=== PATIENT | male | born 1945 | race African-American/Black ===

== ENCOUNTER 2016-06-25 16:31 | Observation (INO) | payer MEDICARE, OTHER ==
[~2016-06-25] VITALS: Ht 175.3 cm; Wt 72.0 kg
[~2016-06-25 16:31] MED LIST: BENT20TA PO; WARF-20 PO
[2016-06-25 16:35] VITALS: BP 157/92; PULSE 75; RESP 18; TEMP 97.7; O2SAT 97
[2016-06-25 17:14] VITALS: BP 132/74; PULSE 72; RESP 17; O2SAT 100
[2016-06-25 17:18] VITALS: RESP 17; O2SAT 99
[2016-06-25] MEDS ORDERED: ASPI1TAB69 PO (17:18)
[2016-06-25] MEDS ORDERED: TAMS5CAP PO (17:20)
[2016-06-25] MEDS ORDERED: HYDR25TA35 PO (17:20)
[2016-06-25] MEDS ORDERED: DILA100C PO (17:20)
[2016-06-25] MEDS ORDERED: PHOS667C5 PO (17:20)
[2016-06-25] MEDS ORDERED: DILT120T PO (17:20)
[2016-06-25] MEDS ORDERED: SODIUM CHLORIDE 0.9% FLUSH 5 ML FLUSH IVF PRN (17:30)
[2016-06-25] MEDS: NITROGLYCERIN 0.4 MG SL 25 TABS/BTL SL SCH ×3 (17:35→17:42)
[2016-06-25 17:49] VITALS: BP 105/60; PULSE 92; RESP 17; O2SAT 99
--- NOTE | 2016-06-25 18:02 | RADRPT ---
EXAM DATE/TIME: 06/25/2016 17:46 [place] COMPARISON: CHEST SINGLE AP, June 12, 2016, 14:28. INDICATIONS : Patient complains of left sided flank pain. MEDICAL HISTORY : Hypertension. Congestive heart failure. Asthma. SURGICAL HISTORY : None. ENCOUNTER: Initial ACUITY: 2 months PAIN SCORE: 10/10 LOCATION: chest FINDINGS: A single view of the chest demonstrates the lungs to be symmetrically aerated without evidence of mas s, infiltrate or effusion. The cardiomediastinal contours are unremarkable. Osseous structures are intact. CONCLUSION: Normal examination. Axel Beasley MD on June 25, 2016 at 18:00 Board Certified Radiologist. This report was verified electronically.
[2016-06-25 18:04] LABS: AUTOMATED NEUTROPHIL # 5.4 TH/MM3 (1.8-7.7); BASOPHIL # 0.1 TH/MM3 (0-0.2); BASOPHIL % 0.7 % (0.0-2.0); EOSINOPHIL # 0.3 TH/MM3 (0-0.4); EOSINOPHIL % 3.4 % (0.0-4.0); HEMATOCRIT 38.4 % (39.0-51.0); LYMPH % 20.7 % (9.0-44.0); LYMPHOCYTE # 1.7 TH/MM3 (1.0-4.8); MEAN CELL VOLUME 93.3 FL (80.0-100.0); MEAN CORPUSCULAR HEMOGLOBIN 31.7 PG (27.0-34.0); NEUT % 65.2 % (16.0-70.0); PLATELET COUNT 135 TH/MM3 (150-450); RED BLOOD COUNT 4.12 MIL/MM3 (4.50-5.90); RED CELL DISTRIBUTION WIDTH 15.2 % (11.6-17.2); WHITE BLOOD COUNT 8.2 TH/MM3 (4.0-11.0)
[2016-06-25 18:14] LABS: HEMO FLAGS AUTO DIFF
[2016-06-25 18:24] LABS: ALKALINE PHOSPHATASE 114 U/L (45-117); ALT (GPT) 23 U/L (12-78); ANION GAP 10 MEQ/L (5-15); AST (GOT) 28 U/L (15-37); BICARBONATE 29.7 MEQ/L (21.0-32.0); BLOOD UREA NITROGEN 49 MG/DL (7-18); CHLORIDE 95 MEQ/L (98-107); CREATINE KINASE 159 U/L (39-308); GLOMERULAR FILTRATION RATE 8 ML/MIN (>89); SODIUM (NA) 135 MEQ/L (136-145); TOTAL BILIRUBIN ADULT 0.3 MG/DL (0.2-1.0)
[2016-06-25 18:25] LABS: POTASSIUM 5.2 MEQ/L (3.5-5.1)
[2016-06-25 18:37] LABS: CKMB 2.8 NG/ML (0.5-3.6)
[2016-06-25 18:52] LABS: APTT (PATIENT) 27.3 SEC (24.3-30.1); INTERNATIONAL NORMALIZED RATIO 1.2 RATIO; PROTHROMBIN TIME - PATIENT 13.4 SEC (9.8-11.6)
[2016-06-25 19:28] VITALS: BP 109/85; PULSE 94; RESP 16; O2SAT 97
--- NOTE | 2016-06-25 20:04 | PD ---
HPI Chief Complaint: Chest Pain Time Seen by Provider: 17:09 Travel History International Travel<30 days: No Contact w/Intl Traveler<30days: No Traveled to known affect area: No History of Present Illness HPI Patient is a 71-year-old male with hx of ESRD on HD, ventricular bigeminy, afib on coumadin, htn, hyperlipidemia, CAD and CVA who presents to emergency room with complaints of chest pain. Patient reports that he has been having chest pain which has been ongoing for the past few months. Patient reports that chest pain has been persistent and he has associated back pain with this. Patient reports that whenever he has back pain, he has chest pain along with it.. Reports that he has an appointment with Dr. Szymanski on August 13 for evaluation of this chest pain. Patient reports nothing makes pain better or worse. Patient reports that he sometimes has shortness of breath with this chest pain. Patient reports that he is on Coumadin for history of A. fib, patient is end-stage renal disease on hemodialysis. Patient does receive dialysis on Tuesdays, and Saturdays. Patient sees Dr. Harris Umana as well as Dr. Zhang as outpt for his dialysis. PFSH Past Medical History Hx Anticoagulant Therapy: Yes (COUMADIN) Anemia: Yes Arthritis: Yes (LEFT KNEE) Asthma: Yes Autoimmune Disease: No Blood Disorders: No Anxiety: No Depression: No Heart Rhythm Problems: Yes Cancer: No Cardiovascular Problems: Yes (CA) High Cholesterol: No Chemotherapy: No Chest Pain: No Congestive Heart Failure: Yes Cerebrovascular Accident: Yes (2011 LEFT SIDED) Diabetes: Yes Dialysis: Yes (, , TUE) Diminished Hearing: No Endocrine: Yes Gastrointestinal Disorders: Yes (GI BLEED) GERD: Yes Glaucoma: No Genitourinary: Yes (BPH) Headaches: Yes Hepatitis: No Hiatal Hernia: Yes Hypertension: Yes Immune Disorder: No Implanted Vascular Access Dvce: No Kidney Stones: Yes Musculoskeletal: No Neurologic: Yes Psychiatric: No Reproductive: No Respiratory: Yes (BRONCHITIS IN PAST) Immunizations Current: No Migraines: Yes Myocardial Infarction: No Radiation Therapy: No Renal Failure: Yes Seizures: Yes Sickle Cell Disease: No Thyroid Disease: No Ulcer: No Past Surgical History Abdominal Surgery: No AICD: No Appendectomy: No Arteriovenous Shunt: No Body Medical Devices: FISTULA Cardiac Surgery: No Cholecystectomy: No Ear Surgery: No Endocrine Surgery: No Eye Surgery: No Genitourinary Surgery: No Gynecologic Surgery: No Insulin Pump: No Joint Replacement: No Neurologic Surgery: No Oral Surgery: No Pacemaker: No Thoracic Surgery: No Other Surgery: Yes (L UPPER ARM SHUNT ) Social History Alcohol Use: No Tobacco Use: No Substance Use: No Allergies-Medications (Allergen,Severity, Reaction): Coded Allergies: No Known Allergies (Verified , 06/25/16) Reported Meds & Prescriptions Reported Meds & Active Scripts Active Bentyl (Dicyclomine HCl) 20 Mg Tab 20 Mg PO TID PRN 5 Days Reported Phoslo (Calcium Acetate (Phosphate Binder)) 667 Mg Cap 1,334 Mg PO TID Diltiazem (Diltiazem HCl) 120 Mg Tab 120 Mg PO DAILY Hydralazine (Hydralazine HCl) 25 Mg Tab 25 Mg PO BID Take with a meal Flomax (Tamsulosin HCl) 0.4 Mg Cap 0.4 Mg PO HS Dilantin (Phenytoin Extended) 100 Mg Cap 300 Mg PO TID Aspirin 81 Mg Tabdr 81 Mg PO DAILY Warfarin 4 Mg Tab 8 Mg PO DAILY Review of Systems Cardiovascular: Positive: Chest Pain or Discomfort Respiratory: Positive: Shortness of Breath Musculoskeletal: Positive: Other (back pain) Physical Exam Narrative GENERAL: nad, nontoxic SKIN: Warm and dry. HEAD: Atraumatic. Normocephalic. EYES: Pupils equal and round. No scleral icterus. No injection or drainage. ENT: No nasal bleeding or discharge. Mucous membranes pink and moist. NECK: Trachea midline. No JVD. CARDIOVASCULAR: Irregular iregular rate and rhythm. Patient with 3/6 systolic murmur RESPIRATORY: No accessory muscle use. Clear to auscultation. Breath sounds equal bilaterally. GASTROINTESTINAL: Abdomen soft, non-tender, nondistended. Hepatic and splenic margins not palpable. MUSCULOSKELETAL: No obvious deformities. No clubbing. No cyanosis. No edema. Patient with left-sided AV fistula with good thrill NEUROLOGICAL: Awake and alert. No obvious cranial nerve deficits. Motor grossly within normal limits. Normal speech. PSYCHIATRIC: Appropriate mood and affect; insight and judgment normal. Data Data Last Documented VS Vital Signs Date Time Temp Pulse Resp B/P Pulse Ox O2 Delivery O2 Flow Rate FiO2 06/25/16 19:28 94 16 109/85 97 Room Air 06/25/16 16:35 97.7 Orders Electrocardiogram (06/25/16 ) B-Type Natriuretic Peptide (06/25/16 17:17) Ckmb (Isoenzyme) Profile (06/25/16 17:17) Complete Blood Count With Diff (06/25/16 17:17) Comprehensive Metabolic Panel (06/25/16 17:17) Prothrombin Time / Inr (Pt) (06/25/16 17:17) Act Partial Throm Time (Ptt) (06/25/16 17:17) Troponin I (06/25/16 17:17) Lipase (06/25/16 17:17) Chest, Single Ap (06/25/16 17:17) Ecg Monitoring (06/25/16 17:17) Iv Access Insert/Monitor (06/25/16 17:17) Oximetry (06/25/16 17:17) Sodium Chloride 0.9% Flush (Ns Flush) (06/25/16 17:30) Nitroglycerin Sl (Nitrostat Sl) (06/25/16 17:30) CKMB (06/25/16 17:30) CKMB% (06/25/16 17:30) Admit Order (Ed Use Only) (06/25/16 20:09) Labs Laboratory Tests Test 06/25/16 06/25/16 17:30 18:15 White Blood Count 8.2 TH/MM3 Red Blood Count 4.12 MIL/MM3 Hemoglobin 13.1 GM/DL Hematocrit 38.4 % Mean Corpuscular Volume 93.3 FL Mean Corpuscular Hemoglobin 31.7 PG Mean Corpuscular Hemoglobin 34.0 % Concent Red Cell Distribution Width 15.2 % Platelet Count 135 TH/MM3 Mean Platelet Volume 9.5 FL Neutrophils (%) (Auto) 65.2 % Lymphocytes (%) (Auto) 20.7 % Monocytes (%) (Auto) 10.0 % Eosinophils (%) (Auto) 3.4 % Basophils (%) (Auto) 0.7 % Neutrophils # (Auto) 5.4 TH/MM3 Lymphocytes # (Auto) 1.7 TH/MM3 Monocytes # (Auto) 0.8 TH/MM3 Eosinophils # (Auto) 0.3 TH/MM3 Basophils # (Auto) 0.1 TH/MM3 CBC Comment AUTO DIFF Sodium Level 135 MEQ/L Potassium Level 5.2 MEQ/L Chloride Level 95 MEQ/L Carbon Dioxide Level 29.7 MEQ/L Anion Gap 10 MEQ/L Blood Urea Nitrogen 49 MG/DL Creatinine 8.19 MG/DL Estimat Glomerular Filtration 8 ML/MIN Rate Random Glucose 166 MG/DL Calcium Level 10.5 MG/DL Total Bilirubin 0.3 MG/DL Aspartate Amino Transf 28 U/L (AST/SGOT) Alanine Aminotransferase 23 U/L (ALT/SGPT) Alkaline Phosphatase 114 U/L Total Creatine Kinase 159 U/L Creatine Kinase MB 2.8 NG/ML Troponin I 0.02 NG/ML B-Type Natriuretic Peptide 536 PG/ML Total Protein 7.5 GM/DL Albumin 3.4 GM/DL Lipase 333 U/L Prothrombin Time 13.4 SEC Prothromb Time International 1.2 RATIO Ratio Activated Partial 27.3 SEC Thromboplast Time MDM Medical Decision Making Medical Screen Exam Complete: Yes Emergency Medical Condition: Yes Interpretation(s) Vital Signs Date Time Temp Pulse Resp B/P Pulse Ox O2 Delivery O2 Flow Rate FiO2 06/25/16 19:28 94 16 109/85 97 Room Air 06/25/16 17:49 92 17 105/60 99 Room Air 06/25/16 17:48 17 06/25/16 17:18 17 99 Room Air 06/25/16 17:14 72 17 132/74 100 Room Air 06/25/16 17:10 76 17 100 Room Air 06/25/16 16:35 97.7 75 18 157/92 97 Room Air CBC & BMP Diagram 06/25/16 17:30 Last Impressions Chest X-Ray 06/25/16 1717 Signed Impressions: Service Date/Time: Saturday, June 25, 2016 17:46 - CONCLUSION: Normal examination. Axel Beasley MD Laboratory Tests Test 06/25/16 06/25/16 17:30 18:15 White Blood Count 8.2 TH/MM3 (4.0-11.0) Red Blood Count 4.12 MIL/MM3 (4.50-5.90) Hemoglobin 13.1 GM/DL (13.0-17.0) Hematocrit 38.4 % (39.0-51.0) Mean Corpuscular Volume 93.3 FL (80.0-100.0) Mean Corpuscular Hemoglobin 31.7 PG (27.0-34.0) Mean Corpuscular Hemoglobin 34.0 % Concent (32.0-36.0) Red Cell Distribution Width 15.2 % (11.6-17.2) Platelet Count 135 TH/MM3 (150-450) Mean Platelet Volume 9.5 FL (7.0-11.0) Neutrophils (%) (Auto) 65.2 % (16.0-70.0) Lymphocytes (%) (Auto) 20.7 % (9.0-44.0) Monocytes (%) (Auto) 10.0 % (0.0-8.0) Eosinophils (%) (Auto) 3.4 % (0.0-4.0) Basophils (%) (Auto) 0.7 % (0.0-2.0) Neutrophils # (Auto) 5.4 TH/MM3 (1.8-7.7) Lymphocytes # (Auto) 1.7 TH/MM3 (1.0-4.8) Monocytes # (Auto) 0.8 TH/MM3 (0-0.9) Eosinophils # (Auto) 0.3 TH/MM3 (0-0.4) Basophils # (Auto) 0.1 TH/MM3 (0-0.2) CBC Comment AUTO DIFF Sodium Level 135 MEQ/L (136-145) Potassium Level 5.2 MEQ/L (3.5-5.1) Chloride Level 95 MEQ/L (98-107) Carbon Dioxide Level 29.7 MEQ/L (21.0-32.0) Anion Gap 10 MEQ/L (5-15) Blood Urea Nitrogen 49 MG/DL (7-18) Creatinine 8.19 MG/DL (0.60-1.30) Estimat Glomerular Filtration 8 ML/MIN (>89) Rate Random Glucose 166 MG/DL (74-106) Calcium Level 10.5 MG/DL (8.5-10.1) Total Bilirubin 0.3 MG/DL (0.2-1.0) Aspartate Amino Transf 28 U/L (15-37) (AST/SGOT) Alanine Aminotransferase 23 U/L (12-78) (ALT/SGPT) Alkaline Phosphatase 114 U/L (45-117) Total Creatine Kinase 159 U/L (39-308) Creatine Kinase MB 2.8 NG/ML (0.5-3.6) Troponin I 0.02 NG/ML (0.02-0.05) B-Type Natriuretic Peptide 536 PG/ML (0-100) Total Protein 7.5 GM/DL (6.4-8.2) Albumin 3.4 GM/DL (3.4-5.0) Lipase 333 U/L (73-393) Prothrombin Time 13.4 SEC (9.8-11.6) Prothromb Time International 1.2 RATIO Ratio Activated Partial 27.3 SEC Thromboplast Time (24.3-30.1) Differential Diagnosis ACS, arrhythmia, aortic dissection, PE, electrolyte abnormality, muscle skeletal back pain. Narrative Course Patient is a 71-year-old female who presents to emergency room for evaluation of chest pain and back pain. Patient reports that for the past few months, he has had increased lower back pain, reports that the back pain radiates to his chest. Patient reports that his back pain has been persistent and unrelenting for the past few months. EKG reviewed, no acute ST or T-wave changes. X-ray chest ordered for evaluation of widened mediastinum. CBC, BMP, cardiac enzymes ordered for further evaluation of chest pain. Patient currently with chest pain which has been ongoing for the past few months. Patient describes chest pain along with back pain, aortic dissection is in consideration. Given the fact that patients symptoms have been ongoing for the past few months, pt with bounding pulses and stable vss with normal xray of chest with no widened mediastinum, I have low suspicion for aortic dissection. Plan to admit to medicine service as pt does receive dialysis on //tue. case reviewed with pt's pcp dr campbell who request admission to medicine service Diagnosis Primary Impression: Chest pain Qualified Code: R07.9 - Chest pain, unspecified type Admitting Information Admitting Physician Requests: Yolette Sandoval DO Jun 25, 2016 20:04
--- NOTE | 2016-06-25 20:24 | HHI.HP ---
[facility] Kassandra Granda MD Admission Diagnosis Chest pain Diagnoses: (1) Chest pain Diagnosis: Principal (2) A-fib Diagnosis: Principal (3) Chronic anticoagulation Diagnosis: Principal (4) ESRD (end stage renal disease) on dialysis Diagnosis: Principal (5) HTN (hypertension), benign Diagnosis: Principal Travel History International Travel<30 Days: No Contact w/Intl Traveler <30 Da: No Traveled to Known Affected Are: No History of Present Illness This is a 71-year-old male with a PMH of HTN, ESRD on HD T/Th/Sat, CVA w/ Residual Left-Sided Hemiparesis and Expressive Aphasia, Afib on Coumadin, CAD and Hyperlipidemia who came to the ER w/ complaints of chest and back pain. History very difficult to obtain from patient, however he reports getting chest pain and back pain after eating. States symptoms have been present since CVA, but pain worse now in the last 2-3 days. Denies SOB, nausea, vomiting or diarrhea. On arrival, BP 157/92, HR 75, O2 sat 100% on RA, Afebrile. CBC at baseline. Creatinine 8.19, previously 5.67 on 06/12/16. INR 1.2. Troponin negative. EKG with no acute changes. CXR with no acute findings. Currently pain-free. Follows w/ Dr. Rosen and Dr. Harris Umana as outpatient. Review of Systems Other ROS: 14 point review of systems otherwise negative. Past Family Social History Past Medical History PMH: HTN, ESRD on HD T/Th/Sat, CVA w/ Residual Left-Sided Hemiparesis and Expressive Aphasia, Afib on Coumadin, CAD and Hyperlipidemia Past Surgical History PAST SURGICAL HISTORY: LUE Fistula Allergies: Coded Allergies: No Known Allergies (Verified , 06/25/16) Family History PAST FAMILY HISTORY: Reviewed. No h/o DM or CAD Social History PAST SOCIAL HISTORY: Negative for alcohol, tobacco or drugs. Physical Exam Vital Signs Vital Signs Date Time Temp Pulse Resp B/P Pulse Ox O2 Delivery O2 Flow Rate FiO2 06/25/16 19:28 94 16 109/85 97 Room Air 06/25/16 17:49 92 17 105/60 99 Room Air 06/25/16 17:48 17 06/25/16 17:18 17 99 Room Air 06/25/16 17:14 72 17 132/74 100 Room Air 06/25/16 17:10 76 17 100 Room Air 06/25/16 16:35 97.7 75 18 157/92 97 Room Air Physical Exam PE: GENERAL: Middle-aged black male in no acute distress. Expressive aphasia, at baseline HEENT: PERRLA, EOMI. No scleral icterus or conjunctival pallor. No lid lag or facial droop. CARDIOVASCULAR: Regular rate and rhythm. No obvious murmurs to auscultation. No chest tenderness to palpation. RESPIRATORY: No obvious rhonchi or wheezing. Clear to auscultation. Breath sounds equal bilaterally. GASTROINTESTINAL: Abdomen soft, non-tender, nondistended. BS normal. MUSCULOSKELETAL: Extremities without clubbing, cyanosis, or edema. No obvious deformities. NEUROLOGICAL: Awake, alert and oriented x4. No new focal neurologic deficits, left-sided hemiparesis. Moving both upper and lower extremities spontaneously. Laboratory Laboratory Tests Test 06/25/16 06/25/16 17:30 18:15 White Blood Count 8.2 Red Blood Count 4.12 Hemoglobin 13.1 Hematocrit 38.4 Mean Corpuscular Volume 93.3 Mean Corpuscular Hemoglobin 31.7 Mean Corpuscular Hemoglobin 34.0 Concent Red Cell Distribution Width 15.2 Platelet Count 135 Mean Platelet Volume 9.5 Neutrophils (%) (Auto) 65.2 Lymphocytes (%) (Auto) 20.7 Monocytes (%) (Auto) 10.0 Eosinophils (%) (Auto) 3.4 Basophils (%) (Auto) 0.7 Neutrophils # (Auto) 5.4 Lymphocytes # (Auto) 1.7 Monocytes # (Auto) 0.8 Eosinophils # (Auto) 0.3 Basophils # (Auto) 0.1 CBC Comment AUTO DIFF Sodium Level 135 Potassium Level 5.2 Chloride Level 95 Carbon Dioxide Level 29.7 Anion Gap 10 Blood Urea Nitrogen 49 Creatinine 8.19 Estimat Glomerular Filtration 8 Rate Random Glucose 166 Calcium Level 10.5 Total Bilirubin 0.3 Aspartate Amino Transf 28 (AST/SGOT) Alanine Aminotransferase 23 (ALT/SGPT) Alkaline Phosphatase 114 Total Creatine Kinase 159 Creatine Kinase MB 2.8 Troponin I 0.02 B-Type Natriuretic Peptide 536 Total Protein 7.5 Albumin 3.4 Lipase 333 Prothrombin Time 13.4 Prothromb Time International 1.2 Ratio Activated Partial 27.3 Thromboplast Time Result Diagram: 06/25/16 17306/25/161729 Assessment and Plan Problem List: (1) Chest pain ICD Code: R07.9 Status: Acute (2) A-fib ICD Code: I48.91 Status: Acute (3) Chronic anticoagulation ICD Code: Z79.01 Status: Acute (4) ESRD (end stage renal disease) on dialysis ICD Code: N18.6 Status: Acute (5) HTN (hypertension), benign ICD Code: I10 Status: Acute Assessment and Plan A/P: 1. Chest Pain: Atypical. Vague complaints of chest/back pain after eating x6 months. Trop negative, EKG w/ no acute findings. Will admit for Observation, place on telemetry, check serial cardiac enzymes. Protonix IV in case GI etiology. LFTs normal. CXR w/ no acute findings, images reviewed by me. 2. A-fib: Chronic. Controlled. Resume home medications. 3. Chronic Anticoagulation: On Coumadin. INR subtherapeutic at 1.2. Resume Coumadin. 4. HTN: Controlled. Resume home medications. 5. ESRD on HD: T//Tue. Follows w/ Dr. Harris Umana, will consult to resume HD as scheduled. 6. DVT Prophylaxis: On Coumadin 7. Social work for DC planning as needed. 8. Case discussed at length with ER physician. Problem Qualifiers (1) Chest pain: Qualified Code: R07.9 - Chest pain, unspecified type Fannie Wilks MD Jun 25, 2016 20:24
[2016-06-25 20:30] LABS: OVALOCYTES 2+ (NORMAL); SCAN/DIFF AUTO DIFF CONFIRMED
[2016-06-25] MEDS ORDERED: MORPHINE SULFATE 4 MG/ML INJ IV PRN (20:30)
[2016-06-25] MEDS ORDERED: ACETAMINOPHEN/HYDROcodone 325 MG/5 MG TAB PO PRN (20:30)
[2016-06-25] MEDS ORDERED: ONDANSETRON HCL 4 MG/2 ML VIAL IVP PRN (20:30)
[2016-06-25] MEDS ORDERED: BISACODYL 10 MG SUPP PR PRN (20:30)
[2016-06-25] MEDS ORDERED: PANTOPRAZOLE SODIUM 40 MG VIAL IV PUSH ONE (20:30)
[2016-06-25] MEDS ORDERED: SODIUM CHLORIDE 0.9% FLUSH 5 ML FLUSH FLUSH PRN (20:30)
[2016-06-25] MEDS ORDERED: ACETAMINOPHEN 325 MG TAB PO PRN (20:30)
[2016-06-25 20:31] LABS: PLATELET ESTIMATE SMEAR LOW (NORMAL)
[2016-06-25 21:29] VITALS: BP 132/66; PULSE 76; RESP 19; TEMP 97.9; O2SAT 100
[2016-06-25] MEDS: SODIUM CHLORIDE 0.9% FLUSH 5 ML FLUSH FLUSH SCH (22:07)
[2016-06-25] MEDS: hydrALAZINE HCL 25 MG TAB PO SCH (22:07)
[2016-06-25] MEDS: TAMSULOSIN HCL 0.4 MG CAP PO SCH (22:07)
[2016-06-26] VITALS (9 sets, daily range): BP systolic 125–158; BP diastolic 66–76; PULSE 41–95; RESP 16–20; TEMP 96.5–98; O2SAT 94–99
[2016-06-26 07:25] LABS: AUTOMATED NEUTROPHIL # 3.6 TH/MM3 (1.8-7.7); BASOPHIL % 0.5 % (0.0-2.0); EOSINOPHIL # 0.2 TH/MM3 (0-0.4); EOSINOPHIL % 4.1 % (0.0-4.0); HEMATOCRIT 37.3 % (39.0-51.0); LYMPH % 25.9 % (9.0-44.0); LYMPHOCYTE # 1.5 TH/MM3 (1.0-4.8); MEAN CELL VOLUME 93.3 FL (80.0-100.0); MEAN CORPUSCULAR HEMOGLOBIN 31.9 PG (27.0-34.0); MEAN CORPUSCULAR HGB CONC 34.2 % (32.0-36.0); MONO % 9.5 % (0.0-8.0); PLATELET COUNT 94 TH/MM3 (150-450); RED CELL DISTRIBUTION WIDTH 15.2 % (11.6-17.2); WHITE BLOOD COUNT 5.9 TH/MM3 (4.0-11.0)
[2016-06-26 07:31] LABS: HEMO FLAGS AUTO DIFF
[2016-06-26 07:34] LABS: INTERNATIONAL NORMALIZED RATIO 1.2 RATIO; PROTHROMBIN TIME - PATIENT 13.4 SEC (9.8-11.6)
[2016-06-26 08:01] LABS: ALKALINE PHOSPHATASE 113 U/L (45-117); ALT (GPT) 18 U/L (12-78); ANION GAP 14 MEQ/L (5-15); AST (GOT) 8 U/L (15-37); BICARBONATE 26.5 MEQ/L (21.0-32.0); BLOOD UREA NITROGEN 60 MG/DL (7-18); CHLORIDE 98 MEQ/L (98-107); GLOMERULAR FILTRATION RATE 7 ML/MIN (>89); POTASSIUM 4.4 MEQ/L (3.5-5.1); SODIUM (NA) 138 MEQ/L (136-145); TOTAL BILIRUBIN ADULT 0.4 MG/DL (0.2-1.0)
[2016-06-26] MEDS ORDERED: SODIUM CHLOR 0.9% 1000 ML INJ 1,000 ML IV PRN ×3 (08:10)
[2016-06-26] MEDS ORDERED: NITROGLYCERIN 0.4 MG SL 25 TABS/BTL SL PRN (08:15)
[2016-06-26] MEDS ORDERED: HEPARIN SODIUM - IV 10,000 UNITS/10 ML VIAL IVF PRN (08:15)
[2016-06-26] MEDS ORDERED: HEPARIN SODIUM - IV 10,000 UNITS/10 ML VIAL PRN (08:15)
[2016-06-26] MEDS ORDERED: SODIUM CHLORIDE 0.9% FLUSH 5 ML FLUSH IVF PRN (08:15)
[2016-06-26] MEDS ORDERED: cloNIDine HCL 0.1 MG TAB PO PRN (08:15)
[2016-06-26] MEDS ORDERED: diphenhydrAMINE HCL 25 MG CAP PO PRN (08:15)
[2016-06-26] MEDS ORDERED: ALBUMIN HUMAN 25% 25 GM/100 ML BAGP IV PRN (08:15)
[2016-06-26] MEDS ORDERED: ACETAMINOPHEN 325 MG TAB PO PRN (08:15)
[2016-06-26] MEDS ORDERED: GELATIN 12 MM/7 MM FOAM TOP PRN (08:15)
[2016-06-26] MEDS ORDERED: GENTAMICIN SULFATE (DIALYSIS USE ONLY) 20 MG/2 ML VIAL IV PRN (08:15)
[2016-06-26] MEDS ORDERED: ONDANSETRON HCL 4 MG/2 ML VIAL IV PRN (08:15)
[2016-06-26] MEDS ORDERED: MANNITOL 12.5 GM/50 ML VIAL IV PRN (08:15)
[2016-06-26] MEDS ORDERED: WARFARIN SOD 4 MG TAB PO SCH (09:00)
[2016-06-26] MEDS: DILTIAZEM-CD 120 MG CAP ER PO SCH (09:07)
[2016-06-26] MEDS: PHENYTOIN SODIUM 100 MG CAP PO SCH ×3 (09:07→19:01)
[2016-06-26] MEDS: hydrALAZINE HCL 25 MG TAB PO SCH ×2 (09:07→20:54)
[2016-06-26] MEDS: ASPIRIN EC 81 MG TABEC PO SCH (09:07)
[2016-06-26] MEDS: SODIUM CHLORIDE 0.9% FLUSH 5 ML FLUSH FLUSH SCH ×2 (09:08→20:54)
[2016-06-26] MEDS: PANTOPRAZOLE SODIUM 40 MG VIAL IV PUSH SCH ×2 (09:08→20:54)
[2016-06-26] MEDS: CALCIUM ACETATE 667 MG CAP PO SCH ×3 (09:10→19:01)
--- NOTE | 2016-06-26 09:57 | HHI.PR ---
Subjective Remarks Follow up for chest/back pains. The patient reports continued pain through the midline substernal area and mid back pain, always worse after eating meals. He states this has been going on since his stroke however it is getting worse. He reports persistent belching but no nausea/vomiting. The patient explains he has aphasia and cannot speak well since his stroke, but after long discussion, he believes this could be GI related and would like to proceed with EGD if possible. Objective Vitals Vital Signs Date Time Temp Pulse Resp B/P Pulse Ox O2 Delivery O2 Flow Rate FiO2 06/26/16 08:26 97.8 95 18 126/70 99 06/26/16 07:09 79 06/26/16 03:37 98.0 62 19 127/76 97 06/26/16 00:00 81 06/25/16 21:29 97.9 76 19 132/66 100 06/25/16 19:28 94 16 109/85 97 Room Air 06/25/16 17:49 92 17 105/60 99 Room Air 06/25/16 17:48 17 06/25/16 17:18 17 99 Room Air 06/25/16 17:14 72 17 132/74 100 Room Air 06/25/16 17:10 76 17 100 Room Air 06/25/16 16:35 97.7 75 18 157/92 97 Room Air Result Diagram: 06/26/16 0654 06/26/16 0654 Imaging Last Impressions Chest X-Ray 06/25/16 1717 Signed Impressions: Service Date/Time: Saturday, June 25, 2016 17:46 - CONCLUSION: Normal examination. Axel Beasley MD Objective Remarks GENERAL: Well-nourished, well-developed pleasant AA male patient in NAD. Expressive aphasia, at baseline. SKIN: Warm and dry. No rash. HEAD: Normocephalic. Atraumatic. EYES: Pupils equal and round. No scleral icterus. No injection or drainage. ENT: No nasal bleeding or discharge. Mucous membranes pink and moist. NECK: Supple. Trachea midline. CARDIOVASCULAR: Regular rate and rhythm. S1, S2 noted. 3/6 systolic murmur noted. RESPIRATORY: No accessory muscle use. Clear to auscultation. Breath sounds equal bilaterally. GASTROINTESTINAL: Abdomen soft, non-tender, nondistended. Normoactive bowel sounds x4. MUSCULOSKELETAL: No obvious deformities. Extremities without clubbing, cyanosis , or edema. NEUROLOGICAL: Awake and alert. No obvious cranial nerve deficits. Left sided weakness. PSYCHIATRIC: Appropriate mood and affect; insight and judgment normal. Medications and IVs Current Medications Medications (Trade) Dose Ordered Sig/Brittaney Route Start Time Stop Time Status Last Admin (NS Flush) 2 ml UNSCH PRN FLUSH 06/25/16 20:30 (NS Flush) 2 ml BID FLUSH 06/25/16 21:00 06/26/16 09:08 (Zofran Inj) 4 mg Q6H PRN IVP 06/25/16 20:30 (Dulcolax Supp) 10 mg DAILY PRN UT 06/25/16 20:30 (Tylenol) 650 mg Q6H PRN PO 06/25/16 20:30 ([place] 5-325 Mg) 1 tab Q4H PRN PO 06/25/16 20:30 (Morphine Inj) 2 mg Q3H PRN IV 06/25/16 20:30 (Protonix Inj) 40 mg Q12H IV PUSH 06/26/16 09:00 06/26/16 09:08 (Ecotrin Ec) 81 mg DAILY PO 06/26/16 09:00 06/26/16 09:07 (Phoslo) 1,334 mg TIDAC PO 06/26/16 08:00 06/26/16 09:10 (Apresoline) 25 mg BID PO 06/25/16 21:00 06/26/16 09:07 (Dilantin) 300 mg TID PO 06/26/16 09:00 06/26/16 09:07 (Flomax) 0.4 mg HS PO 06/25/16 21:00 06/25/16 22:07 (Cardizem Cd) 120 mg DAILY PO 06/26/16 09:00 06/26/16 09:07 (Coumadin) 8 mg DAILY@1600 PO 06/26/16 16:00 Patient Medication Teaching 1 1 ONCE ONCE XX 06/26/16 16:00 06/26/16 16:01 (NS 1000 ml Inj) 1,000 ml @ 0 mls/hr Q0M PRN IV 06/26/16 08:10 Heparin Sodium (Porcine) 8000 units 8,000 units UNSCH PRN IVF 06/26/16 08:15 Sodium Chloride 1,000 ml @ 200 mls/hr Q5H PRN IV 06/26/16 08:10 (NS 1000 ml Inj) 1,000 ml @ 0 mls/hr Q0M PRN IV 06/26/16 08:10 (Mannitol Inj) 12.5 gm UNSCH PRN IV 06/26/16 08:15 (Albumin 25% Inj) 25 gm UNSCH PRN IV 06/26/16 08:15 (NS Flush) 5 ml UNSCH PRN IVF 06/26/16 08:15 (Heparin Inj) UNSCH PRN .XX 06/26/16 08:15 (Gentamicin (Dialysis) Inj) 20 mg UNSCH PRN IV 06/26/16 08:15 (Zofran Inj) 4 mg UNSCH PRN IV 06/26/16 08:15 (Tylenol) 650 mg UNSCH PRN PO 06/26/16 08:15 (Benadryl) 25 mg UNSCH PRN PO 06/26/16 08:15 (Nitrostat Sl) 0.4 mg UNSCH PRN SL 06/26/16 08:15 (Catapres) 0.1 mg UNSCH PRN PO 06/26/16 08:15 (Gelfoam 12 Mm/7 Mm Top) 1 foam UNSCH PRN TOP 06/26/16 08:15 Urinary Catheter: No Vascular Central Line Catheter: No A/P Problem List: (1) Chest pain ICD Code: R07.9 Status: Acute (2) A-fib ICD Code: I48.91 Status: Acute (3) Chronic anticoagulation ICD Code: Z79.01 Status: Acute (4) ESRD (end stage renal disease) on dialysis ICD Code: N18.6 Status: Acute (5) HTN (hypertension), benign ICD Code: I10 Status: Acute Assessment and Plan 71-year-old male with a PMH of HTN, ESRD on HD T/Th/Sat, CVA w/ Residual Left- Sided Hemiparesis and Expressive Aphasia, Afib on Coumadin, CAD and HLD who came to the ER w/ complaints of chest and back pain after eating meals. Chest Pain: Atypical. Vague complaints of chest/back pain after eating x6 months, now worsening. ACS ruled out with negative serial cardiac enzymes x3 and EKG w/ no acute findings. CXR w/ no acute findings, images reviewed by me. Nuclear Stress Test 01/12/16 unremarkable. Echo 01/12/16 with EF 55-60%, mild , trace to mild MR, mild TR. Unlikely cardiac etiology. Started on Protonix IV, possible GI etiology, see below. LFTs normal. Epigastric Pains/Back Pains: after eating meals [id number], with persistent eructation. On IV Protonix. Abd/pelvis CT 06/12/16 essentially unremarkable. Consult GI for further evaluation, possible EGD. A-fib: Chronic. Controlled. Continue patient's Cardizem, aspirin, Coumadin. Chronic Anticoagulation: On Coumadin. INR subtherapeutic at 1.2. Resume Coumadin. HTN: Controlled. Resume patient's hydralazine. ESRD on HD: //Tue. Follows w/ Dr. Harris Umana, consulted to resume HD as scheduled. DVT Prophylaxis: On Coumadin Attending Statement The exam, history, and the medical decision-making described in the above note were completed with the assistance of the mid-level provider. I reviewed and agree with the findings presented. I attest that I had a [id number] encounter with the patient on the same day, and personally performed and documented my assessment and findings in the medical record. atypical postprandial pain.sitting up in chair makes it better. Appears comfortable sitting up in chair on exam. Appreciate GI assistance. Problem Qualifiers (1) Chest pain: Qualified Code: R07.9 - Chest pain, unspecified type Trinidad Louise PA-C Jun 26, 2016 09:57 Nick Mancuso MD Jun 27, 2016 01:48
[2016-06-26 09:59] LABS: OVALOCYTES 2+ (NORMAL); PLATELET ESTIMATE SMEAR LOW (NORMAL); PLATELET MORPHOLOGY NORMAL (NORMAL); SCAN/DIFF AUTO DIFF CONFIRMED
--- NOTE | 2016-06-26 14:19 | EKG ---
Date Performed: 06/25/2016 Time Performed: 16:56:38 PTAGE: 71 years EKG: ATRIAL FLUTTER/TACHYCARDIA WITH ABERRANT CONDUCTION OR VENTRICULAR PREMATURE COMPLEXES LEFT ANTERIOR FASCICULAR BLOCK ABNORMAL ECG Compared to prior tracing no significant change PREVIOUS TRACING : 06/12/2016 13.51 DOCTOR: Martínez Villanueva Interpretating Date/Time 06/26/2016 14:13:14
--- NOTE | 2016-06-26 14:39 | PD.CONS ---
HPI Service Nephrology Consult Requested By Dr. Wilks Reason for Consult ESRD Primary Care Physician Kassandra Granda MD History of Present Illness Patient is 71-year-old male with history of end-stage renal disease, hypertension, atrial fibrillation, left-sided CVA with expressive aphasia who was admitted with left-sided chest pain he is describing his pain as posteriorly associated with movement when he eats food and increase his intensity, he goes to hemodialysis on Tuesday, and Tuesday, follows with Dr. Zhang. Review of Systems Constitutional: COMPLAINS OF: Fatigue Cardiovascular: COMPLAINS OF: Chest pain Neurologic: COMPLAINS OF: Localized weakness Past Family Social History Allergies: Coded Allergies: No Known Allergies (Verified , 06/25/16) Past Medical History End-stage renal disease Hypertension Atrial fibrillation Left CVA with expressive aphasia Past Surgical History Left arm AV fistula Reported Medications Reported Meds & Active Scripts Active Bentyl (Dicyclomine HCl) 20 Mg Tab 20 Mg PO TID PRN 5 Days Reported Phoslo (Calcium Acetate (Phosphate Binder)) 667 Mg Cap 1,334 Mg PO TID Diltiazem (Diltiazem HCl) 120 Mg Tab 120 Mg PO DAILY Hydralazine (Hydralazine HCl) 25 Mg Tab 25 Mg PO BID Take with a meal Flomax (Tamsulosin HCl) 0.4 Mg Cap 0.4 Mg PO HS Dilantin (Phenytoin Extended) 100 Mg Cap 300 Mg PO TID Aspirin 81 Mg Tabdr 81 Mg PO DAILY Warfarin 4 Mg Tab 8 Mg PO DAILY Active Ordered Medications Current Medications Medications (Trade) Dose Ordered Sig/Brittaney Route Start Time Stop Time Status Last Admin (NS Flush) 2 ml UNSCH PRN FLUSH 06/25/16 20:30 (NS Flush) 2 ml BID FLUSH 06/25/16 21:00 06/26/16 09:08 (Zofran Inj) 4 mg Q6H PRN IVP 06/25/16 20:30 (Dulcolax Supp) [address] 06/25/16 20:30 (Tylenol) 650 mg Q6H PRN PO 06/25/16 20:30 ([place] 5-325 Mg) 1 tab Q4H PRN PO 06/25/16 20:30 (Morphine Inj) 2 mg Q3H PRN IV 06/25/16 20:30 (Protonix Inj) 40 mg Q12H IV PUSH 06/26/16 09:00 06/26/16 09:08 (Ecotrin Ec) 81 mg DAILY PO 06/26/16 09:00 06/26/16 09:07 (Phoslo) 1,334 mg TIDAC PO 06/26/16 08:00 06/26/16 11:23 (Apresoline) 25 mg BID PO 06/25/16 21:00 06/26/16 09:07 (Dilantin) 300 mg TID PO 06/26/16 09:00 06/26/16 11:23 (Flomax) 0.4 mg HS PO 06/25/16 21:00 06/25/16 22:07 (Cardizem Cd) 120 mg DAILY PO 06/26/16 09:00 06/26/16 09:07 (Coumadin) 8 mg DAILY@1600 PO 06/26/16 16:00 Patient Medication Teaching 1 1 ONCE ONCE XX 06/26/16 16:00 06/26/16 16:01 (NS 1000 ml Inj) 1,000 ml @ 0 mls/hr Q0M PRN IV 06/26/16 08:10 Heparin Sodium (Porcine) 8000 units 8,000 units UNSCH PRN IVF 06/26/16 08:15 Sodium Chloride 1,000 ml @ 200 mls/hr Q5H PRN IV 06/26/16 08:10 (NS 1000 ml Inj) 1,000 ml @ 0 mls/hr Q0M PRN IV 06/26/16 08:10 (Mannitol Inj) 12.5 gm UNSCH PRN IV 06/26/16 08:15 (Albumin 25% Inj) 25 gm UNSCH PRN IV 06/26/16 08:15 (NS Flush) 5 ml UNSCH PRN IVF 06/26/16 08:15 (Heparin Inj) UNSCH PRN .XX 06/26/16 08:15 (Gentamicin (Dialysis) Inj) 20 mg UNSCH PRN IV 06/26/16 08:15 (Zofran Inj) 4 mg UNSCH PRN IV 06/26/16 08:15 (Tylenol) 650 mg UNSCH PRN PO 06/26/16 08:15 (Benadryl) 25 mg UNSCH PRN PO 06/26/16 08:15 (Nitrostat Sl) 0.4 mg UNSCH PRN SL 06/26/16 08:15 (Catapres) 0.1 mg UNSCH PRN PO 06/26/16 08:15 (Gelfoam 12 Mm/7 Mm Top) 1 foam UNSCH PRN TOP 06/26/16 08:15 Family History Noncontributory Social History He used to smoke in the past without any current smoking or alcohol use Physical Exam Vital Signs Vital Signs Date Time Temp Pulse Resp B/P Pulse Ox O2 Delivery O2 Flow Rate FiO2 06/26/16 12:42 97.5 41 16 144/66 99 06/26/16 08:26 97.8 95 18 126/70 99 06/26/16 07:09 79 06/26/16 03:37 98.0 62 19 127/76 97 06/26/16 00:00 81 06/25/16 21:29 97.9 76 19 132/66 100 06/25/16 19:28 94 16 109/85 97 Room Air 06/25/16 17:49 92 17 105/60 99 Room Air 06/25/16 17:48 17 06/25/16 17:18 17 99 Room Air 06/25/16 17:14 72 17 132/74 100 Room Air 06/25/16 17:10 76 17 100 Room Air 06/25/16 16:35 97.7 75 18 157/92 97 Room Air Physical Exam GENERAL: Well-nourished, well-developed patient. SKIN: Warm and dry. HEAD: Normocephalic. EYES: No scleral icterus. No injection or drainage. NECK: Supple, trachea midline. No JVD or lymphadenopathy. CARDIOVASCULAR: Irregular rhythm without murmurs, gallops, or rubs. RESPIRATORY: Breath sounds equal bilaterally. No accessory muscle use. GASTROINTESTINAL: Abdomen soft, non-tender, nondistended. EXTREMITIES: No cyanosis, or edema. NEUROLOGICAL: Awake, alert, and oriented x 3. Laboratory Laboratory Tests Test 06/25/16 06/25/16 06/26/16 06/26/16 17:30 18:15 00:05 06:54 White Blood Count 8.2 5.9 Red Blood Count 4.12 4.00 Hemoglobin 13.1 12.7 Hematocrit 38.4 37.3 Mean Corpuscular Volume 93.3 93.3 Mean Corpuscular Hemoglobin 31.7 31.9 Mean Corpuscular Hemoglobin 34.0 34.2 Concent Red Cell Distribution Width 15.2 15.2 Platelet Count 135 94 Mean Platelet Volume 9.5 9.6 Neutrophils (%) (Auto) 65.2 60.0 Lymphocytes (%) (Auto) 20.7 25.9 Monocytes (%) (Auto) 10.0 9.5 Eosinophils (%) (Auto) 3.4 4.1 Basophils (%) (Auto) 0.7 0.5 Neutrophils # (Auto) 5.4 3.6 Lymphocytes # (Auto) 1.7 1.5 Monocytes # (Auto) 0.8 0.6 Eosinophils # (Auto) 0.3 0.2 Basophils # (Auto) 0.1 0.0 CBC Comment AUTO DIFF AUTO DIFF Differential Comment AUTO DIFF AUTO DIFF CONFIRMED CONFIRMED Platelet Estimate LOW LOW Ovalocytes 2+ 2+ Sodium Level 135 138 Potassium Level 5.2 4.4 Chloride Level 95 98 Carbon Dioxide Level 29.7 26.5 Anion Gap 10 14 Blood Urea Nitrogen 49 60 Creatinine 8.19 8.96 Estimat Glomerular Filtration 8 7 Rate Random Glucose 166 149 Calcium Level 10.5 9.8 Total Bilirubin 0.3 0.4 Aspartate Amino Transf 28 8 (AST/SGOT) Alanine Aminotransferase 23 18 (ALT/SGPT) Alkaline Phosphatase 114 113 Total Creatine Kinase 159 Creatine Kinase MB 2.8 Troponin I 0.02 0.03 0.04 B-Type Natriuretic Peptide 536 Total Protein 7.5 7.0 Albumin 3.4 3.4 Lipase 333 Prothrombin Time 13.4 13.4 Prothromb Time International 1.2 1.2 Ratio Activated Partial 27.3 Thromboplast Time Platelet Morphology Comment NORMAL Result Diagram: 06/26/16 0654 06/26/16 0654 Imaging Last Impressions Chest X-Ray 06/25/16 0327 Signed Impressions: Service Date/Time: Saturday, June 25, 2016 17:46 - CONCLUSION: Normal examination. Axel Beasley MD Assessment and Plan Problem List: (1) ESRD (end stage renal disease) on dialysis Plan: Patient is seen during hemodialysis and he is tolerating it well we will continue with fluid removal ultrafiltration at 2 L his dialysis days are Tuesday, and Tuesday (2) HTN (hypertension), benign Plan: Continue to monitor (3) A-fib Plan: Stable heart rate (4) CAD (coronary artery disease) Plan: he is being ruled out for a RI German Perez MD Jun 26, 2016 14:38
[2016-06-26] MEDS: WARFARIN SOD 4 MG TAB PO SCH (16:00)
--- NOTE | 2016-06-26 17:44 | MB ---
cc: CASSANDRA HOLLINS MD DATE OF CONSULTATION 06/26/16 REASON FOR CONSULTATION Atypical chest pain. HISTORY OF PRESENT ILLNESS The patient is a very pleasant 71-year-old gentleman known to myself who has a history of chronic atrial fibrillation on Coumadin as well as end-stage renal disease on dialysis, CVA who presented with epigastric discomfort upon eating. Apparently he was going to have an EGD but this got side tracked due to his need for dialysis. The patient's history is very difficult due to his significant dysarthria from his prior stroke. He denies any other chest pain except for when he swallows. PAST MEDICAL HISTORY As above. MEDICATIONS Current, 1. Warfarin. 2. Aspirin 81 mg daily. 3. Dilantin. 4. Cardizem 120 mg daily. 5. Hydralazine 25 mg b.i.d. 6. Flomax 0.4 mg daily. ALLERGIES NO KNOWN DRUG ALLERGIES. PHYSICAL EXAMINATION VITAL SIGNS: Afebrile, pulse 41, respiratory rate 15, BP 144/66, satting 99%. GENERAL: Pleasant well-appearing thin -[place] gentleman with significant dysarthria in no distress. NECK: No JVD. LUNGS: Clear to auscultation bilaterally. CARDIOVASCULAR: Irregularly irregular rhythm with a regular rate. No murmurs appreciated. ABDOMEN: Benign. EXTREMITIES: No edema. CARDIOLOGY STUDIES EKG appears to show atrial fibrillation/flutter with bigeminal PVCs, although at times the atrial activity appears more organized consistent with a sinus versus ectopic atrial rhythm. IMPRESSION Atypical chest pain. The patient clearly has a dysphasia type chest pain that is not cardiac in nature and it only occurs when he swallows. Additionally, he has had a nuclear stress test performed in this hospital in January of last year which showed no evidence of ischemia. Thus, with his relatively recent nonischemic nuclear stress test and atypical symptoms he can proceed for his EGD without any further cardiac risk stratification. I will be available on an as-needed basis. Thank you again for the opportunity to participate in this patient's care. MD CHARLES Witt/ /5:04 PM /5:31 PM
[2016-06-26] MEDS: TAMSULOSIN HCL 0.4 MG CAP PO SCH (20:54)
[2016-06-27] VITALS (8 sets, daily range): BP systolic 117–159; BP diastolic 58–70; PULSE 46–91; RESP 18–20; TEMP 97.6–98.6; O2SAT 96–100
[2016-06-27] MEDS: DILTIAZEM-CD 120 MG CAP ER PO SCH (08:39)
[2016-06-27] MEDS: PANTOPRAZOLE SODIUM 40 MG VIAL IV PUSH SCH ×2 (08:40→20:43)
[2016-06-27] MEDS: PHENYTOIN SODIUM 100 MG CAP PO SCH ×3 (08:40→17:28)
[2016-06-27] MEDS: hydrALAZINE HCL 25 MG TAB PO SCH ×2 (08:40→20:43)
[2016-06-27] MEDS: SODIUM CHLORIDE 0.9% FLUSH 5 ML FLUSH FLUSH SCH ×2 (08:40→20:43)
[2016-06-27] MEDS: ASPIRIN EC 81 MG TABEC PO SCH (08:40)
[2016-06-27] MEDS: CALCIUM ACETATE 667 MG CAP PO SCH ×3 (08:40→17:28)
--- NOTE | 2016-06-27 08:51 | HHI.PR ---
Subjective Remarks Patient is still has on and off back pain is in the middle of the back. Moderate intensity sometime. No other associated symptoms. No nausea vomiting No abnormal pain No chest pain No shortness of breath No headache or dizziness Wants to eat some good food Tolerating clears Review of system for 10 point system otherwise unremarkable Objective Objective Results - Vital Signs Date Time Temp Pulse Resp B/P Pulse Ox O2 Delivery O2 Flow Rate FiO2 06/27/16 08:40 96 21 06/27/16 06:39 98.1 46 19 159/70 99 06/27/16 04:08 97.6 77 20 124/58 100 06/26/16 23:28 97.6 88 20 125/66 98 06/26/16 20:00 76 06/26/16 19:39 97.6 77 20 144/67 98 06/26/16 17:55 96.5 48 18 158/66 94 06/26/16 12:42 97.5 41 16 144/66 99 I/O 06/26/16 06/26/16 06/26/16 06/27/16 06/27/16 06/27/16 07:00 15:00 23:00 07:00 15:00 23:00 Output Total 2000 ml Balance -2000 ml Output Hemodialysis 2000 ml # Voids 1 1 Result Diagram: 06/26/16 0654 06/26/16 0654 Physical Exam Physical Exam GENERAL: Well-nourished, well-developed pleasant AA male patient in NAD. Expressive aphasia, at baseline. SKIN: Warm and dry. No rash. HEAD: Normocephalic. Atraumatic. EYES: Pupils equal and round. No scleral icterus. No injection or drainage. ENT: No nasal bleeding or discharge. Mucous membranes pink and moist. NECK: Supple. Trachea midline. CARDIOVASCULAR: Regular rate and rhythm. S1, S2 noted. 3/6 systolic murmur noted. RESPIRATORY: No accessory muscle use. Clear to auscultation. Breath sounds equal bilaterally. GASTROINTESTINAL: Abdomen soft, non-tender, nondistended. Normoactive bowel sounds x4. MUSCULOSKELETAL: No obvious deformities. Extremities without clubbing, cyanosis , or edema. NEUROLOGICAL: Awake and alert. No obvious cranial nerve deficits. Left sided weakness. PSYCHIATRIC: Appropriate mood and affect; insight and judgment normal. A/P Assessment and Plan (1) Chest pain ICD Code: R07.9 Status: Acute (2) A-fib ICD Code: I48.91 Status: Acute (3) Chronic anticoagulation ICD Code: Z79.01 Status: Acute (4) ESRD (end stage renal disease) on dialysis ICD Code: N18.6 Status: Acute (5) HTN (hypertension), benign ICD Code: I10 Status: Acute Plan 71-year-old male with a PMH of HTN, ESRD on HD T//Tue, CVA w/ Residual Left- Sided Hemiparesis and Expressive Aphasia, Afib on Coumadin, CAD and HLD who came to the ER w/ complaints of chest and back pain after eating meals. Chest Pain: Atypical. Vague complaints of chest/back pain after eating x6 months, now worsening. ACS ruled out with negative serial cardiac enzymes x3 and EKG w/ no acute findings. CXR w/ no acute findings, images reviewed by me. Nuclear Stress Test 01/12/16 unremarkable. Echo 01/12/16 with EF 55-60%, mild , trace to mild MR, mild TR. Unlikely cardiac etiology. Started on Protonix IV, possible GI etiology, see below. LFTs normal. Epigastric Pains/Back Pains: after eating meals [id number], with persistent eructation. On IV Protonix. Abd/pelvis CT 06/12/16 essentially unremarkable. Consult GI for further evaluation, possible EGD on Tuesday A-fib: Chronic. Controlled. Continue patient's Cardizem, aspirin, Coumadin. Chronic Anticoagulation: On Coumadin. INR subtherapeutic at 1.2. Resume Coumadin. Will monitor PT/INR HTN: Controlled. Resume patient's hydralazine. ESRD on HD: T//Tue. Follows w/ Dr. Harris Umana, consulted to resume HD as scheduled. Appreciate nephrology consult DVT Prophylaxis: On Coumadin Labs reviewed Medications reviewed Previous Notes and H&P reviewed Total time spent in management of this patient including discuss it patient and RN is 35 minutes Jaquan Eubanks MD Jun 27, 2016 08:51
--- NOTE | 2016-06-27 13:31 | HHI.GIFU ---
GI Follow-up Note Consult Follow-up FUll consult dictated 1. Abdominal pain with meals 2. GERD 3. HX of CVA 4. A fib 5. Anticoagulation PLAN: 1. NPO after mn 2. EGD tomorrow 3. Hold coumadin today It was a pleasure seeing Cortes Michael. Thank you for this consult. Entered by: Amisha Mcnair MD Jun 27, 2016 13:31
[2016-06-27] MEDS ORDERED: MORPHINE SULFATE 4 MG/ML INJ IV PUSH PRN (15:00)
[2016-06-27] MEDS: WARFARIN SOD 4 MG TAB PO SCH (16:00)
--- NOTE | 2016-06-27 16:06 | EKG ---
Date Performed: 06/26/2016 Time Performed: 12:33:03 PTAGE: 71 years EKG: ATRIAL FLUTTER/TACHYCARDIA WITH ABERRANT CONDUCTION OR VENTRICULAR PREMATURE COMPLEXES LEFT ANTERIOR FASCICULAR BLOCK PROBABLE SEPTAL MYOCARDIAL INFARCTION Bigeminy is new since prior tracing ABNORMAL ECG PREVIOUS TRACING : 06/25/2016 16.56 DOCTOR: Martínez Villanueva Interpretating Date/Time 06/27/2016 16:05:15
--- NOTE | 2016-06-27 16:30 | HHI.NPPN ---
Subjective History of Present Illness 71 year old with ESRD, Afib CVA, has GERD Review of Systems Cardiovascular Cardiac: Chest Pain Gastrointestinal Gastrointestinal: Abdominal Pain Objective Data Data 06/26/16 06/27/16 19:00 07:00 Output Total 2000 ml Balance -2000 ml Output Hemodialysis 2000 ml # Voids 2 Vital Signs Date Time Temp Pulse Resp B/P Pulse Ox O2 Delivery O2 Flow Rate FiO2 06/27/16 12:00 98.0 75 18 117/62 100 06/27/16 08:40 96 21 06/27/16 07:08 89 06/27/16 06:39 98.1 46 19 159/70 99 06/27/16 04:08 97.6 77 20 124/58 100 06/26/16 23:28 97.6 88 20 125/66 98 06/26/16 20:00 76 06/26/16 19:39 97.6 77 20 144/67 98 06/26/16 17:55 96.5 48 18 158/66 94 -: 06/26/16 0654 06/26/16 0654 Physical Exam General Appearance: Well Developed Neck Neck Exam: Neck Supple Pulmonary Resp Exam: Clear Bilaterally, Breath Sounds Equal Cardiology CV Exam: Regular, Normal Sinus Rhythm Gastrointestinal/Abdomen GI Exam: Soft, Non-Tender Extremeties Extremities Exam: No Edema Assessment/Plan Problem List: (1) ESRD (end stage renal disease) on dialysis Plan: Patient had hemodialysis l ultrafiltration of 2 L his dialysis days are Tuesday, and Tuesday (2) HTN (hypertension), benign Plan: Continue to monitor (3) A-fib Plan: Stable heart rate (4) CAD (coronary artery disease) Plan: he is getting caputo by German Dukes MD Jun 27, 2016 16:30
[2016-06-27] MEDS: TAMSULOSIN HCL 0.4 MG CAP PO SCH (20:43)
[2016-06-28 00:01] VITALS: BP 134/63; PULSE 98; RESP 20; TEMP 97.6; O2SAT 96
[2016-06-28 04:06] VITALS: BP 135/60; PULSE 44; PULSE 86; RESP 20; TEMP 97.6; O2SAT 99
[2016-06-28 04:45] VITALS: O2SAT 95
[2016-06-28 06:28] LABS: INTERNATIONAL NORMALIZED RATIO 1.2 RATIO; PROTHROMBIN TIME - PATIENT 13.6 SEC (9.8-11.6)
[2016-06-28 07:32] VITALS: O2SAT 95
[2016-06-28] MEDS ORDERED: PROPOFOL 200 MG/20 ML AMP IV ONE (07:51)
--- NOTE | 2016-06-28 08:04 | HHI.GIFU ---
GI Follow-up Note Consult Follow-up Post procedure note ASSESSMENT/PLAN: 1. Proximal esophageal ulcers (may be due to pill induced) 2. Caroline esophagus 3. Moderate Gastritis 4. Hiatal hernia PLAN: 1. diet as tolerated 2. Nystatin 5 ml tid x 7 days 3. Protonix 40 mg twice per day x 1 mo then once per day 4. Outpt follow up 5. no objection to discharge from gi stand point. It was a pleasure seeing Cortes Michael. Thank you for this consult. Entered by: Amisha Mcnair MD Jun 28, 2016 08:04
[2016-06-28 08:33] VITALS: BP 142/83; PULSE 73; RESP 18; TEMP 98; O2SAT 100
--- NOTE | 2016-06-28 08:34 | HHI.PR ---
Subjective Remarks back from EGD tolerated well poor historian, hx CVA, expressive aphasia no N/V no abd. pain c/o lower back pain no cp no sob no fever Objective Objective Results - Vital Signs Date Time Temp Pulse Resp B/P Pulse Ox O2 Delivery O2 Flow Rate FiO2 06/28/16 07:32 95 21 06/28/16 04:45 95 21 06/28/16 04:06 97.6 86 20 135/60 99 06/28/16 00:01 97.6 98 20 134/63 96 06/27/16 20:00 84 06/27/16 19:31 98.6 91 20 137/61 98 06/27/16 16:00 98.2 65 18 155/65 100 06/27/16 12:00 98.0 75 18 117/62 100 06/27/16 08:40 96 21 Result Diagram: 06/26/16 0654 06/26/16 0654 Other Results Laboratory Tests Test 06/28/16 05:32 Prothrombin Time 13.6 Prothromb Time International 1.2 Ratio ROS General: Other (poor historian, expressive aphasia) Neuro/MS: Other (back pain ) Physical Exam Physical Exam GENERAL: Well-nourished, well-developed pleasant AA male patient in NAD. Expressive aphasia, at baseline. SKIN: Warm and dry. No rash. HEAD: Normocephalic. Atraumatic. EYES: Pupils equal and round. No scleral icterus. No injection or drainage. ENT: No nasal bleeding or discharge. Mucous membranes pink and moist. NECK: Supple. Trachea midline. CARDIOVASCULAR: Regular rate and rhythm. S1, S2 noted. 3/6 systolic murmur noted. RESPIRATORY: No accessory muscle use. Clear to auscultation. Breath sounds equal bilaterally. GASTROINTESTINAL: Abdomen soft, non-tender, nondistended. Normoactive bowel sounds x4. MUSCULOSKELETAL: No obvious deformities. Extremities without clubbing, cyanosis , or edema. NEUROLOGICAL: Awake and alert. No obvious cranial nerve deficits. Left sided weakness. Expressive aphasia PSYCHIATRIC: Appropriate mood and affect; insight and judgment normal. Urinary Catheter: No Vascular Central Line Catheter: No A/P Diagnosis: (1) Chest pain (2) Chronic anticoagulation (3) HTN (hypertension), benign (4) ESRD (end stage renal disease) on dialysis (5) Atrial fibrillation Assessment and Plan 71-year-old male with a PMH of HTN, ESRD on HD T//Sat, CVA w/ Residual Left- Sided Hemiparesis and Expressive Aphasia, Afib on Coumadin, CAD and HLD who came to the ER w/ complaints of chest and back pain after eating meals. Chest Pain: Atypical. Vague complaints of chest/back pain after eating x6 months, now worsening. ACS ruled out with negative serial cardiac enzymes x3 and EKG w/ no acute findings. CXR w/ no acute findings, images reviewed by me. Nuclear Stress Test 01/12/16 unremarkable. Echo 01/12/16 with EF 55-60%, mild , trace to mild MR, mild TR. Unlikely cardiac etiology. Started on Protonix IV, possible GI etiology, see below. LFTs normal. Epigastric Pains/Back Pains: after eating meals [id number], with persistent eructation. On IV Protonix. Abd/pelvis CT 06/12/16 essentially unremarkable. GI consultation, input appreciated. For EGD today S/P EGD 06/28-esophageal ulcers may be due to pill induced, esophageal candidiasis, mod. gastritis, hiatal hernia. Recommends PPI BID x 1 month then once a day, Nystatin 5 ml TID x 7 days, cleared for discharge A-fib: Chronic. Controlled. Continue patient's Cardizem, aspirin, Coumadin. INR subtherapeutic Chronic Anticoagulation: On Coumadin. INR subtherapeutic at 1.2. Continue Coumadin. Will monitor PT/INR HTN: Controlled. Resume patient's hydralazine. ESRD on HD: T//Tue. Follows w/ Dr. Harris Umana, consulted to resume HD as scheduled. Appreciate nephrology consult DVT Prophylaxis: On Coumadin Labs reviewed Medications reviewed will have PT ambulate Improved, no cp, cleared by card and GI Plan to discharge this afternoon F/U Dr. Umana 2 weeks F/U nephrology Diet-heart healthy Activity-as tolerated D/W RN D/W Dr. Eubanks D/W pt. This patient was seen by myself and Dr. Eubanks, this note is written on his behalf. Problem Qualifiers (1) Chest pain: Qualified Code: R07.9 - Chest pain, unspecified type (2) Atrial fibrillation: Qualified Code: I48.91 - Atrial fibrillation, unspecified type Madelaine Bosch Jun 28, 2016 08:33
[2016-06-28] MEDS ORDERED: NYSTATIN SUSP 500,000 U/5 ML CUP SWISH-SWAL SCH (09:00)
[2016-06-28] MEDS: DILTIAZEM-CD 120 MG CAP ER PO SCH (09:09)
[2016-06-28] MEDS: PHENYTOIN SODIUM 100 MG CAP PO SCH (09:09)
[2016-06-28] MEDS: CALCIUM ACETATE 667 MG CAP PO SCH (09:09)
[2016-06-28] MEDS: hydrALAZINE HCL 25 MG TAB PO SCH (09:09)
[2016-06-28] MEDS: PANTOPRAZOLE SODIUM 40 MG VIAL IV PUSH SCH (09:10)
[2016-06-28] MEDS: ASPIRIN EC 81 MG TABEC PO SCH (09:10)
[2016-06-28] MEDS: SODIUM CHLORIDE 0.9% FLUSH 5 ML FLUSH FLUSH SCH (09:10)
[2016-06-28 09:27] VITALS: PULSE 85
[2016-06-28] MEDS ORDERED: PROT40TA PO (09:51)
[2016-06-28] MEDS ORDERED: NYST1000 SWISH-SWAL (09:51)
--- NOTE | 2016-06-28 09:52 | HHI.DCPOC ---
Discharge Care Plan Diagnosis: (1) Chest pain Your Health Problems Are: Chest Pain Goals to Promote Your Health * To prevent worsening of your condition and complications * To maintain your health at the optimal level Directions to Meet Your Goals Take your medications as prescribed Follow your dietary instruction Follow activity as directed Keep your appointments as scheduled Take your immunizations and boosters as scheduled If your symptoms worsen call your PCP, if no PCP go to Urgent Care Center or Emergency Room Smoking is Dangerous to Your Health. Avoid second hand smoke Call the 24-hour hour crisis hotline for domestic abuse at Madelaine Bosch Jun 28, 2016 09:52
[2016-06-28] MEDS ORDERED: CANE/ALUMINUM/A1 MIS (12:27)
--- NOTE | 2016-06-28 15:40 | HHI.DS ---
Discharge Summary Admission Date Jun 25, 2016 at 20:11 Discharge Date: Jun 28, 2016 Admitting Diagnosis Chest pain (1) Chest pain (2) Chronic anticoagulation (3) HTN (hypertension), benign (4) ESRD (end stage renal disease) on dialysis (5) Atrial fibrillation Procedures S/P EGD 06/28-esophageal ulcers may be due to pill induced, esophageal candidiasis, mod. gastritis, hiatal hernia CBC/BMP: 06/26/16 0654 06/26/16 0654 Significant Findings Laboratory Tests Test 06/25/16 06/25/16 06/26/16 06/28/16 17:30 18:15 06:54 05:32 Red Blood Count 4.12 MIL/MM3 4.00 MIL/MM3 (4.50-5.90) (4.50-5.90) Hematocrit 38.4 % 37.3 % (39.0-51.0) (39.0-51.0) Platelet Count 135 TH/MM3 94 TH/MM3 (150-450) (150-450) Monocytes (%) (Auto) 10.0 % 9.5 % (0.0-8.0) (0.0-8.0) Platelet Estimate LOW (NORMAL) LOW (NORMAL) Ovalocytes 2+ (NORMAL) 2+ (NORMAL) Sodium Level 135 MEQ/L (136-145) Potassium Level 5.2 MEQ/L (3.5-5.1) Chloride Level 95 MEQ/L (98-107) Blood Urea Nitrogen 49 MG/DL (7-18) 60 MG/DL (7-18) Creatinine 8.19 MG/DL 8.96 MG/DL (0.60-1.30) (0.60-1.30) Estimat Glomerular Filtration 8 ML/MIN (>89) 7 ML/MIN (>89) Rate Random Glucose 166 MG/DL 149 MG/DL (74-106) (74-106) Calcium Level 10.5 MG/DL (8.5-10.1) B-Type Natriuretic Peptide 536 PG/ML (0-100) Prothrombin Time 13.4 SEC 13.4 SEC 13.6 SEC (9.8-11.6) (9.8-11.6) (9.8-11.6) Hemoglobin 12.7 GM/DL (13.0-17.0) Eosinophils (%) (Auto) 4.1 % (0.0-4.0) Magnesium Level 2.7 MG/DL (1.5-2.5) Aspartate Amino Transf 8 U/L (15-37) (AST/SGOT) Imaging Last Impressions Chest X-Ray 06/25/16 4487 Signed Impressions: Service Date/Time: Saturday, June 25, 2016 17:46 - CONCLUSION: Normal examination. 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 History very difficult to obtain from patient, however he reported getting chest pain and back pain after eating. Stated symptoms have been present since CVA, but pain worse now in the last 2-3 days. Denied SOB, nausea, vomiting or diarrhea. On arrival, BP 157/92, HR 75, O2 sat 100% on RA, Afebrile. CBC at baseline. Creatinine 8.19, previously 5.67 on 06/12/16. INR 1.2. Troponin negative. EKG with no acute changes. CXR with no acute findings. In the ED, was pain-free. Follows w/ Dr. Rosen and Dr. Harris Umana as outpatient. Pt. admitted for further evaluation and treatment. During course of hospitalization, the following took place: Chest Pain: Atypical. Vague complaints of chest/back pain after eating x6 months, now worsening. ACS ruled out with negative serial cardiac enzymes x3 and EKG w/ no acute findings. CXR w/ no acute findings, images reviewed by me. Nuclear Stress Test 01/12/16 unremarkable. Echo 01/12/16 with EF 55-60%, mild , trace to mild MR, mild TR. Unlikely cardiac etiology. Started on Protonix IV, possible GI etiology, see below. LFTs normal. Evaluated by Dr. Rosen, pain not cardiac, GI related. Epigastric Pains/Back Pains: after eating meals [id number], with persistent eructation. On IV Protonix. Abd/pelvis CT 06/12/16 essentially unremarkable. GI consultation, input appreciated. EGD recommended. S/P EGD 06/28-esophageal ulcers may be due to pill induced, esophageal candidiasis, mod. gastritis, hiatal hernia. Recommends PPI BID x 1 month then once a day, Nystatin 5 ml TID x 7 days, cleared for discharge A-fib: Chronic. Controlled. Continued patient's Cardizem, aspirin, Coumadin. INR subtherapeutic Chronic Anticoagulation: On Coumadin. INR subtherapeutic at 1.2. Continue Coumadin. Monitored PT/INR HTN: Controlled. Resumed patient's hydralazine. ESRD on HD: //Tue. Follows w/ Dr. Harris Umana, consulted to resume HD as scheduled. Appreciate nephrology consult DVT Prophylaxis: On Coumadin Labs reviewed Medications reviewed PT ambulated, cane ordered. Pt. improved, no cp, cleared by card and GI Discharged in stable condition. Pt. instructed to: F/U Dr. Umana 2 weeks F/U nephrology Diet-heart healthy Activity-as tolerated Pt Condition on Discharge: Stable Discharge Disposition: Discharge Home Discharge Instructions DIET: Follow Instructions for: Heart Healthy Diet Activities you can perform: Weight Bearing as Dino Follow up Referrals: Gastroenterology - 2 Weeks with JERROD UMANA Nephrology PCP Follow-up New Medications: Cane/Aluminum/Adjustable (Cane/Aluminum/Adjustable) 1 Mis Mis 1 EA .ROUTE DIRECTED #1 EA Nystatin Liq (Nystatin Liq) 100,000 unit/ml Susp 5 ML SWISH-SWAL QID ESOPHAGEAL CANDIDIASIS #1 Ref 0 BOTTLE Pantoprazole (Protonix) 40 Mg Tab 40 MG PO BID take 2 times a day for one month, then decrease to once a day. Reflux #30 Ref 1 TAB Continued Medications: Aspirin (Aspirin) 81 Mg Tabdr 81 MG PO DAILY TAB Calcium Acetate (Phosphate Binder) (Phoslo) 667 Mg Cap 1334 MG PO TID Hyperphosphatemia #180 Ref 0 CAP Diltiazem (Diltiazem) 120 Mg Tab 120 MG PO DAILY Angina #120 Ref 0 TAB Hydralazine (Hydralazine) 25 Mg Tab 25 MG PO BID Take with a meal Blood Pressure Management #60 Ref 0 TAB Phenytoin Extended (Dilantin) 100 Mg Cap 300 MG PO TID Control Seizures #270 Ref 0 CAP Tamsulosin (Flomax) 0.4 Mg Cap 0.4 MG PO HS Manage Prostate Problems #30 Ref 0 CAP Warfarin (Warfarin) 4 Mg Tab 8 MG PO DAILY Blood Clot Prevention #0 Ref 0 TAB Discontinued Medications: Dicyclomine (Bentyl) 20 Mg Tab 20 MG PO TID PRN Bowel Management Days 5 Ref 0 TAB Madelaine Bosch Jun 28, 2016 15:40 Madelaine Bosch Jun 28, 2016 15:40
[2016-06-28] MEDS ORDERED: WARFARIN SOD 2 MG TAB PO SCH (16:00)
--- NOTE | 2016-06-30 20:37 | MR ---
cc: JERROD GAO DATE: 06/28/2016 PROCEDURE: EGD with biopsies DATE OF : 1945 INDICATIONS Epigastric back and esophageal pain. Prior to procedure the patient's lungs are clear. Heart sounds normal. Alert and oriented times 3. The patient was on the appropriate monitor at all times, heart rate, respirations, pulse oximetry were monitored and were within normal limits with PICTURE BOOKER support. PROCEDURE NOTE: Informed consent was obtained. The risks, benefits and alternatives to include but not limited to bleeding, infection, perforation, adverse reaction, anesthesia sedation, failure to identify pathology, were explained to the patient who accepted all the risks. The patient was prepped in the left lateral position. IV sedation was given by the Department of Anesthesia which included propofol. The gastroscope was advanced down the proximal and middle distal esophagus. In the upper third of the esophagus in the posterior esophagus the patient had a large esophageal ulcer and touching the adjacent mucosa had another ulceration, appeared to be "kissing ulcers" likely from a pill induced esophageal ulcer as well as scattered areas of candidiasis was noted. The scope was now getting past the point to the GE junction which was normal. The stomach was entered. Moderate gastritis was noted in the gastric cardia, body and the antrum. Multiple biopsies were done. The scope was retroflexed. Small hiatal hernia was noted. The scope was advanced into the second portion of the duodenum. No significant pathology was noted. The scope was withdrawn back. Multiple biopsies in the antrum and body were taken for H. Pylori as well as biopsies in the upper esophagus at the ulcer site was also biopsied for pathology. The scope was withdrawn completely. The patient tolerated the procedure well and went to recovery without any immediate complication. IMPRESSION: 1. Proximal kissing esophageal ulcers, maybe secondary to pill induced esophagitis/esophageal ulcer. 2. Caroline esophagus, biopsied. 3. Moderate gastritis in the antrum, body and cardia. Biopsied. 4. Small hiatal hernia. 5. Normal duodenum. RECOMMENDATIONS: 1. Advance diet as tolerated. 2. Add Nystatin 5 mL two times a day for 7 days. 3. Protonix 40 milligrams p.o. twice a day for one month, then cut down to once a day. 4. Outpatient follow up for biopsies. MD KELSEY Groves/MADALYN /8:01 AM /8:12 PM
--- NOTE | 2016-07-02 11:39 | MB ---
cc: JERROD GAO DATE OF CONSULTATION 06/27/2016 DATE OF [address] Jerrod Gao REASON FOR CONSULTATION Chest pain with eating. HISTORY OF THE PRESENT ILLNESS This is a 71-year-old gentleman who has a long-standing history of chronic a fib on anticoagulation, end-stage renal disease on hemodialysis who came to the hospital complaining of having epigastric abdominal pain and chest pain. His symptoms are precipitated by eating and complains of having pain in the back radiating down. He underwent cardiac workup which was negative for any cardiac disease. He has had history of CVA and mild expressive aphasia, therefore, he is more forgetful. PAST MEDICAL HISTORY 1. End-stage renal disease on hemodialysis. 2. Atrial fibrillation. 3. Hypertension. 4. History of cerebrovascular accident with expressive aphasia. PAST SURGICAL HISTORY Left AV fistula. MEDICATIONS Please see EMR for complete list. ALLERGIES NO KNOWN DRUG ALLERGIES. FAMILY HISTORY No GI malignancies. SOCIAL HISTORY No current alcohol, tobacco use. Distant history of smoking. FAMILY HISTORY No GI malignancies. REVIEW OF SYSTEMS A 12 point review of systems was obtained, otherwise negative or noncontributory except for what is mentioned in the history of present illness. PHYSICAL EXAMINATION VITAL SIGNS: 98.1, 46, 159/70. 91% on room air. GENERAL: Alert and oriented times three . HEENT: Pupils equal, round and reactive to light. Oral mucosa is moist. NECK: Supple. Nontender. No carotid bruits noted. LUNGS: Clear to auscultation. Respirations nonlabored. CARDIOVASCULAR: Normal rate, irregular rhythm. ABDOMEN: Soft and nontender. Nondistended. Bowel sounds present in all four quadrants. GENITOURINARY: No CVA tenderness noted. LYMPHATICS: No lymphadenopathy. MUSCULOSKELETAL: Normal range of motion. SKIN: Warm, dry, intact. NEUROLOGICAL: Alert oriented, mild expressive aphasia with some weakness. PSYCHIATRIC: Appropriate mood and affect. LABORATORY DATA WBC 5.9, hemoglobin 12.7, platelets 94. Sodium 138, potassium 4.4, creatinine 8.96, BUN 60, total bili 0.4, AST 8, ALT 18, alk phos 113, lipase 333. INR 1.2. IMPRESSION 1. Epigastric abdominal pain precipitated with food, etiology unclear. 2. Cardiac workup had been done which is negative for acute disease. 3. Atrial fibrillation on anticoagulation. 4. End-stage renal disease on hemodialysis. 5. Hypertension. RECOMMENDATIONS 1. Diet as tolerated today. 2. Plan for an upper endoscopy tomorrow. 3. Continue IV Protonix for now. 4. Hold anticoagulation tonight. Thank you very much. Further recommendations to follow depending on the results of the above. MD KELSEY Groves/KK /1:35 PM /11:35 AM
== END 2016-06-28 16:12 | disposition home or self-care (01) ==
LOC: NEPA 16:31 → NEDA 20:11 → NEPHCDU 21:18
PROVIDERS: ADMIT Specialist; ATTEND Specialist
DX: K22.10 Ulcer of esophagus without bleeding (principal); K29.70 Gastritis, unspecified, without bleeding; K44.9 Diaphragmatic hernia without obstruction or gangrene; K21.9 Gastro-esophageal reflux disease without esophagitis; B37.81 Candidal esophagitis; J45.909 Unspecified asthma, uncomplicated; I71.00 Dissection of unspecified site of aorta; I69.354 Hemiplegia and hemiparesis following cerebral infarction affecting left non-dominant side; I69.320 Aphasia following cerebral infarction; I48.2 Chronic atrial fibrillation; I25.10 Atherosclerotic heart disease of native coronary artery without angina pectoris; I12.0 Hypertensive chronic kidney disease with stage 5 chronic kidney disease or end stage renal disease; N18.6 End stage renal disease; E78.5 Hyperlipidemia, unspecified; E11.22 Type 2 diabetes mellitus with diabetic chronic kidney disease; M19.90 Unspecified osteoarthritis, unspecified site; N40.0 Benign prostatic hyperplasia without lower urinary tract symptoms; Z79.01 Long term (current) use of anticoagulants; Z87.442 Personal history of urinary calculi; Z87.891 Personal history of nicotine dependence; Z99.2 Dependence on renal dialysis
CPT/HCPCS: 00740; 43239; 71010; 80053; 82550; 82552; 83690; 83735; 83880; 84484; 85025; 85610; 85730; 88305; 88312; 93005; 97161; 99285; C9113; G0257; G0378; G8987; G8988; J2270; J7030; 90935

== ENCOUNTER 2016-07-11 10:50 | Emergency (ER) | payer MEDICARE, OTHER ==
[~2016-07-11] VITALS: Ht 205.7 cm; Wt 75.0 kg
[~2016-07-11 10:50] MED LIST changes: +ASPI1TAB69 PO; -BENT20TA PO; +CANE/ALUMINUM/A1 MIS; +DILA100C PO; +DILT120T PO; +HYDR25TA35 PO; +NYST1000 SWISH-SWAL; +PHOS667C5 PO; +PROT40TA PO; +TAMS5CAP PO
[2016-07-11 10:52] VITALS: BP 184/71; PULSE 87; RESP 20; TEMP 97.8; O2SAT 98
[2016-07-11] MEDS ORDERED: ORPHENADRINE INJ 60 MG/2 ML AMP IM ONE (11:15)
--- NOTE | 2016-07-11 11:19 | PD ---
HPI Chief Complaint: GI Complaint Time Seen by Provider: 11:19 Travel History International Travel<30 days: No Contact w/Intl Traveler<30days: No Traveled to known affect area: No History of Present Illness HPI 71-year-old male with history of gastritis, ESRD on hemodialysis, CVA, A. fib, presents to emergency department for evaluation of a pain on the right side of his back. Patient states that he was bitten up this morning and when his son brought back his breakfast from [employer], he ate it and then developed this pain. Pain is sharp and stabbing. He describes in the right side of his back. Exacerbated with flexion and extension of his spine. States that when he lies back it spasms area denies any cyst chest pain or tightness. No nausea or vomiting. No shortness of breath. No other symptoms to report. PFSH Past Medical History Hx Anticoagulant Therapy: Yes (COUMADIN) Anemia: Yes Arthritis: Yes (LEFT KNEE) Asthma: Yes Autoimmune Disease: No Blood Disorders: No Anxiety: No Depression: No Heart Rhythm Problems: Yes Cancer: No Cardiovascular Problems: Yes High Cholesterol: No Chemotherapy: No Chest Pain: No Congestive Heart Failure: Yes Cerebrovascular Accident: Yes Diabetes: Yes Dialysis: Yes (T, TH, SAT) Diminished Hearing: No Endocrine: Yes Gastrointestinal Disorders: Yes (GI BLEED) GERD: Yes Glaucoma: No Genitourinary: Yes (BPH) Headaches: Yes Hepatitis: No Hiatal Hernia: Yes Hypertension: Yes Immune Disorder: No Implanted Vascular Access Dvce: No Kidney Stones: Yes Medical other: Yes (ANEMIA) Musculoskeletal: No Neurologic: Yes Psychiatric: No Reproductive: No Respiratory: Yes (BRONCHITIS IN PAST) Immunizations Current: No Migraines: Yes Myocardial Infarction: No Radiation Therapy: No Renal Failure: Yes Seizures: Yes Sickle Cell Disease: No Thyroid Disease: No Ulcer: No Past Surgical History Abdominal Surgery: No AICD: No Appendectomy: No Arteriovenous Shunt: No Body Medical Devices: FISTULA Cardiac Surgery: No Cholecystectomy: No Ear Surgery: No Endocrine Surgery: No Eye Surgery: No Genitourinary Surgery: No Gynecologic Surgery: No Insulin Pump: No Joint Replacement: No Neurologic Surgery: No Oral Surgery: No Pacemaker: No Thoracic Surgery: No Other Surgery: Yes (L UPPER ARM SHUNT ) Social History Alcohol Use: No Tobacco Use: No Substance Use: No Allergies-Medications (Allergen,Severity, Reaction): Coded Allergies: No Known Allergies (Verified , 07/11/16) Reported Meds & Prescriptions Reported Meds & Active Scripts Active Robaxin (Methocarbamol) 500 Mg Tab 500 Mg PO TID PRN Cane/Aluminum/Adjustable (Device) 1 Mis Mis 1 Ea .ROUTE DIRECTED Nystatin Liq 100,000 unit/ml Susp 5 Ml SWISH-SWAL QID Protonix (Pantoprazole Sodium) 40 Mg Tab 40 Mg PO BID take 2 times a day for one month, then decrease to once a day. Reported Phoslo (Calcium Acetate (Phosphate Binder)) 667 Mg Cap 1,334 Mg PO TID Diltiazem (Diltiazem HCl) 120 Mg Tab 120 Mg PO DAILY Hydralazine (Hydralazine HCl) 25 Mg Tab 25 Mg PO BID Take with a meal Flomax (Tamsulosin HCl) 0.4 Mg Cap 0.4 Mg PO HS Dilantin (Phenytoin Extended) 100 Mg Cap 300 Mg PO TID Aspirin 81 Mg Tabdr 81 Mg PO DAILY Warfarin 4 Mg Tab 8 Mg PO DAILY Review of Systems Except as stated in HPI: all other systems reviewed are Neg Physical Exam Narrative GENERAL: Well-nourished male patient, ambulatory no acute distress SKIN: Warm and dry. HEAD: Atraumatic. Normocephalic. EYES: Pupils equal and round. No scleral icterus. No injection or drainage. ENT: No nasal bleeding or discharge. Mucous membranes pink and moist. NECK: Trachea midline. No JVD. CARDIOVASCULAR: Bradycardic rate and rhythm. Over 6 systolic murmur appreciated. RESPIRATORY: No accessory muscle use. Clear to auscultation. Breath sounds equal bilaterally. GASTROINTESTINAL: Abdomen soft, non-tender, nondistended. Hepatic and splenic margins not palpable. MUSCULOSKELETAL: No obvious deformities. No clubbing. No cyanosis. No edema. Tenderness elicited palpation of the right posterior lateral ribs. No crepitus. No deformity. NEUROLOGICAL: Awake and alert. No obvious cranial nerve deficits. Motor grossly within normal limits. Normal speech. PSYCHIATRIC: Appropriate mood and affect; insight and judgment normal. Data Data Last Documented VS Vital Signs Date Time Temp Pulse Resp B/P Pulse Ox O2 Delivery O2 Flow Rate FiO2 07/11/16 11:05 18 07/11/16 10:52 97.8 87 184/71 98 Room Air Orders Chest, Single Ap (07/11/16 ) Spine, Thoracic-Ap/Lat/Sw(3vw) (07/11/16 ) Orphenadrine Inj (Norflex Inj) (07/11/16 11:15) Electrocardiogram (07/11/16 11:25) Al-Mag Hy-Si 40-40-4 Mg/Ml Liq (Mag-Al P (07/11/16 11:30) Lidocaine 2% Viscous (Xylocaine 2% Visco (07/11/16 11:30) MDM Medical Decision Making Medical Screen Exam Complete: Yes Emergency Medical Condition: Yes Medical Record Reviewed: Yes Differential Diagnosis muscle spasm versus strain versus discogenic pain versus gastritis versus pancreatitis Narrative Course 71 year old male presents to the ED for evaluation of R sided back pain. No spinal tenderness to palpation. Abdominal exam is benign chest x-rays without acute pulmonary disease. X-ray of the thoracic spine shows mild diffuse primary bone degenerative changes. Otherwise unremarkable exam for his age. Patient was just hospitalized and observed December 23 to June 28 2016 for observation and work up for chest pain. He is ultimately diagnosed with gastritis. He is taking medication for this. EKGs reviewed by my attending and consistent with a venous EKGs. Patient is given Norflex for pain control. Upon reassessment, patient is lying back in sitting up in the bed, very thankful that his pain has been relieved. He'll be discharged home to follow- up with primary care provider. He agrees to return immediately with any acute worsening symptoms. Diagnosis Primary Impression: Back pain Qualified Code: M54.6 - Left-sided thoracic back pain, unspecified chronicity Additional Impressions: Muscle spasm Gastritis Qualified Code: K29.50 - Chronic gastritis without bleeding, unspecified gastritis type Referrals: [employer]ing Wheel Presser Primary Care Physician Patient Instructions: Diet for Stomach Ulcers and Gastritis (ED), General Instructions, Muscle Spasm (ED) Additional Instructions: Ice and/or warm moist heat may help to alleviate symptoms Follow-up a primary care provider Return immediately with any acute worsening of symptoms Med/Other Pt SpecificInfo: Prescription(s) given Scripts Methocarbamol (Robaxin)500 Mg [id number] Mg PO TID PRN (MUSCLE SPASM) #20 TAB Ref 0 Prov:Abbi Avila 07/11/16 Disposition: 01 DISCHARGE HOME Condition: Stable Abbi Avila Jul 11, 2016 11:19
[2016-07-11] MEDS ORDERED: ALUMINUM/MAGNESIUM/SIMETH 30 ML CUP PO ONE (11:30)
[2016-07-11] MEDS ORDERED: LIDOCAINE VISCOUS 2% SOLN 15 ML UDC PO ONE (11:30)
--- NOTE | 2016-07-11 12:58 | RADRPT ---
EXAM DATE/TIME: 07/11/2016 12:01 [facility] COMPARISON: No previous studies available for comparison. INDICATIONS : Mid back pain MEDICAL HISTORY : Hypertension. Congestive heart failure. Asthma SURGICAL HISTORY : None. ENCOUNTER: Initial ACUITY: 2 months PAIN SCORE: 8/10 LOCATION: Bilateral Tspine FINDINGS: There is normal alignment of the thoracic vertebral bodies. Vertebral body height is maintained. No evidence of fracture or subluxation. Pedicles are intact at all levels. There is mild diffuse prima ry bony degenerative changes. The paravertebral reflections are not thickened. CONCLUSION: Mild diffuse primary bony degenerative changes. Otherwise, unremarkable exam for patient's age. Luis Alfredo Oneill MD on July 11, 2016 at 12:56 Board Certified Radiologist. This report was verified electronically.
--- NOTE | 2016-07-11 12:59 | RADRPT ---
EXAM DATE/TIME: 07/11/2016 12:03 [facility] COMPARISON: CHEST SINGLE AP, June 25, 2016, 17:46. INDICATIONS : Chest Pain MEDICAL HISTORY : Hypertension. Congestive heart failure. Asthma SURGICAL HISTORY : None. ENCOUNTER: Initial ACUITY: 2 months PAIN SCORE: 8/10 LOCATION: Bilateral chest FINDINGS: A single view of the chest demonstrates the lungs to be symmetrically aerated without evidence of mas s, infiltrate or effusion. The cardiomediastinal contours are unremarkable. Osseous structures are intact. CONCLUSION: No acute disease. No significant change has occurred. Luis Alfredo Oneill MD on July 11, 2016 at 12:57 Board Certified Radiologist. This report was verified electronically.
[2016-07-11] MEDS ORDERED: ROBA500T PO (13:17)
--- NOTE | 2016-07-11 15:21 | PD ---
Physical Exam Date Seen by Provider: Jul 11, 2016 Time Seen by Provider: 13:30 Narrative I, Dr. Call, have reviewed the advance practice practitioner's documentation and am in agreement, met with the patient face to face, made the diagnosis, and the medical decision making was done by me. *My assessment and Findings: Patient seen and evaluated with PA, please see PA no further details. Here complaining of left-sided back pains after eating. He is mild tenderness to palpation in the left posterior flank area. Chest x- ray did not reveal any signs of acute pulmonary processes. Abdomen is benign and I do not suspect an acute intra-abdominal process. Patient was given symptomatic relief for discomfort. He appears to be fairly comfortable in the ER. And on reevaluation now or later, he is feeling improved. At this point, my plan would be to release the patient with symptomatic relief and follow-up to primary care physician. Return for any worsening in symptoms as necessary. Data Data Last Documented VS Vital Signs Date Time Temp Pulse Resp B/P Pulse Ox O2 Delivery O2 Flow Rate FiO2 07/11/16 11:05 18 07/11/16 10:52 97.8 87 184/71 98 Room Air Orders Chest, Single Ap (07/11/16 ) Spine, Thoracic-Ap/Lat/Sw(3vw) (07/11/16 ) Orphenadrine Inj (Norflex Inj) (07/11/16 11:15) Electrocardiogram (07/11/16 11:25) Al-Mag Hy-Si 40-40-4 Mg/Ml Liq (Mag-Al P (07/11/16 11:30) Lidocaine 2% Viscous (Xylocaine 2% Visco (07/11/16 11:30) MDM Medical Record Reviewed: Yes Supervised Visit with IVORY: Yes Diagnosis Primary Impression: Back pain Qualified Code: M54.6 - Left-sided thoracic back pain, unspecified chronicity Additional Impressions: Muscle spasm Gastritis Qualified Code: K29.50 - Chronic gastritis without bleeding, unspecified gastritis type Referrals: Asset Management Coordinator Primary Care Physician Patient Instructions: General Instructions, Diet for Stomach Ulcers and Gastritis (ED), Muscle Spasm (ED) Departure Forms: Tests/Procedures Additional Instruction: Ice and/or warm moist heat may help to alleviate symptoms Follow-up a primary care provider Return immediately with any acute worsening of symptoms Scripts Methocarbamol (Robaxin)500 Mg Brs750 Mg PO TID PRN (MUSCLE SPASM) #20 TAB Ref 0 Prov:Abbi Avila 07/11/16 Disposition: 01 DISCHARGE HOME Condition: Stable Sindy Call MD Jul 11, 2016 15:21
--- NOTE | 2016-07-11 18:01 | EKG ---
Date Performed: 07/11/2016 Time Performed: 12:05:23 PTAGE: 71 years EKG: SINUS BRADYCARDIA WITH FIRST DEGREE AV BLOCK WITH FREQUENT VENTRICULAR PREMATURE COMPLEXES IN A BIGEMINAL PATTERN LEFT ANTERIOR FASCICULAR BLOCK PROBABLE SEPTAL MYOCARDIAL INFARCTION NONSPECIF IC INTRAVENTRICULAR CONDUCTION DELAY ABNORMAL ECG PREVIOUS TRACING : 06/26/2016 12.33 No significant change from previous tracing noted. DOCTOR: Roshan Herndon Interpretating Date/Time 07/11/2016 17:59:53
== END 2016-07-11 13:41 | disposition home or self-care (01) ==
LOC: NEPA 10:50
DX: M54.6 Pain in thoracic spine (principal); M62.838 Other muscle spasm; K29.70 Gastritis, unspecified, without bleeding; R07.9 Chest pain, unspecified; I12.0 Hypertensive chronic kidney disease with stage 5 chronic kidney disease or end stage renal disease; N18.6 End stage renal disease; I48.91 Unspecified atrial fibrillation; I50.9 Heart failure, unspecified; E11.9 Type 2 diabetes mellitus without complications; N40.0 Benign prostatic hyperplasia without lower urinary tract symptoms; R00.1 Bradycardia, unspecified; I44.0 Atrioventricular block, first degree; I49.3 Ventricular premature depolarization; I44.4 Left anterior fascicular block; R94.31 Abnormal electrocardiogram [ECG] [EKG]; Z87.442 Personal history of urinary calculi; Z79.01 Long term (current) use of anticoagulants; Z99.2 Dependence on renal dialysis
CPT/HCPCS: 71010; 72072; 93005; 96372; 99283; J2360

== ENCOUNTER 2016-07-18 10:22 | Emergency (ER) | payer MEDICARE, OTHER ==
[~2016-07-18] VITALS: Ht 188 cm; Wt 75.0 kg
[~2016-07-18 10:22] MED LIST changes: +ROBA500T PO
[2016-07-18 10:26] VITALS: BP 130/83; PULSE 80; RESP 15; TEMP 98.2; O2SAT 99
--- NOTE | 2016-07-18 11:43 | PD ---
HPI Chief Complaint: Back/ Neck Pain or Injury Time Seen by Provider: 10:34 Travel History International Travel<30 days: No Contact w/Intl Traveler<30days: No Traveled to known affect area: No History of Present Illness HPI 71-year-old male complains of back pain. Patient states that the pain started about 8 weeks ago. Patient was seen by personal physician and the emergency room physician for back pain. Last visit to the emergency room with June. X-ray of the chest and thoracic spine worse negative acute pathology. Patient was given prescription for Robaxin for back pain. Patient states that he had persistent pain despite taking the medication. Patient was seen by his personal physician Dr. Harris Umana and referred to physical therapy for back pain. Patient has history of end-stage renal disease on dialysis Tuesday, , Tuesday weekly. Patient also has history of gastritis, status post CVA, A. fib, CHF, diabetes, BPH, GERD, anemia. PFSH Past Medical History Hx Anticoagulant Therapy: Yes (COUMADIN) Anemia: Yes Arthritis: Yes (LEFT KNEE) Asthma: Yes Autoimmune Disease: No Blood Disorders: No Anxiety: No Depression: No Heart Rhythm Problems: Yes Cancer: No Cardiovascular Problems: Yes High Cholesterol: No Chemotherapy: No Chest Pain: No Congestive Heart Failure: Yes Cerebrovascular Accident: Yes Diabetes: Yes Patient Takes Glucophage: No Dialysis: Yes (, , TUE) Diminished Hearing: No Endocrine: Yes Gastrointestinal Disorders: Yes (GI BLEED) GERD: Yes Glaucoma: No Genitourinary: Yes (BPH) Headaches: Yes Hepatitis: No Hiatal Hernia: Yes Hypertension: Yes Immune Disorder: No Implanted Vascular Access Dvce: No Kidney Stones: Yes Medical other: Yes (ANEMIA) Musculoskeletal: No Neurologic: Yes Psychiatric: No Reproductive: No Respiratory: Yes (BRONCHITIS IN PAST) Immunizations Current: No Migraines: Yes Myocardial Infarction: No Radiation Therapy: No Renal Failure: Yes Seizures: Yes Sickle Cell Disease: No Thyroid Disease: No Ulcer: No Tetanus Vaccination: > 5 Years Influenza Vaccination: Yes Past Surgical History Abdominal Surgery: No AICD: No Appendectomy: No Arteriovenous Shunt: No Body Medical Devices: FISTULA Cardiac Surgery: No Cholecystectomy: No Ear Surgery: No Endocrine Surgery: No Eye Surgery: No Genitourinary Surgery: No Gynecologic Surgery: No Insulin Pump: No Joint Replacement: No Neurologic Surgery: No Oral Surgery: No Pacemaker: No Thoracic Surgery: No Other Surgery: Yes (L UPPER ARM SHUNT ) Social History Alcohol Use: No Tobacco Use: No Substance Use: No Allergies-Medications (Allergen,Severity, Reaction): Coded Allergies: No Known Allergies (Verified , 07/18/16) Reported Meds & Prescriptions Reported Meds & Active Scripts Active Robaxin (Methocarbamol) 500 Mg Tab 500 Mg PO TID PRN Cane/Aluminum/Adjustable (Device) 1 Mis Mis 1 Ea .ROUTE DIRECTED Nystatin Liq 100,000 unit/ml Susp 5 Ml SWISH-SWAL QID Protonix (Pantoprazole Sodium) 40 Mg Tab 40 Mg PO BID take 2 times a day for one month, then decrease to once a day. Reported Phoslo (Calcium Acetate (Phosphate Binder)) 667 Mg Cap 1,334 Mg PO TID Diltiazem (Diltiazem HCl) 120 Mg Tab 120 Mg PO DAILY Hydralazine (Hydralazine HCl) 25 Mg Tab 25 Mg PO BID Take with a meal Flomax (Tamsulosin HCl) 0.4 Mg Cap 0.4 Mg PO HS Dilantin (Phenytoin Extended) 100 Mg Cap 300 Mg PO TID Aspirin 81 Mg Tabdr 81 Mg PO DAILY Warfarin 4 Mg Tab 8 Mg PO DAILY Review of Systems General / Constitutional: No: Fever Eyes: No: Visual changes HENT: No: Headaches Cardiovascular: No: Chest Pain or Discomfort Respiratory: No: Shortness of Breath Gastrointestinal: Positive: Abdominal Pain Genitourinary: No: Dysuria Musculoskeletal: Positive: Pain Skin: No Rash Neurologic: No: Weakness Psychiatric: No: Depression Endocrine: No: Polydipsia Hematologic/Lymphatic: No: Easy Bruising Physical Exam Narrative GENERAL: Well-nourished, well-developed patient. SKIN: Warm and dry. HEAD: Normocephalic. EYES: No scleral icterus. No injection or drainage. NECK: Supple, trachea midline. No JVD or lymphadenopathy. CARDIOVASCULAR: Regular rate and rhythm without murmurs, gallops, or rubs. RESPIRATORY: Breath sounds equal bilaterally. No accessory muscle use. GASTROINTESTINAL: Abdomen soft, nondistended. Patient has mild tenderness on palpation epigastric area. No rebound tenderness. No mass. MUSCULOSKELETAL: No cyanosis, or edema. BACK: Patient has mild tenderness on palpation lumbar area, without obvious deformity. No CVA tenderness. neurologic exam normal. Data Data Last Documented VS Vital Signs Date Time Temp Pulse Resp B/P Pulse Ox O2 Delivery O2 Flow Rate FiO2 07/18/16 10:26 98.2 80 15 130/83 99 Orders Complete Blood Count With Diff (07/18/16 10:47) Comprehensive Metabolic Panel (07/18/16 10:47) Prothrombin Time / Inr (Pt) (07/18/16 10:47) Lipase (07/18/16 10:47) Thyroid Stimulating Hormone (07/18/16 10:47) Ct Abd/Pel W/O Iv Contrast (07/18/16 10:47) Iv Access Insert/Monitor (07/18/16 10:47) Ecg Monitoring (07/18/16 10:47) Oximetry (07/18/16 10:47) Ct Lumb Spine W/O Contrast (07/18/16 10:47) Labs Laboratory Tests Test 07/18/16 11:20 White Blood Count 6.4 TH/MM3 Red Blood Count 3.90 MIL/MM3 Hemoglobin 12.3 GM/DL Hematocrit 36.8 % Mean Corpuscular Volume 94.4 FL Mean Corpuscular Hemoglobin 31.6 PG Mean Corpuscular Hemoglobin 33.5 % Concent Red Cell Distribution Width 15.1 % Platelet Count 112 TH/MM3 Mean Platelet Volume 8.8 FL Neutrophils (%) (Auto) 63.8 % Lymphocytes (%) (Auto) 24.3 % Monocytes (%) (Auto) 7.9 % Eosinophils (%) (Auto) 3.2 % Basophils (%) (Auto) 0.8 % Neutrophils # (Auto) 4.1 TH/MM3 Lymphocytes # (Auto) 1.6 TH/MM3 Monocytes # (Auto) 0.5 TH/MM3 Eosinophils # (Auto) 0.2 TH/MM3 Basophils # (Auto) 0.1 TH/MM3 CBC Comment DIFF FINAL Differential Comment Prothrombin Time 18.4 SEC Prothromb Time International 1.6 RATIO Ratio Sodium Level 139 MEQ/L Potassium Level 4.7 MEQ/L Chloride Level 99 MEQ/L Carbon Dioxide Level 32.0 MEQ/L Anion Gap 8 MEQ/L Blood Urea Nitrogen 25 MG/DL Creatinine 6.32 MG/DL Estimat Glomerular Filtration 11 ML/MIN Rate Random Glucose 173 MG/DL Calcium Level 10.0 MG/DL Total Bilirubin 0.6 MG/DL Aspartate Amino Transf 13 U/L (AST/SGOT) Alanine Aminotransferase 19 U/L (ALT/SGPT) Alkaline Phosphatase 112 U/L Total Protein 7.5 GM/DL Albumin 3.7 GM/DL Lipase 127 U/L Thyroid Stimulating Hormone 1.090 uIU/ML 3rd [facility] Medical Decision Making Medical Screen Exam Complete: Yes Emergency Medical Condition: Yes Medical Record Reviewed: Yes Interpretation(s) Last Impressions Lumbar Spine CT 07/18/16 1047 Signed Impressions: Service Date/Time: Monday, July 18, 2016 11:41 - CONCLUSION: 1. No fracture or subluxation. 2. Multilevel disc bulges causing mild canal stenosis at L3-4 and mild to moderate canal stenosis at L4-5 Lui Cruz MD Abdomen/Pelvis CT 07/18/161046 Signed Impressions: Service Date/Time: Monday, July 18, 2016 11:41 - CONCLUSION: 1. No renal calculi or hydronephrosis. 2. Diverticulosis without diverticulitis. 3. Kidneys are atrophic with chronic appearing left-sided UPJ junction again noted. 4. Bilateral renal densities are again seen and stable. Lui Cruz MD 1329 PM. CBC within normal limit. BUN 25. Creatinine 6.32. GFR 11. Glucose 173. INR 1.6. Differential Diagnosis Differential diagnosis including gastritis, PUD, pancreatitis, cholecystitis, colitis, UTI, pyelonephritis, acute exacerbation of low back pain. Narrative Course 71-year-old male with epigastric pain and low back pain. History of recurrent back pain for the past few months. History of gastritis. Diagnosis Primary Impression: Acute exacerbation of chronic low back pain Additional Impression: Gastritis Qualified Code: K29.70 - Gastritis without bleeding, unspecified chronicity, unspecified gastritis type Patient Instructions: General Instructions Additional Instructions: Take medication as directed. Follow-up with personal physician for referral to orthopedist for back pain. Take stool softener with pain medication. Med/Other Pt SpecificInfo: Prescription(s) given Scripts Acetaminophen-Codeine (Tylenol-Codeine #3)300-30 mg Tab1 Tab PO Q6HR PRN ( HEADACHE) #30 TAB Prov:Shine Johns MD 07/18/16 Disposition: 01 DISCHARGE HOME Condition: Stable Shine Johns MD Jul 18, 2016 11:43
[2016-07-18 11:49] LABS: AUTOMATED NEUTROPHIL # 4.1 TH/MM3 (1.8-7.7); BASOPHIL # 0.1 TH/MM3 (0-0.2); BASOPHIL % 0.8 % (0.0-2.0); EOSINOPHIL # 0.2 TH/MM3 (0-0.4); EOSINOPHIL % 3.2 % (0.0-4.0); HEMATOCRIT 36.8 % (39.0-51.0); HEMO FLAGS DIFF FINAL; LYMPH % 24.3 % (9.0-44.0); LYMPHOCYTE # 1.6 TH/MM3 (1.0-4.8); MEAN CELL VOLUME 94.4 FL (80.0-100.0); MEAN CORPUSCULAR HEMOGLOBIN 31.6 PG (27.0-34.0); MEAN CORPUSCULAR HGB CONC 33.5 % (32.0-36.0); MONO % 7.9 % (0.0-8.0); NEUT % 63.8 % (16.0-70.0); PLATELET COUNT 112 TH/MM3 (150-450); RED CELL DISTRIBUTION WIDTH 15.1 % (11.6-17.2); WHITE BLOOD COUNT 6.4 TH/MM3 (4.0-11.0)
[2016-07-18 12:00] LABS: INTERNATIONAL NORMALIZED RATIO 1.6 RATIO; PROTHROMBIN TIME - PATIENT 18.4 SEC (9.8-11.6)
[2016-07-18 12:08] LABS: ALT (GPT) 19 U/L (12-78); ANION GAP 8 MEQ/L (5-15); AST (GOT) 13 U/L (15-37); BLOOD UREA NITROGEN 25 MG/DL (7-18); CHLORIDE 99 MEQ/L (98-107); GLOMERULAR FILTRATION RATE 11 ML/MIN (>89); POTASSIUM 4.7 MEQ/L (3.5-5.1); SODIUM (NA) 139 MEQ/L (136-145)
--- NOTE | 2016-07-18 12:11 | RADRPT ---
EXAM DATE/TIME: 07/18/2016 11:41 [facility] COMPARISON: CT ABDOMEN & PELVIS W/O CONTRAST, June 12, 2016, 15:01. INDICATIONS : Epigrastic pain. ORAL CONTRAST: No oral contrast ingested. RADIATION DOSE: 9.96 CTDIvol (mGy) MEDICAL HISTORY : Diabetes mellitus type 2. Cerebrovascular disease. Seizures.renal failure SURGICAL HISTORY : None. ENCOUNTER: Initial ACUITY: 1 day PAIN SCALE: 5/10 LOCATION: lower back TECHNIQUE: Volumetric scanning of the abdomen and pelvis was performed. Using automated exposure control and ad justment of the mA and/or kV according to patient size, radiation dose was kept as low as reasonably achievable to obtain optimal diagnostic quality images. FINDINGS: LOWER LUNGS: The visualized lower lungs are clear. LIVER: Homogeneous density without lesion. There is no dilation of the biliary tree. No calcified gallston es. SPLEEN: Normal size without lesion. PANCREAS: Within normal limits. KIDNEYS: Kidneys are slightly atrophic. Chronic UPJ on the left with low-density lesions again seen bilaterall y. ADRENAL GLANDS: Within normal limits. VASCULAR: There is no aortic aneurysm. BOWEL/MESENTERY: Diverticulosis of the colon without diverticulitis. There is no free intraperitoneal air or fluid. ABDOMINAL WALL: Within normal limits. RETROPERITONEUM: There is no lymphadenopathy. BLADDER: Nondistended. Mildly enlarged prostate. REPRODUCTIVE: Within normal limits. INGUINAL: There is no lymphadenopathy or hernia. MUSCULOSKELETAL: Within normal limits for patient age. CONCLUSION: 1. No renal calculi or hydronephrosis. 2. Diverticulosis without diverticulitis. 3. Kidneys are atrophic with chronic appearing left-sided UPJ junction again noted. 4. Bilateral renal densities are again seen and stable. Lui Cruz MD on July 18, 2016 at 12:07 Board Certified Radiologist. This report was verified electronically.
[2016-07-18 12:17] LABS: ALKALINE PHOSPHATASE 112 U/L (45-117); TOTAL BILIRUBIN ADULT 0.6 MG/DL (0.2-1.0)
--- NOTE | 2016-07-18 12:18 | RADRPT ---
EXAM DATE/TIME: 07/18/2016 11:41 [facility] COMPARISON: No previous studies available for comparison. INDICATIONS : Lower back bernardo. RADIATION DOSE: CTDIvol (mGy) ; Reconstructed from previous dataset MEDICAL HISTORY : Diabetes mellitus type 2. Cerebrovascular disease. Seizures.ranal failure SURGICAL HISTORY : None. ENCOUNTER: Initial ACUITY: 1 day PAIN SCALE: 5/10 LOCATION: lower back TECHNIQUE: Volumetric scanning of the lumbar spine was performed. Multiplanar reconstructions in the sagittal, coronal and oblique axial planes were performed. Using automated exposure control and adjustment of the mA and/or kV according to patient size, radiation dose was kept as low as reasonably achievable t o obtain optimal diagnostic quality images. FINDINGS: VERTEBRAE: Normal vertebral body height. ALIGNMENT: No evidence of subluxation. T12-L1: The thecal sac has a normal diameter. No evidence of disc bulge or protrusion. The neural foramina are patent bilaterally. L1-L2: The thecal sac has a normal diameter. No evidence of disc bulge or protrusion. The neural foramina are patent bilaterally. L2-L3: Mild broad-based disc bulge abuts ventral thecal sac. Mild facet arthropathy. No canal stenosis. The neural foramina are patent bilaterally. L3-L4: Mild broad-based disc bulge abuts ventral thecal sac. Mild facet arthropathy. Mild canal stenosis.The neural foramina are patent bilaterally. L4-L5: Mild broad-based disc bulge abuts ventral thecal sac. Moderate facet arthropathy. Mild to moderate ca nal stenosis. mild to moderate neural foraminal narrowing bilaterally. L5-S1: Mild broad-based disc bulge abuts ventral thecal sac. Mild facet arthropathy. No canal stenosis. Mild narrowing of the neural foramen bilaterally. CONCLUSION: 1. No fracture or subluxation. 2. Multilevel disc bulges causing mild canal stenosis at L3-4 and mild to moderate canal stenosis at L4-5 Lui Cruz MD on July 18, 2016 at 12:14 Board Certified Radiologist. This report was verified electronically.
[2016-07-18] MEDS ORDERED: TYLETAB34 PO (13:37)
== END 2016-07-18 13:55 | disposition home or self-care (01) ==
LOC: NEPA 10:22
DX: M54.9 Dorsalgia, unspecified (principal); G89.29 Other chronic pain; K29.70 Gastritis, unspecified, without bleeding; N18.6 End stage renal disease; I50.9 Heart failure, unspecified; I10 Essential (primary) hypertension; Z79.01 Long term (current) use of anticoagulants; Z86.73 Personal history of transient ischemic attack (TIA), and cerebral infarction without residual deficits; Z99.2 Dependence on renal dialysis
CPT/HCPCS: 72131; 74176; 80053; 83690; 84443; 85025; 85610

== ENCOUNTER 2016-08-17 10:46 | Emergency (ER) | payer MEDICARE, OTHER ==
[~2016-08-17 10:46] MED LIST changes: +TYLETAB34 PO
[2016-08-17 10:50] VITALS: BP 168/74; PULSE 89; RESP 15; O2SAT 96
--- NOTE | 2016-08-17 11:05 | PD ---
HPI Chief Complaint: Seizure Time Seen by Provider: 10:55 Travel History International Travel<30 days: No Contact w/Intl Traveler<30days: No History of Present Illness HPI This 71-year-old man who presents to the emergency department from [place] dialysis after witnessed seizure. Staff reports that he had a 2 minute long grand mal seizure, after the conclusion of dialysis. He did complete dialysis. He is on Dilantin, and they report a history of seizures. Patient has some expressive aphasia, distal somewhat postictal, and is unable to provide much additional history. Reports having some headache and body pain. History Past Medical History Narrative Medical Hypertension Diabetes End-stage renal disease, on dialysis Tuesday, sees Dr. Harris Umana, left AV fistula A. fib, on warfarin History of CVA, residual left-sided weakness with expressive aphasia CAD Hyperlipidemia Seizure disorder, on phenytoin 300 mg 3 times a day Social History Alcohol Use: No Tobacco Use: No Allergies-Medications (Allergen,Severity, Reaction): Coded Allergies: No Known Allergies (Verified , 08/17/16) Reported Meds & Prescriptions Reported Meds & Active Scripts Active Robaxin (Methocarbamol) 500 Mg Tab 500 Mg PO TID PRN Protonix (Pantoprazole Sodium) 40 Mg Tab 40 Mg PO BID take 2 times a day for one month, then decrease to once a day. Reported Phoslo (Calcium Acetate (Phosphate Binder)) 667 Mg Cap 1,334 Mg PO TID Diltiazem (Diltiazem HCl) 120 Mg Tab 120 Mg PO DAILY Hydralazine (Hydralazine HCl) 25 Mg Tab 25 Mg PO BID Take with a meal Flomax (Tamsulosin HCl) 0.4 Mg Cap 0.4 Mg PO HS Dilantin (Phenytoin Extended) 100 Mg Cap 300 Mg PO TID Aspirin 81 Mg Tabdr 81 Mg PO DAILY Warfarin 4 Mg Tab 8 Mg PO DAILY Review of Systems Except as stated in HPI: all other systems reviewed are Neg Physical Exam Narrative GENERAL: 71-year-old man, generally well-appearing, no acute distress. SKIN: Warm and dry. HEAD: Atraumatic. Normocephalic. EYES: Pupils equal and round. No scleral icterus. No injection or drainage. ENT: No nasal bleeding or discharge. Mucous membranes pink and moist. NECK: Trachea midline. No JVD. CARDIOVASCULAR: Regular rate and rhythm. No murmur appreciated. RESPIRATORY: No accessory muscle use. Clear to auscultation. Breath sounds equal bilaterally. GASTROINTESTINAL: Abdomen soft, non-tender, nondistended. Hepatic and splenic margins not palpable. MUSCULOSKELETAL: No obvious deformities. Left AV fistula still accessed. NEUROLOGICAL: Still little bit sedated. Marked expressive aphasia. Moves all extremities. Data Data Last Documented VS Vital Signs Date Time Temp Pulse Resp B/P Pulse Ox O2 Delivery O2 Flow Rate FiO2 08/17/16 10:50 89 15 168/74 96 Room Air Orders Complete Blood Count With Diff (08/17/16 10:58) Comprehensive Metabolic Panel (08/17/16 10:58) Act Partial Throm Time (Ptt) (08/17/16 10:58) Prothrombin Time / Inr (Pt) (08/17/16 10:58) Phenytoin (Dilantin) (08/17/16 10:58) Iv Access Insert/Monitor (08/17/16 10:58) Fosphenytoin Inj (Cerebyx Inj) (08/17/16 12:30) Labs Laboratory Tests Test 08/17/16 11:15 White Blood Count 6.0 TH/MM3 Red Blood Count 3.73 MIL/MM3 Hemoglobin 11.7 GM/DL Hematocrit 35.3 % Mean Corpuscular Volume 94.7 FL Mean Corpuscular Hemoglobin 31.3 PG Mean Corpuscular Hemoglobin 33.0 % Concent Red Cell Distribution Width 14.5 % Platelet Count 97 TH/MM3 Mean Platelet Volume 9.4 FL Neutrophils (%) (Auto) 71.9 % Lymphocytes (%) (Auto) 17.5 % Monocytes (%) (Auto) 7.5 % Eosinophils (%) (Auto) 2.6 % Basophils (%) (Auto) 0.5 % Neutrophils # (Auto) 4.3 TH/MM3 Lymphocytes # (Auto) 1.1 TH/MM3 Monocytes # (Auto) 0.5 TH/MM3 Eosinophils # (Auto) 0.2 TH/MM3 Basophils # (Auto) 0.0 TH/MM3 CBC Comment AUTO DIFF Differential Comment AUTO DIFF CONFIRMED Platelet Estimate LOW Platelet Morphology Comment NORMAL Ovalocytes 1+ Keratocytes OCC Prothrombin Time 13.0 SEC Prothromb Time International 1.2 RATIO Ratio Activated Partial 25.0 SEC Thromboplast Time Sodium Level 138 MEQ/L Potassium Level 4.1 MEQ/L Chloride Level 100 MEQ/L Carbon Dioxide Level 25.2 MEQ/L Anion Gap 13 MEQ/L Blood Urea Nitrogen 23 MG/DL Creatinine 5.78 MG/DL Estimat Glomerular Filtration 12 ML/MIN Rate Random Glucose 149 MG/DL Calcium Level 9.0 MG/DL Total Bilirubin 0.4 MG/DL Aspartate Amino Transf 18 U/L (AST/SGOT) Alanine Aminotransferase 16 U/L (ALT/SGPT) Alkaline Phosphatase 101 U/L Total Protein 7.4 GM/DL Albumin 3.5 GM/DL Phenytoin (Dilantin) Level 4.0 MCG/ML [facility] Medical Decision Making Medical Screen Exam Complete: Yes Emergency Medical Condition: Yes Interpretation(s) LABS: CBC remarkable for mild anemia. CMP remarkable for elevated BUN and creatinine. Coags INR 1.2 Dilantin 4.0 Differential Diagnosis Seizure, electrolyte abnormality, infection, other Narrative Course Medical decision making This is a 71-year-old man who presents to the emergency department after having a witnessed seizure at dialysis. Known seizure history. Still little bit postictal. History difficult due to patient's marked expressive aphasia. We' ll check labs. We'll have the dialysis nurse D access his left AV fistula. Check labs. FINAL: Labs unremarkable. Dilantin is undetectable. Patient able accommodate doesn't take his Dilantin because the pills are too bulky. Studies on 300 3 times a day which I think may be a mistake. It's usually 100 3 times a day. They may have had increase if it was low. Nonetheless he would never switching modalities we will put him on 100 3 times a day of the Dilantin the see if he can actually take that, and have him follow-up closely. Diagnosis Primary Impression: Seizure disorder Additional Instructions: Change Dilantin to liquid Dilantin. Follow-up with your primary doctor in 2-[address] or operate heavy machinery until cleared by neurology. You should avoid being in any situation where if you had a seizure it could be dangerous such as swimming, looking on a ladder, or other such activities. Return to the emergency department for any seizures lasting more than 5 minutes , [id number] seizures, or seizures with prolonged confusion afterwards. Med/Other Pt SpecificInfo: Existing Med Changed Scripts Phenytoin Liq (Dilantin-125 Liq)125 Mg/5 Ml [id number] Mg PO Q8HR 30 Days Ref 0 Prov:Dewayne Phan MD 08/17/16 Disposition: 01 DISCHARGE HOME Condition: Stable Dewayne Phan MD Aug 17, 2016 11:05
[2016-08-17 11:34] LABS: AUTOMATED NEUTROPHIL # 4.3 TH/MM3 (1.8-7.7); BASOPHIL % 0.5 % (0.0-2.0); EOSINOPHIL # 0.2 TH/MM3 (0-0.4); EOSINOPHIL % 2.6 % (0.0-4.0); HEMATOCRIT 35.3 % (39.0-51.0); LYMPH % 17.5 % (9.0-44.0); LYMPHOCYTE # 1.1 TH/MM3 (1.0-4.8); MEAN CELL VOLUME 94.7 FL (80.0-100.0); MEAN CORPUSCULAR HEMOGLOBIN 31.3 PG (27.0-34.0); MONO % 7.5 % (0.0-8.0); NEUT % 71.9 % (16.0-70.0); PLATELET COUNT 97 TH/MM3 (150-450); RED BLOOD COUNT 3.73 MIL/MM3 (4.50-5.90); RED CELL DISTRIBUTION WIDTH 14.5 % (11.6-17.2)
[2016-08-17 11:37] LABS: HEMO FLAGS AUTO DIFF
[2016-08-17 11:44] LABS: INTERNATIONAL NORMALIZED RATIO 1.2 RATIO
[2016-08-17 11:54] LABS: ALKALINE PHOSPHATASE 101 U/L (45-117); ALT (GPT) 16 U/L (12-78); ANION GAP 13 MEQ/L (5-15); AST (GOT) 18 U/L (15-37); BICARBONATE 25.2 MEQ/L (21.0-32.0); BLOOD UREA NITROGEN 23 MG/DL (7-18); CHLORIDE 100 MEQ/L (98-107); GLOMERULAR FILTRATION RATE 12 ML/MIN (>89); SODIUM (NA) 138 MEQ/L (136-145); TOTAL BILIRUBIN ADULT 0.4 MG/DL (0.2-1.0)
[2016-08-17 11:55] LABS: POTASSIUM 4.1 MEQ/L (3.5-5.1)
[2016-08-17 12:18] LABS: KERATOCYTES OCC (NORMAL); OVALOCYTES 1+ (NORMAL); PLATELET ESTIMATE SMEAR LOW (NORMAL); PLATELET MORPHOLOGY NORMAL (NORMAL); SCAN/DIFF AUTO DIFF CONFIRMED
[2016-08-17] MEDS ORDERED: FOSPHENYTOIN SODIUM 500 MG PE/10 ML VIAL IV ONE (12:30)
[2016-08-17] MEDS ORDERED: DILA125S PO (13:56)
== END 2016-08-17 15:37 | disposition home or self-care (01) ==
LOC: NEPA 10:46
DX: R56.9 Unspecified convulsions (principal); I12.0 Hypertensive chronic kidney disease with stage 5 chronic kidney disease or end stage renal disease; E11.22 Type 2 diabetes mellitus with diabetic chronic kidney disease; I48.91 Unspecified atrial fibrillation; N18.6 End stage renal disease; I69.354 Hemiplegia and hemiparesis following cerebral infarction affecting left non-dominant side; I69.320 Aphasia following cerebral infarction; E78.5 Hyperlipidemia, unspecified; Z79.01 Long term (current) use of anticoagulants; Z99.2 Dependence on renal dialysis
CPT/HCPCS: 80053; 80185; 85025; 85610; 85730; 96374; 99284; Q2009

== ENCOUNTER 2016-10-01 16:26 | Emergency (ER) | payer MEDICARE, OTHER ==
[~2016-10-01] VITALS: Ht 175.3 cm; Wt 71.5 kg
[~2016-10-01 16:26] MED LIST changes: -CANE/ALUMINUM/A1 MIS; +DILA125S PO; -NYST1000 SWISH-SWAL; -TYLETAB34 PO
[2016-10-01 16:28] VITALS: BP 146/101; PULSE 84; RESP 17; TEMP 98.2; O2SAT 98
[2016-10-01] MEDS ORDERED: TRAM50TA PO (18:16)
--- NOTE | 2016-10-01 18:25 | PD ---
HPI Chief Complaint: Flank/Kidney Pain Time Seen by Provider: 18:07 Travel History International Travel<30 days: No Contact w/Intl Traveler<30days: No Traveled to known affect area: No History of Present Illness HPI This patient complains of left low back pain. He's had this pain every day for the last 6 months. No acute injury or change in pain. He comes in today out of frustration. His family physician and has seen it. He's tried some alternative modalities such as massage therapy. He doesn't have any pain medicine for. He denies any neurologic complaint. He is a dialysis patient scheduled for tomorrow and reports compliance. No change in bowel or urinary habits. No fever. Symptoms severity is mild to moderate. He is ambulatory in the department [facility] Past Medical History Hx Anticoagulant Therapy: Yes (WARFARIN ) Anemia: Yes Arthritis: Yes (LEFT KNEE) Asthma: Yes Autoimmune Disease: No Blood Disorders: No Anxiety: No Depression: No Heart Rhythm Problems: Yes Cancer: No Cardiovascular Problems: Yes High Cholesterol: No Chemotherapy: No Chest Pain: No Congestive Heart Failure: Yes Cerebrovascular Accident: Yes Diabetes: Yes (no meds) Dialysis: Yes (T, TH, SAT) Diminished Hearing: No Endocrine: Yes Gastrointestinal Disorders: Yes (GI BLEED) GERD: Yes Glaucoma: No Genitourinary: Yes (BPH) Headaches: Yes Hepatitis: No Hiatal Hernia: Yes Hypertension: Yes Immune Disorder: No Implanted Vascular Access Dvce: No Kidney Stones: Yes Musculoskeletal: No Neurologic: Yes Psychiatric: No Reproductive: No Respiratory: Yes (BRONCHITIS IN PAST) Immunizations Current: No Migraines: Yes Myocardial Infarction: No Radiation Therapy: No Renal Failure: Yes Seizures: Yes Sickle Cell Disease: No Thyroid Disease: No Ulcer: No Past Surgical History Abdominal Surgery: No AICD: No Appendectomy: No Arteriovenous Shunt: No Body Medical Devices: FISTULA Cardiac Surgery: No Cholecystectomy: No Ear Surgery: No Endocrine Surgery: No Eye Surgery: No Genitourinary Surgery: No Gynecologic Surgery: No Insulin Pump: No Joint Replacement: No Neurologic Surgery: No Oral Surgery: No Pacemaker: No Thoracic Surgery: No Other Surgery: Yes (L UPPER ARM SHUNT ) Social History Alcohol Use: No Tobacco Use: No Substance Use: No Allergies-Medications (Allergen,Severity, Reaction): Coded Allergies: No Known Allergies (Verified , 10/01/16) Reported Meds & Prescriptions Reported Meds & Active Scripts Active Tramadol (Tramadol HCl) 50 Mg Tab 50 Mg PO Q6H PRN Dilantin-125 Liq (Phenytoin) 125 Mg/5 Ml Susp 100 Mg PO Q8HR 30 Days Robaxin (Methocarbamol) 500 Mg Tab 500 Mg PO TID PRN Protonix (Pantoprazole Sodium) 40 Mg Tab 40 Mg PO BID take 2 times a day for one month, then decrease to once a day. Reported Phoslo (Calcium Acetate (Phosphate Binder)) 667 Mg Cap 1,334 Mg PO TID Diltiazem (Diltiazem HCl) 120 Mg Tab 120 Mg PO DAILY Hydralazine (Hydralazine HCl) 25 Mg Tab 25 Mg PO BID Take with a meal Flomax (Tamsulosin HCl) 0.4 Mg Cap 0.4 Mg PO HS Dilantin (Phenytoin Extended) 100 Mg Cap 300 Mg PO TID Aspirin 81 Mg Tabdr 81 Mg PO DAILY Warfarin 4 Mg Tab 8 Mg PO DAILY Review of Systems General / Constitutional: No: Fever HENT: No: Headaches Cardiovascular: No: Chest Pain or Discomfort Respiratory: No: Cough Physical Exam Narrative NEUROLOGICAL: Awake and alert. Pupils are equal round and reactive. Motor and sensory grossly within normal limits. Five out of 5 muscle strength in all muscle groups. Normal speech. GASTROINTESTINAL: Abdomen soft, non-tender, nondistended. Positive bowel sounds. No hepato-splenomegaly, or palpable masses. No guarding. SKIN: Focused skin assessment reveals no rash or ulcers. Skin is warm and dry. Palpation shows no induration or nodules. Data Data Last Documented VS Vital Signs Date Time Temp Pulse Resp B/P Pulse Ox O2 Delivery O2 Flow Rate FiO2 10/01/16 16:28 98.2 84 17 146/101 98 MDM Medical Decision Making Medical Screen Exam Complete: Yes Emergency Medical Condition: Yes Medical Record Reviewed: Yes Differential Diagnosis Lumbar strain, sciatica, chronic back pain, disc herniation Narrative Course I have reviewed the patient's electronic medical record. Patient was here in June 2016 for the same problem. He had extensive workup including CT of abdomen and pelvis and CT of lumbar spine. This patient has 6 months of chronic back pain with no change acutely today. No red flags to suggest emergent imaging is indicated. He is ambulatory with baseline neurologic exam. He should follow-up with his primary physician and get a more definitive plan which she does not seem to have at this point. I did write some tramadol for some symptom relief. Diagnosis Primary Impression: Acute exacerbation of chronic low back pain Additional Instructions: The patient was advised to follow up with their physician and return if they worsen. The patient was warned about potential sedation for the medications they will receive on prescription. Med/Other Pt SpecificInfo: Prescription(s) given Scripts Tramadol 50 Mg Tab50 Mg PO Q6H PRN (PAIN) #25 TAB Ref 0 Prov:Wilberto Gunter MD 10/01/16 Disposition: 01 DISCHARGE HOME Condition: Stable Wilberto Gunter MD Oct 01, 2016 18:25
== END 2016-10-01 18:31 | disposition home or self-care (01) ==
LOC: NEPD 16:26
DX: M54.5 Low back pain (principal); G89.29 Other chronic pain; Z99.2 Dependence on renal dialysis; J45.909 Unspecified asthma, uncomplicated; I50.9 Heart failure, unspecified; Z86.73 Personal history of transient ischemic attack (TIA), and cerebral infarction without residual deficits; E11.9 Type 2 diabetes mellitus without complications; K21.9 Gastro-esophageal reflux disease without esophagitis; N40.0 Benign prostatic hyperplasia without lower urinary tract symptoms; I10 Essential (primary) hypertension
CPT/HCPCS: 99283

== ENCOUNTER 2016-10-21 20:51 | Emergency (ER) | payer MEDICARE, OTHER ==
[~2016-10-21] VITALS: Ht 175.3 cm; Wt 70.0 kg
[~2016-10-21 20:51] MED LIST changes: +TRAM50TA PO
[2016-10-21 20:54] VITALS: BP 127/61; PULSE 73; RESP 15; TEMP 98.3; O2SAT 95
[2016-10-21] MEDS ORDERED: DULO1CAP2 PO (22:54)
[2016-10-21] MEDS ORDERED: GABA300C5 PO (22:54)
[2016-10-21 23:15] VITALS: BP 142/77; PULSE 77; RESP 16; O2SAT 98
--- NOTE | 2016-10-21 23:36 | PD ---
HPI Chief Complaint: Fall Time Seen by Provider: 11:20 Travel History International Travel<30 days: No Contact w/Intl Traveler<30days: No Traveled to known affect area: No History of Present Illness HPI 71-year-old male presents for evaluation of left knee pain. He reports that this morning he was returning home from dialysis when he tripped and fell, hitting his left knee against the ground. He has had left knee pain since then which is mild, aching, worse with walking. He has been using a golf club as a cane. Symptoms persisted today which prompted evaluation. He sustained a small abrasion to the posterior left arm as well. Denies any other injuries. Denies any head or neck pain, chest pain or shortness of breath, abdominal pain , nausea or vomiting, dizziness or lightheadedness. He has no other complaints.. PFSH Past Medical History Hx Anticoagulant Therapy: Yes Anemia: Yes Arthritis: Yes (LEFT KNEE) Asthma: Yes Autoimmune Disease: No Blood Disorders: No Anxiety: No Depression: No Heart Rhythm Problems: Yes Cancer: No Cardiovascular Problems: Yes (MA, HTN) High Cholesterol: No Chemotherapy: No Chest Pain: No Congestive Heart Failure: Yes Diabetes: No (no meds) Dialysis: Yes (T, TH, SAT) Diminished Hearing: No Endocrine: Yes Gastrointestinal Disorders: Yes (GI BLEED) GERD: Yes Glaucoma: No Genitourinary: Yes (BPH) Headaches: Yes Hepatitis: No Hiatal Hernia: Yes Hypertension: Yes Immune Disorder: No Implanted Vascular Access Dvce: No Kidney Stones: Yes Medical other: Yes (ANEMIA) Musculoskeletal: No Neurologic: Yes Psychiatric: No Reproductive: No Respiratory: Yes (BRONCHITIS IN PAST) Immunizations Current: No Migraines: Yes Myocardial Infarction: No Radiation Therapy: No Renal Failure: Yes Seizures: Yes Sickle Cell Disease: No Thyroid Disease: No Ulcer: No Past Surgical History Abdominal Surgery: No AICD: No Appendectomy: No Arteriovenous Shunt: No Body Medical Devices: FISTULA Cardiac Surgery: No Cholecystectomy: No Ear Surgery: No Endocrine Surgery: No Eye Surgery: No Genitourinary Surgery: No Gynecologic Surgery: No Insulin Pump: No Joint Replacement: No Neurologic Surgery: No Oral Surgery: No Pacemaker: No Thoracic Surgery: No Other Surgery: Yes (L UPPER ARM SHUNT ) Social History Alcohol Use: No Tobacco Use: No Substance Use: No Allergies-Medications (Allergen,Severity, Reaction): Coded Allergies: No Known Allergies (Verified , 10/21/16) Reported Meds & Prescriptions Reported Meds & Active Scripts Active Walker with Front Wheels (Device) 1 Mis Mis 1 Ea .ROUTE DIRECTED Tramadol (Tramadol HCl) 50 Mg Tab 50 Mg PO Q6H PRN Robaxin (Methocarbamol) 500 Mg Tab 500 Mg PO TID PRN Protonix (Pantoprazole Sodium) 40 Mg Tab 40 Mg PO BID take 2 times a day for one month, then decrease to once a day. Reported Gabapentin 300 Mg Cap 300 Mg PO BID Duloxetine DR (Duloxetine HCl) 30 Mg Capdr 30 Mg PO BID Phoslo (Calcium Acetate (Phosphate Binder)) 667 Mg Cap 1,334 Mg PO TID Diltiazem (Diltiazem HCl) 120 Mg Tab 120 Mg PO DAILY Hydralazine (Hydralazine HCl) 25 Mg Tab 25 Mg PO BID Take with a meal Flomax (Tamsulosin HCl) 0.4 Mg Cap 0.4 Mg PO HS Dilantin (Phenytoin Extended) 100 Mg Cap 100 Mg PO TID Aspirin 81 Mg Tabdr 81 Mg PO DAILY Warfarin 4 Mg Tab 8 Mg PO DAILY Review of Systems Except as stated in HPI: all other systems reviewed are Neg Physical Exam Narrative GENERAL: Pleasant well-developed well-nourished male in no acute distress. 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 SKIN: Warm and dry. Tiny abrasion posterior left forearm. HEAD: Atraumatic. Normocephalic. EYES: Pupils equal and round. No scleral icterus. No injection or drainage. ENT: No nasal bleeding or discharge. Mucous membranes pink and moist. NECK: Trachea midline. No JVD. CARDIOVASCULAR: Regular rate and rhythm. No murmur appreciated. RESPIRATORY: No accessory muscle use. Clear to auscultation. Breath sounds equal bilaterally. GASTROINTESTINAL: Abdomen soft, non-tender, nondistended. MUSCULOSKELETAL: No obvious deformities. Mild tenderness to palpation to the anterior left knee joint. The patient maintains full flexion and extension of the left knee. He does have pain with flexion. No joint effusion is appreciated. NEUROLOGICAL: Awake and alert. No obvious cranial nerve deficits. Motor grossly within normal limits. Normal speech. PSYCHIATRIC: Appropriate mood and affect; insight and judgment normal. Data Data Last Documented VS Vital Signs Date Time Temp Pulse Resp B/P Pulse Ox O2 Delivery O2 Flow Rate FiO2 10/21/16 23:15 77 16 142/77 98 Room Air 10/21/16 20:54 98.3 Orders Knee, Complete (4vws) (10/21/16 ) Tetanus/Diphtheria Tox Adult (Tetanus/Di (10/21/16 23:45) MDM Medical Decision Making Medical Screen Exam Complete: Yes Emergency Medical Condition: Yes Medical Record Reviewed: Yes Differential Diagnosis Knee sprain, contusion, patellar fracture, joint effusion Narrative Course 71-year-old male after mechanical fall presents with left knee pain. He has a minor abrasion to the left forearm as well. Examination is reassuring. Tetanus status updated. X-ray imaging of the left knee reveals no acute findings, just degenerative changes. The patient will be discharged with prescription for walker. Reassuringly he has been walking throughout much of his hospital course. Diagnosis Primary Impression: Strain of left knee Qualified Code: S86.912A - Strain of left knee, initial encounter Additional Impression: Abrasion of left arm Qualified Code: S40.812A - Abrasion of left arm, initial encounter Additional Instructions: Walker as needed. Rest. Avoid strenuous activity. Follow-up with primary care physician as needed and return for any emergent medical conditions. Med/Other Pt SpecificInfo: Prescription(s) given Scripts Walker with Front Wheels 1 Mis Mis #1 EA .ROUTE DIRECTED Ref 0 Prov:Shine Johns MD 10/22/16 Disposition: 01 DISCHARGE HOME Condition: Stable Edil Romero October 21, 2016 23:36
[2016-10-21] MEDS ORDERED: TETANUS/DIPHTHERIA TOXOID ADULT 0.5 ML VIAL IM ONE (23:45)
[2016-10-22] MEDS ORDERED: WALKER WHEELS/F1 MIS (00:06)
--- NOTE | 2016-10-22 00:10 | RADRPT ---
EXAM DATE/TIME: 10/22/2016 00:00 [facility] COMPARISON: No previous studies available for comparison. INDICATIONS : Patient states they fell today landing on left knee. Complains of left knee pain, anteriorly. MEDICAL HISTORY : None. SURGICAL HISTORY : None. ENCOUNTER: Initial ACUITY: 1 day PAIN SCORE: 4/10 LOCATION: Left Knee FINDINGS: Four view examination of the left knee demonstrates no evidence of fracture or dislocation. Bony min eralization is normal. There are some ihfy-in-vvkbguva degenerative changes at the knee joint. No def inite joint effusion. The suprapatellar soft tissues have a normal configuration. Vascular calcificat ions are seen in the soft tissues. CONCLUSION: 1. No acute bony fracture. 2. Mild to moderate primary degenerative changes. 3. PVD Luis Alfredo Oneill MD on October 22, 2016 at 0:07 Board Certified Radiologist. This report was verified electronically.
== END 2016-10-22 00:42 | disposition home or self-care (01) ==
LOC: NEPC 20:51
DX: S83.92XA Sprain of unspecified site of left knee, initial encounter (principal); S40.812A Abrasion of left upper arm, initial encounter; D64.9 Anemia, unspecified; J45.909 Unspecified asthma, uncomplicated; I10 Essential (primary) hypertension; I50.9 Heart failure, unspecified; Z23 Encounter for immunization; W18.09XA Striking against other object with subsequent fall, initial encounter; N40.0 Benign prostatic hyperplasia without lower urinary tract symptoms; Z79.01 Long term (current) use of anticoagulants; Y93.89 Activity, other specified; Y92.89 Other specified places as the place of occurrence of the external cause; Y99.8 Other external cause status
CPT/HCPCS: 73564; 90471; 90714

== ENCOUNTER 2017-01-24 09:44 | Day surgery (SDC) | payer MEDICARE, OTHER ==
[2017-01-24] VITALS (8 sets, daily range): BP systolic 138–161; BP diastolic 71–86; PULSE 74–78; RESP 17–20; TEMP 97.9–99; O2SAT 93–97
[~2017-01-24] VITALS: Ht 175.3 cm; Wt 70.5 kg
[~2017-01-24 09:44] MED LIST changes: -DILA125S PO; +DULO1CAP2 PO; +GABA300C5 PO; +WALKER WHEELS/F1 MIS
[2017-01-24 10:43] LABS: AUTOMATED NEUTROPHIL # 4.3 TH/MM3 (1.8-7.7); BASOPHIL # 0.1 TH/MM3 (0-0.2); BASOPHIL % 0.9 % (0.0-2.0); EOSINOPHIL # 0.4 TH/MM3 (0-0.4); EOSINOPHIL % 6.1 % (0.0-4.0); HEMATOCRIT 34.3 % (39.0-51.0); HEMO FLAGS DIFF FINAL; LYMPHOCYTE # 1.4 TH/MM3 (1.0-4.8); MEAN CELL VOLUME 95.4 FL (80.0-100.0); MEAN CORPUSCULAR HEMOGLOBIN 31.1 PG (27.0-34.0); MEAN CORPUSCULAR HGB CONC 32.6 % (32.0-36.0); MONO % 6.5 % (0.0-8.0); NEUT % 65.5 % (16.0-70.0); PLATELET COUNT 108 TH/MM3 (150-450); RED CELL DISTRIBUTION WIDTH 15.6 % (11.6-17.2); WHITE BLOOD COUNT 6.5 TH/MM3 (4.0-11.0)
[2017-01-24 10:48] LABS: INTERNATIONAL NORMALIZED RATIO 1.1 RATIO; PROTHROMBIN TIME - PATIENT 12.2 SEC (9.8-11.6)
[2017-01-24] MEDS ORDERED: DILT120C9 PO (10:58)
[2017-01-24] MEDS ORDERED: METH500T3 PO (10:58)
[2017-01-24] MEDS ORDERED: ASPI81TA5 PO (10:58)
[2017-01-24] MEDS ORDERED: METO25TA3 PO (10:58)
[2017-01-24] MEDS ORDERED: SEVEL800 PO (10:58)
[2017-01-24] MEDS ORDERED: CYMB30CA PO (10:58)
[2017-01-24 11:00] LABS: BICARBONATE 27.4 MEQ/L (21.0-32.0)
[2017-01-24] MEDS ORDERED: NS 1000P @30 MLS/HR (KVO) IV SCH (11:00)
[2017-01-24] MEDS ORDERED: HYDR-3799 PO (11:04)
[2017-01-24 11:09] LABS: POTASSIUM 4.8 MEQ/L (3.5-5.1)
[2017-01-24] MEDS ORDERED: HEPARIN-NS/PF INJ 500 ML ONE (11:20)
--- NOTE | 2017-01-24 12:36 | CATHPROC ---
[employer] HIS Report Study Information Study Number Admission Scheduled Start Study Start [id number] Jan 24 2017 9:44AM 01/24/2017 Jan 24 2017 11:14AM Study Type [facility] Left and Right Heart Cath Cardiac Catheterization Admit Source Facility Department Other [facility] - Director Engineering Physician and Clinical Staff Initial Saad Walls Certified Caregiver Angy Hampton RN Certified Caregiver Britt Shelton BSRN Recorder [place],RT(R) Recorder Missy Mejia,(R) Giulia Wylie,NIMO TECH2 Procedures Performed Procedure Location (Site) Vessel Name Coronary Angiograms LCA Left Coronary Coronary Angiograms RCA Right Coronary Wire insertion Fem Art (right) Femoral Art Wire insertion Fem Vein (right) Femoral Vein Equipment Time Hog Trader Description Size Mfg Part Number Used/Scraped ARROW [employer] CATHETER, FR.7 BALLOON [id number] 11:22 FR 7 Used INC. WEDGE PRESSURE *[id number] TRANSDUCER, TRUWAVE [id number] 11:22 MANN PATEL * Used W/STOCKCOCK *[id number] TRANSDUCER, TRUWAVE [id number] 11:22 MANN PATEL * Used W/STOCKCOCK *[id number] *[id number] *[id number] *[id number] 11:22 [employer] INDUSTRIES PACK, CCL CUSTOM * Used *[id number] 11:22 [employer]jit MEDICAL SHEATH, FR5.5 PRELUDE 11CM FR 5 [id number] Used [id number] 11:22 [employer]it MEDICAL WIRE, 3MMJ .035 180CM 180CM Used *[id number] 11:22 NAMIC MANIFOLD, 2 PORT * Used *[id number] 11:22 NAMIC MANIFOLD, 4 PORT * Used *[id number] 11:22 NYCOMED OMNIPAQUE, 350 MG, 150ML 150ML [id number] Used [id number] 11:22 Lumi[employer] BLANKET,WARM AIR CCL * Used *[id number] 11:22 TERUMO MEDICAL SHEATH, FR7 TERUMO (10CM) FR 7 Used *[id number] History: Current Medications Medication Dosage/Unit Route Frequency Last Date/Time Taken ASA CARDIZEM Coumadin History: Allergies Allergy Reaction No Known Allergies History: Risk Factors Family History of Hypertension Dyslipidemia Previous OH Previous Heart Failure Premature CAD Yes No No Yes Yes Prior Valve Prior PCI Prior CABG Surgery No No No Cerebrovascular Peripheral Artery Chronic Lung On Dialysis Diabetes Disease Disease Disease No Yes No Yes No History: Symptoms/Diagnosis Selection Items SOB History: Stress Tests Stress or Imaging Studies Performed No History: Other Disease Selection Items HTN History: Other Current Smoker No Labs Hgb (g/dl) Hct (%) RBC (MIL/MM3) WBC (l/cumm) Platelets (thousands) 11.60-17.00 35.00-51.00 4.00-5.90 4.00-11.00 150.00-450.00 11.2 34.3 3.6 6.5 108 Glucose (mg/dl) BUN (mg/dl) Creatinine (mg/dl) BUN:Creatinine (1:x) 74.00-106.00 7.00-18.00 0.50-1.30 10.00-20.00 125 64 8.2 7.8 Na (meq/l) K (meq/l) Cl (meq/l) CO2 (mmol/L) Ca (mg/dl) 136.00-145.00 3.50-5.10 98.00-107.00 21.00-32.00 8.50-10.10 137 4.8 102 27.4 9.4 PT (sec) PTT (sec) INR (PTT:PT) 9.80-11.60 24.30-30.10 0.90-1.10 12.2 27 1.1 CPK-MB (ng/ML) 0.50-3.60 Not Drawn Medication Medication Total Dose (Bolus/Oral) Medication Total Dosage/Unit 1% XYLOCAINE 20 mL FENTANYL 25 mcg Medications (Bolus/Oral) Medication Time Given Dosage/Unit Administered By Reason FENTANYL 01/24/2017 11:41:40 AM 25 mcg Britt Shelton 25 mcg FENTANYL given in lab by Britt Shelton BSRN via Peripheral IV. Ordered by Etelvina Covington 1% XYLOCAINE 01/24/2017 11:45:15 AM 20 mL Saad Covington 20 mL 1% XYLOCAINE given in lab by Saad Covington in Right Groin via Subcutaneous. Ordered by Saad Boone. Medication (Drip) Medication Time Given Dosage/Unit Concentration/Unit Diluent (ml) Solution IV Solutions 01/24/2017 11:24:47 AM 0 mL (IV) 500 NaCl .9 Patient arrived on IV Solutions given by Saad Covington in Right Forearm via Peripheral IV. Pump/D rip Flow = 20 ml/hr using NaCl .9. Ordered by Saad Covington. Initial Case Assessment Initial Case Assessment Cardiovascular HR Rhythm NIBP 75 sr 136/78 Edema Present Skin color Skin None Normal Warm Dry Circulatory - Right Pulses Dorsalis Pedis Femoral 3 3 Scale (0,1,2,3,4,d) Circulatory - Left Pulses Dorsalis Pedis Femoral 3 3 Scale (0,1,2,3,4,d) Neurological State Oriented to time-place- Alert Moves all extremities person Respiration - General Respiration Rate SpO2 (%) O2 (lpm) (B/min) 18 98 0 Chronological Log Time Study Chronological Log 11:14:40 Patient arrived via Bed. 11:14:42 Patient Name, D.O.B, / Armband Verified By R.N. 11:14:43 Consent signed by the physician and the patient and verified by the Director Engineering staff. 11:14:44 Pre-op and post- op instructions given; patient acknowledges understanding of instruction s. 11:15:09 Verbal Stimulation=2 Physical Stimulation=2 Airway=2 Respiration=2 TOTAL=8. (0=absent, 1= limited, 2=present) 11:15:17 Presedation assessment performed by Director Engineering RN. Vitals capture started with the following parameters, Patient=Adult, Interval=5 min, Initial Cgottwtx=202 mmHg, 11:19:53 Deflation Rate=5 mmHg, Cuff placed on Right Arm 11:20:29 HR=49 bpm, DVML=989/79 mmhg, EiO5=636.0 %, Resp=7 B/min, Packer=2 11:24:10 Patient has been NPO for More than 6Hrs. 11:24:13 Skin Breakdown-none present per patient. 11:24:28 A # 20 IV was noted in the Forearm (right). Grade = 0 Patient arrived on IV Solutions given by Saad Covington in Right Forearm via Peripheral IV. Pump/Drip Flow = 20 11:24:47 ml/hr using NaCl .9. Ordered by Saad Covington. 11:25:11 History and physical on the chart or being dictated. 11:25:13 Reference ECG taken 11:25:28 HR=72 bpm, HUPL=431/78 mmhg, SpO2=98.0 %, Resp=15 B/min, Packer=2 11:26:33 Assessment: Initial Case Assessment: Initial Case, HR=75 BPM, Rhythm=sr, QAAY=309/78 mmhg, Edema=None, Color=Normal, Ski n = Warm, Dry Right Pulses: Ki Ped=3, Femoral=3 11:26:41 Left Pulses: Ki Ped=3, Femoral=3 Neurological: State=Alert, Ox3, HAYES Respiration: Resp=18 B/min, SpO2=98 %, O2=0 lpm 11:27:22 Bilateral groins prepped with 2% chlorhexidine, and with a 3 min. waiting time. 11:30:25 HR=75 bpm, MQGD=908/80 mmhg, FmK1=746.0 %, Resp=15 B/min, Packer=2 11:32:44 Pressure channel 1 zeroed. 11:35:33 HR=75 bpm, XQZG=219/72 mmhg, SpO2=99.0 %, Resp=12 B/min, Pain=0, Zenia=10, Packer=2 11:36:26 MD arrived. 11:40:30 HR=78 bpm, VLTV=418/81 mmhg, SpO2=96.0 %, Resp=17 B/min, Pain=0, Packer=2 11:41:40 25 mcg FENTANYL given in lab by Britt Shelton, JESÚSRN via Peripheral IV. Ordered by Saad Humphrey. Time Out. Correct patient, correct procedure,correct physician, ,power injector loaded or not l oaded with contrast with 11:44:05 surgical team present. Time Out Concurred by MD, individual staff and INHALATION THERAPY AIDE in procedure 11:44:54 Case Start 11:45:15 20 mL 1% XYLOCAINE given in lab by Saad Covington in Right Groin via Subcutaneous. Order ed by Saad Covington. 11:45:22 HR=78 bpm, VZBP=080/108 mmhg, JpT4=547.0 %, Resp=13 B/min, Pain=0, Zenia=10, Packer=2 11:47:34 Access site was Right Femoral Artery. A WIRE, 3MMJ .035 180CM 180CM was inserted via Fem Art (right). with MP kit 11:48:37 11:48:48 A SHEATH, FR5.5 PRELUDE 11CM FR 5 was advanced into the Fem Art (right) using the Percutane ous technique. 11:50:36 HR=75 bpm, LXKK=915/79 mmhg, KfF0=288.0 %, Resp=17 B/min, Pain=0, Zenia=10, Packer=2 11:54:19 Access site was Right Femoral Vein. 11:54:30 A wire was inserted via Fem Vein (right). 11:54:47 A SHEATH, FR7 TERUMO (10CM) FR 7 was advanced into the Fem Vein (right) using the Percutane ous technique. 11:55:35 HR=75 bpm, DOKY=818/73 mmhg, XxQ2=732.0 %, Resp=12 B/min, Pain=0, Zenia=10, Packer=2 11:55:41 A CATHETER, FR.7 BALLOON WEDGE PRESSURE FR 7 was inserted via Fem Vein (right) 11:56:47 [place]cott Kristina Catheter Removed 11:57:34 An injection in the Fem Art (right) was made through the SHEATH, FR5.5 PRELUDE 11CM FR 5. 11:58:58 A CATHETER, FR.7 BALLOON WEDGE PRESSURE FR 7 was inserted via Fem Vein (right) 12:00:38 HR=75 bpm, WKZP=710/76 mmhg, OpW3=740.0 %, Resp=10 B/min, Pain=0, Zenia=10, Packer=2 Recorded Pressure: PCW, HR=75, Condition=Condition 1 12:04:40 (Pulmonary Capillary Wedge) PCW 32/48/28 12:05:24 Saturation: Site=PA (Pulmonary Artery) , O2=75.8 %, Hgb=11.2 gm/dl, Condition=Condition 1. Used in calculation. 12:05:37 HR=74 bpm, BLKX=608/72 mmhg, ZsM7=036.0 %, Resp=6 B/min, Pain=0, Zenia=10, Packer=2 Recorded Pressure: MPA, HR=75, Condition=Condition 1 12:06:27 (Main Pulmonary Artery) MPA 59/20/39 12:07:18 Saturation: Site=Ao (Aorta) , O2=97.5 %, Hgb=11.2 gm/dl, Condition=Condition 1. Used in bonny culation. Recorded Pressure: RV, HR=75, Condition=Condition 1 12:07:36 (Right Ventricle) RV 59/8/15 Recorded Pressure: RA, HR=75, Condition=Condition 1 12:08:18 (Right Atrium) RA 19/18/14 A JR 4.0 INFINITI CATHETER FR 5 was advanced over a wire. OMNIPAQUE, 350 MG, 150ML 150ML was u sed for 12:09:03 injections. 12:10:34 HR=74 bpm, LRJF=139/74 mmhg, SpO2=99.0 %, Resp=12 B/min, Pain=0, Zenia=10, Packer=2 Recorded Pressure: Ao, HR=75, Condition=Condition 1 12:10:35 (Aorta) Ao 135/59/90 12:11:13 The RCA was injected and visualized at various angles. OMNIPAQUE, 350 MG, 150ML 150ML use d. 12:12:31 Catheter was removed A JL 4.0 INFINITI CATHETER FR 5 was advanced over a wire. OMNIPAQUE, 350 MG, 150ML 150ML was u sed for 12:12:58 injections. 12:15:37 HR=72 bpm, WAIY=401/59 mmhg, SpO2=97.0 %, Resp=8 B/min, Pain=0, Zenia=10, Packer=2 12:16:10 The LCA was injected and visualized at various angles. OMNIPAQUE, 350 MG, 150ML 150ML use d. 12:20:30 HR=75 bpm, XHIF=858/68 mmhg, XnJ9=998.0 %, Resp=8 B/min, Pain=0, Zenia=10, Packer=2 12:23:58 Catheter was removed 12:24:01 Case End 12:24:11 Catheter(s) removed without difficulty 12:24:18 Sheath(s) left in place, will be removed in Holding Area 12:24:29 Sterile dressing applied to site 12:24:30 No case complications noted. 12:24:34 Cine recording checked. 12:24:37 Bedside Report will be given. 12:24:44 Contrast Scanned 12:25:48 A Left and Right Heart Cath was performed. 12:25:51 Patient moved to stretcher End Study - Contrast Media Used In Study Contrast Total Opened (mL) Total Used (mL) Total Wasted (mL) Omnipaque 55 55 0 End Study - Maximum Contrast Load Max Contrast Load (mL) 42.9 End Study - Radiation Exposure Fluoro Time (minutes) 6.7 End Study - Patient Disposition Complications Transferred To No Outpatient Bed
[2017-01-24] MEDS ORDERED: ONDANSETRON HCL 4 MG/2 ML VIAL IV PRN (12:45)
[2017-01-24] MEDS ORDERED: MISC INFORMATION XX ONE (12:45)
[2017-01-24] MEDS ORDERED: ATROPINE SULFATE 1 MG/ML VIAL IV PRN (12:45)
[2017-01-24] MEDS ORDERED: SODIUM CHLOR 0.9% 250 ML INJ 250 ML IV PRN (12:45)
[2017-01-24] MEDS ORDERED: IOHEXOL 350 MG/ML 100 ML BTL (for Cath Lab) OTHER ONE (13:15)
--- NOTE | 2017-01-24 15:13 | MB ---
cc: ROSLYN HOUSE DATE OF CONSULTATION: 01/24/2017 HISTORY OF PRESENT ILLNESS This is a 71-year-old male patient of Dr. Rosen, Dr. Saad Covington, Dr. Kassandra Granda and Dr. Harris Umana. He has been followed by Dr. Rosen for a history of aortic valve stenosis, mitral valve regurgitation and tricuspid valve regurgitation. He denies having any new symptoms. Denies having any recent syncope. No chest pain or shortness of breath. His recent echocardiogram showed an EF of 40-45%, some moderately impaired systolic function, moderately dilated left atrium, moderately dilated right atrium, valve area of 0.71 centimeters squared, peak gradient of 59. Transvalvular velocity was increased with moderate to severe stenosis. There was trivial aortic insufficiency. The mitral valve had some moderate to severe regurgitation with a concentric jet. There was also some moderate to severe tricuspid regurgitation with elevated RV pressure of 52 consistent with moderate pulmonary hypertension. We were consulted to evaluate for aortic valve and mitral valve replacement and also evaluation of the tricuspid valve also. The patient underwent a cardiac cath today which showed minimal coronary disease. He did have a 50% diagonal and some trivial disease in his other vessels. PAST MEDICAL HISTORY 1. Paroxysmal atrial fibrillation on Coumadin. 2. Anemia. 3. Aortic stenosis with trivial aortic insufficiency. 4. Moderate to severe mitral valve regurgitation. 5. Moderate to severe tricuspid regurgitation. 6. CVA in January 2016. 7. Left frontotemporal infarct with resultant dysarthria. 8. Diabetes mellitus, type 2. 9. Chronic kidney disease, stage V, on dialysis Tuesdays, , Saturdays. 10.Carotid artery stenosis on the left. His last ultrasound was in 2014 which was mild. PAST SURGICAL HISTORY AV fistula in his left upper forearm. ALLERGIES No known allergies. MEDICATIONS Home meds include: 1. Aspirin 81, daily. 2. Cymbalta 30. 3. Diltiazem 120. 4. Prozac. 5. Flomax. 6. Gabapentin. 7. Hydralazine 25. 8. Methocarbamol. 9. Metoprolol 25. 10.Dilantin 300, t.i.d. 11.Coumadin 4 mg; he takes 8 mg daily. REVIEW OF SYSTEMS GENERAL: In general no night sweats, fever, heat or cold intolerance. SKIN: No psoriasis, itching or hives. HEENT: No blurred vision. He does have a little bit of speech difficulty. He also said he lost a couple of teeth in the right upper molar area. He has no difficulty chewing. He has not seen a dentist in a number of years. RESPIRATORY: No shortness of breath. CARDIOVASCULAR: No chest pain. No paroxysmal nocturnal dyspnea. GASTROINTESTINAL: No diarrhea or vomiting. GENITOURINARY: The patient does not void. STUD DRIVER: Positive for history of CVA. ENDOCRINE: History of diabetes, however, must be oral controlled. No hypothyroidism. PHYSICAL EXAMINATION VITAL SIGNS: Blood pressure 154/76, heart rate 74, O2 sat 100% on room air. GENERAL: The patient is awake, alert, slightly zwpz-rv-snwbnrj, somewhat poor historian. HEENT: Head is normocephalic, atraumatic. Pupils are equal. He has some arcus senilis. Oral mucosa is pink and moist. He does have some enlarged gum area to the right upper molar area but there is no redness, no drainage. He does have some fillings to his lower bottom teeth. He has fair dentition. NECK: Supple. No JVD. HEART: Heart sounds S1, S2. Regular rate and rhythm. He has a grade 3/6 systolic flow murmur. LUNGS: Clear to auscultation. No wheezes, rales or rhonchi. ABDOMEN: Soft, nontender. No masses or organomegaly. EXTREMITIES: No cyanosis, clubbing or edema. He does have some fungal nail changes to both feet. LABORATORY Recent lab work shows an INR of 1.1, hemoglobin 11, hematocrit 34, white cell count 6.5, platelet count 108, creatinine 8.25, sodium 137, potassium 4.8, glucose 128. IMPRESSION AND RECOMMENDATIONS 1. A 71-year-old male with moderate to severe aortic stenosis, trivial aortic insufficiency, moderate to severe mitral regurgitation, moderate to severe tricuspid regurgitation, elevated RV systolic pressures of 52 mmHg, and also mild to moderate coronary disease, nonobstructive, EF 45%. The coronary films will be evaluated by Dr. Roslyn House. Also will obtain the disk for the echocardiogram. The patient may need further work-up with ROMARIO as per the discretion of Dr. Roslyn House and evaluation for mitral and aortic valve replacement. The patient does not meet criteria for TAVR at this time. 2. End-stage renal disease, on dialysis. The patient will be receiving his dialysis first thing in the morning. He receives it on Tuesdays, and Saturdays. 3. Chronic atrial fibrillation. Currently he is in sinus rhythm. We will have to hold his Coumadin five days prior to any procedures. 4. Further planning per Dr. Roslyn House in regard to possible pending surgery. Dictated by: KENNEDY Villanueva MD GUSTAVO Newberry/SIDNEY /2:15 PM /3:09 PM
--- NOTE | 2017-01-24 15:36 | RADRPT ---
EXAM DATE/TIME: 01/24/2017 14:44 [facility] COMPARISON: US CAROTID ARTERIES, January 11, 2016, 15:41. INDICATIONS : Pre-op aortic valve replacement. MEDICAL HISTORY : Hypertension. Gastroesophageal reflux disease. Benign prostatic hyperplasia, (BPH) Seizures. Atrial fibrillation. Mitral valve regurgitation. Aortic stenosis. Congestive heart failure. Asthma. Her bonifacio, hiatal. Chronic kidney disease, stage IV. Dialysis. Kidney stones. Arthritis. Diabetes type II. Anemia. SURGICAL HISTORY : Left upper arm shunt. ENCOUNTER: Initial ACUITY: 1 day PAIN SCORE: 0/10 LOCATION: Bilateral neck PEAK SYSTOLIC VELOCITIES (cm/sec): ICA/CCA RATIO: Right: 1.0 Left: 1.0 ICA: Right: 79 Left: 75 CCA: Right: 80 Left: 71 ECA: Right: 49 Left: 78 VERTEBRAL: Right: 52 antegrade Left: 21 antegrade Elevated flow velocities and ICA/CCA ratios have been found to correlate with increased degrees of vessel stenosis, calculated as percentage of diameter relative to a normal segment of distal ICA/CCA FINDINGS: RIGHT CAROTID: There is no evidence for a hemodynamically significant carotid stenosis. Minimal int imal hyperplasia is present with scattered calcific plaque. LEFT CAROTID: There is no evidence for a hemodynamically significant carotid stenosis. Minimal inti mal hyperplasia is present with scattered calcific plaque. VERTEBRAL ARTERIES: Flow is antegrade in both vertebral arteries. MISCELLANEOUS: There are no ancillary masses or adenopathy. CONCLUSION: Negative examination for a hemodynamically significant carotid stenosis. Josef Toney MD FACR Josef Toney MD FACR on January 24, 2017 at 15:33 Board Certified Radiologist. This report was verified electronically.
--- NOTE | 2017-01-24 15:57 | RADRPT ---
EXAM DATE/TIME: 01/24/2017 15:23 [facility] COMPARISON: CHEST SINGLE AP, July 11, 2016, 12:03. INDICATIONS : Post operative chest. Heart catheterization. MEDICAL HISTORY : Hypertension. Congestive heart failure. Asthma SURGICAL HISTORY : None. ENCOUNTER: Initial ACUITY: 1 day PAIN SCORE: Non-responsive. LOCATION: Bilateral chest FINDINGS: There is minimal cardiomegaly with mild interstitial prominence. There is no evidence of an pleural effusion or pneumothorax. Minimal parenchymal changes are present in the left base. CONCLUSION: Mild interstitial edema. Josef Toney MD FACR on January 24, 2017 at 15:54 Board Certified Radiologist. This report was verified electronically.
--- NOTE | 2017-01-24 16:38 | EKG ---
Date Performed: 01/24/2017 Time Performed: 10:48:36 PTAGE: 71 years EKG: Probable accelerated junctional rhythm. Left anterior fascicular block ST junctional depres josiane is nonspecific Abnormal ECG PREVIOUS TRACING : 07/11/2016 12.05 Since previous tracing, no significant change noted DOCTOR: Silvio Vides Interpretating Date/Time 01/24/2017 16:37:51
[2017-01-24] MEDS: METHOCARBAMOL 500 MG TAB PO SCH ×2 (17:53→20:51)
[2017-01-24] MEDS: PHENYTOIN SODIUM 100 MG CAP PO SCH (17:53)
[2017-01-24] MEDS: SEVELAMER CARBONATE 800 MG TAB PO SCH (17:53)
[2017-01-24] MEDS: DILTIAZEM-CD 120 MG CAP ER PO SCH (20:51)
[2017-01-24] MEDS: GABAPENTIN 300 MG CAP PO SCH (20:51)
[2017-01-24] MEDS: hydrALAZINE HCL 25 MG TAB PO SCH (20:52)
[2017-01-24] MEDS ORDERED: TAMSULOSIN HCL 0.4 MG CAP PO SCH (21:00)
[2017-01-24 21:46] LABS: HEMOGLOBIN A1a 1.2 %; HEMOGLOBIN A1b 1.9 %; HEMOGLOBIN Ao 83.2 %; HEMOGLOBIN LA1C 2.3 %; HEMOGLOBIN P3 6.2 %
[2017-01-25] VITALS (16 sets, daily range): BP systolic 155–165; BP diastolic 72–81; PULSE 74–99; RESP 17–18; TEMP 97.7–98.9; O2SAT 92–95
[2017-01-25 06:55] LABS: AUTOMATED NEUTROPHIL # 4.6 TH/MM3 (1.8-7.7); BASOPHIL % 0.7 % (0.0-2.0); EOSINOPHIL # 0.4 TH/MM3 (0-0.4); HEMATOCRIT 31.7 % (39.0-51.0); LYMPH % 16.9 % (9.0-44.0); LYMPHOCYTE # 1.1 TH/MM3 (1.0-4.8); MEAN CELL VOLUME 94.2 FL (80.0-100.0); MEAN CORPUSCULAR HEMOGLOBIN 31.7 PG (27.0-34.0); MEAN CORPUSCULAR HGB CONC 33.7 % (32.0-36.0); MONO % 5.8 % (0.0-8.0); NEUT % 70.6 % (16.0-70.0); PLATELET COUNT 93 TH/MM3 (150-450); RED BLOOD COUNT 3.36 MIL/MM3 (4.50-5.90); RED CELL DISTRIBUTION WIDTH 15.2 % (11.6-17.2); WHITE BLOOD COUNT 6.6 TH/MM3 (4.0-11.0)
[2017-01-25 07:00] LABS: HEMO FLAGS AUTO DIFF
[2017-01-25 07:32] LABS: BICARBONATE 23.6 MEQ/L (21.0-32.0)
[2017-01-25 08:21] LABS: OVALOCYTES 2+ (NORMAL); PLATELET ESTIMATE SMEAR LOW (NORMAL); PLATELET MORPHOLOGY NORMAL (NORMAL); SCAN/DIFF AUTO DIFF CONFIRMED
--- NOTE | 2017-01-25 08:57 | MA ---
cc: SAAD MUKHERJEE DO DATE: 01/24/2017 PROCEDURE Coronary angiogram, right heart catheterization. PREPROCEDURE DIAGNOSIS Moderate to severe aortic stenosis/mitral regurgitation/tricuspid regurgitation for possible open chest surgery. POSTPROCEDURE DIAGNOSIS Moderate to severe aortic stenosis/mitral regurgitation/tricuspid regurgitation, no significant coronary artery disease. PROCEDURE MEDICATIONS Fentanyl 25 mcg. CONTRAST USED 55 cc. FLUOROSCOPY TIME 6.7 minutes. SEDATION Moderate sedation zero minutes. ESTIMATED BLOOD LOSS 10 cc. PROCEDURAL SUMMARY Cortes Michael is a pleasant 71-year-old male who saw Dr. Rosen in the outpatient office and underwent an echocardiogram. He was found to have moderate to severe aortic stenosis, mitral regurgitation and tricuspid regurgitation. Because of this he was recommended cardiac catheterization and then evaluation by cardiothoracic surgery. The risks, benefits and alternatives were explained to him and he consented as such. He was brought to the lab and prepped in the usual sterile fashion. The right femoral artery was accessed using a modified Seldinger technique and placement of a 5-Turkish sheath. The right femoral vein was accessed using a modified Seldinger technique and placement of a 7-Turkish sheath. These were easily aspirated and flushed. A [place]-Kristina catheter was then advanced to a wedge position and pressures as well as oxygenation saturations were done in a normal fashion on pullback throughout the heart. The [place]-Kristina catheter was then removed. A JR4 was then advanced over a J-wire to the ascending aorta and used for selective angiography of the right coronary system. As the patient appears to have significant aortic stenosis by echocardiogram it was felt that crossing the aortic valve was not necessary at this time. The JR4 was then exchanged for a JL4 which was used for selective angiography of the left coronary system. The JL4 was then removed over a J-wire. The sheaths were sewn in place with a plan to remove in the DOC unit and pressure held for hemostasis. 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 FINDINGS CORONARY ANGIOGRAPHY The left main was a normal size vessel with adequate reflux. It bifurcates into an LAD and left circumflex. Overall no significant disease. The LAD is a normal size vessel with mild luminal irregularities throughout the mid to distal portion which tapers distally into a smaller vessel, but overall no significant disease. It supplies one major diagonal which takes off in a very proximal portion with no significant disease. The left circumflex is a normal size vessel with mild luminal irregularities throughout the midportion. It supplies three obtuse marginals which are overall small vessels with no significant disease. The RCA is a normal size vessel which is dominant in nature. There are mild luminal irregularities throughout the midportion but otherwise no significant disease. HEMODYNAMICS RA 14. RV 59/8, RVEDP 15. PA 59/20, mean PA 39. Wedge 28. Cardiac output 7. Cardiac index 3.8. IMPRESSION 1. Moderate to severe aortic stenosis, mitral regurgitation, tricuspid regurgitation by echocardiogram within the office. 2. No significant coronary artery disease by cardiac catheterization. 3. Moderate pulmonary hypertension. RECOMMENDATIONS 1. Mr. Michael appears to have multivalvular disease with no significant coronary artery disease and because of this he is recommended cardiothoracic surgery. 2. Dr. House has been consulted for consideration of this. 3. Mr. Phillips will be watched overnight and if stable in the morning discharged home with a plan for hemodialysis tomorrow. 4. Further recommendations will be made based on the hospital course. Thank you for allowing me to see Cortes Michael. If there are any questions, please do not hesitate to call. Saad Mukherjee DO VGP/BT /8:34 PM /8:39 AM
[2017-01-25] MEDS ORDERED: DULoxetine HCl DR 30 MG CAP PO SCH (09:00)
[2017-01-25] MEDS ORDERED: ASPIRIN EC 81 MG TABEC PO SCH (09:00)
[2017-01-25] MEDS ORDERED: METOPROLOL TARTRATE 25 MG TAB PO SCH (09:00)
[2017-01-25] MEDS: DILTIAZEM-CD 120 MG CAP ER PO SCH (09:02)
[2017-01-25] MEDS: METHOCARBAMOL 500 MG TAB PO SCH ×2 (09:02→13:33)
[2017-01-25] MEDS: PHENYTOIN SODIUM 100 MG CAP PO SCH ×2 (09:02→13:33)
[2017-01-25] MEDS: SEVELAMER CARBONATE 800 MG TAB PO SCH ×2 (09:03→13:33)
[2017-01-25] MEDS: GABAPENTIN 300 MG CAP PO SCH (09:03)
[2017-01-25] MEDS: hydrALAZINE HCL 25 MG TAB PO SCH (09:04)
--- NOTE | 2017-01-25 09:33 | PD.CARD.PN ---
Subjective Subjective Remarks Doing well No chest pain/SOB Objective Medications Current Medications Medications (Trade) Dose Ordered Sig/Brittaney Route Start Time Stop Time Status Last Admin (NS 1000 ml Inj) 1,000 ml @ 30 mls/hr Q24H IV 01/24/17 11:00 01/24/17 11:00 Atropine Sulfate 0.5 mg 0.5 mg UNSCH PRN IV 01/24/17 12:45 (NS 250 ml Inj) 250 ml @ 500 mls/hr ONCE PRN IV 01/24/17 12:45 01/25/17 12:44 (Zofran Inj) 4 mg Q4H PRN IV 01/24/17 12:45 (Ecotrin Ec) 81 mg DAILY PO 01/25/17 09:00 01/25/17 09:03 (Cymbalta Dr) 30 mg DAILY PO 01/25/17 09:00 01/25/17 09:04 (Neurontin) 300 mg BID PO 01/24/17 21:00 01/25/17 09:03 (Apresoline) 25 mg BID PO 01/24/17 21:00 01/25/17 09:04 (Robaxin) 500 mg QID PO 01/24/17 13:00 01/25/17 09:02 (Lopressor) 25 mg DAILY PO 01/25/17 09:00 01/25/17 09:02 (Dilantin) 100 mg TID PO 01/24/17 13:00 01/25/17 09:02 (Renvela) 800 mg TID PO 01/24/17 13:00 01/25/17 09:03 (Flomax) 0.4 mg HS PO 01/24/17 21:00 01/24/17 20:51 (Cardizem Cd) 120 mg BID PO 01/24/17 21:00 01/25/17 09:02 Vital Signs / I&O Vital Signs Date Time Temp Pulse Resp B/P Pulse Ox O2 Delivery O2 Flow Rate FiO2 01/25/17 08:00 94 01/25/17 07:15 81 01/25/17 07:00 98.9 94 17 165/81 94 01/25/17 06:06 78 01/25/17 05:07 79 01/25/17 04:09 77 01/25/17 03:31 98.4 76 18 155/72 92 01/25/17 03:17 77 01/25/17 02:10 85 01/25/17 01:23 85 01/25/17 00:49 79 01/24/17 23:36 74 01/24/17 23:31 98.1 78 20 157/80 93 01/24/17 22:00 76 01/24/17 21:00 76 01/24/17 20:00 99.0 76 18 145/71 97 01/24/17 20:00 76 01/24/17 19:00 77 01/24/17 18:39 98.5 78 18 138/72 96 01/24/17 13:28 98 Room Air 01/24/17 10:35 97.9 74 17 161/86 96 I/O 01/24/17 01/24/17 01/24/17 01/25/17 01/25/17 01/25/17 07:00 15:00 23:00 07:00 15:00 23:00 Intake Total 240 ml Output Total 1 ml Balance 239 ml Intake Oral 240 ml Output Urine Total 1 ml # Bowel Movements 1 Physical Exam GENERAL: NAD, AAOx3 SKIN: Warm and dry. HEAD: Atraumatic. Normocephalic. EYES: Pupils equal and round. No scleral icterus. No injection or drainage. ENT: No nasal bleeding or discharge. Mucous membranes pink and moist. NECK: Trachea midline. No JVD. CARDIOVASCULAR: Regular rate and rhythm. 2/6 crescendo-decrescendo to RSB, 1/6 holosystolic murmur at the apex RESPIRATORY: No accessory muscle use. Clear to auscultation. Breath sounds equal bilaterally. GASTROINTESTINAL: Abdomen soft, non-tender, nondistended. Hepatic and splenic margins not palpable. MUSCULOSKELETAL: Extremities without clubbing, cyanosis, or edema. No obvious deformities. Right groin with no hematoma/bruit, distal pulses intact NEUROLOGICAL: Awake and alert. No obvious cranial nerve deficits. Motor grossly within normal limits. Five out of 5 muscle strength in the arms and legs. Normal speech. PSYCHIATRIC: Appropriate mood and affect; insight and judgment normal. Laboratory Laboratory Tests Test 01/24/17 01/24/17 01/24/17 01/25/17 10:23 15:10 16:26 06:30 White Blood Count 6.5 TH/MM3 6.6 TH/MM3 Red Blood Count 3.60 MIL/MM3 3.36 MIL/MM3 Hemoglobin 11.2 GM/DL 10.7 GM/DL Hematocrit 34.3 % 31.7 % Mean Corpuscular Volume 95.4 FL 94.2 FL Mean Corpuscular Hemoglobin 31.1 PG 31.7 PG Mean Corpuscular Hemoglobin 32.6 % 33.7 % Concent Red Cell Distribution Width 15.6 % 15.2 % Platelet Count 108 TH/MM3 93 TH/MM3 Mean Platelet Volume 8.3 FL 7.9 FL Neutrophils (%) (Auto) 65.5 % 70.6 % Lymphocytes (%) (Auto) 21.0 % 16.9 % Monocytes (%) (Auto) 6.5 % 5.8 % Eosinophils (%) (Auto) 6.1 % 6.0 % Basophils (%) (Auto) 0.9 % 0.7 % Neutrophils # (Auto) 4.3 TH/MM3 4.6 TH/MM3 Lymphocytes # (Auto) 1.4 TH/MM3 1.1 TH/MM3 Monocytes # (Auto) 0.4 TH/MM3 0.4 TH/MM3 Eosinophils # (Auto) 0.4 TH/MM3 0.4 TH/MM3 Basophils # (Auto) 0.1 TH/MM3 0.0 TH/MM3 CBC Comment DIFF FINAL AUTO DIFF Differential Comment AUTO DIFF CONFIRMED Prothrombin Time 12.2 SEC Prothromb Time International 1.1 RATIO Ratio Activated Partial 27.0 SEC Thromboplast Time Sodium Level 137 MEQ/L 138 MEQ/L Potassium Level 4.8 MEQ/L 5.0 MEQ/L Chloride Level 102 MEQ/L 104 MEQ/L Carbon Dioxide Level 27.4 MEQ/L 23.6 MEQ/L Anion Gap 8 MEQ/L 10 MEQ/L Blood Urea Nitrogen 64 MG/DL 77 MG/DL Creatinine 8.25 MG/DL 9.14 MG/DL Estimat Glomerular Filtration 8 ML/MIN 7 ML/MIN Rate Random Glucose 125 MG/DL 118 MG/DL Hemoglobin A1c 6.2 % Calcium Level 9.4 MG/DL 9.4 MG/DL Nasal Screen MRSA (PCR) MRSA NOT DETECTED Blood Type AB POSITIVE Antibody Screen NEGATIVE Platelet Estimate LOW Platelet Morphology Comment NORMAL Ovalocytes 2+ Assessment and Plan Problem List: (1) Aortic stenosis (2) Mitral regurgitation (3) Tricuspid regurgitation (4) Atrial fibrillation (5) CAD (coronary artery disease) (6) ESRD (end stage renal disease) on dialysis (7) HTN (hypertension), benign (8) Chronic anticoagulation Assessment and Plan 1) Mod-Severe /MR/TR with a drop in his ejection fraction For CT surgery by Dr. House 2) Cath showing no significant CAD 3) HD today at outpt setting 4) Follow up with Dr. Rosen after surgery Saad Covington DO Jan 25, 2017 09:33
--- NOTE | 2017-01-25 09:44 | HHI.DS ---
Discharge Summary Admission Date 01/24/17 Discharge Date: Jan 25, 2017 Admitting Diagnosis Mod-Severe /MR/TR with a drop in his ejection fraction Cardiac catheterization for consideration of CT surgery (1) Aortic stenosis Diagnosis: Principal (2) Mitral regurgitation Diagnosis: Principal (3) Tricuspid regurgitation Diagnosis: Principal (4) Chronic anticoagulation Diagnosis: Secondary (5) HTN (hypertension), benign Diagnosis: Secondary (6) ESRD (end stage renal disease) on dialysis Diagnosis: Secondary (7) CAD (coronary artery disease) Diagnosis: Secondary (8) Atrial fibrillation Diagnosis: Secondary Procedures Coronary angiogram showing no significant CAD. Brief History Patient seen by Dr. House. Will review outpatient echocardiogram and plan to schedule CT surgery. CBC/BMP: 01/25/17 0630 01/25/17 0630 Significant Findings Laboratory Tests Test 01/24/17 01/25/17 10:23 06:30 Red Blood Count 3.60 MIL/MM3 3.36 MIL/MM3 (4.50-5.90) (4.50-5.90) Hemoglobin 11.2 GM/DL 10.7 GM/DL (13.0-17.0) (13.0-17.0) Hematocrit 34.3 % 31.7 % (39.0-51.0) (39.0-51.0) Platelet Count 108 TH/MM3 93 TH/MM3 (150-450) (150-450) Eosinophils (%) (Auto) 6.1 % (0.0-4.0) 6.0 % (0.0-4.0) Prothrombin Time 12.2 SEC (9.8-11.6) Blood Urea Nitrogen 64 MG/DL (7-18) 77 MG/DL (7-18) Creatinine 8.25 MG/DL 9.14 MG/DL (0.60-1.30) (0.60-1.30) Estimat Glomerular Filtration 8 ML/MIN (>89) 7 ML/MIN (>89) Rate Random Glucose 125 MG/DL 118 MG/DL (74-106) (74-106) Hemoglobin A1c 6.2 % (4.3-6.0) Neutrophils (%) (Auto) 70.6 % (16.0-70.0) Platelet Estimate LOW (NORMAL) Ovalocytes 2+ (NORMAL) Pt Condition on Discharge: Good Discharge Disposition: Discharge Home Discharge Instructions DIET: Follow Instructions for: Heart Healthy Diet Activities you can perform: See Additionl Instruction Additional Activity Instructio: No lifting more than 10lbs for 3 days Saad Covington DO Jan 25, 2017 09:44
--- NOTE | 2017-01-26 10:15 | RSPPFT ---
DATE OF PROCEDURE: 01/24/17 COMMENTS: VOLUMES DYNAMIC: FVC and FEV1 mildly reduced. FLOWS: FEV1% normal; FEF 25-75 severely reduced. IMPRESSION: Abnormal spirometry with a reduction in both FVC and FEV1 with terminal airflow obstruction as well. Clinical correlation is required and full lung volumes may be helpful if clinically indicated.
[2017-02-23] MEDS ORDERED: GETGO ROLLING W1 MI1 (14:08)
[2017-02-23] MEDS ORDERED: WHEEMIS3 (14:08)
[2017-02-28] MEDS ORDERED: LIDO5DIS5 T-DERMAL (11:26)
[2017-02-28] MEDS ORDERED: ONDA4TAB7 PO (11:26)
[2017-02-28] MEDS ORDERED: TUCKSPAD TOPICAL (11:26)
[2017-02-28] MEDS ORDERED: TAMS5CAP PO (11:26)
[2017-02-28] MEDS ORDERED: CALC.25 PO (11:26)
[2017-02-28] MEDS ORDERED: THERTAB15 PO (11:26)
[2017-02-28] MEDS ORDERED: DULO1CAP2 PO (11:26)
[2017-02-28] MEDS ORDERED: DILA100C PO (11:26)
[2017-02-28] MEDS ORDERED: SEVEL800 PO (11:26)
[2017-02-28] MEDS ORDERED: METO-309 PO (11:26)
[2017-03-01] MEDS ORDERED: HYDR-3516 PO (09:48)
[2017-03-01] MEDS ORDERED: ACET1TAB86 PO (09:48)
[2017-03-01] MEDS ORDERED: PT/INR (11:41)
[2017-03-01] MEDS ORDERED: ASPI81CH25 PO (11:41)
[2017-03-01] MEDS ORDERED: COUM3TAB PO ×2 (11:41→11:54)
== END 2017-01-25 13:57 | disposition home or self-care (01) ==
LOC: HDOC 09:44 → HDIC 09:47 → HCIS 18:33 → HDOC 01-25 13:57
PROVIDERS: ATTEND Nuclear Medicine Nuclear Cardiology
DX: I08.3 Combined rheumatic disorders of mitral, aortic and tricuspid valves (principal); I27.2 Other secondary pulmonary hypertension; I25.10 Atherosclerotic heart disease of native coronary artery without angina pectoris; I44.4 Left anterior fascicular block; I13.2 Hypertensive heart and chronic kidney disease with heart failure and with stage 5 chronic kidney disease, or end stage renal disease; I50.9 Heart failure, unspecified; N18.6 End stage renal disease; E11.22 Type 2 diabetes mellitus with diabetic chronic kidney disease; I48.0 Paroxysmal atrial fibrillation; I48.2 Chronic atrial fibrillation; I65.22 Occlusion and stenosis of left carotid artery; J45.909 Unspecified asthma, uncomplicated; Z99.2 Dependence on renal dialysis; Z86.73 Personal history of transient ischemic attack (TIA), and cerebral infarction without residual deficits; Z79.01 Long term (current) use of anticoagulants; Z79.82 Long term (current) use of aspirin; Z79.899 Other long term (current) drug therapy
CPT/HCPCS: 71010; 80048; 82810; 83036; 85025; 85610; 85730; 86850; 86900; 86901; 87641; 93005; 93456; 93880; 94010; C1769; C1893; J1644; J3010; J7030; Q9967

== ENCOUNTER 2017-02-03 05:29 | Inpatient (IN) | payer MEDICARE, OTHER ==
[2017-02-03] VITALS (7 sets, daily range): BP systolic 104–135; BP diastolic 50–63; PULSE 73–93; RESP 14–20; TEMP 96.7–98.6; O2SAT 97–100
[~2017-02-03] VITALS: Ht 181.6 cm; Wt 80.1 kg
[~2017-02-03 05:29] MED LIST changes: +AMINOCAPROIC ACID INJ 250 MG/ML 20 ML VIAL IV ONE; +ARTIFICIAL TEARS OPTH OINT 3.5 APPLIC/3.5 GM TUBO ONE; -ASPI1TAB69 PO; +ASPI81TA5 PO; +CALCIUM CHLORIDE 10% SOLN 1 GRAM/10 ML SYR IV ONE; +CYMB30CA PO; +DILT120C9 PO; -DILT120T PO; -DULO1CAP2 PO; +EPINEPHrine HCL (1:1000) 1 MG/ML VIAL IV ONE; +GLYCOPYRROLATE 0.2 MG/ML VIAL IV ONE; +HEPARIN SODIUM - SQ 10,000 UNITS/ML VIAL SQ ONE; +HYDR-3799 PO; -HYDR25TA35 PO; +MAGNESIUM SULFATE 1000 MG/2 ML VIAL (PED) IV ONE; +METH500T3 PO; +METO25TA3 PO; +NEOSTIGMINE METHYLSULFATE 10 MG/10 ML VIAL IV PUSH ONE; +NITROGLYCERIN-D5W 50 MG/250 ML 250 ML IV ONE; -PHOS667C5 PO; -PROT40TA PO; +PROTAMINE SULFATE 250 MG/25 ML VIAL IV ONE; -ROBA500T PO; +SEVEL800 PO; -TRAM50TA PO; +VECURONIUM BROMIDE 10 MG VIAL IV ONE; -WALKER WHEELS/F1 MIS
[2017-02-03] MEDS ORDERED: SODIUM CHLORID 0.9% 500 ML IV PRN (05:45)
[2017-02-03] MEDS ORDERED: CHLORHEXIDINE GLUCONATE 2 % 1 PACK (2 CLOTHS) TOPICAL PRN (05:45)
[2017-02-03] MEDS ORDERED: POVIDONE IODINE 5% (ANTISEPSIS KIT) 4 APPLICATIONS EACH NARE PRN (05:45)
[2017-02-03] MEDS ORDERED: METOPROLOL TARTRATE 25 MG TAB PO SCH (05:45)
[2017-02-03] MEDS ORDERED: SODIUM CHLORIDE 0.9% FLUSH 10 ML FLUSH IV FLUSH PRN ×3 (05:45→12:15)
[2017-02-03] MEDS ORDERED: LACTATED RINGER'S 1000 ML IV PRN (05:45)
[2017-02-03] MEDS ORDERED: INSULIN REGULAR 100 UNITS in NS 100 ML IV SCH (05:45)
[2017-02-03] MEDS ORDERED: CEFAZOLIN 500 MG in NS IRR BTL 500 ML IRRIGATION SCH (05:45)
[2017-02-03] MEDS ORDERED: METOPROLOL TARTRATE 25 MG TAB PO PRN (05:45)
[2017-02-03] MEDS ORDERED: INSULIN HUMAN REGULAR 1,000 UNITS/10 ML VIAL SQ PRN (05:45)
[2017-02-03] MEDS ORDERED: CHLORHEXIDINE GLUCONATE 4% SOLN 120 ML BTL TOPICAL SCH (05:45)
[2017-02-03] MEDS ORDERED: HEPARIN SODIUM - SQ 10,000 UNITS/ML VIAL ONE (06:39)
[2017-02-03] MEDS ORDERED: ceFAZolin 2 GM PREMIX 50 ML ONE (06:39)
[2017-02-03] MEDS ORDERED: methylPREDNISolone SOD SUCC 125 MG/2 ML VIAL ONE (06:39)
[2017-02-03] MEDS ORDERED: VANCOMYCIN HCL 1000 MG VIAL ONE (06:39)
[2017-02-03 06:55] LABS: INTERNATIONAL NORMALIZED RATIO 1.1 RATIO; PROTHROMBIN TIME - PATIENT 11.7 SEC (9.8-11.6)
[2017-02-03] MEDS ORDERED: CUSTODIOL HTK IRR SOLN 1,000 ML ONE ×2 (07:19→07:37)
[2017-02-03] MEDS ORDERED: POTASSIUM CHLORIDE 20 MEQ/10 ML VIAL ONE (07:20)
[2017-02-03] MEDS ORDERED: ALBUMIN HUMAN 25% 12.5 GM/50 ML BAGP IV ONE (07:20)
[2017-02-03] MEDS ORDERED: MANNITOL INJ 0 ML ONE (07:21)
[2017-02-03] MEDS ORDERED: SODIUM BICARBONATE 8.4% INJ 100 ML ONE (07:21)
[2017-02-03] MEDS ORDERED: HEPARIN SODIUM - IV 10,000 UNITS/10 ML VIAL ONE (07:22)
[2017-02-03] MEDS: ceFAZolin 2 GM PREMIX 50 ML IV SCH ×4 (08:29→09:32)
[2017-02-03] MEDS ORDERED: DEXTROSE 50% IN WATER 50 ML SYRINGE ONE (08:41)
[2017-02-03] MEDS ORDERED: DESMOPRESSIN IV SCH (09:30)
[2017-02-03] MEDS ORDERED: SODIUM CHLORIDE 0.9% IV SCH (09:30)
[2017-02-03] MEDS ORDERED: DEXTROSE 50% IN WATER 50 ML VIAL(D50) ONE (10:13)
[2017-02-03] MEDS ORDERED: SODIUM CHLOR 0.9% 1000 ML INJ 2,000 ML ONE (11:24)
[2017-02-03] MEDS ORDERED: ACETAMINOPHEN 1000 MG/100 ML 100 ML IV ONE (11:46)
[2017-02-03] MEDS ORDERED: ceFAZolin INJ 1,000 MG VIAL ONE (11:48)
[2017-02-03] MEDS ORDERED: INSULIN REGULAR (IV INFUSION) 100 UNITS in SODIUM CHLORIDE 0.9% INJ 99 ML IV SCH (12:03)
[2017-02-03] MEDS ORDERED: CLEVIDIPINE INJ 50 ML IV PRN (12:03)
[2017-02-03] MEDS ORDERED: AMINOCAPROIC ACID INJ 250 MG/ML 20 ML VIAL IV ONE (12:12)
[2017-02-03] MEDS ORDERED: SODIUM CHLORID 0.9% 500 ML INJ 500 ML IV ONE (12:12)
[2017-02-03] MEDS ORDERED: VECURONIUM BROMIDE 10 MG VIAL IV ONE (12:12)
[2017-02-03] MEDS ORDERED: NORMOSOL R INJ 1,000 ML IV ONE (12:12)
[2017-02-03] MEDS ORDERED: PROTAMINE SULFATE 250 MG/25 ML VIAL IV ONE (12:12)
[2017-02-03] MEDS ORDERED: ACETAMINOPHEN 650 MG SUPP RECTAL PRN (12:15)
[2017-02-03] MEDS ORDERED: RESP: ALBUTEROL 2.5 MG/IPRATROPIUM 0.5 MG NEB (PRN) NEB (12:15)
[2017-02-03] MEDS ORDERED: DEXTROSE 50% IN WATER 50 ML VIAL(D50) IV PUSH PRN (12:15)
[2017-02-03] MEDS ORDERED: MAGNESIUM SULFATE INJ 2 GM in SODIUM CHLORIDE 0.9% INJ 100 ML IV PRN ×4 (12:15)
[2017-02-03] MEDS ORDERED: ACETAMINOPHEN 325 MG TAB PO PRN (12:15)
[2017-02-03] MEDS ORDERED: RESP: RACEPINEPHRINE 2.25% 0.5 ML NEB NEB PRN (12:15)
[2017-02-03] MEDS ORDERED: METOPROLOL TARTRATE 5 MG/5 ML VIAL IV PUSH PRN (12:15)
[2017-02-03] MEDS ORDERED: CALCIUM CHLORIDE 10% 1 GRAM/10 ML VIAL IV PRN (12:15)
[2017-02-03] MEDS ORDERED: ALBUMIN HUMAN 5% 12.5 GM/250 ML BOTTLE IV PRN (12:15)
[2017-02-03] MEDS ORDERED: CALCIUM CHLORIDE INJ 1 GM in SODIUM CHLORIDE 0.9% INJ 100 ML IV PRN (12:15)
[2017-02-03] MEDS ORDERED: Post-op Orders (for Pharmacy) MISC OTHER ONE (12:25)
--- NOTE | 2017-02-03 12:29 | PD.OP ---
cc: Clem Rosen MD; Roslyn House MD Operative Report Date of Surgery: Feb 03, 2017 Preoperative Diagnosis: (1) Diastolic CHF due to valvular disease (2) Tricuspid regurgitation (3) Mitral regurgitation (4) Aortic stenosis Postoperative Diagnosis: same Procedure: Mitral valve repair with a 28 St. Gustavo Tommy annuloplasty ring AVR with a 19 Intuity tissue valve ROMARIO Anesthesia: Dr. Watters Surgeon: Roslyn House Change Manager(s): Salas Isabel Operation and Findings: The risks, benefits, complications, treatment options, and expected outcomes were discussed with the patient. The possibilities of reaction to medication, pulmonary aspiration, perforation of viscus, bleeding, recurrent infection, the need for additional procedures, failure to diagnose a condition, and creating a complication requiring transfusion or operation were discussed with the patient. The patient concurred with the proposed plan, giving informed consent. The site of surgery properly noted/marked. The patient was taken to Operating Room, identified as Cortes Michael and the procedure verified as Aortic Valve Replacement, mitral valve repair, ROMARIO. A Time Out was held and the above information confirmed. Standard monitoring lines and Colón catheter were placed. General anesthesia was induced. The patient was prepped and draped in a sterile fashion. A median sternotomy was performed and electrocautery was used to obtain hemostasis. The pericardium was opened and a pericardial sling was created using interrupted 0 silk sutures. The patient was heparinized for cardiopulmonary bypass. The heart was instrumented for cardiopulmonary bypass in the usual manner. Antegrade Custodiol cardioplegia was employed. The patient was placed on cardiopulmonary bypass. The left atrial appendage was resected using a surgical stapler. An aortic cross-clamp was applied and the heart was arrested using cold Custodiol cardioplegia. The intra-atrial groove was dissected out using electrocautery. The left atrium was entered under direct vision and the atriotomy was extended inferiorly and posteriorly. The mitral valve was exposed using an automatic retractor. The valve was analyzed and sized to a 28 [place] Tommy annuloplasty ring which was seated using several interrupted 2-0 Tycron horizontal mattress sutures. After securing the sutures, the valve repair was tested and felt to be excellent. The left atrium was closed using a running 4-0 Prolene suture and a small catheter was left in the left atrium to assist in venting the heart. The aorta was opened above the sinotubular ridge and the aortic valve was exposed. On opening the aorta, the valve pathology was obvious. The valve was resected as well as all annular calcification, sized for a 19 Intuity valve which was placed with 3, 2-0 Tycron valve sutures. The valve seated well and was balloon deployed. The aorta was closed with running 4-0 Prolene suture. The patient systemically rewarmed and received a hotshot dose of warm blood cardioplegia. The heart was vigorously deaired with a clamp on. The clamp was removed, deairing continued. The patient was easily weaned from cardiopulmonary bypass. Protamine was given. There was no adverse reaction. Decannulation was carried out without incident. Intraoperative ROMARIO following the procedure showed a well- seated aortic valve with no perivalvular leak and preserved ventricular function. The mitral valve was assessed and there was trace to mild MR. The tricuspid valve was improved with moderate TR. Wound was checked for hemostasis was obtained using electrocautery. A 36 F mediastinal chest tube was placed in the usual manner. The sternum was closed with stainless steel wire. The fascia was closed with 1. PDS. The subcutaneous tissue was closed using a running 2-0 Vicryl suture. The skin was closed with 4-0 Monocryl. Sterile dressings were placed. At the end of the operation, all sponge, instruments, and needle counts were correct. The patient was transferred to the CICU in stable condition. Findings: Calcified trileaflet AV, moderate to severe MR repaired with annuloplasty ring. XC: 83 CPB: 117 Drains: mediastinal x 1 Specimens: left atrial appendage, aortic valve leaflets Implants: 28 St. Gustavo Mcclelland annuloplasty ring, 19 Intuity tissue AV Complications: none Disposition: to CVICU in stable, but guarded condition Pacing Wires: 2 atrial and 2 ventricular Roslyn House MD Feb 03, 2017 12:29
[2017-02-03] MEDS ORDERED: fentaNYL CITRATE 1000 MCG/20 ML VIAL ONE (12:46)
[2017-02-03] MEDS ORDERED: MIDAZOLAM HCL 5 MG/5 ML VIAL ONE (12:46)
[2017-02-03] MEDS: SEVELAMER CARBONATE 800 MG TAB PO SCH ×2 (13:00→18:00)
[2017-02-03 13:24] LABS: HEMATOCRIT 27.6 % (39.0-51.0); MEAN CELL VOLUME 97.6 FL (80.0-100.0); MEAN CORPUSCULAR HEMOGLOBIN 31.3 PG (27.0-34.0); MEAN CORPUSCULAR HGB CONC 32.1 % (32.0-36.0); PLATELET COUNT 148 TH/MM3 (150-450); RED BLOOD COUNT 2.83 MIL/MM3 (4.50-5.90); RED CELL DISTRIBUTION WIDTH 16.4 % (11.6-17.2); REVIEW FLAG FINAL; WHITE BLOOD COUNT 19.3 TH/MM3 (4.0-11.0)
--- NOTE | 2017-02-03 13:24 | RADRPT ---
EXAM DATE/TIME: 02/03/2017 12:33 [facility] COMPARISON: CHEST SINGLE AP, January 24, 2017, 15:23. INDICATIONS : Post CABG. MEDICAL HISTORY : Hypertension. Gastroesophageal reflux disease. Benign prostatic hyperplasia, (BPH)Seizures. Atrial fi brillation. Mitral valve regurgitation. Aortic stenosis. Congestive heart failure.Asthma. Hernia, hia shonna. Chronic kidney disease, stage IV. Dialysis. Kidney stones. Arthritis. Diabetes type II. Anemia. SURGICAL HISTORY : Left upper arm shunt. ENCOUNTER: Subsequent ACUITY: 1 day PAIN SCORE: Non-responsive. LOCATION: Bilateral chest FINDINGS: Postsurgical features of median sternotomy and cardiac surgery. ETT approximately 3 cm above the dannie na. NGT in the stomach. Right subclavian central line with tip in the proximal SVC. Single mediastina l drain. No significant pneumothorax or pleural effusion. Minimal bibasilar airspace disease. Cardiom ediastinal contours are stable. Remainder of the exam is unchanged. CONCLUSION: 1. Expected postoperative changes of CABG with tubes and lines, as above. 2. No significant pneumothorax or effusion. 3. Minimal bibasilar airspace disease, likely atelectasis. Brigido Zaidi MD on February 03, 2017 at 13:21 Board Certified Radiologist. This report was verified electronically.
[2017-02-03 13:34] LABS: APTT (PATIENT) 27.4 SEC (24.3-30.1); INTERNATIONAL NORMALIZED RATIO 1.3 RATIO
[2017-02-03] MEDS: PHENYTOIN SODIUM 100 MG CAP PO SCH ×2 (14:14→18:37)
[2017-02-03] MEDS: ONDANSETRON HCL 4 MG/2 ML VIAL IV PUSH PRN (15:23)
[2017-02-03] MEDS ORDERED: NOREPINEPHRINE-DEXTROSE DRIP 250 ML IV ONE (15:51)
[2017-02-03] MEDS: RESP: ALBUTEROL 2.5 MG/IPRATROPIUM 0.5 MG NEB (SCH) NEB ×2 (17:09→21:31)
--- NOTE | 2017-02-03 17:20 | PD.CONS ---
[facility] Service Critical Care Medicine Consult Requested By Dr. House Reason for Consult Management of comorbid end-stage renal disease and electrolyte abnormalities in the setting of post aVR Primary Care Physician Kassandra Granda MD History of Present Illness This is a 71yM with history of ESRD, severe aortic stenosis, mod-sev mitral regurgitation, severe tricuspid regurgitation who presents for elective Aortic valve replacement and mitral valve repair. Intraoperatively, the patient was noted to have hyperkalemia and a serum K of > 7. He was ultrafiltrated on pump and finishing serum K was around 4.4. Otherwise, concluding ROMARIO demonstrated no perivalvular leak, with slightly improved to moderate TR. He is brought to the CVICU in stable condition on an epinephrine drip at 2 mcg/min for RV support. On my evaluation, he is intubated, still under anesthesia, but beginning to arouse. no additional information is obtainable from the patient. 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 Patient is unable to provide a detailed family history Social History Patient is unable to provide a detailed social history due to his critical condition Physical Exam Vital Signs Vital Signs Date Time Temp Pulse Resp B/P (MAP) Pulse Ox O2 Delivery O2 Flow Rate FiO2 02/03/17 15:14 99 Nasal Cannula 2 02/03/17 15:14 99 Nasal Cannula 2.00 02/03/17 14:24 14 02/03/17 13:25 101 157/57 02/03/17 13:00 85 157/57 02/03/17 12:55 Nasal Cannula 40 02/03/17 12:43 98.6 02/03/17 12:40 99 60 02/03/17 06:10 98.6 83 20 172/79 (110) 100 Physical Exam GENERAL: Elderly male, lying in bed, intubated, sedated HEENT: Normocephalic. Atraumatic. Pupils equal, round, reactive, conjugate. Mucous membranes are moist NECK: Trachea is midline. There is no JVD. CHEST: Median sternotomy incision with wound VAC dressing in place. 2 chest tubes exit subxiphoid with aproximally 300 cc of sanguinous output. CARDIOVASCULAR: Normal rate irregularly irregular rhythm. Intermittently paced beats. Has both atrial ventricular wires. A. fib by telemetry. On external pacemaker DDD setting back up rate of 50 ABDOMEN: Soft, nontender, nondistended. No guarding. MUSCULOSKELETAL: Pulses 2+. No peripheral edema. NEUROLOGICAL: RASS -3. Arousing from anesthesia. Moves all extremities. Laboratory Laboratory Tests Test 02/03/17 06:30 02/03/17 13:05 Prothrombin Time 11.7 14.0 Prothromb Time International Ratio 1.1 1.3 Potassium Level 5.9 White Blood Count 19.3 Red Blood Count 2.83 Hemoglobin 8.9 Hematocrit 27.6 Mean Corpuscular Volume 97.6 Mean Corpuscular Hemoglobin 31.3 Mean Corpuscular Hemoglobin Concent 32.1 Red Cell Distribution Width 16.4 Platelet Count 148 Mean Platelet Volume 8.5 Activated Partial Thromboplast Time 27.4 Fibrinogen 203 Result Diagram: 02/03/17 1305 02/03/17 0630 Assessment and Plan Assessment and Plan Assessment: This is a 71yM with history of ESRD on IHD T,R,Sa who is now POD 0 s /p bioprosthetic AVR, mitral ring repair, Left atrial appendage ligation, course complicated by hyperkalemia. Agree with keeping him on epinephrine overnight to mitigate any worsening of RV function, as his moderate TR still puts him at risk for complications. Otherwise, will closely watch his chest tube output. He did receive 1 dose of DDAVP intraoperatively for uremic platelet dysfunction. Recommendations: Post-op AVR, mitral ring repair, STAN ligation -- monitor chest tube output -- pain control per surgery Moderate Tricuspid Regurgitation -- continue epinephrine at 2mcg/min -- may need to use Cleviprex to keep SBP < 140. -- would keep epi overnight unless there are rhythm side effects, and then plan to wean in the AM. ESRD on IHD -- nephrology -- to me, he does not appear volume overloaded, and appears quite euvolemic. I do not see any reason for HD today, and will have to re-eval tomorrow. Hyperkalemia -- watch serum K closely. post-op was 4.7 -- daily BMP - As long as chest tube output slows appropriately, ok to extubate on pathway - advance diet as tolerated. Remain in ICU. Medically complex patient with multiple medical comorbidities. Critical Care medicine will follow along with CT surgery team as long as patient remains in ICU. Darvin Cid MD Feb 03, 2017 17:20
[2017-02-03] MEDS ORDERED: EPINEPHrine 2 MG/D5W 250 ML IV PRN ×2 (17:30)
[2017-02-03] MEDS ORDERED: EPINEPHrine (1:1000) INJ 2 MG in DEXTROSE 5% IN WATER INJ 250 ML IV PRN ×2 (18:00)
[2017-02-03] MEDS: ACETAMINOPHEN 1000 MG/100 ML VIAL IV SCH (18:36)
--- NOTE | 2017-02-03 19:42 | MB ---
cc: JAMILAH ROMAN MD DATE OF CONSULTATION: 02/03/2017. REASON FOR CONSULTATION: End-stage renal disease on hemodialysis for management. HISTORY OF PRESENT ILLNESS: This is a 71-year-old male with past medical history of hypertension, diabetes mellitus, ischemic heart disease, aortic stenosis, chronic anemia, atrial fibrillation who was admitted for cardiac surgery with severe aortic stenosis and mitral regurgitation. I was called to see the patient for the management of hemodialysis. He has been on hemodialysis Tuesday, and Tuesday and has been following with Dr. Harris Umana and he had his last hemodialysis done on Tuesday. The patient was admitted and underwent cardiac surgery this morning. The patient had a mitral wall repair with AVR and angioplasty. The patient tolerated the procedure well. He is extubated sitting in the chair. He has a nasal cannula 2 liters. He denies any shortness of breath. There is no chest pain. No palpitations. His potassium was 5.9 in the morning. He received insulin and D50 in the OR and his last potassium is 4.7 just now. The patient has a left arm AV fistula through which he is getting dialysis. PAST MEDICAL HISTORY: 1. Hypertension. 2. Diabetes mellitus. 3. History of cerebrovascular accident. 4. Chronic anemia. 5. Atrial fibrillation. 6. Aortic stenosis. 7. Mitral regurgitation. PAST SURGICAL HISTORY: 1. Left arm AV fistula surgery. 2. He just had cardiac surgery done today. REVIEW OF SYSTEMS: He denies any headache, dizziness or blurring of vision. He has mild dry cough. There is no shortness of breath. Currently he has nasal cannula. There is no nausea or vomiting. He is still NPO. No chest pain or palpitations. No abdominal pain. SOCIAL HISTORY: There is no history of smoking or alcoholism. The patient is living with his son. FAMILY HISTORY: The family history is noncontributory. ALLERGIES: HE HAS NO KNOWN DRUG ALLERGIES. MEDICATIONS: Currently he is on the following medications: 1. Insulin regular infusion. 2. Cefazolin. 3. Aspirin 81 milligrams once a day. 4. Cymbalta 30 milligrams daily. 5. Protonix 40 milligrams once a day. 6. Flomax 0.4 milligrams at bedtime. 7. DuoNeb nebulizer. 8. Cefazolin 1 gram IV q. 8 hours. 9. Dilantin 100 milligrams three times a day. 10. Renvela 800 milligrams three times a day. PHYSICAL EXAMINATION: GENERAL: On examination, the patient is awake and alert and he is sitting in the chair not in acute distress. VITAL SIGNS: His last blood pressure is 157/57, temperature is 98.6, oxygen saturation is 97% to 99%. HEAD, EYES, EARS, NOSE, THROAT: The pupils are mid-constricted. Nonicteric sclerae. Conjunctivae are pale. NECK: The neck is supple. JVD is not elevated. LUNGS: The patient has bilateral good air entry with occasional wheezing. HEART: S1 and S2 regular rhythm. ABDOMEN: Abdomen soft and lax. There is no tenderness. EXTREMITIES: He has mild edema in the legs. Left arm has an AV fistula with good bruit. INVESTIGATIONS: White blood cell count is 19.3, hemoglobin 8.9, platelet count 148,000. Sodium is 138, potassium 5.0 and this was done about nine days ago and now the potassium was 5.9 this morning and the latest one by is 4.7. IMAGING STUDIES: The patient had a chest x-ray done which shows postoperative changes of CABG, small minimal airspace disease with atelectasis. ASSESSMENT AND PLAN: 1. Post cardiac surgery with AVR and mitral valve repair. 2. End-stage renal disease on hemodialysis. 3. Anemia. 4. Diabetes mellitus. 5. History of hypertension. 6. Atrial fibrillation. The patient had cardiac surgery done today and the potassium now is 4.7 . He is not in fluid overload status. I already called the dialysis nurse to dialyze him first thing in the morning and we will give him the Epogen with the dialysis. Thank you for the consultation, and I will follow the patient today and tomorrow and then over the weekend, he will be followed by Dr. Perez. MD KATIE Pisano/HERMILA /6:24 PM /7:25 PM
[2017-02-03] MEDS: TAMSULOSIN HCL 0.4 MG CAP PO SCH (21:17)
[2017-02-04] VITALS (8 sets, daily range): BP systolic 90–170; BP diastolic 44–76; PULSE 66–108; RESP 18–24; TEMP 96.8–99; O2SAT 97–100
[2017-02-04] MEDS: ACETAMINOPHEN 1000 MG/100 ML VIAL IV SCH ×3 (00:50→12:04)
[2017-02-04] MEDS: ONDANSETRON HCL 4 MG/2 ML VIAL IV PUSH PRN (01:40)
[2017-02-04] MEDS: RESP: ALBUTEROL 2.5 MG/IPRATROPIUM 0.5 MG NEB (SCH) NEB ×4 (04:19→21:05)
[2017-02-04 04:23] LABS: HEMATOCRIT 25.7 % (39.0-51.0); MEAN CORPUSCULAR HEMOGLOBIN 31.4 PG (27.0-34.0); MEAN CORPUSCULAR HGB CONC 32.1 % (32.0-36.0); PLATELET COUNT 92 TH/MM3 (150-450); RED BLOOD COUNT 2.63 MIL/MM3 (4.50-5.90); RED CELL DISTRIBUTION WIDTH 16.6 % (11.6-17.2); WHITE BLOOD COUNT 15.7 TH/MM3 (4.0-11.0)
[2017-02-04 04:35] LABS: REVIEW FLAG FINAL
[2017-02-04 04:55] LABS: BICARBONATE 20.6 MEQ/L (21.0-32.0); POTASSIUM 6.2 MEQ/L (3.5-5.1)
[2017-02-04] MEDS: PANTOPRAZOLE SOD 40 MG DELAYED RELEASE TAB PO SCH (05:23)
--- NOTE | 2017-02-04 05:54 | RADRPT ---
EXAM DATE/TIME: 02/04/2017 04:27 [facility] COMPARISON: CHEST SINGLE AP, February 03, 2017, 12:33. INDICATIONS : Post CABG MEDICAL HISTORY : Hypertension. Gastroesophageal reflux disease. Benign prostatic SURGICAL HISTORY : CABG. ENCOUNTER: Subsequent ACUITY: 2 days PAIN SCORE: 7/10 LOCATION: Bilateral chest FINDINGS: A single view of the chest demonstrates the lungs to be symmetrically aerated without evidence of mas s, infiltrate or effusion. The cardiomediastinal contours are unremarkable. Osseous structures are intact. Innumerable sternal wires. CONCLUSION: Normal examination. Right subclavian central line in good position. Dewayne Gutierrez MD on February 04, 2017 at 5:52 Board Certified Radiologist. This report was verified electronically.
[2017-02-04] MEDS: SEVELAMER CARBONATE 800 MG TAB PO SCH ×3 (09:00→17:53)
[2017-02-04] MEDS: PHENYTOIN SODIUM 100 MG CAP PO SCH ×3 (09:00→17:53)
[2017-02-04] MEDS: DULoxetine HCl DR 30 MG CAP PO SCH (09:00)
[2017-02-04] MEDS ORDERED: DEXTROSE 50% IN WATER 50 ML VIAL(D50) IV PRN (10:45)
[2017-02-04] MEDS ORDERED: GLUCAGON 1 MG/ML VIAL OTHER PRN (10:45)
[2017-02-04] MEDS ORDERED: SOD PHOSPHATE/SOD BIPHOSPHATE (ADULT) ENEMA 133ML RECTAL PRN (10:45)
[2017-02-04] MEDS: ALBUMIN HUMAN 25% 25 GM/100 ML BAGP IV PRN ×2 (10:45→10:55)
[2017-02-04] MEDS ORDERED: BISACODYL 10 MG SUPP RECTAL PRN (10:45)
--- NOTE | 2017-02-04 11:12 | PD.CAR.PN ---
CVT Progress Note Subjective/Hospital Course: 71/ male hx of moderate/ severe /MT/TR underwent R&Lhc 01/24/17, non obstructing coronary disease . EF 40-45, AV area 0.71, moderate to severe MR moderate to severe TR PMH: ESRD on dialysis [facility]( followed by Dr Harris Umana) , Afib, anemia , valvular Heart Disease, CVA, Left carotid stenosis , DM, Dysarthria, HTN Surgery: Mitral valve repair with a 28 [address] Tommy annuloplasty ring AVR with a 19 Intuity tissue valve, ROMARIO 02/03 the patient was noted to have hyperkalemia and a serum K of > 7. He was ultrafiltrated on pump and finishing serum K was around 4.4. Otherwise, concluding ROMARIO demonstrated no perivalvular leak, with slightly improved to moderate TR. He is brought to the CVICU in stable condition on an epinephrine drip at 2 mcg/min for RV support. 02/04 pt extubated after surgery, underwent dialysis this am intent to remove 2 liters, pt became hypotensive and required only ultrafiltration, and was given colloid and crystalloid , pt remains on low dose Epi he also had some arrhythmia, bradycardia , with junctional rhythm chest tubes left in place 100cc/ 12 hrs Objective: GENERAL: feels fair, weak, some nausea SKIN: Warm and dry. prevena dressing to chest HEAD: Normocephalic. EYES: No scleral icterus. No injection or drainage. NECK: Supple, trachea midline. No JVD or lymphadenopathy. CARDIOVASCULAR: irregular rate and rhythm no edema . RESPIRATORY: diminished in bases Breath sounds equal bilaterally. No accessory muscle use. chest tube to wall suction, no air leak GASTROINTESTINAL: Abdomen soft, non-tender, nondistended. MUSCULOSKELETAL: No cyanosis, or edema. BACK: Nontender without obvious deformity. No CVA tenderness. Vital Signs Date Time Temp Pulse Resp B/P (MAP) Pulse Ox O2 Delivery O2 Flow Rate FiO2 02/04/17 09:21 98 Nasal Cannula 2.00 02/04/17 08:00 95 Nasal Cannula 2.00 02/04/17 08:00 84 02/04/17 08:00 98.1 89 22 153/60 (91) 97 170/59 (96) 02/04/17 06:00 18 02/04/17 06:00 18 02/04/17 04:00 96.8 72 20 136/60 (85) 99 161/76 (104) 02/04/17 04:00 99 Nasal Cannula 2.00 02/04/17 04:00 72 02/04/17 00:00 97 Nasal Cannula 2.00 02/04/17 00:00 66 02/04/17 00:00 97.8 66 20 147/69 (95) 97 154/57 (89) 02/03/17 21:31 99 Nasal Cannula 2.00 02/03/17 20:00 97.6 86 20 135/58 (83) 99 125/63 (83) 02/03/17 20:00 86 02/03/17 20:00 99 Nasal Cannula 2.00 02/03/17 16:00 96.7 93 14 112/55 (74) 97 120/55 (76) 02/03/17 16:00 97 Nasal Cannula 2.00 02/03/17 16:00 93 02/03/17 15:15 99 Nasal Cannula 2.00 02/03/17 15:14 99 Nasal Cannula 2 02/03/17 15:14 99 Nasal Cannula 2.00 02/03/17 15:14 40 02/03/17 13:25 101 157/57 02/03/17 13:00 85 157/57 02/03/17 12:55 Nasal Cannula 40 02/03/17 12:43 98.6 02/03/17 12:40 99 60 02/03/17 12:25 98 Mechanical Ventilator 50 02/03/17 12:25 73 02/03/17 12:25 97.6 73 16 104/52 (69) 100 126/50 (75) 02/03/17 12:25 50 Labs: Laboratory Tests Test 02/04/17 04:09 White Blood Count 15.7 TH/MM3 (4.0-11.0) Red Blood Count 2.63 MIL/MM3 (4.50-5.90) Hemoglobin 8.2 GM/DL (13.0-17.0) Hematocrit 25.7 % (39.0-51.0) Mean Corpuscular Volume 98.0 FL (80.0-100.0) Mean Corpuscular Hemoglobin 31.4 PG (27.0-34.0) Mean Corpuscular Hemoglobin Concent 32.1 % (32.0-36.0) Red Cell Distribution Width 16.6 % (11.6-17.2) Platelet Count 92 TH/MM3 (150-450) Mean Platelet Volume 8.7 FL (7.0-11.0) Blood Urea Nitrogen 72 MG/DL (7-18) Creatinine 8.52 MG/DL (0.60-1.30) Random Glucose 88 MG/DL (74-106) Calcium Level 8.8 MG/DL (8.5-10.1) Magnesium Level 3.0 MG/DL (1.5-2.5) Sodium Level 137 MEQ/L (136-145) Potassium Level 6.2 MEQ/L (3.5-5.1) Chloride Level 106 MEQ/L (98-107) Carbon Dioxide Level 20.6 MEQ/L (21.0-32.0) Anion Gap 10 MEQ/L (5-15) Estimat Glomerular Filtration Rate 8 ML/MIN (>89) Result Diagram: 02/04/1740802/04/17408 Telemetry: afib (1) s/p AVR, MVR Plan: ASA , no BB until BP stabilizes wean off epi gtt as tolerated PT/ OOB as tolerated pulm toileting keep in ICU (2) Mitral regurgitation (3) Aortic stenosis (4) History of CVA with residual deficit Plan: PT/OT will need rehab (5) Chronic CHF (6) Tricuspid regurgitation (7) Diastolic CHF due to valvular disease (8) Seizure disorder Plan: on Dilantin (9) A-fib Plan: back up pacer set at 50/ 2/2 paul rhythms (10) ESRD (end stage renal disease) on dialysis Plan: received dialysis today Maya Theodore Feb 04, 2017 11:12
[2017-02-04] MEDS ORDERED: PILL SPLITTER OTHER PRN (11:15)
[2017-02-04] MEDS ORDERED: ALBUMIN HUMAN 25% 12.5 GM/50 ML BAGP IV ONE (11:21)
--- NOTE | 2017-02-04 11:49 | EKG ---
Date Performed: 02/03/2017 Time Performed: 13:19:30 PTAGE: 71 years EKG: ATRIAL FIBRILLATION Left anterior fascicular block MARKED LEFT AXIS DEVIATION RIGHT BUNDLE BRANCH BLOCK PVCs vs. aberrant conduction of PACs ABNORMAL ECG PREVIOUS TRACING : 01/24/2017 10.48 DOCTOR: Cristian Nicole Interpretating Date/Time 02/04/2017 11:44:56
--- NOTE | 2017-02-04 11:52 | EKG ---
Date Performed: 02/04/2017 Time Performed: 04:05:26 PTAGE: 71 years EKG: Atrial fibrillation Demand pacing Pacemaker rhythm - no further analysis Right bundle branc h block Left anterior fascicular block The appearance of the pacemaker spikes; however, comparing the ST-T wave segments, suggests artifact or undersensing. Clinical correlation is recommended. Abnormal ECG PREVIOUS TRACING : 02/03/2017 13.19 DOCTOR: Cristian Nicole Interpretating Date/Time 02/04/2017 11:46:58
[2017-02-04] MEDS ORDERED: SODIUM CHLOR 0.9% 1000 ML INJ 1,000 ML OTHER PRN ×2 (11:56)
[2017-02-04] MEDS ORDERED: SODIUM CHLOR 0.9% 1000 ML INJ 1,000 ML IV PRN (11:56)
[2017-02-04] MEDS ORDERED: HEPARIN SODIUM - IV 10,000 UNITS/10 ML VIAL IVF PRN (12:00)
[2017-02-04] MEDS ORDERED: cloNIDine HCL 0.1 MG TAB PO PRN (12:00)
[2017-02-04] MEDS ORDERED: HEPARIN SODIUM - IV 10,000 UNITS/10 ML VIAL PRN (12:00)
[2017-02-04] MEDS ORDERED: GELATIN 12 MM/7 MM FOAM TOP PRN (12:00)
[2017-02-04] MEDS ORDERED: NITROGLYCERIN 0.4 MG SL 25 TABS/BTL SL PRN (12:00)
[2017-02-04] MEDS ORDERED: ACETAMINOPHEN 325 MG TAB PO PRN (12:00)
[2017-02-04] MEDS ORDERED: GENTAMICIN SULFATE (DIALYSIS USE ONLY) 20 MG/2 ML VIAL IV PRN (12:00)
[2017-02-04] MEDS ORDERED: MANNITOL 12.5 GM/50 ML VIAL IV PRN (12:00)
[2017-02-04] MEDS ORDERED: EPOETIN ALFA 10,000 UNITS/ML VIAL IV PRN (12:00)
[2017-02-04] MEDS ORDERED: diphenhydrAMINE HCL 25 MG CAP PO PRN (12:00)
[2017-02-04] MEDS ORDERED: SODIUM CHLORIDE 0.9% FLUSH 10 ML FLUSH IV FLUSH PRN (12:00)
[2017-02-04] MEDS: ASPIRIN 81 MG CHEW TAB PO SCH (12:05)
[2017-02-04] MEDS ORDERED: CALCIUM CHLORIDE INJ 1 GM in SODIUM CHLORIDE 0.9% INJ 100 ML IV ONE (12:30)
[2017-02-04] MEDS: INSULIN ASPART SUPPLEMENTAL SCALE SQ SCH ×3 (14:47→22:17)
--- NOTE | 2017-02-04 16:24 | HHI.NPPN ---
Subjective History of Present Illness 71-year-old male with past medical history of hypertension, diabetes mellitus, ischemic heart disease, aortic stenosis, chronic anemia, atrial fibrillation who was admitted for cardiac surgery with severe aortic stenosis and mitral regurgitation. I was called to see the patient for the management of hemodialysis. He has been on hemodialysis Tuesday, and Tuesday and has been following with Dr. Harris Umana and he had his last hemodialysis done on Tuesday. Additional Remarks Patient seen after HD, sitting on the chair, no dizziness, has pain at surgery site on moving. Review of Systems General Constitutional: Fatigue Respiratory Lungs: SOB Cardiovascular Cardiac: Chest Pain, Edema, HAYWARD Objective Data Data 02/04/17 02/05/17 19:00 07:00 Output Total 0 ml Balance 0 ml Hemodialysis 0 ml Vital Signs Date Time Temp Pulse Resp B/P (MAP) Pulse Ox O2 Delivery O2 Flow Rate FiO2 02/04/17 12:34 16 02/04/17 12:00 99 Nasal Cannula 2.00 02/04/17 12:00 78 02/04/17 12:00 98.3 78 24 90/47 (61) 99 116/45 (68) 02/04/17 09:21 98 Nasal Cannula 2.00 02/04/17 08:00 95 Nasal Cannula 2.00 02/04/17 08:00 84 02/04/17 08:00 98.1 89 22 153/60 (91) 97 170/59 (96) 02/04/17 06:00 18 02/04/17 04:00 96.8 72 20 136/60 (85) 99 161/76 (104) 02/04/17 04:00 99 Nasal Cannula 2.00 02/04/17 04:00 72 02/04/17 00:00 97 Nasal Cannula 2.00 02/04/17 00:00 66 02/04/17 00:00 97.8 66 20 147/69 (95) 97 154/57 (89) 02/03/17 21:31 99 Nasal Cannula 2.00 02/03/17 20:00 97.6 86 20 135/58 (83) 99 125/63 (83) 02/03/17 20:00 86 02/03/17 20:00 99 Nasal Cannula 2.00 -: 02/04/1740802/04/17408 Physical Exam General Appearance: No Acute Distress, Comfortable Eyes Eye Exam: Pupils Equal Throat Throat Exam: Oral Mucosa Gilman & Moist Pulmonary Resp Exam: Breath Sounds Equal, No Distress, Rhonchi, Decreased Bases Cardiology CV Exam: Regular, Normal Sinus Rhythm Gastrointestinal/Abdomen GI Exam: Soft, Non-Tender, Bowel Sounds Present Extremeties Extremities Exam: Trace Edema Neurologic Neuro Exam: Alert, Awake, Oriented Psychiatric Psych Exam: Appropriate Responses Assessment/Plan Assessment Summary: Anemia of CKD, Hypertension, End Stage Renal Disease Electrolyte Assessment: Hyperkalemia Problem List: (1) Status post aortic valve repair ICD Codes: Z98.890 - Other specified postprocedural states (2) DM (diabetes mellitus) ICD Codes: E11.9 - Type 2 diabetes mellitus without complications Status: Acute (3) A-fib ICD Codes: I48.91 - Unspecified atrial fibrillation Status: Acute (4) History of CVA (cerebrovascular accident) ICD Codes: Z86.73 - Personal history of transient ischemic attack (TIA), and cerebral infarction without residual deficits Status: Acute (5) Seizure disorder ICD Codes: G40.909 - Epilepsy, unspecified, not intractable, without status epilepticus Status: Acute (6) HTN (hypertension), benign ICD Codes: I10 - Essential (primary) hypertension Status: Acute (7) CAD (coronary artery disease) ICD Codes: I25.10 - Atherosclerotic heart disease of [place] coronary artery without angina pectoris Status: Acute (8) ESRD (end stage renal disease) on dialysis ICD Codes: N18.6 - End stage renal disease; Z99.2 - Dependence on renal dialysis Status: Acute Plan Patient has HD in AM. The BP dropped and develop tachycardia. Was not able to remove any fluid. Now the BP is better and HR improve. To start diet. K was elevated, will follow. Observe for fluid overload and K level over the weekend. May will need HD again. Olvin Dunn MD Feb 04, 2017 16:23
[2017-02-04] MEDS: oxyCODONE/ACETAMINOPHEN 5 MG/325 MG TAB PO PRN ×2 (17:52→22:10)
[2017-02-04] MEDS: ONDANSETRON HCL 4 MG/2 ML VIAL IV PRN (17:52)
[2017-02-04] MEDS: DOCUSATE SODIUM 100 MG CAP PO SCH (20:43)
[2017-02-04] MEDS: SENNOSIDES 8.6 MG TAB PO SCH (20:43)
[2017-02-04] MEDS: TAMSULOSIN HCL 0.4 MG CAP PO SCH (20:43)
[2017-02-04] MEDS: METOPROLOL TARTRATE 25 MG TAB PO SCH (20:43)
--- NOTE | 2017-02-04 22:47 | HHI.CCPN ---
Subjective Remarks/Hospital Course Hospital Course: This is a 71yM with history of ESRD, severe aortic stenosis, mod-sev mitral regurgitation, severe tricuspid regurgitation who presents for elective Aortic valve replacement and mitral valve repair. Intraoperatively, the patient was noted to have hyperkalemia and a serum K of > 7. He was ultrafiltrated on pump and finishing serum K was around 4.4. Otherwise, concluding ROMARIO demonstrated no perivalvular leak, with slightly improved to moderate TR. He is brought to the CVICU in stable condition on an epinephrine drip at 2 mcg/min for RV support. On my evaluation, he is intubated, still under anesthesia, but beginning to arouse. no additional information is obtainable from the patient. subjective: 02/04: delayed note entry. seen and evaluated around 06:15am. patient denies complaints. pain adequately controlled. doing well. on 2 mcg/min epinephrine overnight. Objective Vital Signs Date Time Temp Pulse Resp B/P (MAP) Pulse Ox O2 Delivery O2 Flow Rate FiO2 02/04/17 21:06 100 Nasal Cannula 3.00 02/04/17 20:00 91 02/04/17 20:00 99.0 19 101/45 (63) 02/03/17 15:14 40 Intake and Output 02/04/17 02/04/17 02/05/17 08:00 16:00 00:00 Intake Total 1420 ml 450 ml Output Total 100 ml 0 ml 100 ml Balance 1320 ml 0 ml 350 ml Result Diagram: 02/04/17 0409 02/04/17 0409 Objective Remarks GENERAL: Elderly male, sitting in chair, no acute distress. HEENT: Normocephalic. Atraumatic. Pupils equal, round, reactive, conjugate. Mucous membranes are moist NECK: Trachea is midline. There is no JVD. CHEST: Median sternotomy incision with wound VAC dressing in place. 2 chest tubes exit subxiphoid with minimal additional serosanguinous output overnight. CARDIOVASCULAR: Normal rate irregularly irregular rhythm. Intermittently paced beats. Has both atrial and ventricular wires. A. fib by telemetry. On external pacemaker DDD setting back up rate of 50 ABDOMEN: Soft, nontender, nondistended. No guarding. MUSCULOSKELETAL: Pulses 2+. No peripheral edema. NEUROLOGICAL: RASS 0. CAM -. follows commands. no focal deficits. A/P Assessment and Plan Assessment: This is a 71yM with history of ESRD on IHD T,R,Sa who is now POD 1 s /p bioprosthetic AVR, mitral ring repair, Left atrial appendage ligation, course complicated by hyperkalemia. Will wean off epinephrine. AM potassium still elevated at 6.2. will likely need IHD today, but given current assessment , he appears euvolemic, and I do not think we should pull much if any fluid. I agree with keeping him in ICU an additional day given he is high risk with his comorbidities. Recommendations: Post-op AVR, mitral ring repair, STAN ligation -- pain control per surgery Moderate Tricuspid Regurgitation -- wean epinephrine to off today. -- would not aggressively pull fluid or give too much additional fluid. appears very euvolemic currently. ESRD on IHD -- nephrology -- to me, he does not appear volume overloaded, and appears quite euvolemic. Hyperkalemia -- likely needs IHD today. -- daily BMP - renal/cardiac diet as tolerated. Remain in ICU. Medically complex patient with multiple medical comorbidities. Critical Care medicine will follow along with CT surgery team as long as patient remains in ICU. Darvin Cid MD Feb 04, 2017 22:47
[2017-02-05] VITALS (8 sets, daily range): BP systolic 114–134; BP diastolic 50–72; PULSE 82–105; RESP 15–17; TEMP 97.5–98.9; O2SAT 95–100
[2017-02-05] MEDS: oxyCODONE/ACETAMINOPHEN 5 MG/325 MG TAB PO PRN ×2 (01:52→20:51)
[2017-02-05] MEDS: INSULIN ASPART SUPPLEMENTAL SCALE SQ SCH ×5 (02:00→21:00)
[2017-02-05 04:54] LABS: BASOPHIL % 0.1 % (0.0-2.0); EOSINOPHIL % 0.1 % (0.0-4.0); HEMATOCRIT 24.6 % (39.0-51.0); LYMPH % 9.3 % (9.0-44.0); LYMPHOCYTE # 1.1 TH/MM3 (1.0-4.8); MEAN CELL VOLUME 97.2 FL (80.0-100.0); MEAN CORPUSCULAR HEMOGLOBIN 31.7 PG (27.0-34.0); MEAN CORPUSCULAR HGB CONC 32.6 % (32.0-36.0); MONO % 8.5 % (0.0-8.0); PLATELET COUNT 57 TH/MM3 (150-450); RED BLOOD COUNT 2.53 MIL/MM3 (4.50-5.90); RED CELL DISTRIBUTION WIDTH 16.9 % (11.6-17.2); WHITE BLOOD COUNT 12.2 TH/MM3 (4.0-11.0)
[2017-02-05 05:14] LABS: HEMO FLAGS AUTO DIFF
[2017-02-05 05:18] LABS: MAGNESIUM 2.6 MG/DL (1.5-2.5); POTASSIUM 5.8 MEQ/L (3.5-5.1)
[2017-02-05] MEDS: PANTOPRAZOLE SOD 40 MG DELAYED RELEASE TAB PO SCH (06:17)
[2017-02-05 06:58] LABS: BANDS 17 % (0-6); BASOPHILS 1 % (0-2); METAMYELOCYTES 2 % (0-1); NEUTROPHIL # MANUAL DIFF 10.6 TH/MM3 (1.8-7.7); OVALOCYTES 2+ (NORMAL); POLYS (SEG NEUTROPHILS) 68 % (16-70); WBC DIFF SAMPLE 100
[2017-02-05 06:59] LABS: BURR CELLS 1+ (NORMAL); KERATOCYTES OCC (NORMAL); PLATELET ESTIMATE SMEAR LOW (NORMAL); PLATELET MORPHOLOGY NORMAL (NORMAL); SCAN/DIFF FINAL DIFF MANUAL
[2017-02-05] MEDS: RESP: ALBUTEROL 2.5 MG/IPRATROPIUM 0.5 MG NEB (SCH) NEB (07:30)
[2017-02-05] MEDS: SEVELAMER CARBONATE 800 MG TAB PO SCH ×3 (08:30→18:01)
[2017-02-05] MEDS: MULTIVITAMINS/MINERALS THERAPEUTIC TAB PO SCH (08:30)
[2017-02-05] MEDS: DOCUSATE SODIUM 100 MG CAP PO SCH ×2 (08:30→20:51)
[2017-02-05] MEDS: DULoxetine HCl DR 30 MG CAP PO SCH (08:30)
[2017-02-05] MEDS: POLYETHYLENE GLYCOL 17 GM PKG PO SCH (08:30)
[2017-02-05] MEDS: PHENYTOIN SODIUM 100 MG CAP PO SCH ×3 (08:31→18:01)
[2017-02-05] MEDS: METOPROLOL TARTRATE 25 MG TAB PO SCH ×2 (08:31→20:50)
--- NOTE | 2017-02-05 08:36 | HHI.CCPN ---
Subjective Remarks/Hospital Course Hospital Course: This is a 71yM with history of ESRD, severe aortic stenosis, mod-sev mitral regurgitation, severe tricuspid regurgitation who presents for elective Aortic valve replacement and mitral valve repair. Intraoperatively, the patient was noted to have hyperkalemia and a serum K of > 7. He was ultrafiltrated on pump and finishing serum K was around 4.4. Otherwise, concluding ROMARIO demonstrated no perivalvular leak, with slightly improved to moderate TR. He was brought to the CVICU in stable condition on an epinephrine drip at 2 mcg/min for RV support. subjective: 02/04: delayed note entry. seen and evaluated around 06:15am. patient denies complaints. pain adequately controlled. doing well. on 2 mcg/min epinephrine overnight. 02/05: Epinephrine infusion weaned off in the last 24 hours. The patient complained of insomnia all night, in and out of the bed 3 times during the night. Melatonin added to medication regimen. Platelet count was noted to decrease almost in half will continue to monitor,currently platelet count 57. Objective Vital Signs Date Time Temp Pulse Resp B/P (MAP) Pulse Ox O2 Delivery O2 Flow Rate FiO2 02/05/17 07:30 100 Nasal Cannula 3.00 02/05/17 04:00 98.7 88 15 133/50 (77) 02/03/17 15:14 40 Intake and Output 02/05/17 02/05/17 02/06/17 08:00 16:00 00:00 Intake Total 200 ml Output Total 150 ml Balance 50 ml Result Diagram: 02/05/17 0425 02/05/17 0425 Objective Remarks GENERAL: Elderly male, sitting in chair, with complaints of insomnia throughout the night HEENT: Normocephalic. Atraumatic. Pupils equal, round, reactive, conjugate. Mucous membranes are moist. Nasal cannula at 3 L/m NECK: Trachea is midline. There is no JVD. CHEST: Median sternotomy incision with wound VAC dressing in place. 2 chest tubes exit subxiphoid with minimal serosanguinous output on 20 cm of water suction. CARDIOVASCULAR: Normal rate irregularly irregular rhythm. Intermittently paced beats. Has both atrial and ventricular wires. A. fib by telemetry. On external pacemaker DDD setting back up rate of 50 ABDOMEN: Soft, nontender, nondistended. No guarding. MUSCULOSKELETAL: Pulses 2+. No peripheral edema. NEUROLOGICAL: RASS 0. .GCS 15 Follows commands. no focal deficits.. Motor strength 5/5 bilateral upper and lower extremities. A/P Assessment and Plan Assessment: This is a 71year old M with history of ESRD on IHD T,R,Sa who is now POD 2 s/p bioprosthetic AVR, mitral ring repair, Left atrial appendage ligation, course complicated by hyperkalemia. Epinephrine infusion weaned off , and dialyzed 02/04 Recommendations: Post-op AVR, mitral ring repair, STAN ligation -- pain control per surgery Moderate Tricuspid Regurgitation -- Epi discontinued 02/04 --Discontinue radial art line defer to cardiology recommendation ESRD on IHD -- Nephrology following- Dr. Dunn -- Hemodialysis per Nephrology Hyperkalemia --Potassium 5.2 -- Monitor BMP - renal/cardiac diet as tolerated. Thrombocytopenia --Platelet count 92->57, continue to monitor Will transfuse for platelet count less than 50,000 Insomnia Anxiety --Melatonin 5 mg every at bedtime when necessary for insomnia --Consider Xanax 0.125 mg every 8 hours when necessary for anxiety Critical Care medicine will follow along with CT surgery team as long as patient remains in ICU. Level 3 Physician Mitzi Simpson MD Feb 05, 2017 08:36
[2017-02-05] MEDS: ASPIRIN 81 MG CHEW TAB PO SCH (09:00)
--- NOTE | 2017-02-05 09:07 | PD.CAR.PN ---
CVT Progress Note CVT: POD #: 2 Subjective/Hospital Course: 71/ male hx of moderate/ severe /MT/TR underwent R&Lhc 01/24/17, non obstructing coronary disease . EF 40-45, AV area 0.71, moderate to severe MR moderate to severe TR PMH: ESRD on dialysis T-Thur-Sat( followed by Dr Harris Umana) , Afib, anemia , valvular Heart Disease, CVA, Left carotid stenosis , DM, Dysarthria, HTN Surgery: Mitral valve repair with a 28 [address] [employer] Tommy annuloplasty ring AVR with a 19 Intuity tissue valve, ROMARIO 02/03 the patient was noted to have hyperkalemia and a serum K of > 7. He was ultrafiltrated on pump and finishing serum K was around 4.4. Otherwise, concluding ROMARIO demonstrated no perivalvular leak, with slightly improved to moderate TR. He is brought to the CVICU in stable condition on an epinephrine drip at 2 mcg/min for RV support. 02/04 pt extubated after surgery, underwent dialysis this am intent to remove 2 liters, pt became hypotensive and required only ultrafiltration, and was given colloid and crystalloid , pt remains on low dose Epi he also had some arrhythmia, bradycardia , with junctional rhythm chest tubes left in place 100cc/ 12 hrs 02/05/17 Much improved today. alert and oriented with no complaints Objective: Vital Signs Date Time Temp Pulse Resp B/P (MAP) Pulse Ox O2 Delivery O2 Flow Rate FiO2 02/05/17 07:30 100 Nasal Cannula 3.00 02/05/17 04:00 98.7 88 15 133/50 (77) 96 02/05/17 04:00 88 02/05/17 04:00 95 Nasal Cannula 2.00 02/05/17 02:52 15 02/05/17 00:00 89 02/05/17 00:00 98 Nasal Cannula 2.00 02/05/17 00:00 98.9 89 17 98 118/59 (78) 02/04/17 21:06 100 Nasal Cannula 3.00 02/04/17 20:00 91 02/04/17 20:00 99.0 91 19 98 101/45 (63) 02/04/17 20:00 95 Nasal Cannula 2.00 02/04/17 16:00 98 Nasal Cannula 2.00 02/04/17 16:00 108 02/04/17 16:00 98.0 108 18 109/64 (79) 100 134/44 (74) 02/04/17 12:34 16 02/04/17 12:00 99 Nasal Cannula 2.00 02/04/17 12:00 78 02/04/17 12:00 98.3 78 24 90/47 (61) 99 116/45 (68) 02/04/17 09:21 98 Nasal Cannula 2.00 Labs: Laboratory Tests Test 02/05/17 04:25 White Blood Count 12.2 TH/MM3 (4.0-11.0) Red Blood Count 2.53 MIL/MM3 (4.50-5.90) Hemoglobin 8.0 GM/DL (13.0-17.0) Hematocrit 24.6 % (39.0-51.0) Mean Corpuscular Volume 97.2 FL (80.0-100.0) Mean Corpuscular Hemoglobin 31.7 PG (27.0-34.0) Mean Corpuscular Hemoglobin Concent 32.6 % (32.0-36.0) Red Cell Distribution Width 16.9 % (11.6-17.2) Platelet Count 57 TH/MM3 (150-450) Mean Platelet Volume 9.8 FL (7.0-11.0) Neutrophils (%) (Auto) 82.0 % (16.0-70.0) Lymphocytes (%) (Auto) 9.3 % (9.0-44.0) Monocytes (%) (Auto) 8.5 % (0.0-8.0) Eosinophils (%) (Auto) 0.1 % (0.0-4.0) Basophils (%) (Auto) 0.1 % (0.0-2.0) Neutrophils # (Auto) 10.0 TH/MM3 (1.8-7.7) Lymphocytes # (Auto) 1.1 TH/MM3 (1.0-4.8) Monocytes # (Auto) 1.0 TH/MM3 (0-0.9) Eosinophils # (Auto) 0.0 TH/MM3 (0-0.4) Basophils # (Auto) 0.0 TH/MM3 (0-0.2) CBC Comment AUTO DIFF Differential Total Cells Counted 100 Neutrophils % (Manual) 68 % (16-70) Band Neutrophils % 17 % (0-6) Lymphocytes % 7 % (9-44) Monocytes % 5 % (0-8) Basophils % 1 % (0-2) Neutrophils # (Manual) 10.6 TH/MM3 (1.8-7.7) Metamyelocytes 2 % (0-1) Differential Comment FINAL DIFF MANUAL Platelet Estimate LOW (NORMAL) Platelet Morphology Comment NORMAL (NORMAL) Ovalocytes 2+ (NORMAL) Platinum Cells 1+ (NORMAL) Keratocytes OCC (NORMAL) Blood Urea Nitrogen 52 MG/DL (7-18) Creatinine 6.54 MG/DL (0.60-1.30) Random Glucose 88 MG/DL (74-106) Calcium Level 9.2 MG/DL (8.5-10.1) Magnesium Level 2.6 MG/DL (1.5-2.5) Sodium Level 138 MEQ/L (136-145) Potassium Level 5.8 MEQ/L (3.5-5.1) Chloride Level 99 MEQ/L (98-107) Carbon Dioxide Level 27.0 MEQ/L (21.0-32.0) Anion Gap 12 MEQ/L (5-15) Estimat Glomerular Filtration Rate 10 ML/MIN (>89) Result Diagram: 02/05/1742402/05/17424 Cardiovascular: RRR Pulmonary: CTA GI/: NABS Incision: dry and intact CT: 150ml/24hrs Plan: D/C chest tubes Start lipitor ASA, BB continues Encourage ambulation Transfer to stepdown after dialysis Will need anticoagulation. (1) s/p AVR, MVR Plan: ASA , no BB until BP stabilizes wean off epi gtt as tolerated PT/ OOB as tolerated pulm toileting keep in ICU (2) Mitral regurgitation (3) Aortic stenosis (4) History of CVA with residual deficit Plan: PT/OT will need rehab (5) Chronic CHF (6) Tricuspid regurgitation (7) Diastolic CHF due to valvular disease (8) Seizure disorder Plan: on Dilantin (9) A-fib Plan: back up pacer set at 50/ 2/2 paul rhythms (10) ESRD (end stage renal disease) on dialysis Plan: received dialysis today Roslyn House MD Feb 05, 2017 09:07
--- NOTE | 2017-02-05 12:09 | HHI.NPPN ---
Subjective History of Present Illness 71-year-old male with past medical history of hypertension, diabetes mellitus, ischemic heart disease, aortic stenosis, chronic anemia, atrial fibrillation who was admitted for cardiac surgery with severe aortic stenosis and mitral regurgitation. I was called to see the patient for the management of hemodialysis. He has been on hemodialysis Tuesday, and Tuesday and has been following with Dr. Harris Umana and he had his last hemodialysis done on Tuesday. Additional Remarks Patient seen at HD, no dizziness, has pain at surgery site on moving. Review of Systems General Constitutional: Fatigue Respiratory Lungs: SOB Cardiovascular Cardiac: Chest Pain, Edema, HAYWARD Objective Data Data Vital Signs Date Time Temp Pulse Resp B/P (MAP) Pulse Ox O2 Delivery O2 Flow Rate FiO2 02/05/17 08:00 85 02/05/17 08:00 97.5 85 16 126/72 (90) 95 134/53 (80) 02/05/17 08:00 Nasal Cannula 3.00 02/05/17 07:30 100 Nasal Cannula 3.00 02/05/17 04:00 98.7 88 15 133/50 (77) 96 02/05/17 04:00 88 02/05/17 04:00 95 Nasal Cannula 2.00 02/05/17 02:52 15 02/05/17 00:00 89 02/05/17 00:00 98 Nasal Cannula 2.00 02/05/17 00:00 98.9 89 17 98 118/59 (78) 02/04/17 21:06 100 Nasal Cannula 3.00 02/04/17 20:00 91 02/04/17 20:00 99.0 91 19 98 101/45 (63) 02/04/17 20:00 95 Nasal Cannula 2.00 02/04/17 16:00 98 Nasal Cannula 2.00 02/04/17 16:00 108 02/04/17 16:00 98.0 108 18 109/64 (79) 100 134/44 (74) 02/04/17 12:34 16 -: 02/05/17 04202/05/17424 Physical Exam General Appearance: No Acute Distress, Comfortable Eyes Eye Exam: Pupils Equal Throat Throat Exam: Oral Mucosa [place] & Moist Pulmonary Resp Exam: Breath Sounds Equal, No Distress, Rhonchi, Decreased Bases Cardiology CV Exam: Regular, Normal Sinus Rhythm Gastrointestinal/Abdomen GI Exam: Soft, Non-Tender, Bowel Sounds Present Extremeties Extremities Exam: Trace Edema Neurologic Neuro Exam: Alert, Awake, Oriented Psychiatric Psych Exam: Appropriate Responses Assessment/Plan Assessment Summary: Anemia of CKD, Hypertension, End Stage Renal Disease Electrolyte Assessment: Hyperkalemia Problem List: (1) Status post aortic valve repair ICD Codes: Z98.890 - Other specified postprocedural states (2) DM (diabetes mellitus) ICD Codes: E11.9 - Type 2 diabetes mellitus without complications Status: Acute (3) A-fib ICD Codes: I48.91 - Unspecified atrial fibrillation Status: Acute (4) History of CVA (cerebrovascular accident) ICD Codes: Z86.73 - Personal history of transient ischemic attack (TIA), and cerebral infarction without residual deficits Status: Acute (5) Seizure disorder ICD Codes: G40.909 - Epilepsy, unspecified, not intractable, without status epilepticus Status: Acute (6) HTN (hypertension), benign ICD Codes: I10 - Essential (primary) hypertension Status: Acute (7) CAD (coronary artery disease) ICD Codes: I25.10 - Atherosclerotic heart disease of [place] coronary artery without angina pectoris Status: Acute (8) ESRD (end stage renal disease) on dialysis ICD Codes: N18.6 - End stage renal disease; Z99.2 - Dependence on renal dialysis Status: Acute Plan Patient schedule for HD today. Now the BP is better and HR improve. To start diet. K was elevated, will follow. Observe for fluid overload and K level over the weekend. Dr. Zhang to follow on Tuesday 1546 pm seen at dialysis 1 K BATH tolerating it German Perez MD Feb 05, 2017 12:09
[2017-02-05] MEDS: SENNOSIDES 8.6 MG TAB PO SCH (20:50)
[2017-02-05] MEDS: TAMSULOSIN HCL 0.4 MG CAP PO SCH (20:51)
[2017-02-05] MEDS: MELATONIN 5 MG TAB PO PRN (20:51)
[2017-02-05] MEDS: ATORVASTATIN 40 MG TAB PO SCH (20:51)
[2017-02-06] VITALS (9 sets, daily range): BP systolic 103–147; BP diastolic 40–76; PULSE 80–105; RESP 16–20; TEMP 97.8–98.4; O2SAT 93–98
[2017-02-06] MEDS: oxyCODONE/ACETAMINOPHEN 5 MG/325 MG TAB PO PRN ×3 (04:08→23:51)
[2017-02-06 05:41] LABS: AUTOMATED NEUTROPHIL # 8.5 TH/MM3 (1.8-7.7); BASOPHIL % 0.1 % (0.0-2.0); EOSINOPHIL % 0.5 % (0.0-4.0); HEMATOCRIT 23.8 % (39.0-51.0); LYMPH % 9.8 % (9.0-44.0); MONO % 7.7 % (0.0-8.0); NEUT % 81.9 % (16.0-70.0); PLATELET COUNT 44 TH/MM3 (150-450); RED BLOOD COUNT 2.45 MIL/MM3 (4.50-5.90); RED CELL DISTRIBUTION WIDTH 16.7 % (11.6-17.2); WHITE BLOOD COUNT 10.4 TH/MM3 (4.0-11.0)
[2017-02-06 05:47] LABS: HEMO FLAGS DIFF FINAL
[2017-02-06 06:03] LABS: MAGNESIUM 2.5 MG/DL (1.5-2.5); POTASSIUM 5.3 MEQ/L (3.5-5.1)
[2017-02-06] MEDS: INSULIN ASPART SUPPLEMENTAL SCALE SQ SCH ×4 (06:44→20:32)
[2017-02-06] MEDS: PANTOPRAZOLE SOD 40 MG DELAYED RELEASE TAB PO SCH (06:48)
[2017-02-06] MEDS: METOPROLOL TARTRATE 25 MG TAB PO SCH (09:00)
[2017-02-06] MEDS: ASPIRIN 81 MG CHEW TAB PO SCH (09:00)
[2017-02-06] MEDS: POLYETHYLENE GLYCOL 17 GM PKG PO SCH (09:47)
[2017-02-06] MEDS: DOCUSATE SODIUM 100 MG CAP PO SCH ×2 (09:47→20:22)
[2017-02-06] MEDS: MULTIVITAMINS/MINERALS THERAPEUTIC TAB PO SCH (09:47)
[2017-02-06] MEDS: PHENYTOIN SODIUM 100 MG CAP PO SCH ×3 (09:47→18:31)
[2017-02-06] MEDS: DULoxetine HCl DR 30 MG CAP PO SCH (09:47)
[2017-02-06] MEDS: SEVELAMER CARBONATE 800 MG TAB PO SCH ×3 (09:47→18:31)
--- NOTE | 2017-02-06 12:09 | PD.CAR.PN ---
CVT Progress Note CVT: POD #: 3 Subjective/Hospital Course: 71/ male hx of moderate/ severe /MT/TR underwent R&Lhc 01/24/17, non obstructing coronary disease . EF 40-45, AV area 0.71, moderate to severe MR moderate to severe TR PMH: ESRD on dialysis T-Thur-Sat( followed by Dr Harris Umana) , Afib, anemia , valvular Heart Disease, CVA, Left carotid stenosis , DM, Dysarthria, HTN Surgery: Mitral valve repair with a 28 [address] Gust[employer] Tommy annuloplasty ring AVR with a 19 Intuity tissue valve, ROMARIO 02/03 the patient was noted to have hyperkalemia and a serum K of > 7. He was ultrafiltrated on pump and finishing serum K was around 4.4. Otherwise, concluding ROMARIO demonstrated no perivalvular leak, with slightly improved to moderate TR. He is brought to the CVICU in stable condition on an epinephrine drip at 2 mcg/min for RV support. 02/04 pt extubated after surgery, underwent dialysis this am intent to remove 2 liters, pt became hypotensive and required only ultrafiltration, and was given colloid and crystalloid , pt remains on low dose Epi he also had some arrhythmia, bradycardia , with junctional rhythm chest tubes left in place 100cc/ 12 hrs 02/05/17 Much improved today. alert and oriented with no complaints 02/06/17 Doing well. Requires pacing at times. Objective: Vital Signs Date Time Temp Pulse Resp B/P (MAP) Pulse Ox O2 Delivery O2 Flow Rate FiO2 02/06/17 08:00 98.3 88 18 121/71 (88) 93 117/53 (74) 02/06/17 08:00 93 Nasal Cannula 2.00 02/06/17 08:00 80 02/06/17 06:10 90 02/06/17 04:00 80 02/06/17 04:00 98 Nasal Cannula 2.00 02/06/17 04:00 98.2 105 16 108/69 (82) 97 103/49 (67) 02/06/17 04:00 80 02/06/17 01:45 80 02/06/17 01:45 80 02/06/17 00:00 97 Nasal Cannula 2.00 02/06/17 00:00 98.4 80 20 107/50 (69) 97 108/40 (62) 02/06/17 00:00 105 02/06/17 00:00 100 02/05/17 21:58 97 Nasal Cannula 2.00 02/05/17 20:00 100 02/05/17 20:00 98.2 105 16 126/68 (87) 97 134/56 (82) 02/05/17 20:00 105 02/05/17 20:00 97 Nasal Cannula 2.00 02/05/17 16:00 97.6 100 16 96 02/05/17 16:00 Nasal Cannula 2.00 02/05/17 16:00 86 02/05/17 12:00 Nasal Cannula 2.00 02/05/17 12:00 98.3 82 16 114/66 (82) 98 123/51 (75) 02/05/17 12:00 86 Labs: Laboratory Tests Test 02/06/17 05:00 White Blood Count 10.4 TH/MM3 (4.0-11.0) Red Blood Count 2.45 MIL/MM3 (4.50-5.90) Hemoglobin 7.9 GM/DL (13.0-17.0) Hematocrit 23.8 % (39.0-51.0) Mean Corpuscular Volume 97.0 FL (80.0-100.0) Mean Corpuscular Hemoglobin 32.0 PG (27.0-34.0) Mean Corpuscular Hemoglobin Concent 33.0 % (32.0-36.0) Red Cell Distribution Width 16.7 % (11.6-17.2) Platelet Count 44 TH/MM3 (150-450) Mean Platelet Volume 9.9 FL (7.0-11.0) Neutrophils (%) (Auto) 81.9 % (16.0-70.0) Lymphocytes (%) (Auto) 9.8 % (9.0-44.0) Monocytes (%) (Auto) 7.7 % (0.0-8.0) Eosinophils (%) (Auto) 0.5 % (0.0-4.0) Basophils (%) (Auto) 0.1 % (0.0-2.0) Neutrophils # (Auto) 8.5 TH/MM3 (1.8-7.7) Lymphocytes # (Auto) 1.0 TH/MM3 (1.0-4.8) Monocytes # (Auto) 0.8 TH/MM3 (0-0.9) Eosinophils # (Auto) 0.0 TH/MM3 (0-0.4) Basophils # (Auto) 0.0 TH/MM3 (0-0.2) CBC Comment DIFF FINAL Differential Comment Blood Urea Nitrogen 47 MG/DL (7-18) Creatinine 5.80 MG/DL (0.60-1.30) Random Glucose 96 MG/DL (74-106) Calcium Level 9.1 MG/DL (8.5-10.1) Phosphorus Level 6.3 MG/DL (2.5-4.9) Magnesium Level 2.5 MG/DL (1.5-2.5) Sodium Level 139 MEQ/L (136-145) Potassium Level 5.3 MEQ/L (3.5-5.1) Chloride Level 97 MEQ/L (98-107) Carbon Dioxide Level 30.0 MEQ/L (21.0-32.0) Anion Gap 12 MEQ/L (5-15) Estimat Glomerular Filtration Rate 12 ML/MIN (>89) Result Diagram: 02/06/17 0500 02/06/17 0500 Cardiovascular: IRR Telemetry: AFIB - VR at ~35-40 at times up to ~100 GI/: Few crackles bilat Incision: dry and intact CT: ~150ml since this morning Plan: Dialyze per renal medicine Encourage ambulation, up to chair Hold beta jolene due to paul arrhythmia Consult Dr. Cain for assistance with rhythm. Continue chest tubes one more day Will require anticoagulation, but plt count is low. (1) s/p AVR, MVR Plan: ASA , no BB until BP stabilizes wean off epi gtt as tolerated PT/ OOB as tolerated pulm toileting keep in ICU (2) Mitral regurgitation (3) Aortic stenosis (4) History of CVA with residual deficit Plan: PT/OT will need rehab (5) Chronic CHF (6) Tricuspid regurgitation (7) Diastolic CHF due to valvular disease (8) Seizure disorder Plan: on Dilantin (9) A-fib Plan: back up pacer set at 50/ 2/2 paul rhythms (10) ESRD (end stage renal disease) on dialysis Plan: received dialysis today Roslyn House MD Feb 06, 2017 12:09
[2017-02-06] MEDS: ONDANSETRON HCL 4 MG/2 ML VIAL IV PRN (12:36)
--- NOTE | 2017-02-06 13:00 | HHI.CCPN ---
Subjective Remarks/Hospital Course Hospital Course: This is a 71yM with history of ESRD, severe aortic stenosis, mod-sev mitral regurgitation, severe tricuspid regurgitation who presents for elective Aortic valve replacement and mitral valve repair. Intraoperatively, the patient was noted to have hyperkalemia and a serum K of > 7. He was ultrafiltrated on pump and finishing serum K was around 4.4. Otherwise, concluding ROMARIO demonstrated no perivalvular leak, with slightly improved to moderate TR. He was brought to the CVICU in stable condition on an epinephrine drip at 2 mcg/min for RV support. subjective: 02/04: delayed note entry. seen and evaluated around 06:15am. patient denies complaints. pain adequately controlled. doing well. on 2 mcg/min epinephrine overnight. 02/05: Epinephrine infusion weaned off in the last 24 hours. The patient complained of insomnia all night, in and out of the bed 3 times during the night. Melatonin added to medication regimen. Platelet count was noted to decrease almost in half will continue to monitor,currently platelet count 57. 02/06: Overnight the patient was noted to have sinus bradycardia, with sinus pauses. The patient was AV paced (rate 80) from approximately 1:30 AM to 6 AM with resolution. Platelet count continues to be slightly decreased 44, no active signs of bleeding. Patient states he rested well last night after taking melatonin. Objective Vital Signs Date Time Temp Pulse Resp B/P (MAP) Pulse Ox O2 Delivery O2 Flow Rate FiO2 02/06/17 12:00 100 02/06/17 12:00 98.4 18 147/76 (99) 96 143/65 (91) 02/06/17 12:00 Nasal Cannula 2.00 02/03/17 15:14 40 Intake and Output 02/06/17 02/06/17 02/07/17 08:00 16:00 00:00 Intake Total 720 ml Output Total 120 ml Balance 600 ml Result Diagram: 02/06/17 0500 02/06/17 0500 Imaging Last Impressions Chest X-Ray 02/04/17 0500 Signed Impressions: Service Date/Time: Saturday, February 04, 2017 04:27 - CONCLUSION: Normal examination. Right subclavian central line in good position. Dewayne Gutierrez MD Objective Remarks BP 117/84 Pulse 94 O2 [id number] GENERAL: Elderly male, sitting in chair, with complaints of insomnia throughout the night HEENT: Normocephalic. Atraumatic. Pupils equal, round, reactive, conjugate. Mucous membranes are moist. Nasal cannula at 3 L/m NECK: Trachea is midline. There is no JVD. CHEST: Median sternotomy incision with wound VAC dressing in place. 2 chest tubes exit subxiphoid with minimal serosanguinous output on 20 cm of water suction. CARDIOVASCULAR: Normal rate irregularly irregular rhythm. Intermittently paced beats. Has both atrial and ventricular wires. A. fib by telemetry. On external pacemaker DDD setting back up rate of 50 ABDOMEN: Soft, nontender, nondistended. No guarding. MUSCULOSKELETAL: Pulses 2+. No peripheral edema. Bruit and thrill left upper extremity NEUROLOGICAL: RASS 0. .GCS 15 Follows commands. no focal deficits.. Motor strength 5/5 bilateral upper and lower extremities. A/P Assessment and Plan Assessment: This is a 71year old M with history of ESRD on IHD T,R,Sa who is now POD 2 s/p bioprosthetic AVR, mitral ring repair, Left atrial appendage ligation, course complicated by hyperkalemia. Epinephrine infusion weaned off , and dialyzed 02/04 Recommendations: Post-op AVR, mitral ring repair, STAN ligation -- pain control per surgery Moderate Tricuspid Regurgitation -- Epi discontinued 02/04 --Discontinue radial art line defer to cardiology recommendation, patient became bradycardic and hypotensive 02/05 ESRD on IHD -- Nephrology following- Dr. Dunn -- Hemodialysis per Nephrology Hyperkalemia -- Monitor BMP - renal/cardiac diet as tolerated. Thrombocytopenia --Platelet count 92->57->44, no active signs of bleeding will continue to monitor Insomnia Anxiety --Melatonin 5 mg every at bedtime when necessary for insomnia --Consider Xanax 0.125 mg every 8 hours when necessary for anxiety Critical Care medicine will follow along with CT surgery team as long as patient remains in ICU. Level 3 Physician Mitzi Simpson MD Feb 06, 2017 13:00
--- NOTE | 2017-02-06 16:19 | HHI.NPPN ---
Subjective History of Present Illness 71-year-old male with past medical history of hypertension, diabetes mellitus, ischemic heart disease, aortic stenosis, chronic anemia, atrial fibrillation who was admitted for cardiac surgery with severe aortic stenosis and mitral regurgitation. I was called to see the patient for the management of hemodialysis. He has been on hemodialysis Tuesday, and Tuesday and has been following with Dr. Harris Umana and he had his last hemodialysis done on Tuesday. Additional Remarks Patient , sitting on the chair, no dizziness, has pain at surgery site on moving. Review of Systems General Constitutional: Fatigue Respiratory Lungs: SOB Cardiovascular Cardiac: Chest Pain, Edema, [place] Objective Data Data Vital Signs Date Time Temp Pulse Resp B/P (MAP) Pulse Ox O2 Delivery O2 Flow Rate FiO2 02/06/17 16:00 87 02/06/17 16:00 97 Nasal Cannula 2.00 02/06/17 16:00 98.2 87 18 127/61 (83) 97 02/06/17 12:00 100 02/06/17 12:00 98.4 100 18 147/76 (99) 96 143/65 (91) 02/06/17 12:00 93 Nasal Cannula 2.00 02/06/17 08:15 96 Nasal Cannula 2.00 02/06/17 08:00 98.3 88 18 121/71 (88) 93 117/53 (74) 02/06/17 08:00 93 Nasal Cannula 2.00 02/06/17 08:00 80 02/06/17 06:10 90 02/06/17 04:00 80 02/06/17 04:00 98 Nasal Cannula 2.00 02/06/17 04:00 98.2 105 16 108/69 (82) 97 103/49 (67) 02/06/17 04:00 80 02/06/17 01:45 80 02/06/17 01:45 80 02/06/17 00:00 97 Nasal Cannula 2.00 02/06/17 00:00 98.4 80 20 107/50 (69) 97 108/40 (62) 02/06/17 00:00 105 02/06/17 00:00 100 02/05/17 21:58 97 Nasal Cannula 2.00 02/05/17 20:00 100 02/05/17 20:00 98.2 105 16 126/68 (87) 97 134/56 (82) 02/05/17 20:00 105 02/05/17 20:00 97 Nasal Cannula 2.00 -: 02/06/17 0500 02/06/17 0500 Physical Exam General Appearance: No Acute Distress, Comfortable Eyes Eye Exam: Pupils Equal Throat Throat Exam: Oral Mucosa [place] & Moist Pulmonary Resp Exam: Breath Sounds Equal, No Distress, Rhonchi, Decreased Bases Cardiology CV Exam: Regular, Normal Sinus Rhythm Gastrointestinal/Abdomen GI Exam: Soft, Non-Tender, Bowel Sounds Present Extremeties Extremities Exam: Trace Edema Neurologic Neuro Exam: Alert, Awake, Oriented Psychiatric Psych Exam: Appropriate Responses Assessment/Plan Assessment Summary: Anemia of CKD, Hypertension, End Stage Renal Disease Electrolyte Assessment: Hyperkalemia Problem List: (1) Status post aortic valve repair ICD Codes: Z98.890 - Other specified postprocedural states (2) DM (diabetes mellitus) ICD Codes: E11.9 - Type 2 diabetes mellitus without complications Status: Acute (3) A-fib ICD Codes: I48.91 - Unspecified atrial fibrillation Status: Acute (4) History of CVA (cerebrovascular accident) ICD Codes: Z86.73 - Personal history of transient ischemic attack (TIA), and cerebral infarction without residual deficits Status: Acute (5) Seizure disorder ICD Codes: G40.909 - Epilepsy, unspecified, not intractable, without status epilepticus Status: Acute (6) HTN (hypertension), benign ICD Codes: I10 - Essential (primary) hypertension Status: Acute (7) CAD (coronary artery disease) ICD Codes: I25.10 - Atherosclerotic heart disease of [place] coronary artery without angina pectoris Status: Acute (8) ESRD (end stage renal disease) on dialysis ICD Codes: N18.6 - End stage renal disease; Z99.2 - Dependence on renal dialysis Status: Acute Plan Patient on HD TTS Now the BP is better and HR improve. To start diet. K was elevated, will follow. Observe for fluid overload and K level over the weekend. Dr. Zhang to follow on Tuesday German Perez MD Feb 06, 2017 16:19
[2017-02-06] MEDS: TAMSULOSIN HCL 0.4 MG CAP PO SCH (20:23)
[2017-02-06] MEDS: ATORVASTATIN 40 MG TAB PO SCH (20:23)
[2017-02-06] MEDS: SENNOSIDES 8.6 MG TAB PO SCH (20:23)
[2017-02-06] MEDS: MELATONIN 5 MG TAB PO PRN (20:24)
[2017-02-06] MEDS: hydrALAZINE HCL 20 MG/ML VIAL IV PRN (23:55)
[2017-02-07] VITALS (13 sets, daily range): BP systolic 114–152; BP diastolic 54–84; PULSE 76–112; RESP 12–20; TEMP 97.6–98.6; O2SAT 90–100
[2017-02-07 05:11] LABS: HEMATOCRIT 24.6 % (39.0-51.0); MEAN CORPUSCULAR HEMOGLOBIN 31.1 PG (27.0-34.0); PLATELET COUNT 52 TH/MM3 (150-450); RED BLOOD COUNT 2.54 MIL/MM3 (4.50-5.90); RED CELL DISTRIBUTION WIDTH 15.9 % (11.6-17.2); WHITE BLOOD COUNT 11.1 TH/MM3 (4.0-11.0)
[2017-02-07 05:21] LABS: REVIEW FLAG FINAL
[2017-02-07 05:25] LABS: BICARBONATE 28.1 MEQ/L (21.0-32.0); MAGNESIUM 2.8 MG/DL (1.5-2.5); POTASSIUM 4.9 MEQ/L (3.5-5.1)
[2017-02-07] MEDS: oxyCODONE/ACETAMINOPHEN 5 MG/325 MG TAB PO PRN (05:53)
[2017-02-07] MEDS: PANTOPRAZOLE SOD 40 MG DELAYED RELEASE TAB PO SCH (05:53)
[2017-02-07] MEDS: INSULIN ASPART SUPPLEMENTAL SCALE SQ SCH ×4 (07:00→21:47)
--- NOTE | 2017-02-07 08:40 | HHI.CCPN ---
Subjective Remarks/Hospital Course This is a 71yM with history of ESRD, severe aortic stenosis, mod-sev mitral regurgitation, severe tricuspid regurgitation who presents for elective Aortic valve replacement and mitral valve repair. Intraoperatively, the patient was noted to have hyperkalemia and a serum K of > 7. He was ultrafiltrated on pump and finishing serum K was around 4.4. Otherwise, concluding ROMARIO demonstrated no perivalvular leak, with slightly improved to moderate TR. He was brought to the CVICU in stable condition on an epinephrine drip at 2 mcg/min for RV support. 02/04: delayed note entry. seen and evaluated around 06:15am. patient denies complaints. pain adequately controlled. doing well. on 2 mcg/min epinephrine overnight. 02/05: Epinephrine infusion weaned off in the last 24 hours. The patient complained of insomnia all night, in and out of the bed 3 times during the night. Melatonin added to medication regimen. Platelet count was noted to decrease almost in half will continue to monitor,currently platelet count 57. 02/06: Overnight the patient was noted to have sinus bradycardia, with sinus pauses. The patient was AV paced (rate 80) from approximately 1:30 AM to 6 AM with resolution. Platelet count continues to be slightly decreased 44, no active signs of bleeding. Patient states he rested well last night after taking melatonin. Subjective 02/07: No issues overnight. Afebrile. No active pacing. Likely discontinue central line, arterial line and chest tubes today. Hemodynamically stable. Tolerating diet. Objective Vital Signs Date Time Temp Pulse Resp B/P (MAP) Pulse Ox O2 Delivery O2 Flow Rate FiO2 02/07/17 08:00 97 Nasal Cannula 2.00 02/07/17 07:00 107 02/07/17 04:00 98.1 12 120/74 (89) 121/57 (78) 02/03/17 15:14 40 Intake and Output 02/07/17 02/07/17 02/08/17 08:00 16:00 00:00 Intake Total 690 ml Output Total 70 ml Balance 620 ml Result Diagram: 02/07/17 0450 02/07/17 0450 Imaging Last Impressions Chest X-Ray 02/04/17 0500 Signed Impressions: Service Date/Time: Saturday, February 04, 2017 04:27 - CONCLUSION: Normal examination. Right subclavian central line in good position. Dewayne Gutierrez MD Objective Remarks GENERAL: 71-year-old Annabelle male, currently resting in bed in no acute distress HEENT: Normocephalic. Atraumatic. Pupils equal, round, reactive, about 3 mm bilaterally and reactive. Mucous membranes are moist and pink. Oropharynx without erythema or exudates NECK: Trachea is midline. There is no JVD. CHEST: Median sternotomy incision with wound VAC dressing in place. 2 chest tubes exit subxiphoid with 100 cc past 24 hours serosanguinous output on 20 cm H2O. CARDIOVASCULAR: IRR. S1, S2. No S4. No rub.. On external pacemaker DDD setting back up rate of 50 ABDOMEN: Soft, nontender, nondistended. No guarding. MUSCULOSKELETAL: Pulses 2+. No peripheral edema. Left upper extremity positive Bruit and thrill NEUROLOGICAL: Cranial nerves II through XII grossly intact. Strength is equal symmetric. Normal sensation. A/P Assessment and Plan Neuro/Psych: Depression NOS Seizure disorder NOS Currently on phenytoin 100 mg by mouth 3 times a day. Recheck phenytoin level in a.m. Continue duloxetine 30 no grams by mouth daily/home medication for depression Acetaminophen for fever Oxycodone/acetaminophen 5/325-1 tablet every 4 hours as needed Pain CV: Post-op day #4 AVR 19 Intuity, 28 [address] Tommy mitral ring annuloplasty repair, STAN ligation secondary to calcified aortic valve/severe mitral agitation Hypertension by history Currently has temporary AV wires place. DDD. Backup rate 50. Not used overnight. Continue with aspirin 81 mg by mouth daily. Continue atorvastatin 40 by mouth daily for dyslipidemia Holding home medications hydralazine 25 mg daily, metoprolol 25 mg daily and diltiazem 120 mg twice a day light of hypotension Mediastinal drain - 100 cc SS -20 cm H2O Resp: Nasal cannula to maintain saturations greater than equal to 90% Incentive spirometry while awake GI: Continue renal diet Pantoprazole for GI prophylaxis Bowel regimen per CT surgery : BPH Continue tamsulosin 0.4 mill grams by mouth daily. Hopefully discontinue [place] today Renal: Chronic kidney disease stage V on hemodialysis Tuesday//Tuesday left AV fistula Hyperkalemia disorders correct. Hemodialysis per nephrology routine Heme: Normocytic anemia Leukocytosis Thrombocytopenia Chronic warfarin use Resume anticoagulation when clinically indicated ID: Monitor for infection. Complete postoperative antibiotics per CT surgery FEN: Hyponatremia Continues Sevelamer carbonate 800mg 3 times a day for hyperphosphatemia Replace electrolytes as clinically indicated ENDO: Sliding scale insulin aspart Accu-Cheks before meals/at bedtime. Access - Right subclavian CVL day 4 - Right radial arterial line day 4 Prophylaxis - GI - pantoprazole - DVT - SCD/pharmacological prophylaxis when okay with CT surgery Level II follow-up -- pain control per surgery Moderate Tricuspid Regurgitation -- Epi discontinued 02/04 --Discontinue radial art line defer to cardiology recommendation, patient became bradycardic and hypotensive 02/05 ESRD on IHD -- Nephrology following- Dr. Dunn -- Hemodialysis per Nephrology Hyperkalemia -- Monitor BMP - renal/cardiac diet as tolerated. Thrombocytopenia --Platelet count 92->57->44, no active signs of bleeding will continue to monitor Insomnia Anxiety --Melatonin 5 mg every at bedtime when necessary for insomnia --Consider Xanax 0.125 mg every 8 hours when necessary for anxiety Critical Care medicine will follow along with CT surgery team as long as patient remains in ICU. Level 3 Ford Arias MD Feb 07, 2017 08:40
[2017-02-07] MEDS: DOCUSATE SODIUM 100 MG CAP PO SCH ×2 (08:49→21:00)
[2017-02-07] MEDS: POLYETHYLENE GLYCOL 17 GM PKG PO SCH (08:50)
[2017-02-07] MEDS: MULTIVITAMINS/MINERALS THERAPEUTIC TAB PO SCH (08:50)
[2017-02-07] MEDS: PHENYTOIN SODIUM 100 MG CAP PO SCH ×3 (08:50→17:59)
[2017-02-07] MEDS: DULoxetine HCl DR 30 MG CAP PO SCH (08:50)
[2017-02-07] MEDS: ASPIRIN 81 MG CHEW TAB PO SCH (08:52)
[2017-02-07] MEDS: hydrALAZINE HCL 20 MG/ML VIAL IV PRN (09:47)
--- NOTE | 2017-02-07 09:55 | HHI.NPPN ---
Subjective General Problems: Anemia Renal Failure: Chronic, End Stage Renal Disease Interval History He is sitting up in a chair this morning. No acute complaints. Just ambulated down robbins with nurse. (Missy Jones) Review of Systems General Constitutional: Fatigue (Missy Jones) Respiratory Lungs: SOB (Missy Jones) Cardiovascular Cardiac: [place] (Missy Jones) Objective Data Data Vital Signs Date Time Temp Pulse Resp B/P (MAP) Pulse Ox O2 Delivery O2 Flow Rate FiO2 02/07/17 08:00 97 Nasal Cannula 2.00 02/07/17 07:00 107 02/07/17 04:00 98.1 112 12 120/74 (89) 97 121/57 (78) 02/07/17 04:00 94 Nasal Cannula 2.00 02/07/17 04:00 100 02/07/17 00:00 93 02/07/17 00:00 110 12 128/68 (88) 96 144/65 (91) 02/07/17 00:00 95 Nasal Cannula 2.00 02/06/17 22:00 98 Nasal Cannula 2.00 02/06/17 21:30 97 Nasal Cannula 2.00 02/06/17 21:00 90 Room Air 02/06/17 20:00 98 Nasal Cannula 2.00 02/06/17 20:00 97.8 88 16 135/72 (93) 98 126/61 (82) 02/06/17 20:00 93 02/06/17 16:00 87 02/06/17 16:00 97 Nasal Cannula 2.00 02/06/17 16:00 98.2 87 18 127/61 (83) 97 02/06/17 12:00 100 02/06/17 12:00 98.4 100 18 147/76 (99) 96 143/65 (91) 02/06/17 12:00 93 Nasal Cannula 2.00 (Missy Jones) -: 02/07/17 0450 02/07/17 0450 Physical Exam General Appearance: Well Developed, No Acute Distress, Comfortable (Missy Jones) Eyes Eye Exam: Pupils Equal (Missy Jones) Throat Throat Exam: Oral Mucosa [place] & Moist (Missy Jones) Pulmonary Resp Exam: Breath Sounds Equal, No Distress, Decreased Bases (Missy Jones) Cardiology CV Exam: Good Perfusion, Irregular, Tachycardia CV Remarks chest tube in place (Missy Jones) Gastrointestinal/Abdomen GI Exam: Soft, Non-Tender, Bowel Sounds Present (Missy Jones) Musculoskeletal MS Exam: Normal Gait, Normal Tone, Good Strength (Missy Jones) Integumentary Skin Exam: Warm, Dry, Intact (Missy Jones) Extremeties Extremities Exam: No Edema, Pedal Pulses Palpable (Missy Jones) Neurologic Neuro Exam: Alert, Awake, Oriented, Speech Clear, Moving All Extremities (Missy Jones) Psychiatric Psych Exam: Appropriate Responses (Missy Jones) Assessment/Plan Discussed Condition With: Patient Assessment Summary: Anemia of CKD, Hypertension, End Stage Renal Disease Problem List: (1) ESRD (end stage renal disease) on dialysis ICD Codes: N18.6 - End stage renal disease; Z99.2 - Dependence on renal dialysis Status: Acute Plan: Continue TTS HD support, due tomorrow potassium has normalized continue present orders avoid IVF no dietary protein restriction obtain intermittent renal panel (2) Status post aortic valve repair ICD Codes: Z98.890 - Other specified postprocedural states Plan: CTS following chest tube to be removed hemodynamics have improved appreciate further recommendations (3) HTN (hypertension), benign ICD Codes: I10 - Essential (primary) hypertension Status: Acute Plan: blood pressure has improved resume home medications (4) A-fib ICD Codes: I48.91 - Unspecified atrial fibrillation Status: Acute Plan: converted to sinus rhythm; rate low 100s after ambulation on metoprolol (5) CAD (coronary artery disease) ICD Codes: I25.10 - Atherosclerotic heart disease of [place] coronary artery without angina pectoris Status: Acute Plan: CTS following on ASA, statin (6) Anemia ICD Codes: D64.9 - Anemia, unspecified Status: Acute Plan: continue epogen with dialysis (Missy Jones) Plan patient was seen and examined. Agree with above assessment and plan. (Stuart Zhang MD) Missy Jones. [facility] Feb 07, 2017 09:55 Stuart Zhang MD Feb 07, 2017 10:45
[2017-02-07] MEDS: SEVELAMER CARBONATE 800 MG TAB PO SCH ×3 (10:15→17:59)
--- NOTE | 2017-02-07 11:01 | MB ---
cc: MICHEAL PULIDO M.D. DATE OF CONSULTATION 02/07/2017 REASON FOR CONSULTATION Multiple pauses. Atrial fibrillation. HISTORY OF PRESENT ILLNESS Mr. Michael is a 71-year-old -[place] gentleman with aortic stenosis, end-stage renal disease on hemodialysis, aortic stenosis, mitral regurgitation status post aortic valve replacement and mitral valve repair, recent hemodialysis due to potassium over 7. He developed significant pause during hospitalization. He is in atrial fibrillation. Beta jolene was stopped. I was called for further evaluation and management. The chart was reviewed. The patient was evaluated. ALLERGIES None. SOCIAL HISTORY Currently denies smoking and drinking. FAMILY HISTORY Noncontributory to his current medical condition. MEDICATIONS 1. Albumin. 2. Acetaminophen. 3. Aspirin 81 mg a day. 4. Lipitor 40 mg a day. 5. Insulin. 6. Metoprolol was discontinued. 7. Protonix 40 mg a day. 8. Dilantin 100 mg three times a day. 9. Flomax 0.4 mg at bedtime. REVIEW OF SYSTEMS Currently the patient refers some shortness of breath but no chest pain, no chest discomfort. PHYSICAL EXAMINATION GENERAL: Alert, fully oriented. VITAL SIGNS: Blood pressure 121/57, pulse around 110 and irregular, respiratory rate 20 LUNGS: Decreased right basilar ventilation. There is a mediastinal tube chest tube with minimal drainage. CARDIOVASCULAR: S1-S2, irregular. No gallop. There is a discrete systolic ejection murmur. ABDOMEN: Soft. No mass, no wheeze. EXTREMITIES: With no edema. SKIN: Midsternal area with a clean surgical wound. LABORATORY DATA Hemoglobin is 7.9, white blood cell count 11.1. Potassium 4.9, creatinine 7.09, INR 1.3. ELECTROCARDIOGRAM Indicates atrial fibrillation, right bundle-branch block, possible left anterior fascicular block, diffuse ST changes. ASSESSMENT AND RECOMMENDATIONS Mr. Michael's heart rate is high at 110. He has atrial fibrillation. Beta jolene was stopped because of pauses. Hemoglobin is low; that can contribute to the tachyarrhythmia, but at the same time heart rate needs to be controlled. Systolic blood pressure adequate. I am going to initiate metoprolol 25 mg q.6 hours. If the patient tolerates tomorrow morning, I will change it to 50 mg twice a day. The gentleman most likely has conduction disease. If he develops bradycardia then backup pacing will be inserted. Case discussed extensively with him. I will closely monitor him during his hospitalization. Micheal Pulido MD HS/SSB /9:10 AM /10:47 AM
[2017-02-07] MEDS: METOPROLOL TARTRATE 25 MG TAB PO SCH ×3 (11:41→23:45)
--- NOTE | 2017-02-07 15:25 | PD.CAR.PN ---
CVT Progress Note Subjective/Hospital Course: 71/ male hx of moderate/ severe /MT/TR underwent R&Lhc 01/24/17, non obstructing coronary disease . EF 40-45, AV area 0.71, moderate to severe MR moderate to severe TR PMH: ESRD on dialysis T-Thur-Sat( followed by Dr Harris Umana) , Afib, anemia , valvular Heart Disease, CVA, Left carotid stenosis , DM, Dysarthria, HTN Surgery: Mitral valve repair with a 28 [address] Gust[address] Tommy annuloplasty ring AVR with a 19 Intuity tissue valve, ROMARIO 02/03 the patient was noted to have hyperkalemia and a serum K of > 7. He was ultrafiltrated on pump and finishing serum K was around 4.4. Otherwise, concluding ROMARIO demonstrated no perivalvular leak, with slightly improved to moderate TR. He is brought to the CVICU in stable condition on an epinephrine drip at 2 mcg/min for RV support. 02/04 pt extubated after surgery, underwent dialysis this am intent to remove 2 liters, pt became hypotensive and required only ultrafiltration, and was given colloid and crystalloid , pt remains on low dose Epi he also had some arrhythmia, bradycardia , with junctional rhythm chest tubes left in place 100cc/ 12 hrs 02/05/17 Much improved today. alert and oriented with no complaints 02/06/17 Doing well. Requires pacing at times. 02/07 remains in afib, rate 90-110 pt seen and eval by Dr Cain, restarted on BB chest tube dc without difficulty RIJ cvc dc pt will need anticoagulation with his hx of afib/ cva A&V wires left in place / back up pacer at rate of 50 Objective: GENERAL: SKIN: Warm and dry. prevena dressing to chest HEAD: Normocephalic. EYES: No scleral icterus. No injection or drainage. NECK: Supple, trachea midline. No JVD or lymphadenopathy. CARDIOVASCULAR: irregular rate and rhythm without murmurs, gallops, or rubs. RESPIRATORY: Breath sounds equal bilaterally. No accessory muscle use. GASTROINTESTINAL: Abdomen soft, non-tender, nondistended. MUSCULOSKELETAL: No cyanosis, or edema. BACK: Nontender without obvious deformity. No CVA tenderness. Vital Signs Date Time Temp Pulse Resp B/P (MAP) Pulse Ox O2 Delivery O2 Flow Rate FiO2 02/07/17 12:00 94 Nasal Cannula 1.00 02/07/17 12:00 101 02/07/17 12:00 99 02/07/17 12:00 98.4 101 16 152/84 (106) 94 Arterial Line 02/07/17 11:44 95 Nasal Cannula 1.00 02/07/17 08:00 97 Nasal Cannula 2.00 02/07/17 08:00 99 02/07/17 08:00 99 02/07/17 08:00 98.3 100 16 130/80 (97) 95 126/54 (78) 02/07/17 08:00 95 Nasal Cannula 2.00 02/07/17 07:00 107 02/07/17 04:00 98.1 112 12 120/74 (89) 97 121/57 (78) 02/07/17 04:00 94 Nasal Cannula 2.00 02/07/17 04:00 100 02/07/17 00:00 93 02/07/17 00:00 110 12 128/68 (88) 96 144/65 (91) 02/07/17 00:00 95 Nasal Cannula 2.00 02/06/17 22:00 98 Nasal Cannula 2.00 02/06/17 21:30 97 Nasal Cannula 2.00 02/06/17 21:00 90 Room Air 02/06/17 20:00 98 Nasal Cannula 2.00 02/06/17 20:00 97.8 88 16 135/72 (93) 98 126/61 (82) 02/06/17 20:00 93 02/06/17 16:00 87 02/06/17 16:00 97 Nasal Cannula 2.00 02/06/17 16:00 98.2 87 18 127/61 (83) 97 Labs: Laboratory Tests Test 02/07/17 04:50 White Blood Count 11.1 TH/MM3 (4.0-11.0) Red Blood Count 2.54 MIL/MM3 (4.50-5.90) Hemoglobin 7.9 GM/DL (13.0-17.0) Hematocrit 24.6 % (39.0-51.0) Mean Corpuscular Volume 97.0 FL (80.0-100.0) Mean Corpuscular Hemoglobin 31.1 PG (27.0-34.0) Mean Corpuscular Hemoglobin Concent 32.0 % (32.0-36.0) Red Cell Distribution Width 15.9 % (11.6-17.2) Platelet Count 52 TH/MM3 (150-450) Mean Platelet Volume 9.8 FL (7.0-11.0) Blood Urea Nitrogen 66 MG/DL (7-18) Creatinine 7.09 MG/DL (0.60-1.30) Random Glucose 66 MG/DL (74-106) Calcium Level 9.0 MG/DL (8.5-10.1) Phosphorus Level 6.4 MG/DL (2.5-4.9) Magnesium Level 2.8 MG/DL (1.5-2.5) Sodium Level 134 MEQ/L (136-145) Potassium Level 4.9 MEQ/L (3.5-5.1) Chloride Level 95 MEQ/L (98-107) Carbon Dioxide Level 28.1 MEQ/L (21.0-32.0) Anion Gap 11 MEQ/L (5-15) Estimat Glomerular Filtration Rate 9 ML/MIN (>89) Result Diagram: 02/07/1744902/07/17449 Telemetry: Afib (1) s/p AVR, MVR Plan: ASA , BB PT/ OOB as tolerated pulm toileting transfer to stepdown (2) Mitral regurgitation (3) Aortic stenosis (4) History of CVA with residual deficit Plan: PT/OT will need rehab (5) Chronic CHF (6) Tricuspid regurgitation (7) Diastolic CHF due to valvular disease (8) Seizure disorder Plan: on Dilantin (9) A-fib Plan: back up pacer set at 50/ 2/2 paul rhythms (10) ESRD (end stage renal disease) on dialysis Plan: for dialysis in am transfuse one unit with dialysis in am Maya Theodore Feb 07, 2017 15:25
[2017-02-07] MEDS: SENNOSIDES 8.6 MG TAB PO SCH (21:00)
[2017-02-07] MEDS: TAMSULOSIN HCL 0.4 MG CAP PO SCH (21:27)
[2017-02-07] MEDS: ATORVASTATIN 40 MG TAB PO SCH (21:27)
[2017-02-08] VITALS (29 sets, daily range): BP systolic 100–142; BP diastolic 51–94; PULSE 65–97; RESP 16–20; TEMP 97.6–98.5; O2SAT 93–99
[2017-02-08] MEDS: MELATONIN 5 MG TAB PO PRN (00:49)
[2017-02-08] MEDS: oxyCODONE/ACETAMINOPHEN 5 MG/325 MG TAB PO PRN ×3 (00:49→17:15)
[2017-02-08] MEDS: METOPROLOL TARTRATE 25 MG TAB PO SCH ×2 (05:58→21:23)
[2017-02-08] MEDS: PANTOPRAZOLE SOD 40 MG DELAYED RELEASE TAB PO SCH (05:58)
[2017-02-08] MEDS: INSULIN ASPART SUPPLEMENTAL SCALE SQ SCH ×5 (05:58→21:20)
--- NOTE | 2017-02-08 08:48 | HHI.NPPN ---
Subjective General Problems: Anemia Renal Failure: Chronic, End Stage Renal Disease Interval History Seen during dialysis. He was transferred out of ICU and is doing fairly well. (Missy Jones) Review of Systems General Constitutional: Fatigue (Missy Jones) Respiratory Lungs: SOB (Missy Jones) Cardiovascular Cardiac: [place] (Missy Jones) Objective Data Data Vital Signs Date Time Temp Pulse Resp B/P (MAP) Pulse Ox O2 Delivery O2 Flow Rate FiO2 02/08/17 07:30 97.6 96 16 115/65 (82) 99 02/08/17 06:17 97 02/08/17 05:23 82 02/08/17 04:39 77 02/08/17 03:19 84 02/08/17 03:15 97 Nasal Cannula 2.00 02/08/17 03:15 84 02/08/17 03:15 98.5 86 18 117/67 (84) 97 02/08/17 02:25 83 02/08/17 01:11 85 02/08/17 00:32 82 02/07/17 23:15 76 02/07/17 23:15 84 02/07/17 23:15 99 Nasal Cannula 2.00 02/07/17 23:15 98.6 80 19 118/65 (82) 99 02/07/17 22:00 82 02/07/17 21:00 88 02/07/17 20:00 84 02/07/17 20:00 98.4 77 20 114/70 (85) 100 02/07/17 20:00 100 Nasal Cannula 2.00 02/07/17 20:00 84 02/07/17 19:00 76 02/07/17 17:00 87 02/07/17 16:00 97.6 90 16 139/72 (94) 90 02/07/17 16:00 97 Nasal Cannula 2.00 02/07/17 16:00 90 02/07/17 16:00 90 02/07/17 12:00 94 Nasal Cannula 1.00 02/07/17 12:00 101 02/07/17 12:00 99 02/07/17 12:00 98.4 101 16 152/84 (106) 94 Arterial Line 02/07/17 11:44 95 Nasal Cannula 1.00 (Missy Jones) -: 02/07/17 0450 02/07/17 0450 Tubes & Lines Comment pacer wires (Missy Jonse) Physical Exam General Appearance: Well Developed, Well Nourished, No Acute Distress, Comfortable (Missy Jones) Eyes Eye Exam: Pupils Equal (Missy Jones) Throat Throat Exam: Oral Mucosa [place] & Moist (Missy Jones) Pulmonary Resp Exam: Breath Sounds Equal, No Distress, Decreased Bases (Missy Jones) Cardiology CV Exam: Good Perfusion, Irregular, Bradycardia CV Remarks pacer wires in place (Missy Jones) Gastrointestinal/Abdomen GI Exam: Soft, Non-Tender, Bowel Sounds Present, Positive Bowel Movement (Missy Jones) Musculoskeletal MS Exam: Joints Intact, Normal Tone, Good Strength (Missy Jones) Integumentary Skin Exam: Warm, Dry, Intact Skin Remarks wound vac mid sternal area (Missy Jones) Extremeties Extremities Exam: No Edema, Pedal Pulses Palpable (Missy Jones) Neurologic Neuro Exam: Alert, Awake, Oriented, Speech Clear, Moving All Extremities (Missy Jones) Psychiatric Psych Exam: Appropriate Responses (Missy Jones) Assessment/Plan Discussed Condition With: Patient Assessment Summary: Anemia of CKD, Hypertension, End Stage Renal Disease Problem List: (1) ESRD (end stage renal disease) on dialysis ICD Codes: N18.6 - End stage renal disease; Z99.2 - Dependence on renal dialysis Status: Acute Plan: Seen during dialysis on a 2K, 350 BFR, 2L UF Continue TTS HD support while admitted stable from renal perspective continue present orders, avoid IVF; gadolinium is contraindicated in patients with ESRD no dietary protein restriction obtain intermittent renal panel (2) Status post aortic valve repair ICD Codes: Z98.890 - Other specified postprocedural states Plan: CTS following chest tube has been removed appreciate further recommendations (3) HTN (hypertension), benign ICD Codes: I10 - Essential (primary) hypertension Status: Acute Plan: blood pressure is stable continue present medications (4) A-fib ICD Codes: I48.91 - Unspecified atrial fibrillation Status: Acute Plan: rate has varied, evaluated by Dr. Cain monitor rate/rhythm CVS to manage medications (5) CAD (coronary artery disease) ICD Codes: I25.10 - Atherosclerotic heart disease of [place] coronary artery without angina pectoris Status: Acute Plan: CTS following on ASA, statin (6) Anemia ICD Codes: D64.9 - Anemia, unspecified Status: Acute Plan: continue epogen with dialysis ordered one unit PRBC during dialysis today (Missy Jones) Plan patient was seen and examined during dialysis. Overall he is doing well. Agree with above assessment and plan. Stop Fleets enema: not recommended in CKD and dialysis patients. Increase Renvela to 2400 mg TID with meals. Physical therapy. Nepro for protein supplementation. (Stuart Zhang MD) Missy Jones Feb 08, 2017 08:48 Stuart Zhang MD Feb 08, 2017 10:15
[2017-02-08] MEDS: DOCUSATE SODIUM 100 MG CAP PO SCH ×2 (09:00→21:20)
[2017-02-08] MEDS: ASPIRIN 81 MG CHEW TAB PO SCH (09:00)
[2017-02-08] MEDS: MULTIVITAMINS/MINERALS THERAPEUTIC TAB PO SCH (09:00)
[2017-02-08] MEDS: PHENYTOIN SODIUM 100 MG CAP PO SCH ×3 (09:00→17:15)
[2017-02-08] MEDS: DULoxetine HCl DR 30 MG CAP PO SCH (09:00)
[2017-02-08] MEDS: SEVELAMER CARBONATE 800 MG TAB PO SCH ×3 (09:00→17:15)
[2017-02-08] MEDS: POLYETHYLENE GLYCOL 17 GM PKG PO SCH (09:00)
--- NOTE | 2017-02-08 10:46 | PD.CAR.PN ---
CVT Progress Note CVT: POD #: 5 Subjective/Hospital Course: 71/ male hx of moderate/ severe /MT/TR underwent R&Lhc 01/24/17, non obstructing coronary disease . EF 40-45, AV area 0.71, moderate to severe MR moderate to severe TR PMH: ESRD on dialysis T-Thur-Sat( followed by Dr Harris Umana) , Afib, anemia , valvular Heart Disease, CVA, Left carotid stenosis , DM, Dysarthria, HTN Surgery: Mitral valve repair with a 28 [address] Gust[address] Tommy annuloplasty ring AVR with a 19 Intuity tissue valve, ROMARIO 02/03 the patient was noted to have hyperkalemia and a serum K of > 7. He was ultrafiltrated on pump and finishing serum K was around 4.4. Otherwise, concluding ROMARIO demonstrated no perivalvular leak, with slightly improved to moderate TR. He is brought to the CVICU in stable condition on an epinephrine drip at 2 mcg/min for RV support. 02/04 pt extubated after surgery, underwent dialysis this am intent to remove 2 liters, pt became hypotensive and required only ultrafiltration, and was given colloid and crystalloid , pt remains on low dose Epi he also had some arrhythmia, bradycardia , with junctional rhythm chest tubes left in place 100cc/ 12 hrs 02/05/17 Much improved today. alert and oriented with no complaints 02/06/17 Doing well. Requires pacing at times. 02/07 remains in afib, rate 90-110 pt seen and eval by Dr Cain, restarted on BB chest tube dc without difficulty RIJ cvc dc pt will need anticoagulation with his hx of afib/ cva A&V wires left in place / back up pacer at rate of 50 02/[address] Cain, no further pauses noted change BB to 50mg bid ok to dc A&V wires / start Coumadin this pm receiving dialysis today , and one unit PRBC eval for rehab at discharge Objective: GENERAL: SKIN: Warm and dry. prevena dressing to chest HEAD: Normocephalic. EYES: No scleral icterus. No injection or drainage. NECK: Supple, trachea midline. No JVD or lymphadenopathy. CARDIOVASCULAR: irregular rate and rhythm without murmurs, gallops, or rubs. AV fistula left forearm RESPIRATORY: Breath sounds equal bilaterally. No accessory muscle use. GASTROINTESTINAL: Abdomen soft, non-tender, nondistended. MUSCULOSKELETAL: No cyanosis, or edema. BACK: Nontender without obvious deformity. No CVA tenderness. Vital Signs Date Time Temp Pulse Resp B/P (MAP) Pulse Ox O2 Delivery O2 Flow Rate FiO2 02/08/17 10:13 74 02/08/17 10:11 98.0 81 20 116/94 02/08/17 09:00 81 02/08/17 08:00 78 02/08/17 07:30 97.6 96 16 115/65 (82) 99 02/08/17 07:00 99 Nasal Cannula 2.00 02/08/17 07:00 84 02/08/17 06:17 97 02/08/17 05:23 82 02/08/17 04:39 77 02/08/17 03:19 84 02/08/17 03:15 97 Nasal Cannula 2.00 02/08/17 03:15 84 02/08/17 03:15 98.5 86 18 117/67 (84) 97 02/08/17 02:25 83 02/08/17 01:11 85 02/08/17 00:32 82 02/07/17 23:15 76 02/07/17 23:15 84 02/07/17 23:15 99 Nasal Cannula 2.00 02/07/17 23:15 98.6 80 19 118/65 (82) 99 02/07/17 22:00 82 02/07/17 21:00 88 02/07/17 20:00 84 02/07/17 20:00 98.4 77 20 114/70 (85) 100 02/07/17 20:00 100 Nasal Cannula 2.00 02/07/17 20:00 84 02/07/17 19:00 76 02/07/17 17:00 87 02/07/17 16:00 97.6 90 16 139/72 (94) 90 02/07/17 16:00 97 Nasal Cannula 2.00 02/07/17 16:00 90 02/07/17 16:00 90 02/07/17 12:00 94 Nasal Cannula 1.00 02/07/17 12:00 101 02/07/17 12:00 99 02/07/17 12:00 98.4 101 16 152/84 (106) 94 Arterial Line 02/07/17 11:44 95 Nasal Cannula 1.00 Labs: Laboratory Tests Test 02/08/17 06:04 Phenytoin (Dilantin) Level 4.7 MCG/ML (10.0-20.0) Result Diagram: 02/07/1744902/07/17449 Telemetry: afib, no further pauses (1) s/p AVR, MVR Plan: ASA , change BB to 50mg bid PT/ OOB as tolerated pulm toileting eval for rehab / possible dc in am (2) Mitral regurgitation (3) Aortic stenosis (4) History of CVA with residual deficit Plan: PT/OT will need rehab (5) Chronic CHF (6) Tricuspid regurgitation (7) Diastolic CHF due to valvular disease (8) Seizure disorder Plan: on Dilantin (9) A-fib Plan: back up pacer set at 50/ 2/2 paul rhythms (10) ESRD (end stage renal disease) on dialysis Plan: transfuse one unit with dialysis today Maya Theodore Feb 08, 2017 10:46
[2017-02-08] MEDS ORDERED: WARFARIN SOD 3 MG TAB PO SCH (16:00)
[2017-02-08 17:43] LABS: INTERNATIONAL NORMALIZED RATIO 1.5 RATIO; PROTHROMBIN TIME - PATIENT 17.3 SEC (9.8-11.6)
[2017-02-08] MEDS: TAMSULOSIN HCL 0.4 MG CAP PO SCH (21:20)
[2017-02-08] MEDS: SENNOSIDES 8.6 MG TAB PO SCH (21:20)
[2017-02-08] MEDS: ATORVASTATIN 40 MG TAB PO SCH (21:21)
[2017-02-09] VITALS (9 sets, daily range): BP systolic 152–159; BP diastolic 74–78; PULSE 71–86; RESP 16; TEMP 98–98.1; O2SAT 94
[2017-02-09] MEDS: MELATONIN 5 MG TAB PO PRN (01:19)
[2017-02-09] MEDS: INSULIN ASPART SUPPLEMENTAL SCALE SQ SCH (06:01)
[2017-02-09] MEDS: PANTOPRAZOLE SOD 40 MG DELAYED RELEASE TAB PO SCH (06:01)
[2017-02-09 06:57] LABS: HEMATOCRIT 34.1 % (39.0-51.0); MEAN CELL VOLUME 96.9 FL (80.0-100.0); MEAN CORPUSCULAR HEMOGLOBIN 31.1 PG (27.0-34.0); MEAN CORPUSCULAR HGB CONC 32.1 % (32.0-36.0); PLATELET COUNT 76 TH/MM3 (150-450); RED BLOOD COUNT 3.52 MIL/MM3 (4.50-5.90); WHITE BLOOD COUNT 11.8 TH/MM3 (4.0-11.0)
[2017-02-09 07:06] LABS: PROTHROMBIN TIME - PATIENT 22.4 SEC (9.8-11.6)
[2017-02-09 09:03] LABS: REVIEW FLAG FINAL
[2017-02-09] MEDS: ASPIRIN 81 MG CHEW TAB PO SCH (09:20)
[2017-02-09] MEDS: POLYETHYLENE GLYCOL 17 GM PKG PO SCH (09:20)
[2017-02-09] MEDS: DULoxetine HCl DR 30 MG CAP PO SCH (09:24)
[2017-02-09] MEDS: SEVELAMER CARBONATE 800 MG TAB PO SCH (09:25)
[2017-02-09] MEDS: PHENYTOIN SODIUM 100 MG CAP PO SCH (09:25)
[2017-02-09] MEDS: MULTIVITAMINS/MINERALS THERAPEUTIC TAB PO SCH (09:27)
[2017-02-09] MEDS: DOCUSATE SODIUM 100 MG CAP PO SCH (09:27)
[2017-02-09] MEDS: METOPROLOL TARTRATE 25 MG TAB PO SCH (09:27)
[2017-02-09] MEDS ORDERED: COUM1TAB PO (09:53)
[2017-02-09] MEDS ORDERED: DOCU1CAP39 PO (09:53)
[2017-02-09] MEDS ORDERED: ASPI81CH25 PO (09:53)
[2017-02-09] MEDS ORDERED: SEVEL800 PO (09:53)
[2017-02-09] MEDS ORDERED: POLY17S PO (09:53)
[2017-02-09] MEDS ORDERED: METO25TA3 PO (09:53)
[2017-02-09] MEDS ORDERED: NORC5TAB PO (09:54)
[2017-02-09] MEDS ORDERED: NOVOLOGP2 SQ (09:54)
--- NOTE | 2017-02-09 10:04 | HHI.DS ---
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 of anticoagulants Status: Chronic (4) Aortic stenosis ICD Codes: I35.0 - Nonrheumatic aortic (valve) stenosis Status: Acute (5) Mitral regurgitation ICD Codes: I34.0 - Nonrheumatic mitral (valve) insufficiency Status: Acute (6) Tricuspid regurgitation ICD Codes: I07.1 - Rheumatic tricuspid insufficiency Status: Acute (7) Diastolic CHF due to valvular disease ICD Codes: I38 - Endocarditis, valve unspecified; I50.30 - Unspecified diastolic (congestive) heart failure Status: Chronic (8) History of CVA (cerebrovascular accident) ICD Codes: Z86.73 - Personal history of transient ischemic attack (TIA), and cerebral infarction without residual deficits Status: Chronic (9) S/P AVR (aortic valve replacement) ICD Codes: Z95.2 - S/P AVR (aortic valve replacement) (10) S/P MVR (mitral valve repair) ICD Codes: Z98.890 - Other specified postprocedural states (11) ESRD (end stage renal disease) on dialysis ICD Codes: N18.6 - End stage renal disease; Z99.2 - Dependence on renal dialysis Status: Chronic Procedures Mitral valve repair with a 28 St[address] Gustavo Tommy annuloplasty ring 02/03/17 AVR with a 19 Intuity tissue valve ROMARIO Brief History 71/ male hx of moderate/ severe /MT/TR underwent R&Lhc 01/24/17, non obstructing coronary disease . EF 40-45, AV area 0.71, moderate to severe MR moderate to severe TR PMH: ESRD on dialysis T-Paola-Zach( followed by Dr Harris Umana) , Afib, anemia , valvular Heart Disease, CVA, Left carotid stenosis , DM, Dysarthria, HTN CBC/BMP: 02/09/17 0615 02/07/17 0450 Significant Findings Laboratory Tests Test 02/07/17 04:50 02/08/17 06:04 02/08/17 16:45 02/09/17 06:15 White Blood Count 11.1 TH/MM3 (4.0-11.0) 11.8 TH/MM3 (4.0-11.0) Red Blood Count 2.54 MIL/MM3 (4.50-5.90) 3.52 MIL/MM3 (4.50-5.90) Hemoglobin 7.9 GM/DL (13.0-17.0) 10.9 GM/DL (13.0-17.0) Hematocrit 24.6 % (39.0-51.0) 34.1 % (39.0-51.0) Platelet Count 52 TH/MM3 (150-450) 76 TH/MM3 (150-450) Blood Urea Nitrogen 66 MG/DL (7-18) Creatinine 7.09 MG/DL (0.60-1.30) Random Glucose 66 MG/DL (74-106) Phosphorus Level 6.4 MG/DL (2.5-4.9) Magnesium Level 2.8 MG/DL (1.5-2.5) Sodium Level 134 MEQ/L (136-145) Chloride Level 95 MEQ/L (98-107) Estimat Glomerular Filtration Rate 9 ML/MIN (>89) Phenytoin (Dilantin) Level 4.7 MCG/ML (10.0-20.0) Prothrombin Time 17.3 SEC (9.8-11.6) 22.4 SEC (9.8-11.6) Imaging Last Impressions Chest X-Ray 02/04/17 0500 Signed Impressions: Service Date/Time: Saturday, February 04, 2017 04:27 - CONCLUSION: Normal examination. Right subclavian central line in good position. Dewayne Gutierrez MD PE at Discharge GENERAL: A&O x 3 SKIN: Warm and dry. prevena dressing to chest HEAD: Normocephalic. EYES: No scleral icterus. No injection or drainage. NECK: Supple, trachea midline. No JVD or lymphadenopathy. CARDIOVASCULAR: irregular rate and rhythm without murmurs, gallops, or rubs. RESPIRATORY: Breath sounds equal bilaterally. No accessory muscle use. GASTROINTESTINAL: Abdomen soft, non-tender, nondistended. MUSCULOSKELETAL: No cyanosis, or edema. BACK: Nontender without obvious deformity. No CVA tenderness. Hospital Course urgery: Mitral valve repair with a 28 St[address] Gustavo Delavan annuloplasty ring AVR with a 19 Intuity tissue valve, ROMARIO 02/03 the patient was noted to have hyperkalemia and a serum K of > 7. He was ultrafiltrated on pump and finishing serum K was around 4.4. Otherwise, concluding ROMARIO demonstrated no perivalvular leak, with slightly improved to moderate TR. He is brought to the CVICU in stable condition on an epinephrine drip at 2 mcg/min for RV support. 02/04 pt extubated after surgery, underwent dialysis this am intent to remove 2 liters, pt became hypotensive and required only ultrafiltration, and was given colloid and crystalloid , pt remains on low dose Epi he also had some arrhythmia, bradycardia , with junctional rhythm chest tubes left in place 100cc/ 12 hrs 02/05/17 Much improved today. alert and oriented with no complaints 02/06/17 Doing well. Requires pacing at times. 02/07 remains in afib, rate 90-110 pt seen and eval by Dr Cain, restarted on BB chest tube dc without difficulty RIJ cvc dc pt will need anticoagulation with his hx of afib/ cva A&V wires left in place / back up pacer at rate of 50 02/[address] Cain, no further pauses noted change BB to 50mg bid ok to dc A&V wires / start Coumadin this pm receiving dialysis today , and one unit PRBC eval for rehab at discharge 02/09 HGB 10 pt stable for dc to rehab will need to notify nephro for continued dialysis no further bradycardic rhythm, tolerating BB INR 2.0/ will dc on coumadin 1mg PLT improved 76 Pt Condition on Discharge: Good Discharge Disposition: Rehab Inpatient Discharge Instructions DIET: Follow Instructions for: Heart Healthy Diet, Diabetic Diet, Renal Failure Diet Additional Diet Instructions: 2gm NA 70meq K+ Activities you can perform: Full Weight Bearing, Shower Only-No Bath Activities to avoid: Strenuous Activity, Driving Additional Activity Instructio: no lifting > 8 lbs or gallon of milk Follow up Referrals: Cardiology with Clem Rosen MD Nephrology with Harris Umana MD, Dr will see you at Dialysis on regular scheduled days PCP Follow-up with Kassandra Granda MD Surgical with Roslyn House MD New Orders: 2D ECHO - 2 Weeks BASIC METABOLIC PROF - 2 Weeks CBC NO DIFF - 2 Weeks X-RAY CHEST PA & LAT - 2 Weeks New Medications: Hydrocodone-Acetaminophen ([place]) 5-325 mg Tab 1 TAB PO Q6H PRN for PAIN, #40 TAB 0 Refills Insulin Aspart Inj (Novolog Inj) 1,000 Unit/10 Ml Vial 1-9 UNITS SQ ACHS for Blood Sugar Management, #10 ML 2 Refills Max dose at bedtime:( )units; sugars less than 70,(0)units; sugars 150-199,(1) unit; sugars 200-249,(3) units; sugars 250-299,(5) units; sugars 300-349,(7) units; sugars greater than 349,(9) units Warfarin (Coumadin) 1 Mg Tab 1 MG PO DAILY for Prevent Blood Clot, #30 TAB 2 Refills hold for INR > 3.0 goal 2-3 Aspirin (Aspirin Low Strength) 81 Mg Chew 81 MG PO DAILY for Blood Clot Prevention, #100 EA 2 Refills hold for platelets <100K Docusate Sodium (Dok) 100 Mg Cap 100 MG PO BID for Constipation, #60 CAP 0 Refills Metoprolol Tartrate (Metoprolol Tartrate) 25 Mg Tab 50 MG PO Q12HR for Blood Pressure Management, #60 TAB 2 Refills Polyethylene Glycol 3350 Powder (Polyethylene Glycol 3350 Powder) 17 Gram Pow 17 GM PO DAILY for Constipation, #30 PACK Sevelamer Carbonate (Renvela) 800 Mg Tab 2400 MG PO TID for renal disease , #90 TAB 2 Refills Continued Medications: Aspirin DR (Aspirin DR) 81 Mg Tabdr 81 MG PO DAILY, TAB [address] (Cymbalta DR) 30 Mg Capdr 30 MG PO DAILY, #30 CAP 0 Refills Phenytoin Extended (Dilantin) 100 Mg Cap 100 MG PO TID for Control Seizures, #270 CAP 0 Refills Tamsulosin (Flomax) 0.4 Mg Cap 0.4 MG PO HS for Manage Prostate Problems, #30 CAP 0 Refills Discontinued Medications: Diltiazem ER 12 HR (Diltiazem ER 12 HR) 120 Mg Caper 120 MG PO BID, #60 CAP 0 Refills Hydralazine HCl (Hydralazine HCl) 25 Mg Tablet 25 MG PO BID for Blood Pressure Management, #60 TAB 0 Refills Metoprolol Tartrate (Metoprolol Tartrate) 25 Mg Tab 25 MG PO DAILY, #30 TAB 0 Refills Sevelamer Carbonate (Renvela) 800 Mg Tab 800 MG PO TID for Control phosphorous levels, #90 TAB 0 Refills Warfarin (Warfarin) 4 Mg Tab 8 MG PO DAILY for Blood Clot Prevention, #0 TAB 0 Refills CAMILLA PARKER Feb 09, 2017 10:04
--- NOTE | 2017-02-09 11:13 | HHI.NPPN ---
Subjective General Problems: Anemia Renal Failure: Chronic, End Stage Renal Disease Interval History Doing well. May be discharged to rehab soon. Dialyzed and transfused without incident yesterday. (Missy Jones) Review of Systems General Constitutional: Fatigue (Missy Jones) Respiratory Lungs: SOB (Missy Jones) Cardiovascular Cardiac: HAYWARD (Missy Jones) Objective Data Data Vital Signs Date Time Temp Pulse Resp B/P (MAP) Pulse Ox O2 Delivery O2 Flow Rate FiO2 02/09/17 07:15 98.1 86 16 159/78 (105) 94 02/09/17 06:00 79 02/09/17 05:00 77 02/09/17 04:00 78 02/09/17 03:30 98.0 75 16 152/74 (100) 94 02/09/17 03:30 94 Room Air 02/09/17 03:00 80 02/09/17 02:00 75 02/09/17 01:00 76 02/09/17 00:00 71 02/08/17 23:00 94 Room Air 02/08/17 23:00 84 02/08/17 23:00 98.5 87 16 123/64 (83) 94 02/08/17 22:00 82 02/08/17 21:00 82 02/08/17 20:00 98.5 95 18 142/71 (94) 93 02/08/17 20:00 93 Room Air 02/08/17 20:00 86 02/08/17 19:00 88 02/08/17 18:07 16 02/08/17 18:04 76 02/08/17 17:33 77 02/08/17 16:48 86 02/08/17 15:54 94 Room Air 02/08/17 15:54 98.4 86 16 100/52 (68) 96 02/08/17 15:54 81 02/08/17 14:03 78 02/08/17 13:44 77 02/08/17 12:50 65 02/08/17 12:15 96 21 02/08/17 12:10 98.2 78 16 120/51 (74) 96 02/08/17 11:59 96 Room Air 02/08/17 11:59 72 (Missy Jones) -: 02/09/17 0615 02/07/17 0450 Physical Exam General Appearance: Well Developed, Well Nourished, No Acute Distress, Comfortable (Missy Jones) Eyes Eye Exam: Pupils Equal (Missy Jones) Throat Throat Exam: Oral Mucosa [place] & Moist (Missy Jones) Pulmonary Resp Exam: Breath Sounds Equal, No Distress, Decreased Bases (Missy Jones) Cardiology CV Exam: Good Perfusion, Irregular, Bradycardia CV Remarks pacer wires removed (Missy Jones) Gastrointestinal/Abdomen GI Exam: Soft, Non-Tender, Bowel Sounds Present, Positive Bowel Movement (Missy Jones) Musculoskeletal MS Exam: Joints Intact, Normal Tone, Good Strength (Missy Jones) Integumentary Skin Exam: Warm, Dry, Intact Skin Remarks wound vac mid sternal area (Missy Jones) Extremeties Extremities Exam: No Edema, Pedal Pulses Palpable Extremeties Remarks AVF left UE, + thrill, bruit (Missy Jones) Neurologic Neuro Exam: Alert, Awake, Oriented, Speech Clear, Moving All Extremities (Missy Jones) Psychiatric Psych Exam: Appropriate Responses (Missy Jones) Assessment/Plan Discussed Condition With: Patient Assessment Summary: Anemia of CKD, Hypertension, End Stage Renal Disease Problem List: (1) ESRD (end stage renal disease) on dialysis ICD Codes: N18.6 - End stage renal disease; Z99.2 - Dependence on renal dialysis Status: Chronic Plan: 2L UF with dialysis yesterday Continue TTS HD support while admitted stable from renal perspective no changed to plan; avoid IVF; gadolinium is contraindicated in patients with ESRD no dietary protein restriction (2) Status post aortic valve repair ICD Codes: Z98.890 - Other specified postprocedural states Status: Acute Plan: CTS following chest tube and pacer wires removed appreciate further recommendations (3) HTN (hypertension), benign ICD Codes: I10 - Essential (primary) hypertension Status: Chronic Plan: blood pressure is stable continue present medications (4) A-fib ICD Codes: I48.91 - Unspecified atrial fibrillation Status: Acute Plan: rate improved, was evaluated by Dr. Cain to be started on Coumadin (5) CAD (coronary artery disease) ICD Codes: I25.10 - Atherosclerotic heart disease of [place] coronary artery without angina pectoris Status: Acute Plan: CTS following on ASA, statin (6) Anemia ICD Codes: D64.9 - Anemia, unspecified Status: Chronic Plan: continue epogen with dialysis Hb improved after one unit PRBC during dialysis yesterday Plan we will continue to follow if transferred to [facility] (Missy Jones) Plan patient was seen and examined this morning. I agree with above assessment and plan. He is to be discharged to rehab. (Stuart Zhang MD) Missy Jones Feb 09, 2017 11:13 Stuart Zhang MD Feb 09, 2017 21:53
--- NOTE | 2017-02-09 22:11 | HHI.PR ---
Subjective Remarks Feeling better Objective Vital Signs Date Time Temp Pulse Resp B/P (MAP) Pulse Ox O2 Delivery O2 Flow Rate FiO2 02/09/17 07:15 98.1 86 16 159/78 (105) 94 02/09/17 06:00 79 02/09/17 05:00 77 02/09/17 04:00 78 02/09/17 03:30 98.0 75 16 152/74 (100) 94 02/09/17 03:30 94 Room Air 02/09/17 03:00 80 02/09/17 02:00 75 02/09/17 01:00 76 02/09/17 00:00 71 02/08/17 23:00 94 Room Air 02/08/17 23:00 84 02/08/17 23:00 98.5 87 16 123/64 (83) 94 I/O 02/08/17 02/08/17 02/08/17 02/09/17 02/09/17 02/09/17 06:59 14:59 22:59 06:59 14:59 22:59 Intake Total 240 ml 250 ml 480 ml 240 ml Output Total 2000 ml 0 ml 0 ml Balance 240 ml -1750 ml 480 ml 240 ml Intake Oral 240 ml 480 ml 240 ml Packed Cells 250 ml Output Urine Total 0 ml 0 ml Hemodialysis 2000 ml # Bowel Movements 2 0 Result Diagram: 02/09/17 0615 02/07/17 0450 Imaging Alert, fully oriented Lungs: ventilated Clean surgical wound Heart: S1, S2 regular Ext : no edema Procedures Mitral valve repair with a 28 St[address] Gustavo Tommy annuloplasty ring 02/03/17 AVR with a 19 Intuity tissue valve ROMARIO Assessment and Plan Problem List: (1) A-fib ICD Codes: I48.91 - Unspecified atrial fibrillation Status: Acute Plan: In atrial fibrillation. Metoprolol was converted to 50 mg bid No significant pause observed. Can be DH Case discussed this morning with Silva ZULETA. I will see him as OP if necessary (2) Sinus bradycardia ICD Codes: R00.1 - Bradycardia, unspecified Status: Acute Plan: In atrial fibrillation. HR control Yara Cain MD Feb 09, 2017 22:10
[2017-02-23] MEDS ORDERED: WHEEMIS3 (14:08)
[2017-02-23] MEDS ORDERED: GETGO ROLLING W1 MI1 (14:08)
[2017-02-28] MEDS ORDERED: SEVEL800 PO (11:26)
[2017-02-28] MEDS ORDERED: ONDA4TAB7 PO (11:26)
[2017-02-28] MEDS ORDERED: CALC.25 PO (11:26)
[2017-02-28] MEDS ORDERED: METO-309 PO (11:26)
[2017-02-28] MEDS ORDERED: LIDO5DIS5 T-DERMAL (11:26)
[2017-02-28] MEDS ORDERED: TAMS5CAP PO (11:26)
[2017-02-28] MEDS ORDERED: DILA100C PO (11:26)
[2017-02-28] MEDS ORDERED: THERTAB15 PO (11:26)
[2017-02-28] MEDS ORDERED: TUCKSPAD TOPICAL (11:26)
[2017-02-28] MEDS ORDERED: DULO1CAP2 PO (11:26)
[2017-03-01] MEDS ORDERED: ACET1TAB86 PO (09:48)
[2017-03-01] MEDS ORDERED: HYDR-3516 PO (09:48)
[2017-03-01] MEDS ORDERED: ASPI81CH25 PO (11:41)
[2017-03-01] MEDS ORDERED: PT/INR (11:41)
[2017-03-01] MEDS ORDERED: COUM3TAB PO ×2 (11:41→11:54)
== END 2017-02-09 11:35 | DRG 219 ==
LOC: HSDI 05:29 → HCVR 12:31 → HCIN 02-07 16:55
PROVIDERS: ADMIT Thoracic Surgery (Cardiothoracic Vascular Surgery); ATTEND Thoracic Surgery (Cardiothoracic Vascular Surgery)
PROC: 02L70ZK Occlusion of Left Atrial Appendage, Open Approach (ICD-10-PCS; 2017-02-03)
PROC: 5A1221Z Performance of Cardiac Output, Continuous (ICD-10-PCS; 2017-02-03)
PROC: B246ZZ4 Ultrasonography of Right and Left Heart, Transesophageal (ICD-10-PCS; 2017-02-03)
PROC: 02UG0JZ Supplement Mitral Valve with Synthetic Substitute, Open Approach (ICD-10-PCS; principal; 2017-02-03 07:06)
PROC: 02RF08Z Replacement of Aortic Valve with Zooplastic Tissue, Open Approach (ICD-10-PCS; 2017-02-03 07:06)
PROC: 5A1D60Z (ICD-10-PCS; 2017-02-04)
DX: I08.3 Combined rheumatic disorders of mitral, aortic and tricuspid valves (principal); N18.6 End stage renal disease; I13.2 Hypertensive heart and chronic kidney disease with heart failure and with stage 5 chronic kidney disease, or end stage renal disease; E11.22 Type 2 diabetes mellitus with diabetic chronic kidney disease; D69.1 Qualitative platelet defects; I95.9 Hypotension, unspecified; E87.1 Hypo-osmolality and hyponatremia; I48.0 Paroxysmal atrial fibrillation; I25.9 Chronic ischemic heart disease, unspecified; I50.32 Chronic diastolic (congestive) heart failure; D69.6 Thrombocytopenia, unspecified; I25.10 Atherosclerotic heart disease of native coronary artery without angina pectoris; G40.909 Epilepsy, unspecified, not intractable, without status epilepticus; R00.1 Bradycardia, unspecified; E87.5 Hyperkalemia; D64.9 Anemia, unspecified; D63.1 Anemia in chronic kidney disease; R00.0 Tachycardia, unspecified; G47.00 Insomnia, unspecified; N40.0 Benign prostatic hyperplasia without lower urinary tract symptoms; D72.829 Elevated white blood cell count, unspecified; E83.39 Other disorders of phosphorus metabolism; E78.5 Hyperlipidemia, unspecified; F32.9 Major depressive disorder, single episode, unspecified; Z79.01 Long term (current) use of anticoagulants; Z86.73 Personal history of transient ischemic attack (TIA), and cerebral infarction without residual deficits; Z99.2 Dependence on renal dialysis
CPT/HCPCS: 36430; 71010; 76937; 80048; 80185; 82948; 83735; 84100; 84132; 85007; 85014; 85025; 85027; 85384; 85610; 85730; 86850; 86900; 86901; 86920; 88304; 88305; 90935; 93005; 93318; 94002; 94150; 94640; 94664; 94667; 94668; 96374; 96375; C9248; J0131; J0171; J0360; J0690; J1644; J1815; J1817; J2150; J2250; J2405; J2710; J2720; J2930; J3010; J3370; J3475; J3480; J7030; J7040; J7060; P9016; P9035; P9047; Q4081

== ENCOUNTER 2017-03-25 06:28 | Emergency (ER) | payer MEDICARE, MEDICAID ==
[~2017-03-25] VITALS: Ht 175.3 cm; Wt 80.0 kg
[~2017-03-25 06:28] MED LIST changes: +ACET1TAB86 PO; -AMINOCAPROIC ACID INJ 250 MG/ML 20 ML VIAL IV ONE; -ARTIFICIAL TEARS OPTH OINT 3.5 APPLIC/3.5 GM TUBO ONE; +ASPI81CH25 PO; -ASPI81TA5 PO; +CALC.25 PO; -CALCIUM CHLORIDE 10% SOLN 1 GRAM/10 ML SYR IV ONE; +COUM1TAB PO; +COUM3TAB PO; -DILT120C9 PO; +DULO1CAP2 PO; -EPINEPHrine HCL (1:1000) 1 MG/ML VIAL IV ONE; -GABA300C5 PO; +GETGO ROLLING W1 MI1; -GLYCOPYRROLATE 0.2 MG/ML VIAL IV ONE; -HEPARIN SODIUM - SQ 10,000 UNITS/ML VIAL SQ ONE; +HYDR-3516 PO; -HYDR-3799 PO; +LIDO5DIS5 T-DERMAL; -MAGNESIUM SULFATE 1000 MG/2 ML VIAL (PED) IV ONE; -METH500T3 PO; +METO-309 PO; -NEOSTIGMINE METHYLSULFATE 10 MG/10 ML VIAL IV PUSH ONE; -NITROGLYCERIN-D5W 50 MG/250 ML 250 ML IV ONE; +NORC5TAB PO; +ONDA4TAB7 PO; +POLY17S PO; -PROTAMINE SULFATE 250 MG/25 ML VIAL IV ONE; +PT/INR; +THERTAB15 PO; +TUCKSPAD TOPICAL; -VECURONIUM BROMIDE 10 MG VIAL IV ONE; -WARF-20 PO; +WHEEMIS3
[2017-03-25 06:30] VITALS: BP 137/60; PULSE 95; RESP 15; TEMP 98.5; O2SAT 98
--- NOTE | 2017-03-25 07:51 | PD ---
HPI Chief Complaint: Complaint Time Seen by Provider: 07:06 Travel History International Travel<30 days: No Contact w/Intl Traveler<30days: No Traveled to known affect area: No History of Present Illness HPI This is a 72-year-old male who presents to the emergency department with blood in his urine. He's noticed blood in his urine once this morning, bright red, moderate severity with no associated fevers, chills or abdominal pain. He does say he's been having a go to the bathroom more frequently and urgently. He is a dialysis patient gets dialyzed Tuesday and Tuesday. History is limited because the patient has had a stroke in the past and has some aphasia. PFSH Past Medical History Hx Anticoagulant Therapy: Yes Anemia: Yes Arthritis: Yes (LEFT KNEE) Asthma: Yes Autoimmune Disease: No Blood Disorders: No Anxiety: No Depression: No Heart Rhythm Problems: Yes Cancer: No Cardiovascular Problems: Yes High Cholesterol: No Chemotherapy: No Chest Pain: No Congestive Heart Failure: Yes COPD: No Cerebrovascular Accident: Yes (H/O CVA) Diabetes: Yes (DIABETES MELLITUS TYPE II) Dialysis: Yes (, , TUE) Diminished Hearing: No Endocrine: Yes Gastrointestinal Disorders: No GERD: Yes Glaucoma: No Genitourinary: Yes Headaches: Yes Hepatitis: No Hiatal Hernia: Yes Hypertension: Yes Immune Disorder: No Implanted Vascular Access Dvce: Yes Kidney Stones: Yes Musculoskeletal: Yes Neurologic: Yes (H/O CVA) Psychiatric: No Reproductive: No Respiratory: Yes (BRONCHITIS IN PAST) Integumentary: No Immunizations Current: No Migraines: No Myocardial Infarction: No Radiation Therapy: No Renal Failure: Yes Seizures: Yes Sickle Cell Disease: No Thyroid Disease: No Ulcer: No Tetanus Vaccination: Unknown Influenza Vaccination: Yes ?: Not Past Surgical History Abdominal Surgery: No AICD: No Appendectomy: No Arteriovenous Shunt: No Body Medical Devices: FISTULA Cardiac Surgery: Yes (open heart) Cholecystectomy: No Ear Surgery: No Endocrine Surgery: No Eye Surgery: No Genitourinary Surgery: No Gynecologic Surgery: No Insulin Pump: No Joint Replacement: No Neurologic Surgery: No Oral Surgery: No Pacemaker: No Thoracic Surgery: No Other Surgery: Yes (L UPPER ARM SHUNT ) Social History Alcohol Use: No Tobacco Use: No Substance Use: No Allergies-Medications (Allergen,Severity, Reaction): Coded Allergies: No Known Allergies (Verified , 10/13/17) Reported Meds & Prescriptions Reported Meds & Active Scripts Active Coumadin (Warfarin) 3 Mg Tab 2 Mg PO DAILY@1600 30 Days [Pt/Inr] Aspirin Low Strength (Aspirin) 81 Mg Chew 81 Mg PO DAILY 30 Days Coumadin (Warfarin) 3 Mg Tab 2.5 Mg PO DAILY@1600 30 Days Eq Acetaminophen (Acetaminophen) 325 Mg Tab 650 Mg PO Q6HR PRN Hydrocodone-Acetaminophen 5-325 mg Tab 1 Tab PO Q12HR PRN Lidoderm (Lidocaine) 5 % Adh..patch 1 Patch T-DERMAL DAILY 14 Days Rocaltrol (Calcitriol) 0.25 Mcg Cap 1 Mcg PO DAILY 30 Days Thera/Beta-Carotene (Multiple Vitamin) 1 Tab Tab 1 Tab PO DAILY 30 Days A.e.r. Witch Irina (Witch Irina/Glycerin) 12.5 %-50 % Pad 1 Applic TOPICAL UNSCH PRN 30 Days Ondansetron Odt 4 Mg Tab 4 Mg PO Q6H PRN 30 Days Renvela (Sevelamer Carbonate) 800 Mg Tab 2,400 Mg PO TID [address] (Duloxetine HCl) 30 Mg Capdr 30 Mg PO DAILY 30 Days Dilantin (Phenytoin Extended) 100 Mg Cap 200 Mg PO TID 30 Days Lopressor (Metoprolol Tartrate) 50 Mg Tab 75 Mg PO Q12HR 30 Days Flomax (Tamsulosin HCl) 0.4 Mg Cap 0.4 Mg PO HS 30 Days Walker Rolling/GetGo (Device) 1 Mis Mis Ea .ROUTE DIRECTED Wheelchair (Device) 1 Mis Mis Ea .ROUTE DIRECTED [place] (Hydrocodone-Acetaminophen) 5-325 mg Tab 1 Tab PO Q6H PRN Coumadin (Warfarin) 1 Mg Tab 1 Mg PO DAILY hold for INR > 3.0 goal 2-3 Polyethylene Glycol 3350 Powder (Polyethylene Glycol) 17 Gram Pow 17 Gm PO DAILY Aspirin Low Strength (Aspirin) 81 Mg Chew 81 Mg PO DAILY hold for platelets <100K Metoprolol Tartrate 25 Mg Tab 50 Mg PO Q12HR Reported Cymbalta DR (Duloxetine HCl) 30 Mg Capdr 30 Mg PO DAILY Flomax (Tamsulosin HCl) 0.4 Mg Cap 0.4 Mg PO HS Dilantin (Phenytoin Extended) 100 Mg Cap 100 Mg PO TID Review of Systems ROS Limitations: Speech Impaired Physical Exam Narrative GENERAL:Well appearing, no acute distress SKIN: Focused skin assessment warm and dry. HEAD: Atraumatic. Normocephalic. EYES: Pupils equal and round. No injection or drainage. ENT: Moist mucous membranes NECK: Trachea midline. CARDIOVASCULAR: Regular rate and rhythm. No murmur appreciated. Well healing sternal scar. RESPIRATORY: Clear to auscultation. Breath sounds equal bilaterally. GASTROINTESTINAL: Abdomen soft, non-tender, nondistended. MUSCULOSKELETAL: No obvious deformities. NEUROLOGICAL: Awake and alert. No obvious cranial nerve deficits. Moving all extremities. PSYCHIATRIC: Appropriate mood and affect; insight and judgment normal. Data Data Last Documented VS Vital Signs Date Time Temp Pulse Resp B/P (MAP) Pulse Ox O2 Delivery O2 Flow Rate FiO2 03/25/17 06:30 98.5 95 15 137/60 (85) 98 Room Air Orders Orders Complete Blood Count With Diff (03/25/17 07:14) Basic Metabolic Panel (Bmp) (03/25/17 07:14) Urinalysis - C+S If Indicated (03/25/17 07:14) Prothrombin Time / Inr (Pt) (03/25/17 07:51) Act Partial Throm Time (Ptt) (03/25/17 07:51) Urine Culture (03/25/17 07:20) Ceftriaxone Inj (Rocephin Inj) (03/25/17 08:30) Labs Laboratory Tests Test 03/25/17 07:20 03/25/17 07:50 03/25/17 08:00 Urine Color RED Urine Turbidity TURBID Urine pH 8.5 Urine Specific [place] 1.019 Urine Protein 300 OR GREATER mg/dL Urine Glucose (UA) NEG mg/dL Urine Ketones NEG mg/dL Urine Occult Blood LARGE Urine Nitrite NEG Urine Bilirubin NEG Urine Urobilinogen 0.2 MG/DL Urine Leukocyte Esterase SMALL Urine RBC /hpf Urine WBC /hpf Urine WBC Clumps FEW Urine Bacteria OCC /hpf Microscopic Urinalysis Comment CULTURE INDICATED White Blood Count 13.4 TH/MM3 Red Blood Count 3.68 MIL/MM3 Hemoglobin 11.6 GM/DL Hematocrit 35.9 % Mean Corpuscular Volume 97.4 FL Mean Corpuscular Hemoglobin 31.4 PG Mean Corpuscular Hemoglobin Concent 32.2 % Red Cell Distribution Width 16.4 % Platelet Count 164 TH/MM3 Mean Platelet Volume 8.8 FL Neutrophils (%) (Auto) 84.2 % Lymphocytes (%) (Auto) 8.5 % Monocytes (%) (Auto) 5.8 % Eosinophils (%) (Auto) 1.0 % Basophils (%) (Auto) 0.5 % Neutrophils # (Auto) 11.3 TH/MM3 Lymphocytes # (Auto) 1.1 TH/MM3 Monocytes # (Auto) 0.8 TH/MM3 Eosinophils # (Auto) 0.1 TH/MM3 Basophils # (Auto) 0.1 TH/MM3 CBC Comment DIFF FINAL Differential Comment Blood Urea Nitrogen 34 MG/DL Creatinine 5.09 MG/DL Random Glucose 166 MG/DL Calcium Level 9.8 MG/DL Sodium Level 136 MEQ/L Potassium Level 5.6 MEQ/L Chloride Level 101 MEQ/L Carbon Dioxide Level 26.8 MEQ/L Anion Gap 8 MEQ/L Estimat Glomerular Filtration Rate 14 ML/MIN Prothrombin Time 22.7 SEC Prothromb Time International Ratio 2.0 RATIO Activated Partial Thromboplast Time 34.3 SEC MDM Medical Decision Making Medical Screen Exam Complete: Yes Emergency Medical Condition: Yes Medical Record Reviewed: Yes (patient had an aortic valve replacement and mitral valve repair on February 09, 2017 and was discharged on Coumadin) Interpretation(s) Mild leukocytosis Mild anemia Potassium is 5.6 Creatinine is 5.0 Urinalysis demonstrates blood in the urine and white blood cell clumps with some bacteria consistent with urinary tract infection Differential Diagnosis Urinary tract infection, BPH, supratherapeutic INR, pyelonephritis Narrative Course This is a 72-year-old male who presents to the emergency department with blood in his urine that started this morning. He's also had some urinary urgency and frequency. Labs were obtained which demonstrate a leukocytosis of 13. He has evidence of a urinary tract infection which I suspect is the etiology of his hematuria although I counseled him to follow up with urology to rule out bladder cancer. Other labs are consistent with him being a he was dialyzed yesterday and will be dialyzed tomorrow. Diagnosis Primary Impression: Urinary tract infection Qualified Codes: N30.01 - Acute cystitis with hematuria Additional Impression: Hematuria Qualified Codes: R31.9 - Hematuria, unspecified Patient Instructions: General Instructions Additional Instructions: If you develop fever, persistent vomiting, back pain, or inability to eat return to the emergency department as your urine infection may have progressed to a kidney infection. Complete your antibiotics as prescribed. Stay well hydrated with Gatorade or water. Followup with your primary care physician in 2-3 days if your symptoms have not resolved. Your urinalysis should be repeated by her primary care physician to ensure that the blood has gone away. If it hasn't gone away you will need to follow-up with a urologist. Med/Other Pt SpecificInfo: Prescription(s) given Scripts Cephalexin (Keflex) 500 Mg Cap 500 MG PO Q12H for Infection for 7 Days, #14 CAP 0 Refills Prov: Erin Thomason MD 03/25/17 Disposition: 01 DISCHARGE HOME Condition: Stable Erin Tohmason MD Mar 25, 2017 07:51
[2017-03-25 08:04] LABS: BLOOD, URINE LARGE (NEG); GLUCOSE,URINE NEG (NEG); KETONE, URINE NEG (NEG); NITRITE,URINE NEG (NEG); PH, URINE 8.5 (5.0-8.5)
[2017-03-25 08:09] LABS: AUTOMATED NEUTROPHIL # 11.3 TH/MM3 (1.8-7.7); BASOPHIL # 0.1 TH/MM3 (0-0.2); BASOPHIL % 0.5 % (0.0-2.0); EOSINOPHIL # 0.1 TH/MM3 (0-0.4); HEMATOCRIT 35.9 % (39.0-51.0); HEMO FLAGS DIFF FINAL; LYMPH % 8.5 % (9.0-44.0); LYMPHOCYTE # 1.1 TH/MM3 (1.0-4.8); MEAN CELL VOLUME 97.4 FL (80.0-100.0); MEAN CORPUSCULAR HEMOGLOBIN 31.4 PG (27.0-34.0); MEAN CORPUSCULAR HGB CONC 32.2 % (32.0-36.0); MONO % 5.8 % (0.0-8.0); NEUT % 84.2 % (16.0-70.0); PLATELET COUNT 164 TH/MM3 (150-450); RED BLOOD COUNT 3.68 MIL/MM3 (4.50-5.90); RED CELL DISTRIBUTION WIDTH 16.4 % (11.6-17.2); WHITE BLOOD COUNT 13.4 TH/MM3 (4.0-11.0)
[2017-03-25 08:10] LABS: BACTERIA, URINE OCC /hpf; COMMENT (UR) CULTURE INDICATED; CULTURE IF INDICATED CULTURE INDICATED
[2017-03-25 08:11] LABS: URINE COLOR RED (YELLW/STRAW)
[2017-03-25 08:16] LABS: APTT (PATIENT) 34.3 SEC (24.3-30.1); PROTHROMBIN TIME - PATIENT 22.7 SEC (9.8-11.6)
[2017-03-25] MEDS ORDERED: cefTRIAXone INJ 1,000 MG in SODIUM CHLORIDE 0.9% INJ 100 ML IV ONE (08:30)
[2017-03-25 08:54] LABS: BICARBONATE 26.8 MEQ/L (21.0-32.0); POTASSIUM 5.6 MEQ/L (3.5-5.1)
[2017-03-25] MEDS ORDERED: CEPH-460 PO (09:38)
== END 2017-03-25 10:58 | disposition home or self-care (01) ==
LOC: NEPE 06:28
DX: N30.01 Acute cystitis with hematuria (principal); E11.22 Type 2 diabetes mellitus with diabetic chronic kidney disease; I13.2 Hypertensive heart and chronic kidney disease with heart failure and with stage 5 chronic kidney disease, or end stage renal disease; I50.9 Heart failure, unspecified; N18.6 End stage renal disease; B96.1 Klebsiella pneumoniae [K. pneumoniae] as the cause of diseases classified elsewhere; Z99.2 Dependence on renal dialysis; J45.909 Unspecified asthma, uncomplicated; K21.9 Gastro-esophageal reflux disease without esophagitis; Z79.01 Long term (current) use of anticoagulants; Z79.82 Long term (current) use of aspirin; Z79.899 Other long term (current) drug therapy
CPT/HCPCS: 80048; 81001; 85025; 85610; 85730; 87077; 87086; 87186; 96374; 99284; J0696

== ENCOUNTER 2017-03-28 23:32 | Emergency (ER) | payer MEDICARE, MEDICAID ==
[~2017-03-28 23:32] MED LIST changes: +CEPH-460 PO
[2017-03-28 23:34] VITALS: BP 169/72; PULSE 82; RESP 18; TEMP 97.9; O2SAT 97
[2017-03-29] MEDS ORDERED: TRAZ100T6 PO (00:43)
[2017-03-29] MEDS ORDERED: DILT-64 PO (00:43)
[2017-03-29] MEDS ORDERED: MACR100C2 PO (01:00)
--- NOTE | 2017-03-29 01:01 | PD ---
HPI Chief Complaint: Allergic/Adverse Reaction Time Seen by Provider: 00:51 Travel History International Travel<30 days: No Contact w/Intl Traveler<30days: No Traveled to known affect area: No History of Present Illness HPI PATIENT STATES ONSET OF RASH AND ITCHING ALL OVER BODY SINCE HE STARTED TAKING KEFLEX ON TUESDAY (3D AGO) FOR A UTI. PATIENT DENIES ANY SWELLING TO LIPS/ TONGUE, DIFFICULTY BREATHING OR CP....PER PATIENT THIS OCCURS EVERY TIME HE TAKES KEFLEX. PFSH Past Medical History Hx Anticoagulant Therapy: Yes Anemia: Yes Arthritis: Yes (LEFT KNEE) Asthma: Yes Autoimmune Disease: No Blood Disorders: No Anxiety: No Depression: No Heart Rhythm Problems: Yes Cancer: No Cardiovascular Problems: Yes (BYPASS) High Cholesterol: No Chemotherapy: No Chest Pain: No Congestive Heart Failure: Yes COPD: No Cerebrovascular Accident: Yes Diabetes: Yes (DIABETES MELLITUS TYPE II) Patient Takes Glucophage: No Dialysis: Yes (T, TH, SAT) Diminished Hearing: No Endocrine: Yes Gastrointestinal Disorders: No GERD: Yes Glaucoma: No Genitourinary: Yes Headaches: Yes Hepatitis: No Hiatal Hernia: Yes Hypertension: Yes Immune Disorder: No Implanted Vascular Access Dvce: Yes Kidney Stones: Yes Medical other: Yes (ANEMIA) Musculoskeletal: Yes Neurologic: Yes (H/O CVA) Psychiatric: No Reproductive: No Respiratory: Yes (BRONCHITIS IN PAST) Integumentary: No Immunizations Current: No Migraines: No Myocardial Infarction: No Radiation Therapy: No Renal Failure: Yes Seizures: Yes Sickle Cell Disease: No Thyroid Disease: No Ulcer: No Tetanus Vaccination: < 5 Years Influenza Vaccination: No ?: Not Past Surgical History Abdominal Surgery: No AICD: No Appendectomy: No Arteriovenous Shunt: No Body Medical Devices: FISTULA Cardiac Surgery: Yes (open heart) Cholecystectomy: No Ear Surgery: No Endocrine Surgery: No Eye Surgery: No Genitourinary Surgery: No Gynecologic Surgery: No Insulin Pump: No Joint Replacement: No Neurologic Surgery: No Oral Surgery: No Pacemaker: No Thoracic Surgery: No Other Surgery: Yes (L UPPER ARM SHUNT ) Social History Alcohol Use: No Tobacco Use: No Substance Use: No Allergies-Medications (Allergen,Severity, Reaction): Coded Allergies: No Known Allergies (Verified , 03/29/17) Reported Meds & Prescriptions Reported Meds & Active Scripts Active Keflex (Cephalexin) 500 Mg Cap 500 Mg PO Q12H 7 Days [Pt/Inr] Coumadin (Warfarin) 3 Mg Tab 2.5 Mg PO DAILY@1600 30 Days Eq Acetaminophen (Acetaminophen) 325 Mg Tab 650 Mg PO Q6HR PRN Rocaltrol (Calcitriol) 0.25 Mcg Cap 1 Mcg PO DAILY 30 Days Thera/Beta-Carotene (Multiple Vitamin) 1 Tab Tab 1 Tab PO DAILY 30 Days A.e.r. Witch Irina (Witch Irina/Glycerin) 12.5 %-50 % Pad 1 Applic TOPICAL UNSCH PRN 30 Days Ondansetron Odt 4 Mg Tab 4 Mg PO Q6H PRN 30 Days Renvela (Sevelamer Carbonate) 800 Mg Tab 2,400 Mg PO TID [address] (Duloxetine HCl) 30 Mg Capdr 30 Mg PO DAILY 30 Days Dilantin (Phenytoin Extended) 100 Mg Cap 200 Mg PO TID 30 Days Lopressor (Metoprolol Tartrate) 50 Mg Tab 75 Mg PO Q12HR 30 Days Walker Rolling/GetGo (Device) 1 Mis Mis Ea .ROUTE DIRECTED [place] (Hydrocodone-Acetaminophen) 5-325 mg Tab 1 Tab PO Q6H PRN Coumadin (Warfarin) 1 Mg Tab 1 Mg PO DAILY hold for INR > 3.0 goal 2-3 Polyethylene Glycol 3350 Powder (Polyethylene Glycol) 17 Gram Pow 17 Gm PO DAILY Aspirin Low Strength (Aspirin) 81 Mg Chew 81 Mg PO DAILY hold for platelets <100K Metoprolol Tartrate 25 Mg Tab 50 Mg PO Q12HR Reported Trazodone (Trazodone HCl) 100 Mg Tablet 100 Mg PO HS Diltiazem CD 24 HR 240 Mg Caper 240 Mg PO DAILY Flomax (Tamsulosin HCl) 0.4 Mg Cap 0.4 Mg PO HS Review of Systems Except as stated in HPI: all other systems reviewed are Neg Physical Exam Narrative GENERAL: SKIN: Warm and dry. NO ACTUAL RASH NOTED ANYWHERE HEAD: Atraumatic. Normocephalic. EYES: Pupils equal and round. No scleral icterus. No injection or drainage. ENT: No nasal bleeding or discharge. Mucous membranes pink and moist. NO TONGUE EDEMA, NO UVULAR EDEMA NECK: Trachea midline. No JVD. NO STRIDOR CARDIOVASCULAR: Regular rate and rhythm. RESPIRATORY: No accessory muscle use. Clear to auscultation. Breath sounds equal bilaterally NO WHEEZING. GASTROINTESTINAL: Abdomen soft, non-tender, nondistended. MUSCULOSKELETAL: Extremities without clubbing, cyanosis, or edema. No obvious deformities. LUE SHUNT NOTED NEUROLOGICAL: Awake and alert. No obvious cranial nerve deficits. Motor grossly within normal limits. Five out of 5 muscle strength in the arms and legs. Normal speech. PSYCHIATRIC: Appropriate mood and affect; insight and judgment normal. Data Data Last Documented VS Vital Signs Date Time Temp Pulse Resp B/P (MAP) Pulse Ox O2 Delivery O2 Flow Rate FiO2 03/28/17 23:34 97.9 82 18 169/72 (104) 97 MDM Medical Decision Making Medical Screen Exam Complete: Yes Emergency Medical Condition: Yes Medical Record Reviewed: Yes Differential Diagnosis ALLERGY V CELLULITIS V PSYCHOGENIC Narrative Course BASED ON EXAMINATION , PATIENT HAD NO ACTUAL RASH, NO UVULAR EDEMA, NO WHEEZING OR STRIDOR.... Diagnosis Primary Impression: DRUG ADVERSE EFFECT Additional Instructions: DISCONTINUE KEFLEX AND INSTEAD TAKE MACROBID Scripts Nitrofurantoin Monohydrate Macrocrystals (Macrobid) 100 Mg Cap 100 MG PO BID for Infection for 7 Days, #14 CAP 0 Refills Prov: Demetrius Ray MD 03/29/17 Disposition: 01 DISCHARGE HOME Condition: Stable Demetrius Ray MD Mar 29, 2017 01:01
== END 2017-03-29 01:12 | disposition home or self-care (01) ==
LOC: NEPE 23:32
DX: R21 Rash and other nonspecific skin eruption (principal); T50.995A Adverse effect of other drugs, medicaments and biological substances, initial encounter; E11.9 Type 2 diabetes mellitus without complications; I10 Essential (primary) hypertension; N19 Unspecified kidney failure; Z99.2 Dependence on renal dialysis; Z79.01 Long term (current) use of anticoagulants; Z86.2 Personal history of diseases of the blood and blood-forming organs and certain disorders involving the immune mechanism; Z87.39 Personal history of other diseases of the musculoskeletal system and connective tissue; Z87.09 Personal history of other diseases of the respiratory system; Z86.79 Personal history of other diseases of the circulatory system; Z87.19 Personal history of other diseases of the digestive system; Z87.448 Personal history of other diseases of urinary system; Z86.69 Personal history of other diseases of the nervous system and sense organs
CPT/HCPCS: 99283

== ENCOUNTER 2017-04-12 16:48 | Emergency (ER) | payer MEDICARE, MEDICAID ==
[~2017-04-12] VITALS: Ht 175.3 cm; Wt 75.0 kg
[~2017-04-12 16:48] MED LIST changes: -ACET1TAB86 PO; +ACET325T15 PO; -CYMB30CA PO; +DILT240C44 PO; -HYDR-3516 PO; -LIDO5DIS5 T-DERMAL; +MACR100C2 PO; +TRAZ100T10 PO; -WHEEMIS3
[2017-04-12 16:49] VITALS: BP 125/63; PULSE 124; RESP 20; TEMP 97.4; O2SAT 96
--- NOTE | 2017-04-12 17:29 | PD ---
Physical Exam Date Seen by Provider: Apr 12, 2017 Time Seen by Provider: 17:27 Narrative 72-year-old black male presents to the emergency department with a complaint of nausea vomiting 3 weeks. Patient has renal failure and is on hemodialysis. He had dialysis today. No fever or chills. Patient states that he has 10/10 pain. Vital signs reviewed. Pt waiting for bed placement. Data Data Last Documented VS Vital Signs Date Time Temp Pulse Resp B/P (MAP) Pulse Ox O2 Delivery O2 Flow Rate FiO2 04/12/17 16:49 97.4 124 20 125/63 (83) 96 Room Air [facility] Medical Record Reviewed: No Supervised Visit with IVORY: Ilya Otoole Apr 12, 2017 17:29
[2017-04-12] MEDS ORDERED: ONDANSETRON HCL 4 MG/2 ML VIAL IVP ONE (19:15)
[2017-04-12] MEDS ORDERED: DICYCLOMINE HCL 20 MG/2 ML VIAL IM ONE (19:15)
[2017-04-12] MEDS ORDERED: SODIUM CHLORIDE 0.9% FLUSH 10 ML FLUSH IV FLUSH PRN (19:15)
[2017-04-12] MEDS ORDERED: MORPHINE SULFATE 4 MG/ML INJ IV PUSH ONE (19:15)
--- NOTE | 2017-04-12 19:24 | PD ---
HPI Chief Complaint: GI Complaint Time Seen by Provider: 19:02 Travel History International Travel<30 days: No Contact w/Intl Traveler<30days: No Traveled to known affect area: No History of Present Illness HPI 72-year-old Afro-[place]ov[place] male, with history of dialysis, followed by Dr. Umana , presents to the emergency Department with 3 week history of frequent watery mucousy stools with occasional blood, and cramps with any type of food intake. Patient states recent open heart surgery in January 2017, followed by cardiac rehabilitation. Patient currently lives at the [facility]. Patient was on antibiotics during his cardiac open heart surgery. He is wondering if he may have C. difficile. Patient makes no urine due to his kidney disease. Patient denies fever, chills, or vomiting, but has nausea and cramping with any intake of food or water. Patient did have dialysis today. Pain is up to 9 out of 10, but is intermittent. It is not specific to one area of the abdomen. PFSH Past Medical History Hx Anticoagulant Therapy: Yes Anemia: Yes Arthritis: Yes (LEFT KNEE) Asthma: Yes Autoimmune Disease: No Blood Disorders: No Anxiety: No Depression: No Heart Rhythm Problems: Yes Cancer: No Cardiovascular Problems: Yes High Cholesterol: No Chemotherapy: No Chest Pain: No Congestive Heart Failure: Yes COPD: No Cerebrovascular Accident: Yes Diabetes: Yes (DIABETES MELLITUS TYPE II) Patient Takes Glucophage: Yes Dialysis: Yes (T, TH, SAT) Diminished Hearing: No Endocrine: Yes Gastrointestinal Disorders: No GERD: Yes Glaucoma: No Genitourinary: Yes Headaches: Yes Hepatitis: No Hiatal Hernia: Yes Hypertension: Yes Immune Disorder: No Implanted Vascular Access Dvce: Yes Kidney Stones: Yes Medical other: Yes (ANEMIA) Musculoskeletal: Yes Neurologic: Yes (H/O CVA) Psychiatric: No Reproductive: No Respiratory: Yes (BRONCHITIS IN PAST) Integumentary: No Immunizations Current: No Migraines: No Myocardial Infarction: No Radiation Therapy: No Renal Failure: Yes Seizures: Yes Sickle Cell Disease: No Thyroid Disease: No Ulcer: No Tetanus Vaccination: < 5 Years Influenza Vaccination: Yes Past Surgical History Abdominal Surgery: No AICD: No Appendectomy: No Arteriovenous Shunt: No Body Medical Devices: FISTULA Cardiac Surgery: Yes (open heart JAN 2017) Cholecystectomy: No Ear Surgery: No Endocrine Surgery: No Eye Surgery: No Genitourinary Surgery: No Gynecologic Surgery: No Insulin Pump: No Joint Replacement: No Neurologic Surgery: No Oral Surgery: No Pacemaker: No Thoracic Surgery: No Other Surgery: Yes (L UPPER ARM SHUNT ) Social History Alcohol Use: No Tobacco Use: No Substance Use: No Allergies-Medications (Allergen,Severity, Reaction): Coded Allergies: No Known Allergies (Verified , 03/29/17) Reported Meds & Prescriptions Reported Meds & Active Scripts Active Bentyl (Dicyclomine HCl) 10 Mg Cap 10 Mg PO QID Zofran (Ondansetron HCl) 4 Mg Tab 4 Mg PO Q6HR PRN Flagyl (Metronidazole) 500 Mg Tab 500 Mg PO TID 10 Days Macrobid (Nitrofurantoin Monoh/Nitrofur Macro) 100 Mg Cap 100 Mg PO BID 7 Days [Pt/Inr] Coumadin (Warfarin) 3 Mg Tab 2.5 Mg PO DAILY@1600 30 Days Eq Acetaminophen (Acetaminophen) 325 Mg Tab 650 Mg PO Q6HR PRN Rocaltrol (Calcitriol) 0.25 Mcg Cap 1 Mcg PO DAILY 30 Days Thera/Beta-Carotene (Multiple Vitamin) 1 Tab Tab 1 Tab PO DAILY 30 Days A.e.r. Witch Irina (Witch Irina/Glycerin) 12.5 %-50 % Pad 1 Applic TOPICAL UNSCH PRN 30 Days Ondansetron Odt 4 Mg Tab 4 Mg PO Q6H PRN 30 Days Renvela (Sevelamer Carbonate) 800 Mg Tab 2,400 Mg PO TID [address] (Duloxetine HCl) 30 Mg Capdr 30 Mg PO DAILY 30 Days Dilantin (Phenytoin Extended) 100 Mg Cap 200 Mg PO TID 30 Days Lopressor (Metoprolol Tartrate) 50 Mg Tab 75 Mg PO Q12HR 30 Days Walker Rolling/GetGo (Device) 1 Mis Mis Ea .ROUTE DIRECTED Coumadin (Warfarin) 1 Mg Tab 1 Mg PO DAILY hold for INR > 3.0 goal 2-3 Polyethylene Glycol 3350 Powder (Polyethylene Glycol) 17 Gram Pow 17 Gm PO DAILY Aspirin Low Strength (Aspirin) 81 Mg Chew 81 Mg PO DAILY hold for platelets <100K Metoprolol Tartrate 25 Mg Tab 50 Mg PO Q12HR Reported Trazodone (Trazodone HCl) 100 Mg Tablet 100 Mg PO HS Diltiazem CD 24 HR 240 Mg Caper 240 Mg PO DAILY Flomax (Tamsulosin HCl) 0.4 Mg Cap 0.4 Mg PO HS Review of Systems Except as stated in HPI: all other systems reviewed are Neg General / Constitutional: No: Fever, Chills Eyes: No: Visual changes HENT: No: Headaches Cardiovascular: No: Chest Pain or Discomfort Respiratory: No: Shortness of Breath Gastrointestinal: Positive: Nausea, Diarrhea, Abdominal Pain, Dysphagia, Loss of Appetite, No: Vomiting, Hematemesis, Hematochezia Genitourinary: No: Dysuria Musculoskeletal: No: Pain Skin: No Rash Neurologic: No: Weakness Psychiatric: No: Depression Endocrine: No: Polydipsia Hematologic/Lymphatic: No: Easy Bruising Physical Exam Narrative GENERAL: Patient appears older than stated age. He is somewhat cachectic, but in mild distress. SKIN: Warm and dry. Normal color. Poor turgor. Tenting is present. HEAD: Atraumatic. Normocephalic. EYES: Pupils equal and round. No scleral icterus. No injection or drainage. ENT: No nasal bleeding or discharge. Mucous membranes pink and moist. NECK: Trachea midline. Supple nontender. CARDIOVASCULAR: Regular rate and rhythm. RESPIRATORY: No accessory muscle use. Clear to auscultation. Breath sounds equal bilaterally. GASTROINTESTINAL: Abdomen soft, mild diffuse tenderness throughout, mildly distended. Hepatic edge palpable and firm but nontender. Splenic margins not palpable. MUSCULOSKELETAL: Extremities without clubbing, cyanosis, or edema. No obvious deformities. NEUROLOGICAL: Awake and alert. No obvious cranial nerve deficits. Motor grossly within normal limits. Five out of 5 muscle strength in the arms and legs. Normal speech. PSYCHIATRIC: Appropriate mood and affect; insight and judgment normal. Data Data Last Documented VS Vital Signs Date Time Temp Pulse Resp B/P (MAP) Pulse Ox O2 Delivery O2 Flow Rate FiO2 04/12/17 20:30 120 18 142/82 (102) 96 Room Air 04/12/17 16:49 97.4 Orders Orders Complete Blood Count With Diff (04/12/17 19:11) Comprehensive Metabolic Panel (04/12/17 19:11) Lipase (04/12/17 19:11) Lactic Acid (04/12/17 19:11) Prothrombin Time / Inr (Pt) (04/12/17 19:11) Act Partial Throm Time (Ptt) (04/12/17 19:11) Ct Abd/Pel W/O Iv Contrast (04/12/17 19:11) Iv Access Insert/Monitor (04/12/17 19:11) Ecg Monitoring (04/12/17 19:11) Oximetry (04/12/17 19:11) Morphine Inj (Morphine Inj) (04/12/17 19:15) Ondansetron Inj (Zofran Inj) (04/12/17 19:15) Sodium Chloride 0.9% Flush (Ns Flush) (04/12/17 19:15) Dicyclomine Inj (Bentyl Inj) (04/12/17 19:15) C Diff Toxin Pcr (04/12/17 19:11) Blood Culture (04/12/17 19:24) Metronidazole (Flagyl) (04/12/17 21:15) Labs Laboratory Tests Test 04/12/17 19:25 04/12/17 19:55 White Blood Count 10.1 TH/MM3 Red Blood Count 3.84 MIL/MM3 Hemoglobin 12.1 GM/DL Hematocrit 36.8 % Mean Corpuscular Volume 95.8 FL Mean Corpuscular Hemoglobin 31.5 PG Mean Corpuscular Hemoglobin Concent 32.9 % Red Cell Distribution Width 17.3 % Platelet Count 132 TH/MM3 Mean Platelet Volume 7.9 FL Neutrophils (%) (Auto) 81.1 % Lymphocytes (%) (Auto) 10.0 % Monocytes (%) (Auto) 7.1 % Eosinophils (%) (Auto) 1.3 % Basophils (%) (Auto) 0.5 % Neutrophils # (Auto) 8.2 TH/MM3 Lymphocytes # (Auto) 1.0 TH/MM3 Monocytes # (Auto) 0.7 TH/MM3 Eosinophils # (Auto) 0.1 TH/MM3 Basophils # (Auto) 0.0 TH/MM3 CBC Comment DIFF FINAL Differential Comment Prothrombin Time 19.1 SEC Prothromb Time International Ratio 1.7 RATIO Activated Partial Thromboplast Time 31.0 SEC Blood Urea Nitrogen 23 MG/DL Creatinine 4.51 MG/DL Random Glucose 118 MG/DL Total Protein 7.5 GM/DL Albumin 3.1 GM/DL Calcium Level 9.6 MG/DL Alkaline Phosphatase 239 U/L Aspartate Amino Transf (AST/SGOT) 36 U/L Alanine Aminotransferase (ALT/SGPT) 31 U/L Total Bilirubin 0.5 MG/DL Sodium Level 137 MEQ/L Potassium Level 4.7 MEQ/L Chloride Level 103 MEQ/L Carbon Dioxide Level 28.2 MEQ/L Anion Gap 6 MEQ/L Estimat Glomerular Filtration Rate 16 ML/MIN Lactic Acid Level 1.5 mmol/L Lipase 336 U/L [facility] Medical Decision Making Medical Screen Exam Complete: Yes Emergency Medical Condition: Yes Medical Record Reviewed: Yes Differential Diagnosis Abdominal pain. Colitis. Ileus. C. difficile. Diverticulitis. Narrative Course Patient is medically stable at time of exam. CT of the abdomen without oral or IV contrast is ordered as he is a dialysis patient. Labs ordered including CBC, CMP, lactic acid, lipase, blood cultures 2, C. difficile stool PCR is ordered. IV access is obtained. Patient is given 4 mg Zofran IV as well as 2 mg morphine IV. Patient is given [address] shows: CONCLUSION: 1. Moderate-sized bilateral pleural effusions right greater than left. 2. [id number] amount of ascitic fluid. 3. Small atrophic kidneys with cystic change and stable prominent extrarenal pelvis on the left. CBC shows mild anemia with an RBC of 3.4, hemoglobin of 12.1, hematocrit 36.8 which is typical for the patient. CMP shows Patient is given his first dose of metronidazole 500 mg by mouth for presumed C. difficile. C. difficile PCR is still pending. Call was placed to Dr. Xie, the education program associate covering for Dr. Umana, and the patient's current situation was discussed. He felt that if the patient tolerated oral metronidazole and was clinically stable he could go home on outpatient therapy. Patient is felt to be stable for discharge. Patient tolerated oral Flagyl here in the department. Patient is continued on Flagyl, 500 mg 3 times a day for 10 days. Patient also given Zofran 4 mg every 6 hours when necessary nausea #20. Patient also given Bentyl 10 mg by mouth every 6 hours when necessary cramps # 20. Patient to follow-up with dialysis as normally scheduled. Patient see Dr. Granda to follow-up to ensure improvement in the next several days per Patient is welcome to return to emergency Department with worsening symptoms at any time. Diagnosis Primary Impression: C. difficile diarrhea Additional Impression: Abdominal pain Qualified Codes: R10.84 - Generalized abdominal pain Referrals: Kassandra Granda MD call for appointment Patient Instructions: Acute Diarrhea (ED), Clostridium Difficile Infection (ED) , General Instructions Additional Instructions: Patient is felt to be stable for discharge. Patient tolerated oral Flagyl here in the department. Patient is continued on Flagyl, 500 mg 3 times a day for 10 days. Patient also given Zofran 4 mg every 6 hours when necessary nausea #20. Patient also given Bentyl 10 mg by mouth every 6 hours when necessary cramps # 20. Patient to follow-up with dialysis as normally scheduled. Patient see Dr. Granda to follow-up to ensure improvement in the next several days per Patient is welcome to return to emergency Department with worsening symptoms at any time. Med/Other Pt SpecificInfo: Prescription(s) given Scripts Dicyclomine (Bentyl) 10 Mg Cap 10 MG PO QID for Bowel Management, #20 CAP 0 Refills Prov: Rene Covington MD 04/12/17 Ondansetron (Zofran) 4 Mg Tab 4 MG PO Q6HR Y for NAUSEA OR VOMITING, #20 TAB 0 Refills Prov: Rene Covington MD 04/12/17 Metronidazole (Flagyl) 500 Mg Tab 500 MG PO TID for Infection for 10 Days, TAB 0 Refills Prov: Rene Covington MD 04/12/17 Disposition: 01 DISCHARGE HOME Condition: Stable Oc Arreola Apr 12, 2017 19:24
--- NOTE | 2017-04-12 19:57 | RADRPT ---
EXAM DATE/TIME: 04/12/2017 19:24 [facility] COMPARISON: CT ABDOMEN & PELVIS W/O CONTRAST, July 18, 2016, 11:41. INDICATIONS : Diffuse abdomen pain in lower region. ORAL CONTRAST: No oral contrast ingested. RADIATION DOSE: 6.64 CTDIvol (mGy) MEDICAL HISTORY : Diabetes mellitus type 2. Renal calculi. Dialysis. SURGICAL HISTORY : CABG ENCOUNTER: Initial ACUITY: 1 week PAIN SCALE: 5/10 LOCATION: Bilateral lower quadrant TECHNIQUE: Volumetric scanning of the abdomen and pelvis was performed. Using automated exposure control and ad justment of the mA and/or kV according to patient size, radiation dose was kept as low as reasonably achievable to obtain optimal diagnostic quality images. DICOM format image data is available electro nically for review and comparison. FINDINGS: LOWER LUNGS: Pleural effusions which are moderate in size right greater than left. There is mild consolidation at the lung bases. Heart size is enlarged with coronary artery calcifications and stent catheters. LIVER: Homogeneous density without lesion. There is no dilation of the biliary tree. No calcified gallston es. There is a small to moderate amount of ascitic fluid surrounding portions of the liver. Ascites i s also noted in the pelvis. SPLEEN: Normal size without lesion. PANCREAS: Within normal limits. KIDNEYS: Stable appearance with atrophy and bilateral cystic structures again noted. There is enlarged left ex trarenal pelvis again noted on the left which is unchanged. ADRENAL GLANDS: Within normal limits. VASCULAR: There is no aortic aneurysm. BOWEL/MESENTERY: Scattered diverticuli are again noted. There is a small amount of ascitic fluid in the pelvis and par acolic gutters. Gas and stool is noted segmental in the colon. There is no evidence of obstruction or free air. No oral contrast was given limiting the sensitivity of the exam. ABDOMINAL WALL: Within normal limits. RETROPERITONEUM: There is no lymphadenopathy. BLADDER: No wall thickening or mass. REPRODUCTIVE: Within normal limits. INGUINAL: There is no lymphadenopathy or hernia. MUSCULOSKELETAL: Within normal limits for patient age. CONCLUSION: 1. Moderate-sized bilateral pleural effusions right greater than left. 2. Senfq-ai-kykixyvc amount of ascitic fluid. 3. Small atrophic kidneys with cystic change and stable prominent extrarenal pelvis on the left. August Oscar MD on April 12, 2017 at 19:51 Board Certified Radiologist. This report was verified electronically.
[2017-04-12 20:05] LABS: AUTOMATED NEUTROPHIL # 8.2 TH/MM3 (1.8-7.7); BASOPHIL % 0.5 % (0.0-2.0); EOSINOPHIL # 0.1 TH/MM3 (0-0.4); EOSINOPHIL % 1.3 % (0.0-4.0); HEMATOCRIT 36.8 % (39.0-51.0); HEMO FLAGS DIFF FINAL; MEAN CELL VOLUME 95.8 FL (80.0-100.0); MEAN CORPUSCULAR HEMOGLOBIN 31.5 PG (27.0-34.0); MEAN CORPUSCULAR HGB CONC 32.9 % (32.0-36.0); MONO % 7.1 % (0.0-8.0); NEUT % 81.1 % (16.0-70.0); PLATELET COUNT 132 TH/MM3 (150-450); RED BLOOD COUNT 3.84 MIL/MM3 (4.50-5.90); RED CELL DISTRIBUTION WIDTH 17.3 % (11.6-17.2); WHITE BLOOD COUNT 10.1 TH/MM3 (4.0-11.0)
[2017-04-12 20:27] LABS: ALT (GPT) 31 U/L (12-78)
[2017-04-12 20:30] VITALS: BP 142/82; PULSE 120; RESP 18; O2SAT 96
[2017-04-12 20:30] LABS: ALKALINE PHOSPHATASE 239 U/L (45-117); INTERNATIONAL NORMALIZED RATIO 1.7 RATIO; PROTHROMBIN TIME - PATIENT 19.1 SEC (9.8-11.6); TOTAL BILIRUBIN ADULT 0.5 MG/DL (0.2-1.0)
[2017-04-12 20:46] LABS: ANION GAP 6 MEQ/L (5-15); AST (GOT) 36 U/L (15-37); BICARBONATE 28.2 MEQ/L (21.0-32.0); BLOOD UREA NITROGEN 23 MG/DL (7-18); CHLORIDE 103 MEQ/L (98-107); GLOMERULAR FILTRATION RATE 16 ML/MIN (>89); POTASSIUM 4.7 MEQ/L (3.5-5.1); SODIUM (NA) 137 MEQ/L (136-145)
[2017-04-12] MEDS ORDERED: metroNIDAZOLE 500 MG TAB PO ONE (21:15)
[2017-04-12] MEDS ORDERED: DICY10 PO (21:50)
[2017-04-12] MEDS ORDERED: ZOFR4TAB PO (21:50)
[2017-04-12] MEDS ORDERED: METR-1 PO (21:50)
--- NOTE | 2017-04-12 22:12 | PD ---
Data Data Last Documented VS Vital Signs Date Time Temp Pulse Resp B/P (MAP) Pulse Ox O2 Delivery O2 Flow Rate FiO2 04/12/17 22:41 04/12/17 20:30 120 18 96 Room Air 04/12/17 16:49 97.4 Orders Orders Complete Blood Count With Diff (04/12/17 19:11) Comprehensive Metabolic Panel (04/12/17 19:11) Lipase (04/12/17 19:11) Lactic Acid (04/12/17 19:11) Prothrombin Time / Inr (Pt) (04/12/17 19:11) Act Partial Throm Time (Ptt) (04/12/17 19:11) Ct Abd/Pel W/O Iv Contrast (04/12/17 19:11) Iv Access Insert/Monitor (04/12/17 19:11) Ecg Monitoring (04/12/17 19:11) Oximetry (04/12/17 19:11) Morphine Inj (Morphine Inj) (04/12/17 19:15) Ondansetron Inj (Zofran Inj) (04/12/17 19:15) Sodium Chloride 0.9% Flush (Ns Flush) (04/12/17 19:15) Dicyclomine Inj (Bentyl Inj) (04/12/17 19:15) C Diff Toxin Pcr (04/12/17 19:11) Blood Culture (04/12/17 19:24) Metronidazole (Flagyl) (04/12/17 21:15) Electrocardiogram (04/12/17 18:42) Ed Discharge Order (04/12/17 21:56) Labs Laboratory Tests Test 04/12/17 19:25 04/12/17 19:55 White Blood Count 10.1 TH/MM3 Red Blood Count 3.84 MIL/MM3 Hemoglobin 12.1 GM/DL Hematocrit 36.8 % Mean Corpuscular Volume 95.8 FL Mean Corpuscular Hemoglobin 31.5 PG Mean Corpuscular Hemoglobin Concent 32.9 % Red Cell Distribution Width 17.3 % Platelet Count 132 TH/MM3 Mean Platelet Volume 7.9 FL Neutrophils (%) (Auto) 81.1 % Lymphocytes (%) (Auto) 10.0 % Monocytes (%) (Auto) 7.1 % Eosinophils (%) (Auto) 1.3 % Basophils (%) (Auto) 0.5 % Neutrophils # (Auto) 8.2 TH/MM3 Lymphocytes # (Auto) 1.0 TH/MM3 Monocytes # (Auto) 0.7 TH/MM3 Eosinophils # (Auto) 0.1 TH/MM3 Basophils # (Auto) 0.0 TH/MM3 CBC Comment DIFF FINAL Differential Comment Prothrombin Time 19.1 SEC Prothromb Time International Ratio 1.7 RATIO Activated Partial Thromboplast Time 31.0 SEC Blood Urea Nitrogen 23 MG/DL Creatinine 4.51 MG/DL Random Glucose 118 MG/DL Total Protein 7.5 GM/DL Albumin 3.1 GM/DL Calcium Level 9.6 MG/DL Alkaline Phosphatase 239 U/L Aspartate Amino Transf (AST/SGOT) 36 U/L Alanine Aminotransferase (ALT/SGPT) 31 U/L Total Bilirubin 0.5 MG/DL Sodium Level 137 MEQ/L Potassium Level 4.7 MEQ/L Chloride Level 103 MEQ/L Carbon Dioxide Level 28.2 MEQ/L Anion Gap 6 MEQ/L Estimat Glomerular Filtration Rate 16 ML/MIN Lactic Acid Level 1.5 mmol/L Lipase 336 U/L [facility] Medical Record Reviewed: Yes Supervised Visit with IVORY: No Narrative Course I, Dr. Covington, have reviewed the advance practice practitioner's documentation and am in agreement, met with the patient face to face, made the diagnosis, and the medical decision making was done by me. *My assessment and Findings: Presentation could reflect C diff colitis. Pt tolerating oral tablets w/o difficulty. d/w renal, ok for esrd pt to go w po flagyl. Diagnosis Primary Impression: C. difficile diarrhea Additional Impression: Abdominal pain Qualified Codes: R10.84 - Generalized abdominal pain Patient Instructions: General Instructions, Clostridium Difficile Infection (ED ), Acute Diarrhea (ED) Additional Instruction: Patient is felt to be stable for discharge. Patient tolerated oral Flagyl here in the department. Patient is continued on Flagyl, 500 mg 3 times a day for 10 days. Patient also given Zofran 4 mg every 6 hours when necessary nausea #20. Patient also given Bentyl 10 mg by mouth every 6 hours when necessary cramps # 20. Patient to follow-up with dialysis as normally scheduled. Patient see Dr. Granda to follow-up to ensure improvement in the next several days per Patient is welcome to return to emergency Department with worsening symptoms at any time. Scripts Dicyclomine (Bentyl) 10 Mg Cap 10 MG PO QID for Bowel Management, #20 CAP 0 Refills Prov: Rene Covington MD 04/12/17 Ondansetron (Zofran) 4 Mg Tab 4 MG PO Q6HR Y for NAUSEA OR VOMITING, #20 TAB 0 Refills Prov: Rene Covington MD 04/12/17 Metronidazole (Flagyl) 500 Mg Tab 500 MG PO TID for Infection for 10 Days, TAB 0 Refills Prov: Rene Covington MD 04/12/17 Disposition: 01 DISCHARGE HOME Condition: Stable Rene Covington MD Apr 12, 2017 22:12
[2017-04-13 02:25] LABS: C. DIFF EPI 027 PRESUMPTIVE POSITIVE (NEGATIVE)
--- NOTE | 2017-04-13 15:43 | EKG ---
Date Performed: 04/12/2017 Time Performed: 18:42:49 PTAGE: 72 years EKG: ATRIAL FIBRILLATION WITH RAPID VENTRICULAR RESPONSE MARKED LEFT AXIS DEVIATION RIGHT BUNDLE BRANCH BLOCK ABNORMAL ECG Compared to the PREVIOUS TRACING rate faster DOCTOR: Jeanne Solorio Interpretating Date/Time 04/13/2017 15:41:49
== END 2017-04-12 23:20 | disposition home or self-care (01) ==
LOC: NEPC 16:48
DX: A04.72 Enterocolitis due to Clostridium difficile, not specified as recurrent (principal); I13.2 Hypertensive heart and chronic kidney disease with heart failure and with stage 5 chronic kidney disease, or end stage renal disease; I50.9 Heart failure, unspecified; E11.22 Type 2 diabetes mellitus with diabetic chronic kidney disease; D63.1 Anemia in chronic kidney disease; N18.6 End stage renal disease; Z99.2 Dependence on renal dialysis; Z79.01 Long term (current) use of anticoagulants
CPT/HCPCS: 74176; 80053; 83605; 83690; 85025; 85610; 85730; 87040; 87493; 93005; 96372; 96374; 96375; 99285; J0500; J2270; J2405

== ENCOUNTER 2017-04-16 14:41 | Emergency (ER) | payer MEDICARE, MEDICAID ==
[~2017-04-16 14:41] MED LIST changes: -CEPH-460 PO; +DICY10 PO; +METR-1 PO; -NORC5TAB PO; +ZOFR4TAB PO
[2017-04-16 14:46] VITALS: BP 134/63; PULSE 81; RESP 16; TEMP 97.4; O2SAT 99
[2017-04-16] MEDS ORDERED: SODIUM CHLORIDE 0.9% FLUSH 10 ML FLUSH IV FLUSH PRN (17:45)
--- NOTE | 2017-04-16 17:48 | PD ---
HPI Chief Complaint: GI Complaint Time Seen by Provider: 17:28 Travel History International Travel<30 days: No Contact w/Intl Traveler<30days: No Traveled to known affect area: No History of Present Illness HPI 72-year-old male with history of ESRD on HD, hypertension, hyperlipidemia, CAD, aortic valve repair on 02/10/17, here for evaluation of diarrhea since his heart surgery. He was seen in the emergency department on 04/12/17 and was diagnosed with C. difficile colitis. He was started on oral Flagyl and prescribed 500 mg 3 times daily, however he has only been taking it twice daily. He reports that his diarrhea is unchanged and has been constant for the last couple of months. He denies blood in his bowel movements. No abdominal pain. No fevers or chills. No nausea or vomiting. He had dialysis today. PFSH Past Medical History Hx Anticoagulant Therapy: Yes (WARFARIN) Anemia: Yes Arthritis: Yes (LEFT KNEE) Asthma: Yes Autoimmune Disease: No Blood Disorders: No Anxiety: No Depression: No Heart Rhythm Problems: Yes Cancer: No Cardiovascular Problems: Yes High Cholesterol: No Chemotherapy: No Chest Pain: No Congestive Heart Failure: Yes COPD: No Cerebrovascular Accident: Yes Diabetes: Yes (DIABETES MELLITUS TYPE II) Patient Takes Glucophage: Yes ([id number]) Dialysis: Yes (, , TUE) Diminished Hearing: No Endocrine: Yes Gastrointestinal Disorders: No GERD: Yes Glaucoma: No Genitourinary: Yes Headaches: Yes Hepatitis: No Hiatal Hernia: Yes Hypertension: Yes Immune Disorder: No Implanted Vascular Access Dvce: Yes Kidney Stones: Yes Medical other: Yes (ANEMIA) Musculoskeletal: Yes Neurologic: Yes (H/O CVA) Psychiatric: No Reproductive: No Respiratory: Yes (BRONCHITIS IN PAST) Integumentary: No Immunizations Current: No Migraines: No Myocardial Infarction: No Radiation Therapy: No Renal Failure: Yes Seizures: Yes Sickle Cell Disease: No Thyroid Disease: No Ulcer: No Past Surgical History Abdominal Surgery: No AICD: No Appendectomy: No Arteriovenous Shunt: No Body Medical Devices: FISTULA Cardiac Surgery: Yes (open heart JAN 2017) Cholecystectomy: No Ear Surgery: No Endocrine Surgery: No Eye Surgery: No Genitourinary Surgery: No Gynecologic Surgery: No Insulin Pump: No Joint Replacement: No Neurologic Surgery: No Oral Surgery: No Pacemaker: No Thoracic Surgery: No Other Surgery: Yes (L UPPER ARM SHUNT ) Social History Alcohol Use: No Tobacco Use: No Substance Use: No Allergies-Medications (Allergen,Severity, Reaction): Coded Allergies: No Known Allergies (Verified Adverse Reaction, Unknown, 04/16/17) Reported Meds & Prescriptions Reported Meds & Active Scripts Active Bentyl (Dicyclomine HCl) 10 Mg Cap 10 Mg PO QID Zofran (Ondansetron HCl) 4 Mg Tab 4 Mg PO Q6HR PRN Flagyl (Metronidazole) 500 Mg Tab 500 Mg PO TID 10 Days [Pt/Inr] Coumadin (Warfarin) 3 Mg Tab 2.5 Mg PO DAILY@1600 30 Days Eq Acetaminophen (Acetaminophen) 325 Mg Tab 650 Mg PO Q6HR PRN Rocaltrol (Calcitriol) 0.25 Mcg Cap 1 Mcg PO DAILY 30 Days Thera/Beta-Carotene (Multiple Vitamin) 1 Tab Tab 1 Tab PO DAILY 30 Days A.e.r. Witch Irina (Witch Irina/Glycerin) 12.5 %-50 % Pad 1 Applic TOPICAL UNSCH PRN 30 Days Ondansetron Odt 4 Mg Tab 4 Mg PO Q6H PRN 30 Days Renvela (Sevelamer Carbonate) 800 Mg Tab 2,400 Mg PO TID [address] (Duloxetine HCl) 30 Mg Capdr 30 Mg PO DAILY 30 Days Dilantin (Phenytoin Extended) 100 Mg Cap 200 Mg PO TID 30 Days Lopressor (Metoprolol Tartrate) 50 Mg Tab 75 Mg PO Q12HR 30 Days Walker Rolling/GetGo (Device) 1 Mis Mis Ea .ROUTE DIRECTED Coumadin (Warfarin) 1 Mg Tab 1 Mg PO DAILY hold for INR > 3.0 goal 2-3 Polyethylene Glycol 3350 Powder (Polyethylene Glycol) 17 Gram Pow 17 Gm PO DAILY Aspirin Low Strength (Aspirin) 81 Mg Chew 81 Mg PO DAILY hold for platelets <100K Metoprolol Tartrate 25 Mg Tab 50 Mg PO Q12HR Reported Trazodone (Trazodone HCl) 100 Mg Tablet 100 Mg PO HS Diltiazem CD 24 HR 240 Mg Caper 240 Mg PO DAILY Flomax (Tamsulosin HCl) 0.4 Mg Cap 0.4 Mg PO HS Review of Systems Except as stated in HPI: all other systems reviewed are Neg Physical Exam Narrative GENERAL: Well-developed, well-nourished, comfortable, no apparent distress. SKIN: Focused skin assessment warm/dry. HEAD: Atraumatic. Normocephalic. EYES: Pupils equal and round. No scleral icterus. No injection or drainage. ENT: Mucous membranes pink and moist. NECK: Trachea midline. No JVD. CARDIOVASCULAR: Regular rate and rhythm. Left arm dialysis fistula with thrill. RESPIRATORY: No accessory muscle use. Clear to auscultation. Breath sounds equal bilaterally. GASTROINTESTINAL: Abdomen soft, non-tender, mildly distended with fluid wave. Normal bowel sounds. MUSCULOSKELETAL: No obvious deformities. No clubbing. No cyanosis. No edema. NEUROLOGICAL: Awake and alert. No obvious cranial nerve deficits. Motor grossly within normal limits. Normal speech. PSYCHIATRIC: Appropriate mood and affect; insight and judgment normal. Data Data Last Documented VS Vital Signs Date Time Temp Pulse Resp B/P (MAP) Pulse Ox O2 Delivery O2 Flow Rate FiO2 04/16/17 14:46 97.4 81 16 134/63 (86) 99 Orders Orders Complete Blood Count With Diff (04/16/17 17:45) Comprehensive Metabolic Panel (04/16/17 17:45) Iv Access Insert/Monitor (04/16/17 17:45) Ecg Monitoring (04/16/17 17:45) Oximetry (04/16/17 17:45) Sodium Chloride 0.9% Flush (Ns Flush) (04/16/17 17:45) Labs Laboratory Tests Test 04/16/17 18:40 White Blood Count 12.2 TH/MM3 Red Blood Count 3.79 MIL/MM3 Hemoglobin 11.8 GM/DL Hematocrit 36.2 % Mean Corpuscular Volume 95.4 FL Mean Corpuscular Hemoglobin 31.2 PG Mean Corpuscular Hemoglobin Concent 32.7 % Red Cell Distribution Width 18.2 % Platelet Count 123 TH/MM3 Mean Platelet Volume 7.9 FL Neutrophils (%) (Auto) 82.2 % Lymphocytes (%) (Auto) 8.5 % Monocytes (%) (Auto) 7.4 % Eosinophils (%) (Auto) 1.4 % Basophils (%) (Auto) 0.5 % Neutrophils # (Auto) 10.1 TH/MM3 Lymphocytes # (Auto) 1.0 TH/MM3 Monocytes # (Auto) 0.9 TH/MM3 Eosinophils # (Auto) 0.2 TH/MM3 Basophils # (Auto) 0.1 TH/MM3 CBC Comment DIFF FINAL Differential Comment MDM Medical Decision Making Medical Screen Exam Complete: Yes Emergency Medical Condition: Yes Differential Diagnosis C. difficile colitis, metabolic abnormality, diarrhea, dehydration Narrative Course Vital signs show heart rate 81, blood pressure 134/63, pulse ox 99% on room air , oral temp of 97.4 from high. CBC: WBC 12.2, hemoglobin 11.8, hematocrit 36.2, platelets 123, neutrophils 82%. CMP was called back as a re-collect. Dialysis today. I canceled the lab. Patient's abdominal exam is benign aside from slight fluid wave. There is no abdominal tenderness. He has only been taking the Flagyl that was prescribed to him twice daily. At this point I believe he is stable for discharge home with instructions to follow-up with his primary care physician this week as well as to take Flagyl 500 mg 3 times daily. He was informed on when to return to the emergency department. He verbalizes understanding and agreement with plan. Diagnosis Primary Impression: Diarrhea Qualified Codes: A09 - Infectious gastroenteritis and colitis, unspecified Referrals: Primary Care Physician 3 days Additional Instructions: Follow-up with your primary care physician in the next 2-3 days. Take Flagyl/metronidazole as prescribed 3 times daily. Return to the emergency department for worsening symptoms or any other concerns. Disposition: 01 DISCHARGE HOME Condition: Stable Bret Sifuentes MD Apr 16, 2017 17:47
[2017-04-16 19:17] LABS: AUTOMATED NEUTROPHIL # 10.1 TH/MM3 (1.8-7.7); BASOPHIL # 0.1 TH/MM3 (0-0.2); BASOPHIL % 0.5 % (0.0-2.0); EOSINOPHIL # 0.2 TH/MM3 (0-0.4); EOSINOPHIL % 1.4 % (0.0-4.0); HEMATOCRIT 36.2 % (39.0-51.0); HEMO FLAGS DIFF FINAL; LYMPH % 8.5 % (9.0-44.0); MEAN CELL VOLUME 95.4 FL (80.0-100.0); MEAN CORPUSCULAR HEMOGLOBIN 31.2 PG (27.0-34.0); MEAN CORPUSCULAR HGB CONC 32.7 % (32.0-36.0); MONO % 7.4 % (0.0-8.0); NEUT % 82.2 % (16.0-70.0); PLATELET COUNT 123 TH/MM3 (150-450); RED BLOOD COUNT 3.79 MIL/MM3 (4.50-5.90); RED CELL DISTRIBUTION WIDTH 18.2 % (11.6-17.2); WHITE BLOOD COUNT 12.2 TH/MM3 (4.0-11.0)
== END 2017-04-16 19:57 | disposition home or self-care (01) ==
LOC: NEPD 14:41
DX: A04.72 Enterocolitis due to Clostridium difficile, not specified as recurrent (principal); D64.9 Anemia, unspecified; J45.909 Unspecified asthma, uncomplicated; I50.9 Heart failure, unspecified; N18.6 End stage renal disease; E11.22 Type 2 diabetes mellitus with diabetic chronic kidney disease; Z79.01 Long term (current) use of anticoagulants
CPT/HCPCS: 85025; 99283

== ENCOUNTER 2017-04-22 17:27 | Inpatient (IN) | payer MEDICARE, MEDICAID ==
[~2017-04-22] VITALS: Ht 175.3 cm; Wt 72.4 kg
[~2017-04-22 17:27] MED LIST changes: -MACR100C2 PO
[2017-04-22 17:30] VITALS: BP 161/70; PULSE 84; RESP 16; TEMP 98.7; O2SAT 99
[2017-04-22 17:39] VITALS: BP 154/86; PULSE 84; RESP 14; O2SAT 97
[2017-04-22] MEDS ORDERED: SODIUM CHLORIDE 0.9% FLUSH 10 ML FLUSH IV FLUSH PRN ×2 (18:15→22:15)
--- NOTE | 2017-04-22 18:36 | PD ---
HPI Chief Complaint: Abdominal Pain Time Seen by Provider: 17:44 Travel History International Travel<30 days: No Contact w/Intl Traveler<30days: No Traveled to known affect area: No History of Present Illness HPI The patient 72 years old. He reports diarrhea for several weeks at least along with generalized constant abdominal pain. He states he has no appetite and has felt this way for weeks as well. He's had no fever. Timing constant. No modifying factor. PFSH Past Medical History Hx Anticoagulant Therapy: Yes (WARFARIN) Anemia: Yes Arthritis: Yes (LEFT KNEE) Asthma: Yes Autoimmune Disease: No Blood Disorders: No Anxiety: No Depression: No Heart Rhythm Problems: Yes Cancer: No Cardiovascular Problems: Yes High Cholesterol: No Chemotherapy: No Chest Pain: No Congestive Heart Failure: Yes COPD: No Cerebrovascular Accident: Yes Diabetes: Yes (DIABETES MELLITUS TYPE II) Patient Takes Glucophage: Yes Dialysis: Yes (T, TH, SAT) Diminished Hearing: No Endocrine: Yes Gastrointestinal Disorders: No GERD: Yes Glaucoma: No Genitourinary: Yes Headaches: Yes Hepatitis: No Hiatal Hernia: Yes Hypertension: Yes Immune Disorder: No Implanted Vascular Access Dvce: Yes Kidney Stones: Yes Medical other: Yes (ANEMIA) Musculoskeletal: Yes Neurologic: Yes (H/O CVA) Psychiatric: No Reproductive: No Respiratory: Yes (BRONCHITIS IN PAST) Integumentary: No Immunizations Current: No Migraines: No Myocardial Infarction: No Radiation Therapy: No Renal Failure: Yes Seizures: Yes Sickle Cell Disease: No Thyroid Disease: No Ulcer: No Past Surgical History Abdominal Surgery: No AICD: No Appendectomy: No Arteriovenous Shunt: No Body Medical Devices: FISTULA Cardiac Surgery: Yes (open heart JAN 2017) Cholecystectomy: No Ear Surgery: No Endocrine Surgery: No Eye Surgery: No Genitourinary Surgery: No Gynecologic Surgery: No Insulin Pump: No Joint Replacement: No Neurologic Surgery: No Oral Surgery: No Pacemaker: No Thoracic Surgery: No Other Surgery: Yes (L UPPER ARM SHUNT ) Social History Alcohol Use: No Tobacco Use: No Substance Use: No Allergies-Medications (Allergen,Severity, Reaction): Coded Allergies: No Known Allergies (Verified Adverse Reaction, Unknown, 04/22/17) Reported Meds & Prescriptions Reported Meds & Active Scripts Active Bentyl (Dicyclomine HCl) 10 Mg Cap 10 Mg PO QID Zofran (Ondansetron HCl) 4 Mg Tab 4 Mg PO Q6HR PRN Flagyl (Metronidazole) 500 Mg Tab 500 Mg PO TID 10 Days [Pt/Inr] Coumadin (Warfarin) 3 Mg Tab 2.5 Mg PO DAILY@1600 30 Days Eq Acetaminophen (Acetaminophen) 325 Mg Tab 650 Mg PO Q6HR PRN Rocaltrol (Calcitriol) 0.25 Mcg Cap 1 Mcg PO DAILY 30 Days Thera/Beta-Carotene (Multiple Vitamin) 1 Tab Tab 1 Tab PO DAILY 30 Days A.e.r. Witch Irina (Witch Irina/Glycerin) 12.5 %-50 % Pad 1 Applic TOPICAL UNSCH PRN 30 Days Ondansetron Odt 4 Mg Tab 4 Mg PO Q6H PRN 30 Days Renvela (Sevelamer Carbonate) 800 Mg Tab 2,400 Mg PO TID [address] (Duloxetine HCl) 30 Mg Capdr 30 Mg PO DAILY 30 Days Dilantin (Phenytoin Extended) 100 Mg Cap 200 Mg PO TID 30 Days Lopressor (Metoprolol Tartrate) 50 Mg Tab 75 Mg PO Q12HR 30 Days Walker Rolling/GetGo (Device) 1 Mis Mis Ea .ROUTE DIRECTED Coumadin (Warfarin) 1 Mg Tab 1 Mg PO DAILY hold for INR > 3.0 goal 2-3 Polyethylene Glycol 3350 Powder (Polyethylene Glycol) 17 Gram Pow 17 Gm PO DAILY Aspirin Low Strength (Aspirin) 81 Mg Chew 81 Mg PO DAILY hold for platelets <100K Metoprolol Tartrate 25 Mg Tab 50 Mg PO Q12HR Reported Trazodone (Trazodone HCl) 100 Mg Tablet 100 Mg PO HS Diltiazem CD 24 HR 240 Mg Caper 240 Mg PO DAILY Flomax (Tamsulosin HCl) 0.4 Mg Cap 0.4 Mg PO HS Review of Systems Except as stated in HPI: all other systems reviewed are Neg General / Constitutional: No: Fever Gastrointestinal: Positive: Diarrhea Physical Exam Narrative GENERAL: 72-year-old male well-nourished well-developed SKIN: Focused skin assessment warm/dry. HEAD: Atraumatic. Normocephalic. EYES: Pupils equal and round. No scleral icterus. No injection or drainage. ENT: No nasal bleeding or discharge. Mucous membranes pink and moist. NECK: Trachea midline. No JVD. CARDIOVASCULAR: Regular rate and rhythm. No murmur appreciated. RESPIRATORY: No accessory muscle use. Clear to auscultation. Breath sounds equal bilaterally. GASTROINTESTINAL: Minimal distention. Diffusely tender. MUSCULOSKELETAL: No obvious deformities. No clubbing. No cyanosis. No edema. NEUROLOGICAL: Awake and alert. No obvious cranial nerve deficits. Motor grossly within normal limits. Normal speech. PSYCHIATRIC: Appropriate mood and affect; insight and judgment normal. Data Data Last Documented VS Vital Signs Date Time Temp Pulse Resp B/P (MAP) Pulse Ox O2 Delivery O2 Flow Rate FiO2 04/22/17 17:39 84 14 154/86 (108) 97 Room Air 04/22/17 17:30 98.7 vital signs reviewed Orders Orders Electrocardiogram (04/22/17 ) Vascular Access Team Consult/P PRN (04/22/17 18:01) Vascular Poc Ultrasound (04/22/17 ) Complete Blood Count With Diff (04/22/17 18:13) Comprehensive Metabolic Panel (04/22/17 18:13) Lipase (04/22/17 18:13) Iv Access Insert/Monitor (04/22/17 18:13) Ecg Monitoring (04/22/17 18:13) Oximetry (04/22/17 18:13) Sodium Chloride 0.9% Flush (Ns Flush) (04/22/17 18:15) Ct Abd/Pel W/O Iv Contrast (04/22/17 ) Sodium Chlor 0.9% 1000 Ml Inj (Ns 1000 M (04/22/17 20:45) Admit Order (Ed Use Only) (04/22/17 ) Labs Laboratory Tests Test 04/22/17 18:30 White Blood Count 14.5 TH/MM3 Red Blood Count 3.57 MIL/MM3 Hemoglobin 11.1 GM/DL Hematocrit 34.4 % Mean Corpuscular Volume 96.1 FL Mean Corpuscular Hemoglobin 31.2 PG Mean Corpuscular Hemoglobin Concent 32.4 % Red Cell Distribution Width 17.5 % Platelet Count 93 TH/MM3 Mean Platelet Volume 7.8 FL Neutrophils (%) (Auto) 86.1 % Lymphocytes (%) (Auto) 6.9 % Monocytes (%) (Auto) 5.9 % Eosinophils (%) (Auto) 0.5 % Basophils (%) (Auto) 0.6 % Neutrophils # (Auto) 12.5 TH/MM3 Lymphocytes # (Auto) 1.0 TH/MM3 Monocytes # (Auto) 0.9 TH/MM3 Eosinophils # (Auto) 0.1 TH/MM3 Basophils # (Auto) 0.1 TH/MM3 CBC Comment AUTO DIFF Differential Comment AUTO DIFF CONFIRMED Blood Urea Nitrogen 29 MG/DL Creatinine 4.83 MG/DL Random Glucose 159 MG/DL Total Protein 6.9 GM/DL Albumin 2.8 GM/DL Calcium Level 9.1 MG/DL Alkaline Phosphatase 171 U/L Aspartate Amino Transf (AST/SGOT) 49 U/L Alanine Aminotransferase (ALT/SGPT) 24 U/L Total Bilirubin 0.6 MG/DL Sodium Level 137 MEQ/L Potassium Level 5.4 MEQ/L Chloride Level 103 MEQ/L Carbon Dioxide Level 25.9 MEQ/L Anion Gap 8 MEQ/L Estimat Glomerular Filtration Rate 14 ML/MIN Lipase 1431 U/L MDM Medical Decision Making Medical Screen Exam Complete: Yes Emergency Medical Condition: Yes Medical Record Reviewed: Yes Differential Diagnosis Gastritis, pancreatitis, appendicitis, acute cholecystitis, ascending cholangitis, AAA, perforated viscous, mesenteric ischemia, hepatitis, cystitis, hydronephrosis/hydroureter/nephroureter calculus, mesenteric adenitis, biliary colic Narrative Course The patient arrived with a pizza that was more than half eaten. He asked to eat more after vascular access team established a R forearm line. If the bloodwork is normal, he can be discharged home. d/w oncoming physician, Dr Mendes, at 700PM who will followup workup. Rene Covington MD Apr 22, 2017 18:36
[2017-04-22 18:40] LABS: AUTOMATED NEUTROPHIL # 12.5 TH/MM3 (1.8-7.7); BASOPHIL # 0.1 TH/MM3 (0-0.2); BASOPHIL % 0.6 % (0.0-2.0); EOSINOPHIL # 0.1 TH/MM3 (0-0.4); EOSINOPHIL % 0.5 % (0.0-4.0); HEMATOCRIT 34.4 % (39.0-51.0); LYMPH % 6.9 % (9.0-44.0); MEAN CELL VOLUME 96.1 FL (80.0-100.0); MEAN CORPUSCULAR HEMOGLOBIN 31.2 PG (27.0-34.0); MEAN CORPUSCULAR HGB CONC 32.4 % (32.0-36.0); MONO % 5.9 % (0.0-8.0); NEUT % 86.1 % (16.0-70.0); PLATELET COUNT 93 TH/MM3 (150-450); RED BLOOD COUNT 3.57 MIL/MM3 (4.50-5.90); RED CELL DISTRIBUTION WIDTH 17.5 % (11.6-17.2); WHITE BLOOD COUNT 14.5 TH/MM3 (4.0-11.0)
[2017-04-22 18:48] LABS: HEMO FLAGS AUTO DIFF
[2017-04-22 18:54] LABS: ALT (GPT) 24 U/L (12-78)
[2017-04-22 18:56] LABS: ALKALINE PHOSPHATASE 171 U/L (45-117); TOTAL BILIRUBIN ADULT 0.6 MG/DL (0.2-1.0)
[2017-04-22 19:03] LABS: ANION GAP 8 MEQ/L (5-15); AST (GOT) 49 U/L (15-37); BICARBONATE 25.9 MEQ/L (21.0-32.0); BLOOD UREA NITROGEN 29 MG/DL (7-18); CHLORIDE 103 MEQ/L (98-107); GLOMERULAR FILTRATION RATE 14 ML/MIN (>89); SODIUM (NA) 137 MEQ/L (136-145)
[2017-04-22 19:07] LABS: POTASSIUM 5.4 MEQ/L (3.5-5.1)
[2017-04-22 19:56] LABS: SCAN/DIFF AUTO DIFF CONFIRMED
[2017-04-22] MEDS ORDERED: SODIUM CHLOR 0.9% 1000 ML INJ 1,000 ML IV ONE (20:45)
--- NOTE | 2017-04-22 21:35 | RADRPT ---
EXAM DATE/TIME: 04/22/2017 21:08 [facility] COMPARISON: CT ABDOMEN & PELVIS W/O CONTRAST, April 12, 2017, 19:24. INDICATIONS : Abdominal pain; c-diff. ORAL CONTRAST: No oral contrast ingested. RADIATION DOSE: 8.99 CTDIvol (mGy) MEDICAL HISTORY : Renal failure, chronic. Diabetes mellitus type 2. Cardiovascular diseaseHTN, Seizures, GERD SURGICAL HISTORY : dialysis shunt ENCOUNTER: Initial ACUITY: 3 days PAIN SCALE: 6/10 LOCATION: abdomen TECHNIQUE: Volumetric scanning of the abdomen and pelvis was performed. Using automated exposure control and ad justment of the mA and/or kV according to patient size, radiation dose was kept as low as reasonably achievable to obtain optimal diagnostic quality images. DICOM format image data is available electro nically for review and comparison. FINDINGS: LOWER LUNGS: Moderate sized bilateral pleural effusions with associated passive atelectasis. These are unchanged. LIVER: Homogeneous density without lesion. There is no dilation of the biliary tree. No calcified gallston es. SPLEEN: Mild splenomegaly. This is unchanged. PANCREAS: Within normal limits. KIDNEYS: Both kidneys are atrophic. There is an extrarenal pelvis which is mildly distended on the left. This is unchanged. 2 small renal calculi are seen on the left. No hydroureter. A 2.3 cm right renal cyst. ADRENAL GLANDS: Within normal limits. VASCULAR: There is no aortic aneurysm. BOWEL/MESENTERY: The stomach, small bowel, and colon demonstrate no acute abnormality. There is no free intraperitone al air. A moderate amount of free fluid. This is unchanged. ABDOMINAL WALL: Subcutaneous edema. This is unchanged. RETROPERITONEUM: There is no lymphadenopathy. BLADDER: No wall thickening or mass. REPRODUCTIVE: Within normal limits. INGUINAL: There is no lymphadenopathy or hernia. MUSCULOSKELETAL: Within normal limits for patient age. CONCLUSION: 1. Unchanged exam with moderate bilateral pleural effusions and moderate volume ascites. 2. Atrophic kidneys. 3. Splenomegaly. 4. Anasarca. Kiko De Leon Jr., MD on April 22, 2017 at 21:30 Board Certified Radiologist. This report was verified electronically.
--- NOTE | 2017-04-22 22:05 | HHI.HP ---
HPI Service [facility] Primary Care Physician Kassandra Granda MD Admission Diagnosis pancreatitis Diagnoses: (1) Pancreatitis Diagnosis: Principal (2) ESRD (end stage renal disease) on dialysis Diagnosis: Principal (3) HTN (hypertension) Diagnosis: Principal (4) A-fib Diagnosis: Principal Travel History International Travel<30 Days: No Contact w/Intl Traveler <30 Da: No Traveled to Known Affected Are: No History of Present Illness This is a 72-year-old male with a PMH of HTN, A. fib on Coumadin, C Diff, DM, h/ o CVA and ESRD on HD //Tue who presented to the ER w/ complaints of abdominal pain x2-3 wks. Reports pain has gotten progressively more severe, now w/ decreased PO intake, however noted to arrive in ER w/ half-eaten pizza. Denies fever, chills, diarrhea or sick contacts. +nausea, no vomiting. Seen in ER on 04/12/17 for c/o abdominal pain/diarrhea, found to have C Diff Colitis , d/c'd home on Flagyl PO, however taking only BID instead of TID as prescribed. Returned to ER 04/16/17 w/ ongoing complaints, d/c'd w/ instructions to continue on Flagyl PO tid. On arrival, BP 161/70, HR 84, O2 sat 99% on RA, Afebrile. WBC 14.5. Platelets 93, previously 123 on 04/16/17. Chemistry essentially at baseline. Creatinine 4.83, producing 4.51 on . Lipase 1431. CT Abd/Pelvis w/ unchanged exam, moderate bilateral pleural effusion and moderate volume ascites. Review of Systems Except as stated in HPI: all other systems reviewed are Neg ROS: 14 point review of systems otherwise negative. Past Family Social History Past Medical History PMH: HTN, A. fib on Coumadin, C Diff, DM, h/o CVA and ESRD on HD //Tue Past Surgical History PAST SURGICAL HISTORY: Fistula, CABG Allergies: Coded Allergies: No Known Allergies (Verified Adverse Reaction, Unknown, 04/22/17) Family History PAST FAMILY HISTORY: Reviewed. No h/o DM or CAD Social History PAST SOCIAL HISTORY: Negative for alcohol, tobacco or drugs. Physical Exam Vital Signs Vital Signs Date Time Temp Pulse Resp B/P (MAP) Pulse Ox O2 Delivery O2 Flow Rate FiO2 04/22/17 17:39 84 14 154/86 (108) 97 Room Air 04/22/17 17:30 98.7 84 16 161/70 (100) 99 Physical Exam PE: GENERAL: Elderly male in no acute distress. HEENT: PERRLA, EOMI. No scleral icterus or conjunctival pallor. No lid lag or facial droop. CARDIOVASCULAR: Regular rate and rhythm. No obvious murmurs to auscultation. No chest tenderness to palpation. RESPIRATORY: No obvious rhonchi or wheezing. Clear to auscultation. Breath sounds equal bilaterally. GASTROINTESTINAL: Abdomen soft, mild generalized tenderness to palpation, nondistended. BS normal. MUSCULOSKELETAL: Extremities without clubbing, cyanosis, or edema. No obvious deformities. NEUROLOGICAL: Awake, alert and oriented x4. No focal neurologic deficits. Moving both upper and lower extremities spontaneously. Laboratory Laboratory Tests Test 04/22/17 18:30 White Blood Count 14.5 Red Blood Count 3.57 Hemoglobin 11.1 Hematocrit 34.4 Mean Corpuscular Volume 96.1 Mean Corpuscular Hemoglobin 31.2 Mean Corpuscular Hemoglobin Concent 32.4 Red Cell Distribution Width 17.5 Platelet Count 93 Mean Platelet Volume 7.8 Neutrophils (%) (Auto) 86.1 Lymphocytes (%) (Auto) 6.9 Monocytes (%) (Auto) 5.9 Eosinophils (%) (Auto) 0.5 Basophils (%) (Auto) 0.6 Neutrophils # (Auto) 12.5 Lymphocytes # (Auto) 1.0 Monocytes # (Auto) 0.9 Eosinophils # (Auto) 0.1 Basophils # (Auto) 0.1 CBC Comment AUTO DIFF Differential Comment AUTO DIFF CONFIRMED Blood Urea Nitrogen 29 Creatinine 4.83 Random Glucose 159 Total Protein 6.9 Albumin 2.8 Calcium Level 9.1 Alkaline Phosphatase 171 Aspartate Amino Transf (AST/SGOT) 49 Alanine Aminotransferase (ALT/SGPT) 24 Total Bilirubin 0.6 Sodium Level 137 Potassium Level 5.4 Chloride Level 103 Carbon Dioxide Level 25.9 Anion Gap 8 Estimat Glomerular Filtration Rate 14 Lipase 1431 Result Diagram: 04/22/17182904/22/171829 Caprini VTE Risk Assessment Caprini VTE Risk Assessment: Mod/High Risk (score >= 2) Caprini Risk Assessment Model Point Value = 1 Point Value = 2 Point Value = 3 Point Value = 5 Age 41-60 Minor surgery BMI > 25 kg/m2 Swollen legs Varicose veins or History of unexplained or recurrent spontaneous Oral contraceptives or hormone replacement Sepsis (< 1 month) Serious lung disease, including pneumonia (< 1 month) Abnormal pulmonary function Acute myocardial infarction Congestive heart failure (< 1 month) History of inflammatory bowel disease Medical patient at bed rest Age 61-74 Arthroscopic surgery Major open surgery (> 45 min) Laparoscopic surgery (> 45 min) Malignancy Confined to bed (> 72 hours) Immobilizing plaster cast Central venous access Age >= 75 History of VTE Family history of VTE Factor V Leiden Prothrombin [id number] Lupus anticoagulant Anticardiolipin antibodies Elevated serum homocysteine Heparin-induced thrombocytopenia Other congenital or acquired thrombophilia Stroke (< 1 month) Elective arthroplasty Hip, pelvis, or leg fracture Acute spinal cord injury (< 1 month) Prophylaxis Regimen Total Risk Factor Score Risk Level Prophylaxis Regimen 0-1 Low Early ambulation 2 Moderate Order ONE of the following: *Sequential Compression Device (SCD) *Heparin 5000 units SQ BID 3-4 Higher Order ONE of the following medications: *Heparin 5000 units SQ TID *Enoxaparin/Lovenox 40 mg SQ daily (WT < 150 kg, CrCl > 30 mL/min) *Enoxaparin/Lovenox 30 mg SQ daily (WT < 150 kg, CrCl > 10-29 mL/min) *Enoxaparin/Lovenox 30 mg SQ BID (WT < 150 kg, CrCl > 30 mL/min) AND/OR *Sequential Compression Device (SCD) 5 or more Highest Order ONE of the following medications: *Heparin 5000 units SQ TID (Preferred with Epidurals) *Enoxaparin/Lovenox 40 mg SQ daily (WT < 150 kg, CrCl > 30 mL/min) *Enoxaparin/Lovenox 30 mg SQ daily (WT < 150 kg, CrCl > 10-29 mL/min) *Enoxaparin/Lovenox 30 mg SQ BID (WT < 150 kg, CrCl > 30 mL/min) AND *Sequential Compression Device (SCD) Assessment and Plan Problem List: (1) Pancreatitis ICD Code: K85.90 - Acute pancreatitis without necrosis or infection, unspecified (2) ESRD (end stage renal disease) on dialysis ICD Code: N18.6 - End stage renal disease; Z99.2 - Dependence on renal dialysis Status: Chronic (3) HTN (hypertension), benign ICD Code: I10 - Essential (primary) hypertension Status: Chronic (4) A-fib ICD Code: I48.91 - Unspecified atrial fibrillation Status: Acute (5) DM (diabetes mellitus) ICD Code: E11.9 - Type 2 diabetes mellitus without complications Status: Chronic Assessment and Plan A/P: 1. Pancreatitis: c/o abdominal pain x2-3 wks, recent Dx of C Diff on Flagyl PO , Lipase 1431. CT Abd/Pelvis relatively unchanged from previous, +ascites, images reviewed by me. Arrived to ER w/ mnidy, encourage bowel rest in light of ongoing pain. Advance diet as tolerated. Repeat Lipase in am. Pepcid IV. 2. ESRD on HD: T//Tue, resume home medications, consult Nephrology to resume HD 3. HTN: BP 150-160's, resume home medications, pain control, monitor BP. 4. A-fib: Chronic. On Coumadin. Check INR, resume home Coumadin if therapeutic 5. DM: Sliding scale w/ Accu-Cheks. 6. DVT Prophylaxis: On Coumadin 7. Social work for d/c planning as needed. 8. Case discussed w/ ER physician at length. Physician Certification 2 Midnight Certification Type: Admission for Inpatient Services Order for Inpatient Services The services are ordered in accordance with Medicare regulations or non- Medicare payer requirements, as applicable. In the case of services not specified as inpatient-only, they are appropriately provided as inpatient services in accordance with the 2-midnight benchmark. Estimated LOS (days): 2 days is the estimated time the patient will need to remain in the hospital, assuming treatment plan goals are met and no additional complications. Post-Hospital Plan: Not yet determined Fannie Wilks MD Apr 22, 2017 22:05
[2017-04-22] MEDS ORDERED: ACETAMINOPHEN 325 MG TAB PO PRN (22:15)
[2017-04-22] MEDS ORDERED: SENNOSIDES 8.6 MG TAB PO PRN (22:15)
[2017-04-22] MEDS ORDERED: ACETAMINOPHEN/HYDROcodone 325 MG/5 MG TAB PO PRN (22:15)
[2017-04-22] MEDS ORDERED: MAGNESIUM HYDROXIDE SUSP 30 ML CUP PO PRN (22:15)
[2017-04-22] MEDS ORDERED: LACTULOSE SYRUP 20 GM/30 ML CUP PO PRN (22:15)
[2017-04-22] MEDS ORDERED: ONDANSETRON HCL 4 MG/2 ML VIAL IVP PRN (22:15)
[2017-04-22] MEDS ORDERED: BISACODYL 10 MG SUPP RECTAL PRN (22:15)
[2017-04-22] MEDS: FAMOTIDINE 20 MG/2 ML VIAL IV PUSH SCH (22:34)
[2017-04-22] MEDS: SODIUM CHLOR 0.9% 1000 ML INJ 1,000 ML IV SCH (22:34)
[2017-04-22 22:44] VITALS: BP 169/74; PULSE 88; RESP 15; O2SAT 99
[2017-04-22 23:56] VITALS: BP 163/71; PULSE 86; RESP 17; TEMP 98.1; O2SAT 100
[2017-04-23] MEDS ORDERED: GENTAMICIN SULFATE (DIALYSIS USE ONLY) 20 MG/2 ML VIAL OTHER PRN (00:30)
[2017-04-23] MEDS ORDERED: NITROGLYCERIN 0.4 MG SL 25 TABS/BTL SL PRN (00:30)
[2017-04-23] MEDS ORDERED: ONDANSETRON HCL 4 MG/2 ML VIAL IV PUSH PRN (00:30)
[2017-04-23] MEDS ORDERED: SODIUM CHLOR 0.9% 1000 ML INJ 1,000 ML IV PRN (00:30)
[2017-04-23] MEDS ORDERED: cloNIDine HCL 0.1 MG TAB PO PRN (00:30)
[2017-04-23] MEDS ORDERED: SODIUM CHLOR 0.9% 1000 ML INJ 1,000 ML OTHER PRN ×2 (00:30)
[2017-04-23] MEDS ORDERED: diphenhydrAMINE HCL 25 MG CAP PO PRN (00:30)
[2017-04-23] MEDS ORDERED: HEPARIN SODIUM - IV 10,000 UNITS/10 ML VIAL IV FLUSH PRN (00:30)
[2017-04-23] MEDS ORDERED: SODIUM CHLORIDE 0.9% FLUSH 10 ML FLUSH IV FLUSH PRN (00:30)
[2017-04-23] MEDS ORDERED: ALBUMIN 25% INJ 100 ML IV PRN (00:30)
[2017-04-23] MEDS ORDERED: ACETAMINOPHEN 325 MG TAB PO PRN (00:30)
[2017-04-23] MEDS ORDERED: HEPARIN SODIUM - IV 10,000 UNITS/10 ML VIAL PRN (00:30)
[2017-04-23] MEDS ORDERED: MANNITOL 12.5 GM/50 ML VIAL IV PRN (00:30)
[2017-04-23] MEDS: MORPHINE SULFATE 4 MG/ML INJ IV PUSH PRN (00:33)
[2017-04-23] MEDS: SODIUM CHLOR 0.9% 1000 ML INJ 1,000 ML IV SCH (00:45)
[2017-04-23 04:00] VITALS: BP 166/80; PULSE 94; RESP 17; TEMP 97.7; O2SAT 98
[2017-04-23 07:44] LABS: AUTOMATED NEUTROPHIL # 9.2 TH/MM3 (1.8-7.7); BASOPHIL % 0.4 % (0.0-2.0); EOSINOPHIL # 0.2 TH/MM3 (0-0.4); EOSINOPHIL % 1.3 % (0.0-4.0); HEMATOCRIT 36.3 % (39.0-51.0); HEMO FLAGS DIFF FINAL; LYMPH % 11.1 % (9.0-44.0); LYMPHOCYTE # 1.3 TH/MM3 (1.0-4.8); MEAN CELL VOLUME 96.3 FL (80.0-100.0); MEAN CORPUSCULAR HEMOGLOBIN 30.9 PG (27.0-34.0); MEAN CORPUSCULAR HGB CONC 32.1 % (32.0-36.0); MONO % 5.7 % (0.0-8.0); NEUT % 81.5 % (16.0-70.0); PLATELET COUNT 103 TH/MM3 (150-450); RED BLOOD COUNT 3.77 MIL/MM3 (4.50-5.90); RED CELL DISTRIBUTION WIDTH 17.8 % (11.6-17.2); WHITE BLOOD COUNT 11.3 TH/MM3 (4.0-11.0)
[2017-04-23 07:51] LABS: INTERNATIONAL NORMALIZED RATIO 3.7 RATIO; PROTHROMBIN TIME - PATIENT 43.3 SEC (9.8-11.6)
[2017-04-23 08:00] VITALS: BP 176/83; PULSE 100; PULSE 97; RESP 16; TEMP 97.3; O2SAT 98
[2017-04-23 08:20] LABS: ALKALINE PHOSPHATASE 185 U/L (45-117); ALT (GPT) 21 U/L (12-78); ANION GAP 9 MEQ/L (5-15); AST (GOT) 27 U/L (15-37); BICARBONATE 24.6 MEQ/L (21.0-32.0); BLOOD UREA NITROGEN 31 MG/DL (7-18); CHLORIDE 107 MEQ/L (98-107); GLOMERULAR FILTRATION RATE 14 ML/MIN (>89); POTASSIUM 4.1 MEQ/L (3.5-5.1); SODIUM (NA) 141 MEQ/L (136-145); TOTAL BILIRUBIN ADULT 0.6 MG/DL (0.2-1.0)
[2017-04-23] MEDS ORDERED: SODIUM CHLORIDE 0.9% FLUSH 10 ML FLUSH IV FLUSH SCH (09:00)
[2017-04-23] MEDS ORDERED: WARFARIN SOD 1 MG TAB PO SCH ×2 (09:00→16:00)
[2017-04-23] MEDS: SEVELAMER CARBONATE 800 MG TAB PO SCH ×3 (09:00→17:04)
[2017-04-23] MEDS: DOCUSATE SODIUM 50 MG/SENNA 8.6 MG TAB PO SCH ×2 (09:00→21:00)
[2017-04-23] MEDS: FAMOTIDINE 20 MG/2 ML VIAL IV PUSH SCH ×2 (10:00→21:21)
--- NOTE | 2017-04-23 10:19 | PD.CONS ---
HPI Service Nephrology Consult Requested By Dr. Wilks Reason for Consult ESRD Primary Care Physician Kassandra Granda MD History of Present Illness 72 Year old male with Diabetes, Hypertension, ESRD, has nausea, diarrhea and abdominal pain for past week and was not eating well, he came with theses complaints and has been admitted with diagnosis of Pancreatinine with elevated lipase level, he follows Dr. Zhang and his dialysis days are T,T,S. Review of Systems Constitutional: COMPLAINS OF: Weight loss Gastrointestinal: COMPLAINS OF: Abdominal pain, Diarrhea, Nausea Musculoskeletal: COMPLAINS OF: Joint pain, Muscle aches, Stiffness, Back pain Past Family Social History Allergies: Coded Allergies: No Known Allergies (Verified Adverse Reaction, Unknown, 04/22/17) Past Medical History Diabetes hypertension ESRD Anemia Nausea CVA CAD Arthritis Past Surgical History AVF placement CABG S/P AVR/MV repair Reported Medications Reported Meds & Active Scripts Active Bentyl (Dicyclomine HCl) 10 Mg Cap 10 Mg PO QID Zofran (Ondansetron HCl) 4 Mg Tab 4 Mg PO Q6HR PRN Flagyl (Metronidazole) 500 Mg Tab 500 Mg PO TID 10 Days [Pt/Inr] Coumadin (Warfarin) 3 Mg Tab 2.5 Mg PO DAILY@1600 30 Days Eq Acetaminophen (Acetaminophen) 325 Mg Tab 650 Mg PO Q6HR PRN Rocaltrol (Calcitriol) 0.25 Mcg Cap 1 Mcg PO DAILY 30 Days Thera/Beta-Carotene (Multiple Vitamin) 1 Tab Tab 1 Tab PO DAILY 30 Days A.e.r. Witch Irina (Witch Irina/Glycerin) 12.5 %-50 % Pad 1 Applic TOPICAL UNSCH PRN 30 Days Ondansetron Odt 4 Mg Tab 4 Mg PO Q6H PRN 30 Days Renvela (Sevelamer Carbonate) 800 Mg Tab 2,400 Mg PO TID [address] (Duloxetine HCl) 30 Mg Capdr 30 Mg PO DAILY 30 Days Dilantin (Phenytoin Extended) 100 Mg Cap 200 Mg PO TID 30 Days Lopressor (Metoprolol Tartrate) 50 Mg Tab 75 Mg PO Q12HR 30 Days Walker Rolling/GetGo (Device) 1 Mis Mis Ea .ROUTE DIRECTED Coumadin (Warfarin) 1 Mg Tab 1 Mg PO DAILY hold for INR > 3.0 goal 2-3 Polyethylene Glycol 3350 Powder (Polyethylene Glycol) 17 Gram Pow 17 Gm PO DAILY Aspirin Low Strength (Aspirin) 81 Mg Chew 81 Mg PO DAILY hold for platelets <100K Metoprolol Tartrate 25 Mg Tab 50 Mg PO Q12HR Reported Trazodone (Trazodone HCl) 100 Mg Tablet 100 Mg PO HS Diltiazem CD 24 HR 240 Mg Caper 240 Mg PO DAILY Flomax (Tamsulosin HCl) 0.4 Mg Cap 0.4 Mg PO HS Active Ordered Medications Current Medications Medications (Trade) Dose Ordered Sig/Brittaney Route Start Time Stop Time Status Last Admin Sodium Chloride 1,000 ml @ 84 mls/hr [id number] IV 04/22/17 22:00 04/23/17 00:45 (NS Flush) 2 ml UNSCH PRN IV FLUSH 04/22/17 22:15 (NS Flush) 2 ml BID IV FLUSH 04/23/17 09:00 (Zofran Inj) 4 mg Q6H PRN IVP 04/22/17 22:15 (Tylenol) 650 mg Q6H PRN PO 04/22/17 22:15 ([place] 5-325 Mg) 1 tab Q4H PRN PO 04/22/17 22:15 (Morphine Inj) 2 mg Q3H PRN IV PUSH 04/22/17 22:15 04/23/17 00:33 (Lynn-Colace) 1 tab BID PO 04/23/17 09:00 (Milk Of Magnesia Liq) 30 ml Q12H PRN PO 04/22/17 22:15 (Senokot) 17.2 mg Q12H PRN PO 04/22/17 22:15 (Dulcolax Supp) 10 mg DAILY PRN RECTAL 04/22/17 22:15 (Lactulose Liq) 30 ml DAILY PRN PO 04/22/17 22:15 (Pepcid Inj) 20 mg Q12H IV PUSH 04/22/17 22:00 04/22/17 22:34 (Aspirin Chew) 81 mg DAILY PO 04/23/17 09:00 (Cardizem Cd) 240 mg DAILY PO 04/23/17 09:00 (Cymbalta Dr) 30 mg DAILY PO 04/23/17 09:00 (Lopressor) 50 mg Q12HR PO 04/23/17 09:00 (Flagyl) 500 mg TID PO 04/23/17 09:00 (Dilantin) 200 mg TID PO 04/23/17 09:00 (Renvela) 2,400 mg TID PO 04/23/17 09:00 (Flomax) 0.4 mg HS PO 04/23/17 21:00 (Coumadin) 2.5 mg DAILY@1600 PO 04/23/17 16:00 (Theragran) 1 tab DAILY PO 04/23/17 09:00 (Desyrel) 100 mg HS PO 04/23/17 21:00 (Coumadin) 1 mg DAILY@1600 PO 04/23/17 16:00 Sodium Chloride 1,000 ml @ 0 mls/hr Q0M PRN OTHER 04/23/17 00:30 (Heparin Inj) 8,000 units UNSCH PRN IV FLUSH 04/23/17 00:30 Sodium Chloride 1,000 ml @ 200 mls/hr Q5H PRN IV 04/23/17 00:30 Sodium Chloride 1,000 ml @ 0 mls/hr Q0M PRN OTHER 04/23/17 00:30 (Mannitol Inj) 12.5 gm UNSCH PRN IV 04/23/17 00:30 Albumin Human 100 ml @ 60 mls/hr UNSCH PRN IV 04/23/17 00:30 (NS Flush) 5 ml UNSCH PRN IV FLUSH 04/23/17 00:30 (Heparin Inj) UNSCH PRN .XX 04/23/17 00:30 (Gentamicin (Dialysis) Inj) 20 mg UNSCH PRN OTHER 04/23/17 00:30 (Zofran Inj) 4 mg UNSCH PRN IV PUSH 04/23/17 00:30 (Tylenol) 650 mg UNSCH PRN PO 04/23/17 00:30 (Benadryl) 25 mg UNSCH PRN PO 04/23/17 00:30 (Nitrostat Sl) 0.4 mg UNSCH PRN SL 04/23/17 00:30 (Catapres) 0.1 mg UNSCH PRN PO 04/23/17 00:30 (Epogen Inj) 2,000 units UNSCH PRN IV PUSH 04/23/17 00:30 (Gelfoam 12 Mm/7 Mm Top) 1 foam UNSCH PRN TOP 04/23/17 00:30 Family History noncontributory Social History denies smoking/ETOH Physical Exam Vital Signs Vital Signs Date Time Temp Pulse Resp B/P (MAP) Pulse Ox O2 Delivery O2 Flow Rate FiO2 04/23/17 04:00 97.7 94 17 166/80 (108) 98 04/23/17 01:03 Room Air 04/22/17 23:56 98.1 86 17 163/71 (101) 100 04/22/17 23:32 04/22/17 22:44 88 15 169/74 (105) 99 Room Air 04/22/17 17:39 84 14 154/86 (108) 97 Room Air 04/22/17 17:30 98.7 84 16 161/70 (100) 99 Physical Exam GENERAL: Well-nourished, well-developed patient. SKIN: Warm and dry. HEAD: Normocephalic. EYES: No scleral icterus. No injection or drainage. NECK: Supple, trachea midline. No JVD or lymphadenopathy. CARDIOVASCULAR: irregularly irregular without murmurs, gallops, or rubs. RESPIRATORY: Breath sounds equal bilaterally. No accessory muscle use. GASTROINTESTINAL: Abdomen soft, mildly-tender, nondistended. EXTREMITIES: No cyanosis, or edema. L eft AVF NEUROLOGICAL: Awake, alert, and oriented x 3. Non-focal. Laboratory Laboratory Tests Test 04/22/17 18:30 04/23/17 07:03 White Blood Count 14.5 11.3 Red Blood Count 3.57 3.77 Hemoglobin 11.1 11.6 Hematocrit 34.4 36.3 Mean Corpuscular Volume 96.1 96.3 Mean Corpuscular Hemoglobin 31.2 30.9 Mean Corpuscular Hemoglobin Concent 32.4 32.1 Red Cell Distribution Width 17.5 17.8 Platelet Count 93 103 Mean Platelet Volume 7.8 7.7 Neutrophils (%) (Auto) 86.1 81.5 Lymphocytes (%) (Auto) 6.9 11.1 Monocytes (%) (Auto) 5.9 5.7 Eosinophils (%) (Auto) 0.5 1.3 Basophils (%) (Auto) 0.6 0.4 Neutrophils # (Auto) 12.5 9.2 Lymphocytes # (Auto) 1.0 1.3 Monocytes # (Auto) 0.9 0.6 Eosinophils # (Auto) 0.1 0.2 Basophils # (Auto) 0.1 0.0 CBC Comment AUTO DIFF DIFF FINAL Differential Comment AUTO DIFF CONFIRMED Blood Urea Nitrogen 29 31 Creatinine 4.83 5.04 Random Glucose 159 105 Total Protein 6.9 7.3 Albumin 2.8 3.0 Calcium Level 9.1 9.3 Alkaline Phosphatase 171 185 Aspartate Amino Transf (AST/SGOT) 49 27 Alanine Aminotransferase (ALT/SGPT) 24 21 Total Bilirubin 0.6 0.6 Sodium Level 137 141 Potassium Level 5.4 4.1 Chloride Level 103 107 Carbon Dioxide Level 25.9 24.6 Anion Gap 8 9 Estimat Glomerular Filtration Rate 14 14 Lipase 1431 1034 Prothrombin Time 43.3 Prothromb Time International Ratio 3.7 Result Diagram: 04/23/17 0703 04/23/17 0703 Imaging Last Impressions Abdomen/Pelvis CT 04/22/17 0000 Signed Impressions: Service Date/Time: Saturday, April 22, 2017 21:08 - CONCLUSION: 1. Unchanged exam with moderate bilateral pleural effusions and moderate volume ascites. 2. Atrophic kidneys. 3. Splenomegaly. 4. Anasarca. Kiko De Leon Jr., MD Assessment and Plan Problem List: (1) ESRD (end stage renal disease) on dialysis ICD Codes: N18.6 - End stage renal disease; Z99.2 - Dependence on renal dialysis Status: Chronic Plan: seen during dialysis UF 1.5 L Patient is losing weight has c diff continue to monitor TTS schedule (2) HTN (hypertension), benign ICD Codes: I10 - Essential (primary) hypertension Status: Chronic Plan: monitor BP (3) DM (diabetes mellitus) ICD Codes: E11.9 - Type 2 diabetes mellitus without complications Status: Chronic Plan: monitor BG (4) Pancreatitis ICD Codes: K85.90 - Acute pancreatitis without necrosis or infection, unspecified Plan: chemical likely due to colitis (5) A-fib ICD Codes: I48.91 - Unspecified atrial fibrillation Status: Acute Plan: on anti coagulation (6) Clostridium difficile colitis ICD Codes: A04.72 - Enterocolitis due to Clostridium difficile, not specified as recurrent Status: Acute Plan: need Rx Problem Qualifiers (1) DM (diabetes mellitus): (2) A-fib: Qualified Codes: I48.2 - Chronic atrial fibrillation German Perez MD Apr 23, 2017 10:19
--- NOTE | 2017-04-23 10:39 | HHI.PR ---
Subjective Remarks seen 3 pm after Hemodialysis tolerated well states frequent diarrhea since last admission from here denies any abdominal pain at this moment- pain better - "I am starving" Objective Vitals Vital Signs Date Time Temp Pulse Resp B/P (MAP) Pulse Ox O2 Delivery O2 Flow Rate FiO2 04/23/17 09:03 21 04/23/17 08:00 97.3 97 16 176/83 (114) 98 04/23/17 04:00 97.7 94 17 166/80 (108) 98 04/23/17 01:03 Room Air 04/22/17 23:56 98.1 86 17 163/71 (101) 100 04/22/17 23:32 04/22/17 22:44 88 15 169/74 (105) 99 Room Air 04/22/17 17:39 84 14 154/86 (108) 97 Room Air 04/22/17 17:30 98.7 84 16 161/70 (100) 99 I/O 04/22/17 04/22/17 04/22/17 04/23/17 04/23/17 04/23/17 07:00 15:00 23:00 07:00 15:00 23:00 Intake Total 1000 ml 1287 ml Balance 1000 ml 1287 ml Intake Oral 0 ml IV Total 1000 ml 1287 ml # Voids 2 # Bowel Movements 2 Result Diagram: 04/23/17 0703 04/23/17 0703 Imaging Last Impressions Abdomen/Pelvis CT 04/22/17 0000 Signed Impressions: Service Date/Time: Saturday, April 22, 2017 21:08 - CONCLUSION: 1. Unchanged exam with moderate bilateral pleural effusions and moderate volume ascites. 2. Atrophic kidneys. 3. Splenomegaly. 4. Anasarca. Kiko De Leon Jr., MD Objective Remarks awake and alert lungs- no rales regular rhythm abdomen- slightly enlarged, + fluid wave but soft, nontender no guarding, good bowel sounds extremities no edema A/P Problem List: (1) Pancreatitis ICD Code: K85.90 - Acute pancreatitis without necrosis or infection, unspecified (2) ESRD (end stage renal disease) on dialysis ICD Code: N18.6 - End stage renal disease; Z99.2 - Dependence on renal dialysis Status: Chronic (3) HTN (hypertension), benign ICD Code: I10 - Essential (primary) hypertension Status: Chronic (4) A-fib ICD Code: I48.91 - Unspecified atrial fibrillation Status: Acute (5) DM (diabetes mellitus) ICD Code: E11.9 - Type 2 diabetes mellitus without complications Status: Chronic Assessment and Plan A/P: 1. Pancreatitis: recent Dx of C Diff on Flagyl PO, Lipase 1431. CT Abd/ Pelvis relatively unchanged from previous, +ascites, images reviewed by me. Arrived to ER w/ pizza, encourage bowel rest in light of ongoing pain. Advance diet - liquid Repeat Lipase in am. Pepcid IV. 2. ESRD on HD: T//Tue, resume home medications, consult Nephrology to resume HD 3. HTN: continue meds monitor BP. 4. A-fib: Chronic. INR 3.7 History of CVA- with mild expressive aphasia Coumadin excess. On Coumadin. FF INR. Hold Coumadin. restart if less than 3 DVT Prophylaxis: On Coumadin Social work for d/c planning as needed. Problem Qualifiers (1) A-fib: Qualified Codes: I48.2 - Chronic atrial fibrillation (2) DM (diabetes mellitus): Forest Suh MD Apr 23, 2017 10:38
--- NOTE | 2017-04-23 12:35 | EKG ---
Date Performed: 04/22/2017 Time Performed: 17:53:17 PTAGE: 72 years EKG: Sinus rhythm WITH FIRST DEGREE AV BLOCK WITH OCCASIONAL SUPRAVENTRICULAR PREMATURE COMPLEXES RIGHT BUNDLE BRANCH BLOCK LEFT AXIS DEVIATION NONSPECIFIC T-WAVE CHANGE Compared to previous tracing, rhythm has changed from atrial fibrillation to sinus rhythm. ABNORMAL ECG PREVIOUS TRACING : 04/12/2017 18.42 DOCTOR: Durga Juan Interpretating Date/Time 04/23/2017 12:33:20
[2017-04-23] MEDS: metroNIDAZOLE 500 MG TAB PO SCH ×3 (13:00→18:28)
[2017-04-23] MEDS: PHENYTOIN SODIUM 100 MG CAP PO SCH ×3 (13:00→18:28)
[2017-04-23 16:00] VITALS: BP 173/76; PULSE 109; RESP 18; TEMP 98.9; O2SAT 98
[2017-04-23] MEDS ORDERED: WARFARIN SOD 2.5 MG TAB PO SCH (16:00)
[2017-04-23] MEDS: METOPROLOL TARTRATE 25 MG TAB PO SCH ×2 (16:06→21:21)
[2017-04-23] MEDS: DILTIAZEM-CD 240 MG CAP ER PO SCH (16:07)
[2017-04-23] MEDS: ASPIRIN 81 MG CHEW TAB PO SCH (16:08)
[2017-04-23] MEDS: MULTIVITAMIN TAB PO SCH (16:08)
[2017-04-23] MEDS: DULoxetine HCl DR 30 MG CAP PO SCH (18:28)
[2017-04-23 20:00] VITALS: BP 148/74; PULSE 76; RESP 18; TEMP 98.1; O2SAT 100
[2017-04-23] MEDS: TAMSULOSIN HCL 0.4 MG CAP PO SCH (21:21)
[2017-04-23] MEDS: traZODone HCL 100 MG TAB PO SCH (21:21)
[2017-04-24] VITALS (8 sets, daily range): BP systolic 95–167; BP diastolic 50–69; PULSE 59–77; RESP 17–18; TEMP 97.1–97.5; O2SAT 93–99
[2017-04-24 06:38] LABS: INTERNATIONAL NORMALIZED RATIO 4.7 RATIO
[2017-04-24] MEDS: METOPROLOL TARTRATE 25 MG TAB PO SCH ×2 (09:25→21:00)
[2017-04-24] MEDS: PHENYTOIN SODIUM 100 MG CAP PO SCH ×3 (09:25→17:13)
[2017-04-24] MEDS: DULoxetine HCl DR 30 MG CAP PO SCH (09:26)
[2017-04-24] MEDS: ASPIRIN 81 MG CHEW TAB PO SCH (09:26)
[2017-04-24] MEDS: SEVELAMER CARBONATE 800 MG TAB PO SCH ×3 (09:26→17:15)
[2017-04-24] MEDS: DOCUSATE SODIUM 50 MG/SENNA 8.6 MG TAB PO SCH ×2 (09:26→20:59)
[2017-04-24] MEDS: DILTIAZEM-CD 240 MG CAP ER PO SCH (09:26)
[2017-04-24] MEDS: metroNIDAZOLE 500 MG TAB PO SCH ×3 (09:26→17:13)
[2017-04-24] MEDS: MULTIVITAMIN TAB PO SCH (09:27)
[2017-04-24] MEDS: FAMOTIDINE 20 MG/2 ML VIAL IV PUSH SCH ×2 (09:27→20:59)
--- NOTE | 2017-04-24 10:53 | HHI.PR ---
Subjective Remarks states having loose stools tolerated full liquids yesterday saw his stools- soft, not liquid- yellow lipase down to 300 from 1000+ Objective Vitals Vital Signs Date Time Temp Pulse Resp B/P (MAP) Pulse Ox O2 Delivery O2 Flow Rate FiO2 04/24/17 08:08 97.4 77 18 167/69 (101) 93 04/24/17 04:00 97.2 70 18 133/59 (83) 97 04/24/17 00:00 97.1 61 17 95/50 (65) 98 04/23/17 21:30 Room Air 04/23/17 20:00 76 04/23/17 20:00 98.1 76 18 148/74 (98) 100 04/23/17 16:00 98.9 109 18 173/76 (108) 98 I/O 04/23/17 04/23/17 04/23/17 04/24/17 04/24/17 04/24/17 07:00 15:00 23:00 07:00 15:00 23:00 Intake Total 1287 ml 560 ml Output Total 1500 ml 300 ml Balance 1287 ml -1500 ml 260 ml Intake Oral 0 ml 560 ml IV Total 1287 ml Output Urine Total 300 ml Hemodialysis 1500 ml # Voids 2 # Bowel Movements 2 3 Result Diagram: 04/23/17 0703 04/23/17 0703 Imaging Last Impressions Abdomen/Pelvis CT 04/22/17 0000 Signed Impressions: Service Date/Time: Saturday, April 22, 2017 21:08 - CONCLUSION: 1. Unchanged exam with moderate bilateral pleural effusions and moderate volume ascites. 2. Atrophic kidneys. 3. Splenomegaly. 4. Anasarca. Kiko De Leon Jr., MD Objective Remarks awake and alert lungs- no rales regular rhythm, occasional PVc abdomen- nontender no guarding, good bowel sounds, mild fluid wave extremities no edema A/P Problem List: (1) Pancreatitis ICD Code: K85.90 - Acute pancreatitis without necrosis or infection, unspecified (2) ESRD (end stage renal disease) on dialysis ICD Code: N18.6 - End stage renal disease; Z99.2 - Dependence on renal dialysis Status: Chronic (3) HTN (hypertension), benign ICD Code: I10 - Essential (primary) hypertension Status: Chronic (4) A-fib ICD Code: I48.91 - Unspecified atrial fibrillation Status: Acute (5) DM (diabetes mellitus) ICD Code: E11.9 - Type 2 diabetes mellitus without complications Status: Chronic Assessment and Plan A/P: Acute Pancreatitis: recent Dx of C Diff on Flagyl PO, Lipase 1431. CT Abd/ Pelvis relatively unchanged from previous, +ascites, images reviewed by me. Arrived to ER w/ leandera, encourage bowel rest in light of ongoing pain. Advance diet - regular consistency epeat Lipase in am. Pepcid IV. ESRD on HD: T//Tue, resume home medications, Dr. Perez ff HTN: continue meds monitor BP. A-fib: Chronic. rate controlled History of CVA- residual mild expressive aphasia Coumadin excess. INR still elevated Hold Coumadin. restart if less than 3 on further discussion with him History of C diff- 03/2017- was treated - completed course states having loose stools recheck c diff stools DVT Prophylaxis: INR up . patient up and ambulating Social work for d/c planning as needed. Problem Qualifiers (1) A-fib: Qualified Codes: I48.2 - Chronic atrial fibrillation (2) DM (diabetes mellitus): Forest Suh MD Apr 24, 2017 10:53
--- NOTE | 2017-04-24 12:08 | HHI.NPPN ---
Subjective History of Present Illness 72 year old with ESRD Review of Systems Gastrointestinal Gastrointestinal: Nausea & Vomiting Objective Data Data Vital Signs Date Time Temp Pulse Resp B/P (MAP) Pulse Ox O2 Delivery O2 Flow Rate FiO2 04/24/17 08:08 97.4 77 18 167/69 (101) 93 04/24/17 04:00 97.2 70 18 133/59 (83) 97 04/24/17 00:00 97.1 61 17 95/50 (65) 98 04/23/17 21:30 Room Air 04/23/17 20:00 76 04/23/17 20:00 98.1 76 18 148/74 (98) 100 04/23/17 16:00 98.9 109 18 173/76 (108) 98 -: 04/23/17 0703 04/23/17 0703 Physical Exam General Appearance: Well Developed Neck Neck Exam: Neck Supple Pulmonary Resp Exam: Clear Bilaterally, Breath Sounds Equal Cardiology CV Exam: Regular, Normal Sinus Rhythm Gastrointestinal/Abdomen GI Exam: Soft, Non-Tender, Bowel Sounds Present Extremeties Extremities Exam: No Edema Assessment/Plan Problem List: (1) ESRD (end stage renal disease) on dialysis ICD Codes: N18.6 - End stage renal disease; Z99.2 - Dependence on renal dialysis Status: Chronic Plan: had dialysis yesterday UF 1.5 L Patient is losing weight has c diff recheck today continue to monitor TTS schedule Dr. Zhang to follow (2) HTN (hypertension), benign ICD Codes: I10 - Essential (primary) hypertension Status: Chronic Plan: monitor BP (3) DM (diabetes mellitus) ICD Codes: E11.9 - Type 2 diabetes mellitus without complications Status: Chronic Plan: monitor BG (4) Pancreatitis ICD Codes: K85.90 - Acute pancreatitis without necrosis or infection, unspecified Plan: chemical likely due to colitis (5) A-fib ICD Codes: I48.91 - Unspecified atrial fibrillation Status: Acute Plan: on anti coagulation (6) Clostridium difficile colitis ICD Codes: A04.72 - Enterocolitis due to Clostridium difficile, not specified as recurrent Status: Acute Plan: need Rx Problem Qualifiers (1) DM (diabetes mellitus): (2) A-fib: Qualified Codes: I48.2 - Chronic atrial fibrillation German Perez MD Apr 24, 2017 12:08
[2017-04-24 13:57] LABS: C. DIFF EPI 027 PRESUMPTIVE POSITIVE (NEGATIVE)
[2017-04-24] MEDS: TAMSULOSIN HCL 0.4 MG CAP PO SCH (20:59)
[2017-04-24] MEDS: traZODone HCL 100 MG TAB PO SCH (20:59)
[2017-04-25] VITALS (9 sets, daily range): BP systolic 91–178; BP diastolic 53–77; PULSE 54–72; RESP 17–20; TEMP 97.2–97.7; O2SAT 94–97
--- NOTE | 2017-04-25 08:09 | HHI.PR ---
Subjective Remarks no complains of abdominal pain, nausea or vomiting + stools- formed, no mucus, no blood tolerated po well up and ambulating around impatient Objective Vitals Vital Signs Date Time Temp Pulse Resp B/P (MAP) Pulse Ox O2 Delivery O2 Flow Rate FiO2 04/25/17 04:00 97.4 54 18 126/63 (84) 95 04/25/17 00:00 97.6 68 20 142/58 (86) 95 04/24/17 22:00 Room Air 04/24/17 21:04 95/52 (66) 04/24/17 20:00 97.5 61 18 99/50 (66) 96 04/24/17 20:00 62 04/24/17 16:08 97.2 65 18 160/60 (93) 97 04/24/17 13:01 75 04/24/17 12:57 Room Air 04/24/17 12:08 97.5 59 18 162/62 (95) 99 04/24/17 08:08 97.4 77 18 167/69 (101) 93 I/O 04/24/17 04/24/17 04/24/17 04/25/17 04/25/17 04/25/17 07:00 15:00 23:00 07:00 15:00 23:00 Intake Total 560 ml 360 ml 360 ml Output Total 300 ml 300 ml Balance 260 ml 360 ml 60 ml Intake Oral 560 ml 360 ml 360 ml Output Urine Total 300 ml 300 ml # Voids 3 # Bowel Movements 3 1 1 Result Diagram: 04/23/17 0703 04/23/17 0703 Imaging Last Impressions Abdomen/Pelvis CT 04/22/17 0000 Signed Impressions: Service Date/Time: Saturday, April 22, 2017 21:08 - CONCLUSION: 1. Unchanged exam with moderate bilateral pleural effusions and moderate volume ascites. 2. Atrophic kidneys. 3. Splenomegaly. 4. Anasarca. Kiko De Leon Jr., MD Objective Remarks awake and alert, oriented x 3, speech clear lungs- no rales regular rhythm abdomen- nontender no guarding, good bowel sounds, mild ascites extremities no edema A/P Problem List: (1) Pancreatitis ICD Code: K85.90 - Acute pancreatitis without necrosis or infection, unspecified (2) ESRD (end stage renal disease) on dialysis ICD Code: N18.6 - End stage renal disease; Z99.2 - Dependence on renal dialysis Status: Chronic (3) HTN (hypertension), benign ICD Code: I10 - Essential (primary) hypertension Status: Chronic (4) A-fib ICD Code: I48.91 - Unspecified atrial fibrillation Status: Acute (5) DM (diabetes mellitus) ICD Code: E11.9 - Type 2 diabetes mellitus without complications Status: Chronic Assessment and Plan A/P: Acute Pancreatitis: clincially resolved diet advanced - regular consistency- tolerating po well ESRD on HD: T//Tue, resume home medications, Dr. Perez ff HTN: continue meds A-fib: Chronic. 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 INR elevated Hold Coumadin. BMP pending restart if less than 3 on further discussion with him History of C diff- 03/2017- was treated - per ptcompleted course- labs back- + C diff- + formed stools continue on Flagyl 500 mg po tid - will get ID consult- for recommendation DVT Prophylaxis: INR up . patient up and ambulating Social work for d/c planning as needed. explained to him and girlfriend on the phone Problem Qualifiers (1) A-fib: Qualified Codes: I48.2 - Chronic atrial fibrillation (2) DM (diabetes mellitus): Forest Suh MD Apr 25, 2017 08:09
[2017-04-25] MEDS: ASPIRIN 81 MG CHEW TAB PO SCH (08:55)
[2017-04-25] MEDS: SEVELAMER CARBONATE 800 MG TAB PO SCH ×3 (08:56→18:24)
[2017-04-25] MEDS: DILTIAZEM-CD 240 MG CAP ER PO SCH (08:56)
[2017-04-25] MEDS: DULoxetine HCl DR 30 MG CAP PO SCH (08:57)
[2017-04-25] MEDS: PHENYTOIN SODIUM 100 MG CAP PO SCH ×3 (08:57→18:24)
[2017-04-25] MEDS: metroNIDAZOLE 500 MG TAB PO SCH ×3 (08:57→18:24)
[2017-04-25] MEDS: DOCUSATE SODIUM 50 MG/SENNA 8.6 MG TAB PO SCH (08:57)
[2017-04-25] MEDS: MULTIVITAMIN TAB PO SCH (08:58)
[2017-04-25] MEDS: METOPROLOL TARTRATE 25 MG TAB PO SCH ×2 (08:58→20:06)
[2017-04-25 09:34] LABS: INTERNATIONAL NORMALIZED RATIO 3.9 RATIO; PROTHROMBIN TIME - PATIENT 45.2 SEC (9.8-11.6)
[2017-04-25] MEDS: FAMOTIDINE 20 MG/2 ML VIAL IV PUSH SCH (09:38)
--- NOTE | 2017-04-25 11:49 | HHI.NPPN ---
Subjective Renal Failure: Chronic, End Stage Renal Disease Interval History He is awake, not in distress. Diarrhea improved. (Missy Jones) Review of Systems Gastrointestinal Gastrointestinal: Nausea & Vomiting, Diarrhea (Missy Jones) Objective Data Data Vital Signs Date Time Temp Pulse Resp B/P (MAP) Pulse Ox O2 Delivery O2 Flow Rate FiO2 04/25/17 08:54 97.3 72 20 178/77 (110) 97 04/25/17 08:48 95 21 04/25/17 04:00 97.4 54 18 126/63 (84) 95 04/25/17 00:00 97.6 68 20 142/58 (86) 95 04/24/17 22:00 Room Air 04/24/17 21:04 95/52 (66) 04/24/17 20:00 97.5 61 18 99/50 (66) 96 04/24/17 20:00 62 04/24/17 16:08 97.2 65 18 160/60 (93) 97 04/24/17 13:01 75 04/24/17 12:57 Room Air 04/24/17 12:08 97.5 59 18 162/62 (95) 99 (Missy Jones) -: 04/23/17 0703 04/23/17 0703 Physical Exam General Appearance: Well Developed, Comfortable, Malnourished (Missy Jones) Throat Throat Exam: Oral Mucosa [place] & Moist (Missy Jones) Neck Neck Exam: Neck Supple (Missy Jones) Pulmonary Resp Exam: Clear Bilaterally, Breath Sounds Equal (Missy Jones) Cardiology CV Exam: Regular, Normal Sinus Rhythm (Missy Jones) Gastrointestinal/Abdomen GI Exam: Soft, Non-Tender, Bowel Sounds Present (Missy Jones) Musculoskeletal MS Exam: Joints Intact, Atrophy (Missy Jones) Integumentary Skin Exam: Clear, Warm, Dry, Intact (Missy Jones) Extremeties Extremities Exam: No Edema (Missy Jones) Neurologic Neuro Exam: Alert, Awake, Oriented, Speech Clear, Moving All Extremities (Missy Jones) Psychiatric Psych Exam: Appropriate Responses (Missy Jones) Assessment/Plan Discussed Condition With: Patient Assessment Summary: Anemia of CKD, End Stage Renal Disease Problem List: (1) ESRD (end stage renal disease) on dialysis ICD Codes: N18.6 - End stage renal disease; Z99.2 - Dependence on renal dialysis Status: Chronic Plan: TTS HD, he is due tomorrow Obtain intermittent metabolic profile Start protein supplements and Magace for appetite stimulation Avoid IVF (2) HTN (hypertension), benign ICD Codes: I10 - Essential (primary) hypertension Status: Chronic Plan: monitor BP (3) DM (diabetes mellitus) ICD Codes: E11.9 - Type 2 diabetes mellitus without complications Status: Chronic Plan: monitor BG, goal 140-180 mg/dL (4) Pancreatitis ICD Codes: K85.90 - Acute pancreatitis without necrosis or infection, unspecified Plan: likely due to colitis Improving, monitor (5) A-fib ICD Codes: I48.91 - Unspecified atrial fibrillation Status: Acute Plan: on anti coagulation (6) Clostridium difficile colitis ICD Codes: A04.72 - Enterocolitis due to Clostridium difficile, not specified as recurrent Status: Acute Plan: recurrent, on Flagyl TID ID to be consulted (Missy Jones) Plan patient was seen and examined. Admitted with C.diff colitis. On Flagyl. Patient reports that he is feeling better. Malnourished. Started Megace and protein supplement. (Stuart Zhang MD) Problem Qualifiers (1) DM (diabetes mellitus): (2) A-fib: Qualified Codes: I48.2 - Chronic atrial fibrillation Missy Jones Apr 25, 2017 11:49 Stuart Zhang MD Apr 26, 2017 11:28
[2017-04-25] MEDS: MEGESTROL ACETATE SUSP 400 MG/10 ML CUP PO SCH ×2 (12:57→20:06)
[2017-04-25 12:59] LABS: BICARBONATE 29.5 MEQ/L (21.0-32.0); POTASSIUM 4.3 MEQ/L (3.5-5.1)
--- NOTE | 2017-04-25 13:30 | PD.CONS ---
History of Present Illness Service Infectious disease Consult Requested By Dr Mahogany Suh Reason for Consult Evaluate patient with recurrent C. difficile colitis Primary Care Physician Kassandra Granda MD Diagnoses: History of Present Illness Patient seen and examined. Records reviewed. Patient is a 72-year-old male, presented to the hospital complaining of worsening abdominal pain. According to the patient since he had his heart surgery January 2017 he started having this problem of right-sided abdominal pain. Arrive sit as a very tight sensation on his right abdomen. He really makes it better. There's been no nausea or vomiting. Recently he started having diarrhea, and was diagnosed to have C. difficile colitis when he went to the emergency room on April 12, 2017. He was sent home and was given Flagyl, but was apparently took it twice a day instead of 3 times a day. He came back to the emergency room on March 16, and the dose was increased to 3 times a day. It looks like he completed his course of Flagyl. Patient however started having worsening abdominal pain. Patient states he continues to have diarrhea which apparently has been going on for a while as well. There's been no fever or chills. On presentation, patient is afebrile. His white count is mildly elevated at 14,000. His lipase is quite elevated. CT of the abdomen and pelvis showed ascites, and there is no evidence of bowel wall thickening. Stool for C. difficile was done again and it came back positive. Patient has been getting by mouth Flagyl. Patient states that his abdominal pain has not improved. The frequency of stool recorded since admission however has improved. Infectious disease consultation has been requested to evaluate the patient. Review of Systems Constitutional: COMPLAINS OF: Change in appetite, DENIES: Fever, Chills Eyes: DENIES: Eye pain Ears, nose, mouth, throat: DENIES: Nasal discharge, Oral lesions, Throat pain, Ear Pain, Sinus Pain, Odynophagia Respiratory: DENIES: Cough, Shortness of breath Cardiovascular: DENIES: Chest pain, Palpitations, Syncope Gastrointestinal: COMPLAINS OF: Diarrhea, Nausea, Vomiting, DENIES: Difficulty Swallowing Musculoskeletal: DENIES: Joint pain, Joint Swelling Integumentary: DENIES: Rash Neurologic: DENIES: Headache, Localized weakness Psychiatric: DENIES: Hallucinations Past Family Social History Allergies: Coded Allergies: No Known Allergies (Verified Adverse Reaction, Unknown, 04/22/17) Past Medical History Hypertension Atrial fibrillation Previous C. difficile colitis Diabetes CVA ESRD on HD T//Tue Past Surgical History AV fistula in the left upper extremity AVR, and mitral valve annuloplasty with a ring JAN 2017 Reported Medications I attest that I obtained, updated or reviewed the home and current medications. Reported Meds & Active Scripts Active Bentyl (Dicyclomine HCl) 10 Mg Cap 10 Mg PO QID Zofran (Ondansetron HCl) 4 Mg Tab 4 Mg PO Q6HR PRN Flagyl (Metronidazole) 500 Mg Tab 500 Mg PO TID 10 Days [Pt/Inr] Coumadin (Warfarin) 3 Mg Tab 2.5 Mg PO DAILY@1600 30 Days Eq Acetaminophen (Acetaminophen) 325 Mg Tab 650 Mg PO Q6HR PRN Rocaltrol (Calcitriol) 0.25 Mcg Cap 1 Mcg PO DAILY 30 Days Thera/Beta-Carotene (Multiple Vitamin) 1 Tab Tab 1 Tab PO DAILY 30 Days A.e.r. Witch Irina (Witch Irina/Glycerin) 12.5 %-50 % Pad 1 Applic TOPICAL UNSCH PRN 30 Days Ondansetron Odt 4 Mg Tab 4 Mg PO Q6H PRN 30 Days Renvela (Sevelamer Carbonate) 800 Mg Tab 2,400 Mg PO TID [address] (Duloxetine HCl) 30 Mg Capdr 30 Mg PO DAILY 30 Days Dilantin (Phenytoin Extended) 100 Mg Cap 200 Mg PO TID 30 Days Lopressor (Metoprolol Tartrate) 50 Mg Tab 75 Mg PO Q12HR 30 Days Walker Rolling/GetGo (Device) 1 Mis Mis Ea .ROUTE DIRECTED Coumadin (Warfarin) 1 Mg Tab 1 Mg PO DAILY hold for INR > 3.0 goal 2-3 Polyethylene Glycol 3350 Powder (Polyethylene Glycol) 17 Gram Pow 17 Gm PO DAILY Aspirin Low Strength (Aspirin) 81 Mg Chew 81 Mg PO DAILY hold for platelets <100K Metoprolol Tartrate 25 Mg Tab 50 Mg PO Q12HR Reported Trazodone (Trazodone HCl) 100 Mg Tablet 100 Mg PO HS Diltiazem CD 24 HR 240 Mg Caper 240 Mg PO DAILY Flomax (Tamsulosin HCl) 0.4 Mg Cap 0.4 Mg PO HS Active Ordered Medications Current Medications Medications (Trade) Dose Ordered Sig/Brittaney Route Start Time Stop Time Status Last Admin (Zofran Inj) 4 mg Q6H PRN IVP 04/22/17 22:15 (Tylenol) 650 mg Q6H PRN PO 04/22/17 22:15 ([place]weeden 5-325 Mg) 1 tab Q4H PRN PO 04/22/17 22:15 (Morphine Inj) 2 mg Q3H PRN IV PUSH 04/22/17 22:15 04/23/17 00:33 (Lynn-Colace) 1 tab BID PO 04/23/17 09:00 Future Hold 04/25/17 08:57 (Milk Of Magnesia Liq) 30 ml Q12H PRN PO 04/22/17 22:15 (Senokot) 17.2 mg Q12H PRN PO 04/22/17 22:15 (Dulcolax Supp) 10 mg DAILY PRN RECTAL 04/22/17 22:15 (Lactulose Liq) 30 ml DAILY PRN PO 04/22/17 22:15 (Aspirin Chew) 81 mg DAILY PO 04/23/17 09:00 04/25/17 08:55 (Cardizem Cd) 240 mg DAILY PO 04/23/17 09:00 04/25/17 08:56 (Cymbalta Dr) 30 mg DAILY PO 04/23/17 09:00 04/25/17 08:57 (Lopressor) 50 mg Q12HR PO 04/23/17 09:00 04/25/17 08:58 (Flagyl) 500 mg TID PO 04/23/17 09:00 04/25/17 12:57 (Dilantin) 200 mg TID PO 04/23/17 09:00 04/25/17 12:58 (Renvela) 2,400 mg TID PO 04/23/17 09:00 04/25/17 12:57 (Flomax) 0.4 mg HS PO 04/23/17 21:00 04/24/17 20:59 (Theragran) 1 tab DAILY PO 04/23/17 09:00 04/25/17 08:58 (Desyrel) 100 mg HS PO 04/23/17 21:00 04/24/17 20:59 (Heparin Inj) 8,000 units UNSCH PRN IV FLUSH 04/23/17 00:30 (Mannitol Inj) 12.5 gm UNSCH PRN IV 04/23/17 00:30 Albumin Human 100 ml @ 60 mls/hr UNSCH PRN IV 04/23/17 00:30 (Heparin Inj) UNSCH PRN .XX 04/23/17 00:30 (Gentamicin (Dialysis) Inj) 20 mg UNSCH PRN OTHER 04/23/17 00:30 (Zofran Inj) 4 mg UNSCH PRN IV PUSH 04/23/17 00:30 (Tylenol) 650 mg UNSCH PRN PO 04/23/17 00:30 (Benadryl) 25 mg UNSCH PRN PO 04/23/17 00:30 (Nitrostat Sl) 0.4 mg UNSCH PRN SL 04/23/17 00:30 (Catapres) 0.1 mg UNSCH PRN PO 04/23/17 00:30 (Epogen Inj) 2,000 units UNSCH PRN IV PUSH 04/23/17 00:30 (Gelfoam 12 Mm/7 Mm Top) 1 foam UNSCH PRN TOP 04/23/17 00:30 (Pepcid Inj) 10 mg Q12H IV PUSH 04/24/17 10:00 04/25/17 09:38 (Megace Liq) 400 mg BID PO 04/25/17 12:00 04/25/17 12:57 Family History Unremarkable Social History No smoking No alcohol abuse No illicit drugs Physical Exam Vital Signs Vital Signs Date Time Temp Pulse Resp B/P (MAP) Pulse Ox O2 Delivery O2 Flow Rate FiO2 04/25/17 08:54 97.3 72 20 178/77 (110) 97 04/25/17 08:48 95 21 04/25/17 04:00 97.4 54 18 126/63 (84) 95 04/25/17 00:00 97.6 68 20 142/58 (86) 95 04/24/17 22:00 Room Air 04/24/17 21:04 95/52 (66) 04/24/17 20:00 97.5 61 18 99/50 (66) 96 04/24/17 20:00 62 04/24/17 16:08 97.2 65 18 160/60 (93) 97 Physical Exam GENERAL: Patient is a thin, well-developed male, awake and alert, not in respiratory distress. SKIN: Warm and dry. No generalized rash, no ecchymoses and no evidence of embolic lesions. HEAD: Atraumatic. Normocephalic. No temporal wasting, or tenderness. EYES: [place] conjunctiva. No petechia or hemorrhage. Pupils equal, round and reactive to light. Extraocular movements full and intact. No scleral icterus. No injection or drainage. EARS, NOSE AND THROAT: Nose without bleeding or purulent nasal discharge. No sinus tenderness. Mucous membranes pink and moist. No oral lesions noted. No exudate. No oral thrush. NECK: Trachea midline. Supple and not tender, no meningeal signs CARDIOVASCULAR: Regular rate and rhythm. No murmurs, rubs or gallops heard. Healed sternotomy scar. RESPIRATORY: Clear to auscultation. Breath sounds equal bilaterally. No rales , wheezing or rhonchi ABDOMEN: Soft, distended, with diffuse tenderness, no guarding or rebound. Bowel sounds present and normoactive. EXTREMITIES: No clubbing, cyanosis, or edema.No joint effusion, has good ROM. No calf tenderness. Well perfused and warm. AVF LUE looks ok NEUROLOGICAL: Awake and alert. Cranial nerves grossly intact. Motor grossly within normal limits. PSYCHIATRIC: Normal affect, calm and cooperative. LINE: No evidence of infection Laboratory Laboratory Tests Test 04/25/17 08:33 04/25/17 11:44 Prothrombin Time 45.2 Prothromb Time International Ratio 3.9 Blood Urea Nitrogen 31 Creatinine 5.45 Random Glucose 156 Albumin 2.6 Calcium Level 8.8 Phosphorus Level 3.7 Sodium Level 137 Potassium Level 4.3 Chloride Level 100 Carbon Dioxide Level 29.5 Anion Gap 8 Estimat Glomerular Filtration Rate 13 Result Diagram: 04/23/17 0703 04/25/17 1144 Imaging RADIOLOGY STUDIES/FILMS REVIEWED Last Impressions Abdomen/Pelvis CT 04/22/17 0000 Signed Impressions: Service Date/Time: Saturday, April 22, 2017 21:08 - CONCLUSION: 1. Unchanged exam with moderate bilateral pleural effusions and moderate volume ascites. 2. Atrophic kidneys. 3. Splenomegaly. 4. Anasarca. Kiko De Leon Jr., MD Assessment and Plan Assessment and Plan IMPRESSION Abdominal pain likely due to pancreatitis Pancreatitis, etiology Claims he has chronic abominal pain and diarrhea C diff colitis, relapse/recurrent - CT with no bowel wall thickening ESRD, on HD MWF RECOMMENDATION Continue po Flagyl - give x 14 days Consider GI evaluation of his abdominal pain - has pancreatitis - has ascites on CT - diarrhea - has not has previous colonoscopy Monitor progress I will follow along with you Thank you for this consultation Discussed Condition With Explained plan to the patient Discussed with Betty Aparicio MD Apr 25, 2017 13:30
[2017-04-25] MEDS: FAMOTIDINE 20 MG TAB PO SCH (20:06)
[2017-04-25] MEDS: TAMSULOSIN HCL 0.4 MG CAP PO SCH (20:06)
[2017-04-25] MEDS: traZODone HCL 100 MG TAB PO SCH (20:06)
[2017-04-26] VITALS (10 sets, daily range): BP systolic 96–130; BP diastolic 51–62; PULSE 47–85; RESP 16–20; TEMP 97.2–98.8; O2SAT 93–98
[2017-04-26] MEDS: SEVELAMER CARBONATE 800 MG TAB PO SCH ×3 (09:00→18:31)
[2017-04-26] MEDS: PHENYTOIN SODIUM 100 MG CAP PO SCH ×3 (09:00→18:37)
[2017-04-26] MEDS: ASPIRIN 81 MG CHEW TAB PO SCH (09:00)
[2017-04-26] MEDS: metroNIDAZOLE 500 MG TAB PO SCH ×3 (09:00→18:31)
[2017-04-26 09:23] LABS: INTERNATIONAL NORMALIZED RATIO 2.6 RATIO; PROTHROMBIN TIME - PATIENT 30.5 SEC (9.8-11.6)
--- NOTE | 2017-04-26 09:38 | HHI.NPPN ---
Subjective Renal Failure: Chronic, End Stage Renal Disease Interval History Seen during dialysis. He has not had a BM today. Minor abdominal pain. (Missy Jones) Review of Systems Gastrointestinal Gastrointestinal: Nausea & Vomiting, Diarrhea (Missy Jones) Objective Data Data Vital Signs Date Time Temp Pulse Resp B/P (MAP) Pulse Ox O2 Delivery O2 Flow Rate FiO2 04/26/17 08:00 98.0 70 18 117/59 (78) 95 04/26/17 05:14 98.1 71 16 122/61 (81) 97 04/26/17 00:02 97.2 47 16 110/53 (72) 93 04/25/17 20:07 Room Air 04/25/17 20:03 97.7 57 18 91/53 (66) 95 04/25/17 20:00 58 04/25/17 20:00 58 04/25/17 16:00 97.4 55 19 106/53 (70) 97 04/25/17 12:00 97.2 63 17 122/57 (78) 94 (Missy Jones) -: 04/23/17 0703 04/25/17 1144 Physical Exam General Appearance: Well Developed, No Acute Distress, Comfortable, Malnourished (Missy Jones) Throat Throat Exam: Oral Mucosa [place] & Moist (Missy Jones) Neck Neck Exam: Neck Supple (Missy Jones) Pulmonary Resp Exam: Clear Bilaterally, Breath Sounds Equal, No Distress (Missy Jones) Cardiology CV Exam: Regular, Normal Sinus Rhythm (Missy Jones) Gastrointestinal/Abdomen GI Exam: Soft, Non-Tender, Bowel Sounds Present (Missy Jones) Musculoskeletal MS Exam: Joints Intact, Atrophy (Missy Jones) Integumentary Skin Exam: Clear, Warm, Dry, Intact (Missy Jones) Extremeties Extremities Exam: No Edema, Pedal Pulses Palpable (Missy Jones) Neurologic Neuro Exam: Alert, Awake, Oriented, Speech Clear, Moving All Extremities (Missy Jones) Psychiatric Psych Exam: Appropriate Responses (Missy Jones) Assessment/Plan Discussed Condition With: Patient Assessment Summary: Anemia of CKD, Malnutrition, Hypertension, End Stage Renal Disease Problem List: (1) ESRD (end stage renal disease) on dialysis ICD Codes: N18.6 - End stage renal disease; Z99.2 - Dependence on renal dialysis Status: Chronic Plan: Seen during dialysis on a 3K, 350 BFR, goal 3L Continue TTS HD Obtain intermittent metabolic profile On protein supplements and Megace for appetite stimulation Avoid IVF Left arm access works well (2) HTN (hypertension), benign ICD Codes: I10 - Essential (primary) hypertension Status: Chronic Plan: continue medications as ordered monitor BP (3) DM (diabetes mellitus) ICD Codes: E11.9 - Type 2 diabetes mellitus without complications Status: Chronic Plan: monitor BG, goal 140-180 mg/dL (4) Pancreatitis ICD Codes: K85.90 - Acute pancreatitis without necrosis or infection, unspecified Plan: likely due to colitis May need GI evaluation (5) A-fib ICD Codes: I48.91 - Unspecified atrial fibrillation Status: Acute Plan: on anti coagulation (6) Clostridium difficile colitis ICD Codes: A04.72 - Enterocolitis due to Clostridium difficile, not specified as recurrent Status: Acute Plan: recurrent, on Flagyl TID ID has evaluated (Missy Jones) Plan patient was seen and examined. Agree with above assessment and plan. Diarrhea is improving. Seen during dialysis. On Megace and nutritional support. (Stuart Zhang MD) Problem Qualifiers (1) DM (diabetes mellitus): (2) A-fib: Qualified Codes: I48.2 - Chronic atrial fibrillation Missy Jones Apr 26, 2017 09:38 Stuart Zhang MD Apr 27, 2017 10:17
[2017-04-26] MEDS: EPOETIN ALFA 10,000 UNITS/ML VIAL IV PUSH PRN (11:57)
--- NOTE | 2017-04-26 12:27 | HHI.IDPN ---
Subjective Subjective Remarks Patient is a 72-year-old male, presented to the hospital complaining of worsening abdominal pain. According to the patient since he had his heart surgery January 2017 he started having this problem of right-sided abdominal pain. Arrive sit as a very tight sensation on his right abdomen. He really makes it better. There's been no nausea or vomiting. Recently he started having diarrhea, and was diagnosed to have C. difficile colitis when he went to the emergency room on April 12, 2017. He was sent home and was given Flagyl, but was apparently took it twice a day instead of 3 times a day. He came back to the emergency room on March 16, and the dose was increased to 3 times a day. It looks like he completed his course of Flagyl. Patient however started having worsening abdominal pain. Patient states he continues to have diarrhea which apparently has been going on for a while as well. There's been no fever or chills. On presentation, patient is afebrile. His white count is mildly elevated at 14,000. His lipase is quite elevated. CT of the abdomen and pelvis showed ascites, and there is no evidence of bowel wall thickening. Stool for C. difficile was done again and it came back positive. Patient has been getting by mouth Flagyl. Patient states that his abdominal pain has not improved. The frequency of stool recorded since admission however has improved. Infectious disease consultation has been requested to evaluate the patient. Notes reviewed Stool better Abdominal pain same Temps ok Had HD today Antibiotics Flagyl PO Lines PIV Past Medical History Hypertension Atrial fibrillation Previous C. difficile colitis Diabetes CVA ESRD on HD T//Tue Past Surgical History AV fistula in the left upper extremity AVR, and mitral valve annuloplasty with a ring JAN 2017 Allergies: Coded Allergies: No Known Allergies (Verified Adverse Reaction, Unknown, 04/22/17) Objective . Vital Signs Date Time Temp Pulse Resp B/P (MAP) Pulse Ox O2 Delivery O2 Flow Rate FiO2 04/26/17 08:05 71 04/26/17 08:00 98.0 70 18 117/59 (78) 95 04/26/17 07:00 Room Air 04/26/17 05:14 98.1 71 16 122/61 (81) 97 04/26/17 00:02 97.2 47 16 110/53 (72) 93 04/25/17 20:07 Room Air 04/25/17 20:03 97.7 57 18 91/53 (66) 95 04/25/17 20:00 58 04/25/17 20:00 58 04/25/17 16:00 97.4 55 19 106/53 (70) 97 04/26/17 04/26/17 04/27/17 15:00 23:00 07:00 Output Total 3000 ml Balance -3000 ml Hemodialysis 3000 ml . Laboratory Tests Test 04/25/17 11:44 Blood Urea Nitrogen 31 MG/DL Creatinine 5.45 MG/DL Random Glucose 156 MG/DL Albumin 2.6 GM/DL Calcium Level 8.8 MG/DL Phosphorus Level 3.7 MG/DL Sodium Level 137 MEQ/L Potassium Level 4.3 MEQ/L Chloride Level 100 MEQ/L Carbon Dioxide Level 29.5 MEQ/L Anion Gap 8 MEQ/L Estimat Glomerular Filtration Rate 13 ML/MIN Imaging Last Impressions Abdomen/Pelvis CT 04/22/17 0000 Signed Impressions: Service Date/Time: Saturday, April 22, 2017 21:08 - CONCLUSION: 1. Unchanged exam with moderate bilateral pleural effusions and moderate volume ascites. 2. Atrophic kidneys. 3. Splenomegaly. 4. Anasarca. Kiko De Leon Jr., MD Physical Exam GENERAL: awake and alert, not in respiratory distress. SKIN: Warm and dry. No generalized rash, no ecchymoses and no evidence of embolic lesions. HEAD: Atraumatic. Normocephalic. No temporal wasting, or tenderness. EYES: [place] conjunctiva. No petechia or hemorrhage. Pupils equal, round and reactive to light. Extraocular movements full and intact. No scleral icterus. No injection or drainage. EARS, NOSE AND THROAT: Nose without bleeding or purulent nasal discharge. No sinus tenderness. Mucous membranes pink and moist. No oral lesions noted. No exudate. No oral thrush. NECK: Trachea midline. Supple and not tender, no meningeal signs CARDIOVASCULAR: Regular rate and rhythm. No murmurs, rubs or gallops heard. Healed sternotomy scar. RESPIRATORY: Clear to auscultation. Breath sounds equal bilaterally. No rales , wheezing or rhonchi ABDOMEN: Soft, distended, with diffuse tenderness, no guarding or rebound. Bowel sounds present and normoactive. EXTREMITIES: No clubbing, cyanosis, or edema.No joint effusion, has good ROM. No calf tenderness. Well perfused and warm. AVF LUE looks ok NEUROLOGICAL: Awake and alert. Cranial nerves grossly intact. Motor grossly within normal limits. PSYCHIATRIC: Normal affect, calm and cooperative. LINE: No evidence of infection Assessment & Plan Remarks IMPRESSION Abdominal pain likely due to pancreatitis Pancreatitis, etiology? - Claims he has chronic abominal pain and diarrhea C diff colitis, relapse/recurrent - CT with no bowel wall thickening ESRD, on HD MWF RECOMMENDATION Continue po Flagyl - give x 14 days Consider GI evaluation of his abdominal pain - has pancreatitis - has ascites on CT - diarrhea - has not has previous colonoscopy Monitor progress Betty Ordaz MD Apr 26, 2017 12:27
--- NOTE | 2017-04-26 12:30 | HHI.PR ---
Subjective Remarks no complains sttol frequency- decreased - none overnight good po , no nausea or vomiting Objective Vitals Vital Signs Date Time Temp Pulse Resp B/P (MAP) Pulse Ox O2 Delivery O2 Flow Rate FiO2 04/26/17 08:05 71 04/26/17 08:00 98.0 70 18 117/59 (78) 95 04/26/17 07:00 Room Air 04/26/17 05:14 98.1 71 16 122/61 (81) 97 04/26/17 00:02 97.2 47 16 110/53 (72) 93 04/25/17 20:07 Room Air 04/25/17 20:03 97.7 57 18 91/53 (66) 95 04/25/17 20:00 58 04/25/17 20:00 58 04/25/17 16:00 97.4 55 19 106/53 (70) 97 I/O 04/25/17 04/25/17 04/25/17 04/26/17 04/26/17 04/26/17 07:00 15:00 23:00 07:00 15:00 23:00 Intake Total 360 ml 240 ml Output Total 300 ml 0 ml 3000 ml Balance 60 ml 240 ml -3000 ml Intake Oral 360 ml 240 ml Output Urine Total 300 ml 0 ml Hemodialysis 3000 ml # Bowel Movements 1 0 Result Diagram: 04/23/17 0703 04/25/17 1144 Imaging Last Impressions Abdomen/Pelvis CT 04/22/17 0000 Signed Impressions: Service Date/Time: Saturday, April 22, 2017 21:08 - CONCLUSION: 1. Unchanged exam with moderate bilateral pleural effusions and moderate volume ascites. 2. Atrophic kidneys. 3. Splenomegaly. 4. Anasarca. Kiko De Leon Jr., MD Objective Remarks awake and alert, oriented x 3, speech clear lungs- no rales regular rhythm abdomen- nontender no guarding, good bowel sounds, + mild ascites extremities no edema A/P Problem List: (1) Pancreatitis ICD Code: K85.90 - Acute pancreatitis without necrosis or infection, unspecified (2) ESRD (end stage renal disease) on dialysis ICD Code: N18.6 - End stage renal disease; Z99.2 - Dependence on renal dialysis Status: Chronic (3) HTN (hypertension), benign ICD Code: I10 - Essential (primary) hypertension Status: Chronic (4) A-fib ICD Code: I48.91 - Unspecified atrial fibrillation Status: Acute (5) DM (diabetes mellitus) ICD Code: E11.9 - Type 2 diabetes mellitus without complications Status: Chronic Assessment and Plan A/P: Acute Pancreatitis: clincially resolved diet advanced - regular consistency - tolerating po well ESRD on HD: T//Tue, resume home medications, Dr. Perez ff HTN: continue meds A-fib: Chronic. 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 INR down to 2.6 Hold Coumadin. will hold for now- GI consulted for eval. - may need procedure Recurrent c diff infection 04/25 on further discussion with him History of C diff- 03/2017- was treated - per ptcompleted course- labs back- + C diff- + formed stools continue on Flagyl 500 mg po tid - appreciate ID consult GI consult- evaluate for colonoscopy Ascites- - no peripheral edema chronic thrombocytopenia ? liver involvement. patient already on HD for ESRD GI consulted DVT Prophylaxis: INR up . patient up and ambulating Social work for d/c planning as needed. Problem Qualifiers (1) A-fib: Qualified Codes: I48.2 - Chronic atrial fibrillation (2) DM (diabetes mellitus): Forest Suh MD Apr 26, 2017 12:30
[2017-04-26] MEDS: DILTIAZEM-CD 240 MG CAP ER PO SCH (13:27)
[2017-04-26] MEDS: FAMOTIDINE 20 MG TAB PO SCH (13:27)
[2017-04-26] MEDS: MULTIVITAMIN TAB PO SCH (13:27)
[2017-04-26] MEDS: METOPROLOL TARTRATE 25 MG TAB PO SCH ×2 (13:27→21:17)
[2017-04-26] MEDS: DULoxetine HCl DR 30 MG CAP PO SCH (13:28)
[2017-04-26] MEDS: MEGESTROL ACETATE SUSP 400 MG/10 ML CUP PO SCH ×2 (13:29→21:17)
[2017-04-26] MEDS ORDERED: PILL SPLITTER OTHER PRN (14:15)
[2017-04-26] MEDS: MORPHINE SULFATE 4 MG/ML INJ IV PUSH PRN ×2 (14:43→18:38)
--- NOTE | 2017-04-26 16:07 | PD.CONS ---
HPI History of Present Illness This is a 72 year old male with AF on coumadin, c diff, DM, CVA, ESRD on HD who presented with abd pain. Per EMR onset 2-3 weeks ago and pt c/o decreased PO intake yet arrived with a half eaten pizza. Admits loose stool. Tells me he has blood in his stool and black tarry stool. Per RN there has been no black tarry stool; visualized his last BM and it was soft and brown. he also tells me he has no nausea but is asking RN for his nausesa meds. Pt poor/ inconsistent historian. He was found to be pos for cdiff and have elevated LFTs , lipase. CT showed splenomegaly, moderate ascites, bilat pleural effusions. (Aleena Hernandez) PFSH Past Medical History PMH: HTN, A. fib on Coumadin, C Diff, DM, h/o CVA and ESRD on HD T//Tue Past Surgical History PAST SURGICAL HISTORY: Fistula, CABG (Aleena Hernandez) Coded Allergies: No Known Allergies (Verified Adverse Reaction, Unknown, 04/22/17) Family History PAST FAMILY HISTORY: Reviewed. No h/o DM or CAD Social History PAST SOCIAL HISTORY: Negative for alcohol, tobacco or drugs. (Aleena Hernandez) Review of Systems ROS noncontributory (Aleena Hernandez) GI Exam Vitals I&O Vital Signs Date Time Temp Pulse Resp B/P (MAP) Pulse Ox O2 Delivery O2 Flow Rate FiO2 04/26/17 12:47 98.7 85 18 130/62 (84) 98 04/26/17 08:05 71 04/26/17 08:00 98.0 70 18 117/59 (78) 95 04/26/17 07:00 Room Air 04/26/17 05:14 98.1 71 16 122/61 (81) 97 04/26/17 00:02 97.2 47 16 110/53 (72) 93 04/25/17 20:07 Room Air 04/25/17 20:03 97.7 57 18 91/53 (66) 95 04/25/17 20:00 58 04/25/17 20:00 58 04/25/17 16:00 97.4 55 19 106/53 (70) 97 I/O 04/25/17 04/25/17 04/25/17 04/26/17 04/26/17 04/26/17 07:00 15:00 23:00 07:00 15:00 23:00 Intake Total 360 ml 240 ml Output Total 300 ml 0 ml 3000 ml Balance 60 ml 240 ml -3000 ml Intake Oral 360 ml 240 ml Output Urine Total 300 ml 0 ml Hemodialysis 3000 ml # Bowel Movements 1 0 Imaging Last Impressions Abdomen/Pelvis CT 04/22/17 0000 Signed Impressions: Service Date/Time: Saturday, April 22, 2017 21:08 - CONCLUSION: 1. Unchanged exam with moderate bilateral pleural effusions and moderate volume ascites. 2. Atrophic kidneys. 3. Splenomegaly. 4. Anasarca. Kiko De Leon Jr., MD Laboratory Test 04/26/17 08:29 Prothrombin Time 30.5 SEC Prothromb Time International Ratio 2.6 RATIO Physical Examination HEENT: Pupils round and reactive to light; normocephalic; atraumatic; no jaundice. CHEST: CTA CARDIAC: RRR +murmur ABDOMEN: Soft, mildly distended, diffusely tender; no hepatosplenomegaly; bowel sounds are present in all four quadrants. EXTREMITIES: No clubbing, cyanosis, or edema. SKIN: Normal; no rash; no jaundice. 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 (Aleena Hernandez) Assessment and Plan Plan ASSESSMENT - anemia - mild, at baseline. no obvious bleeding. he was on coumadin but this has been held. INR 2.7 - elevated LFTs - This seems to be chronic. not obstructive. CT showing moderate ascites, splenomegaly, pleural effusions. will get liver w/u - loose stool - pos c diff on flagyl, gent - elevated lipase - CT as above. lipase decreasing. - ESRD on HD PLAN - liver w/u - stool occult blood - monitor labs - continue abx - supportive care - further recs to follow This pt seen by myself and Dr Hagan and this note is written on his behalf (Aleena Hernandez) Physician Comments Patient seen and examined Agree with above Continue with current supportive care Monitor labs At this point the anemia does not appear to be of any significance it's probably secondary to end-stage renal disease and hypersplenism and possibly for other reasons The elevated lipase could be secondary to be end-stage renal disease the patient does not appear to have pancreatitis clinically or radiologically we will continue to monitor Regarding the ascites we will seriously consider pursuing paracentesis for diagnostic purposes but at this point we will continue to hold off due to the fact that the patient is coagulopathy and we will discuss the case further with regards to this issue of ascites with nephrology to see if any prior workup has been done (Zach Hagan MD) Aleena Hernandez Apr 26, 2017 16:07 Zach Hagan MD Apr 26, 2017 23:11
[2017-04-26] MEDS: TAMSULOSIN HCL 0.4 MG CAP PO SCH (21:17)
[2017-04-26] MEDS: traZODone HCL 100 MG TAB PO SCH (21:17)
[2017-04-27] VITALS (8 sets, daily range): BP systolic 93–127; BP diastolic 53–61; PULSE 55–65; RESP 16–20; TEMP 97.1–98; O2SAT 94–98
[2017-04-27 08:09] LABS: INTERNATIONAL NORMALIZED RATIO 2.6 RATIO; PROTHROMBIN TIME - PATIENT 30.1 SEC (9.8-11.6)
[2017-04-27 08:29] LABS: TRANSFERRIN IRON PROFILE 128 MG/DL (200-360)
[2017-04-27] MEDS: SEVELAMER CARBONATE 800 MG TAB PO SCH ×3 (09:09→17:42)
[2017-04-27] MEDS: MULTIVITAMIN TAB PO SCH (09:09)
[2017-04-27] MEDS: DULoxetine HCl DR 30 MG CAP PO SCH (09:09)
[2017-04-27] MEDS: metroNIDAZOLE 500 MG TAB PO SCH ×3 (09:09→17:42)
[2017-04-27] MEDS: ASPIRIN 81 MG CHEW TAB PO SCH (09:10)
[2017-04-27] MEDS: PHENYTOIN SODIUM 100 MG CAP PO SCH ×3 (09:10→17:43)
[2017-04-27] MEDS: MEGESTROL ACETATE SUSP 400 MG/10 ML CUP PO SCH ×2 (09:10→21:09)
[2017-04-27] MEDS: DILTIAZEM-CD 240 MG CAP ER PO SCH (09:10)
[2017-04-27] MEDS: FAMOTIDINE 20 MG TAB PO SCH ×2 (09:10→21:09)
[2017-04-27] MEDS: METOPROLOL TARTRATE 25 MG TAB PO SCH ×2 (09:16→21:08)
--- NOTE | 2017-04-27 09:55 | HHI.PR ---
Subjective Remarks stools formed, non blood sue bodminal pain- but feels abdomen is bigger Objective Vitals Vital Signs Date Time Temp Pulse Resp B/P (MAP) Pulse Ox O2 Delivery O2 Flow Rate FiO2 04/27/17 09:50 21 04/27/17 04:50 97.9 57 18 95/53 (67) 98 04/26/17 23:50 97.3 61 18 96/55 (69) 93 04/26/17 21:00 97.9 62 18 102/51 (68) 96 04/26/17 20:05 62 04/26/17 20:00 Room Air 04/26/17 17:49 96 21 04/26/17 16:00 98.8 77 20 111/55 (73) 96 04/26/17 12:47 98.7 85 18 130/62 (84) 98 I/O 04/26/17 04/26/17 04/26/17 04/27/17 04/27/17 04/27/17 07:00 15:00 23:00 07:00 15:00 23:00 Intake Total 240 ml 460 ml 100 ml Output Total 0 ml 3000 ml 0 ml Balance 240 ml -3000 ml 460 ml 100 ml Intake Oral 240 ml 460 ml 100 ml Output Urine Total 0 ml 0 ml Hemodialysis 3000 ml # Voids 0 # Bowel Movements 0 1 0 Result Diagram: 04/23/17 0703 04/25/17 1144 Imaging Last Impressions Abdomen/Pelvis CT 04/22/17 0000 Signed Impressions: Service Date/Time: Saturday, April 22, 2017 21:08 - CONCLUSION: 1. Unchanged exam with moderate bilateral pleural effusions and moderate volume ascites. 2. Atrophic kidneys. 3. Splenomegaly. 4. Anasarca. Kiko De Leon Jr., MD Objective Remarks awake and alert, oriented x 3, speech clear lungs- no rales, no wheezes regular rhythm abdomen- nontender no guarding, good bowel sounds, + fluid wave extremities no edema A/P Problem List: (1) Pancreatitis ICD Code: K85.90 - Acute pancreatitis without necrosis or infection, unspecified (2) ESRD (end stage renal disease) on dialysis ICD Code: N18.6 - End stage renal disease; Z99.2 - Dependence on renal dialysis Status: Chronic (3) HTN (hypertension), benign ICD Code: I10 - Essential (primary) hypertension Status: Chronic (4) A-fib ICD Code: I48.91 - Unspecified atrial fibrillation Status: Acute (5) DM (diabetes mellitus) ICD Code: E11.9 - Type 2 diabetes mellitus without complications Status: Chronic Assessment and Plan A/P: Acute Pancreatitis: clinically resolved diet advanced - regular consistency - tolerating po well ESRD on HD: T//Sat, resume home medications, Dr. Perez ff HTN: continue meds A-fib: Chronic. rate controlled History of CVA- with some residual mild expressive aphasia S/P AVR repair 01/2017 Coumadin excess.-resolved INR down 2.6 Hold Coumadin. ff NR- for possible procedure will decrease Lopressor to 25 mg po bid. Decrease Cardizem to 180 mg CD daily get an Echo- ? check EF- ascites but no peripheral edema Recurrent c diff infection 04/25 on further discussion with him History of C diff- 03/2017- was treated - per pt completed course- labs back - + C diff- + formed stools continue on Flagyl 500 mg po tid - complete total 14 days- till 05/07 appreciate ID consult GI consult- evaluate for colonoscopy Moderate Ascites- - no peripheral edema. comfortable, no pain chronic Thrombocytopenia ? underlying liver disease patient denies recent alcohol use- used to [address] with mild splenomegaly, as stated above get Echo GI consulted - considering paracentesis- - if plan to do this- will reverse INR with FFP DVT Prophylaxis: INR up . patient up and ambulating Social work for d/c planning as needed. Problem Qualifiers (1) A-fib: Qualified Codes: I48.2 - Chronic atrial fibrillation (2) DM (diabetes mellitus): Forest Suh MD Apr 27, 2017 09:55
--- NOTE | 2017-04-27 12:27 | HHI.NPPN ---
Subjective Renal Failure: Chronic, End Stage Renal Disease Interval History He is resting. Dialyzed without incident yesterday. (Missy Jones) Review of Systems Gastrointestinal Gastrointestinal: Nausea & Vomiting, Diarrhea (Missy Jones) Objective Data Data Vital Signs Date Time Temp Pulse Resp B/P (MAP) Pulse Ox O2 Delivery O2 Flow Rate FiO2 04/27/17 09:50 21 04/27/17 08:00 61 04/27/17 08:00 97.2 65 20 127/61 (83) 98 04/27/17 04:50 97.9 57 18 95/53 (67) 98 04/26/17 23:50 97.3 61 18 96/55 (69) 93 04/26/17 21:00 97.9 62 18 102/51 (68) 96 04/26/17 20:05 62 04/26/17 20:00 Room Air 04/26/17 17:49 96 21 04/26/17 16:00 98.8 77 20 111/55 (73) 96 04/26/17 12:47 98.7 85 18 130/62 (84) 98 (Missy Jones) -: 04/23/17 0703 04/25/17 1144 Physical Exam General Appearance: Well Developed, No Acute Distress, Comfortable, Malnourished (Missy Jones) Throat Throat Exam: Oral Mucosa [place] & Moist (Missy Jones) Neck Neck Exam: Neck Supple (Missy Jones) Pulmonary Resp Exam: Clear Bilaterally, Breath Sounds Equal, No Distress (Missy Jones) Cardiology CV Exam: Regular, Normal Sinus Rhythm (Missy Jones) Gastrointestinal/Abdomen GI Exam: Soft, Non-Tender, Bowel Sounds Present (Missy Jones) Musculoskeletal MS Exam: Joints Intact, Atrophy (Missy Jones) Integumentary Skin Exam: Clear, Warm, Dry, Intact (Missy Jones) Extremeties Extremities Exam: No Edema, Pedal Pulses Palpable (Missy Jones) Neurologic Neuro Exam: Alert, Awake, Oriented, Speech Clear, Moving All Extremities (Missy Jones) Psychiatric Psych Exam: Appropriate Responses (Missy Jones) Assessment/Plan Discussed Condition With: Patient Assessment Summary: Anemia of CKD, Malnutrition, Hypertension, End Stage Renal Disease Problem List: (1) ESRD (end stage renal disease) on dialysis ICD Codes: N18.6 - End stage renal disease; Z99.2 - Dependence on renal dialysis Status: Chronic Plan: 3 liters fluid removal yesterday Continue TTS HD Obtain intermittent metabolic profile On protein supplements and Megace for appetite stimulation Avoid IVF Left arm access works well (2) HTN (hypertension), benign ICD Codes: I10 - Essential (primary) hypertension Status: Chronic Plan: continue medications as ordered monitor BP (3) DM (diabetes mellitus) ICD Codes: E11.9 - Type 2 diabetes mellitus without complications Status: Chronic Plan: monitor BG, goal 140-180 mg/dL (4) Pancreatitis ICD Codes: K85.90 - Acute pancreatitis without necrosis or infection, unspecified Plan: likely due to colitis GI following, liver work up in progress He has ascites per imaging, may need paracentesis (5) A-fib ICD Codes: I48.91 - Unspecified atrial fibrillation Status: Acute Plan: on anti coagulation (6) Clostridium difficile colitis ICD Codes: A04.72 - Enterocolitis due to Clostridium difficile, not specified as recurrent Status: Acute Plan: recurrent, on Flagyl TID ID has evaluated (Missy Jones) Plan patient was seen and examined. Dialysis will be continued three times/week, TTS. He has moderate amount of ascites, could be due to renal failure, and fluid overload, but I do not believe any workup has been done. Mild elevation in Lipase is noted, this is likely due to ESRD, no clinical signs of pancreatitis. (Stuart Zhang MD) Problem Qualifiers (1) DM (diabetes mellitus): (2) A-fib: Qualified Codes: I48.2 - Chronic atrial fibrillation Missy Jones Apr 27, 2017 12:27 Stuart Zhang MD Apr 27, 2017 21:28
--- NOTE | 2017-04-27 14:34 | HHI.IDPN ---
Subjective Subjective Remarks Patient is a 72-year-old male, presented to the hospital complaining of worsening abdominal pain. According to the patient since he had his heart surgery January 2017 he started having this problem of right-sided abdominal pain. Arrive sit as a very tight sensation on his right abdomen. He really makes it better. There's been no nausea or vomiting. Recently he started having diarrhea, and was diagnosed to have C. difficile colitis when he went to the emergency room on April 12, 2017. He was sent home and was given Flagyl, but was apparently took it twice a day instead of 3 times a day. He came back to the emergency room on March 16, and the dose was increased to 3 times a day. It looks like he completed his course of Flagyl. Patient however started having worsening abdominal pain. Patient states he continues to have diarrhea which apparently has been going on for a while as well. There's been no fever or chills. On presentation, patient is afebrile. His white count is mildly elevated at 14,000. His lipase is quite elevated. CT of the abdomen and pelvis showed ascites, and there is no evidence of bowel wall thickening. Stool for C. difficile was done again and it came back positive. Patient has been getting by mouth Flagyl. Patient states that his abdominal pain has not improved. The frequency of stool recorded since admission however has improved. Infectious disease consultation has been requested to evaluate the patient. Notes reviewed Stool better Abdominal pain better Temps ok GI to eval patient Antibiotics Flagyl PO Lines PIV Past Medical History Hypertension Atrial fibrillation Previous C. difficile colitis Diabetes CVA ESRD on HD T//Tue Past Surgical History AV fistula in the left upper extremity AVR, and mitral valve annuloplasty with a ring JAN 2017 Allergies: Coded Allergies: No Known Allergies (Verified Adverse Reaction, Unknown, 04/22/17) Objective . Vital Signs Date Time Temp Pulse Resp B/P (MAP) Pulse Ox O2 Delivery O2 Flow Rate FiO2 04/27/17 09:50 21 04/27/17 08:00 61 04/27/17 08:00 97.2 65 20 127/61 (83) 98 04/27/17 07:15 Room Air 04/27/17 04:50 97.9 57 18 95/53 (67) 98 04/26/17 23:50 97.3 61 18 96/55 (69) 93 04/26/17 21:00 97.9 62 18 102/51 (68) 96 04/26/17 20:05 62 04/26/17 20:00 Room Air 04/26/17 17:49 96 21 04/26/17 16:00 98.8 77 20 111/55 (73) 96 . Laboratory Tests Test 04/27/17 07:36 Iron Level 68 MCG/DL Total Iron Binding Capacity 179 MCG/DL Percent Iron Saturation 37.9 % Tumor Marker Alpha Fetoprotein 2.5 NG/ML Imaging Last Impressions Abdomen/Pelvis CT 04/22/17 0000 Signed Impressions: Service Date/Time: Saturday, April 22, 2017 21:08 - CONCLUSION: 1. Unchanged exam with moderate bilateral pleural effusions and moderate volume ascites. 2. Atrophic kidneys. 3. Splenomegaly. 4. Anasarca. Kiko De Leon Jr., MD Physical Exam GENERAL: awake and alert, not in respiratory distress. SKIN: Warm and dry. No generalized rash, no ecchymoses and no evidence of embolic lesions. HEAD: Atraumatic. Normocephalic. No temporal wasting, or tenderness. EYES: [place] conjunctiva. No petechia or hemorrhage. Pupils equal, round and reactive to light. Extraocular movements full and intact. No scleral icterus. No injection or drainage. EARS, NOSE AND THROAT: Nose without bleeding or purulent nasal discharge. No sinus tenderness. Mucous membranes pink and moist. No oral lesions noted. No exudate. No oral thrush. NECK: Trachea midline. Supple and not tender, no meningeal signs CARDIOVASCULAR: Regular rate and rhythm. No murmurs, rubs or gallops heard. Healed sternotomy scar. RESPIRATORY: Clear to auscultation. Breath sounds equal bilaterally. No rales , wheezing or rhonchi ABDOMEN: Soft, distended, with diffuse tenderness, no guarding or rebound. Bowel sounds present and normoactive. EXTREMITIES: No clubbing, cyanosis, or edema.No joint effusion, has good ROM. No calf tenderness. Well perfused and warm. AVF LUE looks ok NEUROLOGICAL: Awake and alert. Cranial nerves grossly intact. Motor grossly within normal limits. PSYCHIATRIC: Normal affect, calm and cooperative. LINE: No evidence of infection Assessment & Plan Remarks IMPRESSION Abdominal pain likely due to pancreatitis Pancreatitis, etiology? - Claims he has chronic abdominal pain and diarrhea C diff colitis, relapse/recurrent - CT with no bowel wall thickening ESRD, on HD MWF RECOMMENDATION Continue po Flagyl - give x 14 days - end date in [facility] to evaluate patient Try to avoid systemic Abx Monitor progress Clinically doing well from ID standpoint I will be available prn Please call if with new ID issue or question Betty Ordaz MD Apr 27, 2017 14:34
[2017-04-27 16:30] LABS: ANA SCREEN NEG (NEG)
[2017-04-27] MEDS: traZODone HCL 100 MG TAB PO SCH (21:08)
[2017-04-27] MEDS: TAMSULOSIN HCL 0.4 MG CAP PO SCH (21:08)
[2017-04-28] VITALS (7 sets, daily range): BP systolic 94–141; BP diastolic 52–65; PULSE 58–86; RESP 16–18; TEMP 97.2–98.3; O2SAT 94–98
[2017-04-28] MEDS: MEGESTROL ACETATE SUSP 400 MG/10 ML CUP PO SCH ×2 (09:00→20:56)
[2017-04-28] MEDS: DULoxetine HCl DR 30 MG CAP PO SCH (09:00)
[2017-04-28] MEDS: EPOETIN ALFA 10,000 UNITS/ML VIAL IV PUSH PRN (13:13)
[2017-04-28] MEDS: GELATIN 12 MM/7 MM FOAM TOP PRN (13:14)
[2017-04-28] MEDS: SEVELAMER CARBONATE 800 MG TAB PO SCH ×2 (14:42→18:06)
[2017-04-28] MEDS: MULTIVITAMIN TAB PO SCH (14:42)
[2017-04-28] MEDS: PHENYTOIN SODIUM 100 MG CAP PO SCH ×2 (14:43→18:06)
[2017-04-28] MEDS: FAMOTIDINE 20 MG TAB PO SCH ×2 (14:43→20:56)
[2017-04-28] MEDS: METOPROLOL TARTRATE 25 MG TAB PO SCH ×2 (14:43→20:56)
[2017-04-28] MEDS: metroNIDAZOLE 500 MG TAB PO SCH ×2 (14:43→18:06)
--- NOTE | 2017-04-28 14:43 | HHI.PR ---
Subjective Remarks Follow-up for acute pancreatitis, ascites, C. difficile Patient no complaints. He is taking oral intake. Denies any abdominal pain. He remains afebrile. Stated that diarrhea has improved. Objective Vitals Vital Signs Date Time Temp Pulse Resp B/P (MAP) Pulse Ox O2 Delivery O2 Flow Rate FiO2 04/28/17 08:00 98.2 67 18 130/65 (86) 95 04/28/17 08:00 68 04/28/17 04:40 97.5 58 16 97/55 (69) 97 04/27/17 23:57 97.8 55 16 96/56 (69) 98 04/27/17 23:38 Room Air 04/27/17 20:30 95 21 04/27/17 20:10 98.0 58 16 109/58 (75) 96 04/27/17 20:00 59 04/27/17 16:00 97.1 56 20 107/57 (74) 94 I/O 04/27/17 04/27/17 04/27/17 04/28/17 04/28/17 04/28/17 07:00 15:00 23:00 07:00 15:00 23:00 Intake Total 100 ml 480 ml 240 ml Output Total 0 ml 2500 ml Balance 100 ml 480 ml 240 ml -2500 ml Intake Oral 100 ml 480 ml 240 ml Output Urine Total 0 ml Hemodialysis 2500 ml # Voids 3 2 # Bowel Movements 0 1 0 Result Diagram: 04/25/17 1144 Objective Remarks GENERAL: in NAD CARDIOVASCULAR: Regular rate and rhythm without murmurs, gallops, or rubs. RESPIRATORY: Breath sounds equal bilaterally. No accessory muscle use. GASTROINTESTINAL: Abdomen soft, positive distention. Negative for any tenderness to palpation. Negative for any peritoneal signs. MUSCULOSKELETAL: No cyanosis, or edema. BACK: Nontender without obvious deformity. No CVA tenderness. Medications and IVs Current Medications Sodium Chloride (NS Flush) 2 ml UNSCH PRN IV FLUSH FLUSH AFTER USING IV ACCESS ; Start 04/22/17 at 18:15; Stop 04/22/17 at 22:10; Status DC Sodium Chloride 1,000 ml @ 999 mls/hr BOLUS ONCE IV Last administered on t 20:47; Start 04/22/17 at 20:45; Stop 04/22/17 at 21:45; Status DC Sodium Chloride 1,000 ml @ 84 mls/hr [id number] IV Last administered on 00:45; Start 04/22/17 at 22:00; Stop 04/23/17 at 18:36; Status DC Sodium Chloride (NS Flush) 2 ml UNSCH PRN IV FLUSH FLUSH AFTER USING IV ACCESS ; Start 04/22/17 at 22:15; Stop 04/23/17 at 18:37; Status DC Sodium Chloride (NS Flush) 2 ml BID IV FLUSH Last administered on 04/23/17 09 :00; Start 04/23/17 at 09:00; Stop 04/23/17 at 18:37; Status DC Ondansetron HCl (Zofran Inj) 4 mg Q6H PRN IVP NAUSEA OR VOMITING Last administered on 04/26/17 14:41; Start 04/22/17 at 22:15 Acetaminophen (Tylenol) 650 mg Q6H PRN PO FEVER/PAIN SCALE 1 TO 2; Start 04/22 at 22:15 Acetaminophen/ Hydrocodone Bitart ([place] 5-325 Mg) 1 tab Q4H PRN PO PAIN SCALE 3 TO 5; Start 04/22/17 at 22:15 Morphine Sulfate (Morphine Inj) 2 mg Q3H PRN IV PUSH Pain 6-10 Last administered on 04/26/17 18:38; Start 04/22/17 at 22:15 Senna/Docusate Sodium (Lynn-Colace) 1 tab BID PO Last administered on 08:57; Start 04/23/17 at 09:00; Status Future Hold Magnesium Hydroxide (Milk Of Magnesia Liq) 30 ml Q12H PRN PO Mild constipation ; Start 04/22/17 at 22:15 Sennosides (Senokot) 17.2 mg Q12H PRN PO Moderate constipation; Start at 22:15 Bisacodyl (Dulcolax Supp) 10 mg DAILY PRN RECTAL SEVERE CONSITIPATION; Start 04/22/17 at 22:15 Lactulose (Lactulose Liq) 30 ml DAILY PRN PO SEVERE CONSITIPATION; Start 04/22 at 22:15 Famotidine (Pepcid Inj) 20 mg Q12H IV PUSH Last administered on 04/23/17 21: 21; Start 04/22/17 at 22:00; Stop 04/24/17 at 09:19; Status DC Aspirin (Aspirin Chew) 81 mg DAILY PO Last administered on 04/27/17 09:10; Start 04/23/17 at 09:00 Diltiazem HCl (Cardizem Cd) 240 mg DAILY PO Last administered on 04/27/17 09: 10; Start 04/23/17 at 09:00 Duloxetine HCl (Cymbalta Dr) 30 mg DAILY PO Last administered on 04/27/17 09: 09; Start 04/23/17 at 09:00 Metoprolol Tartrate (Lopressor) 50 mg Q12HR PO Last administered on 04/26/17 21:17; Start 04/23/17 at 09:00; Stop 04/27/17 at 07:50; Status DC Metronidazole (Flagyl) 500 mg TID PO Last administered on 04/27/17 17:42; Start 04/23/17 at 09:00; Stop 05/07/17 at 08:59 Phenytoin (Dilantin) 200 mg TID PO Last administered on 04/27/17 17:43; Start 04/23/17 at 09:00 Sevelamer Carbonate (Renvela) 2,400 mg TID PO Last administered on 04/27/17 17:42; Start 04/23/17 at 09:00 Tamsulosin HCl (Flomax) 0.4 mg HS PO Last administered on 04/27/17 21:08; Start 04/23/17 at 21:00 Warfarin Sodium (Coumadin) 1 mg DAILY PO ; Start 04/23/17 at 09:00; Stop 04/23 at 09:00; Status DC Warfarin Sodium (Coumadin) 2.5 mg DAILY@1600 PO ; Start 04/23/17 at 16:00; Stop 04/24/17 at 11:23; Status DC Multivitamins (Theragran) 1 tab DAILY PO Last administered on 04/27/17 09:09 ; Start 04/23/17 at 09:00 Trazodone HCl (Desyrel) 100 mg HS PO Last administered on 04/27/17 21:08; Start 04/23/17 at 21:00 Warfarin Sodium (Coumadin) 1 mg DAILY@1600 PO ; Start 04/23/17 at 16:00; Stop 04/24/17 at 11:23; Status DC Sodium Chloride 1,000 ml @ 0 mls/hr Q0M PRN OTHER For Prime & Rinse Back; Start 04/23/17 at 00:30; Stop 04/23/17 at 18:37; Status DC Heparin Sodium (Porcine) (Heparin Inj) 8,000 units UNSCH PRN IV FLUSH WITH DIALYSIS; Start 04/23/17 at 00:30 Sodium Chloride 1,000 ml @ 200 mls/hr Q5H PRN IV WITH DIALYSIS; Start at 00:30; Stop 04/23/17 at 18:37; Status DC Sodium Chloride 1,000 ml @ 0 mls/hr Q0M PRN OTHER WITH DIALYSIS; Start at 00:30; Stop 04/23/17 at 18:37; Status DC Mannitol (Mannitol Inj) 12.5 gm UNSCH PRN IV WITH DIALYSIS; Start 04/23/17 at 00:30 Albumin Human 100 ml @ 60 mls/hr UNSCH PRN IV WITH DIALYSIS; Start 04/23/17 at 00:30 Sodium Chloride (NS Flush) 5 ml UNSCH PRN IV FLUSH WITH DIALYSIS; Start at 00:30; Stop 04/23/17 at 18:37; Status DC Heparin Sodium (Porcine) (Heparin Inj) UNSCH PRN .XX WITH DIALYSIS; Start 04/29 at 00:30 Gentamicin Sulfate (Gentamicin (Dialysis) Inj) 20 mg UNSCH PRN OTHER WITH DIALYSIS; Start 04/23/17 at 00:30 Ondansetron HCl (Zofran Inj) 4 mg UNSCH PRN IV PUSH WITH DIALYSIS; Start 04/23 at 00:30 Acetaminophen (Tylenol) 650 mg UNSCH PRN PO for headach, pain, temp > 101F; Start 04/23/17 at 00:30 Diphenhydramine HCl (Benadryl) 25 mg UNSCH PRN PO for hives/itching/anaphylaxis ; Start 04/23/17 at 00:30 Nitroglycerin (Nitrostat Sl) 0.4 mg UNSCH PRN SL CHEST PAIN; Start 04/23/17 at 00:30 Clonidine (Catapres) 0.1 mg UNSCH PRN PO for BP > 180/100 X 2 readings; Start 04/23/17 at 00:30 Epoetin Jose (Epogen Inj) 2,000 units UNSCH PRN IV PUSH WITH DIALYSIS Last administered on 04/28/17 13:13; Start 04/23/17 at 00:30 Gelatin (Gelfoam 12 Mm/7 Mm Top) 1 foam UNSCH PRN TOP SEE LABEL COMMENTS Last administered on 04/28/17 13:14; Start 04/23/17 at 00:30 Patient Medication Teaching (Coumadin Booklet) 1 ONCE ONCE .XX Last administered on 04/23/17 02:29; Start 04/23/17 at 01:15; Stop 04/23/17 at 01 :16; Status DC Famotidine (Pepcid Inj) 10 mg Q12H IV PUSH Last administered on 04/25/17 09: 38; Start 04/24/17 at 10:00; Stop 04/25/17 at 16:04; Status DC Megestrol Acetate (Megace Liq) 400 mg BID PO Last administered on 04/27/17 21 :09; Start 04/25/17 at 12:00 Famotidine (Pepcid) 20 mg BID PO Last administered on 04/26/17 13:27; Start 04/25/17 at 21:00; Stop 04/26/17 at 14:06; Status DC Famotidine (Pepcid) 10 mg BID PO Last administered on 04/27/17 21:09; Start 04/27/17 at 09:00 Miscellaneous (Pill Splitter) 1 ea UNSCH PRN OTHER SEE LABEL COMMENTS; Start 04/26/17 at 14:15 Metoprolol Tartrate (Lopressor) 25 mg Q12HR PO Last administered on 04/27/17 21:08; Start 04/27/17 at 09:00 A/P Problem List: (1) Pancreatitis ICD Code: K85.90 - Acute pancreatitis without necrosis or infection, unspecified (2) ESRD (end stage renal disease) on dialysis ICD Code: N18.6 - End stage renal disease; Z99.2 - Dependence on renal dialysis Status: Chronic (3) HTN (hypertension), benign ICD Code: I10 - Essential (primary) hypertension Status: Chronic (4) A-fib ICD Code: I48.91 - Unspecified atrial fibrillation Status: Acute (5) DM (diabetes mellitus) ICD Code: E11.9 - Type 2 diabetes mellitus without complications Status: Chronic Assessment and Plan Acute Pancreatitis: -Clinically seems to resolve since he is tolerating regular diet. ESRD on HD: -T//Tue, resume home medications, Dr. Ana jean HTN: -continue meds A-fib: -Chronic. 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 -INR today is 2.6. -on Lopressor to 25 mg po bid and Cardizem to 180 mg CD daily -Pending 2-D echo. Recurrent c diff infection -History of C diff- 03/2017- was treated - per pt completed course- labs back- + C diff- -continue on Flagyl 500 mg po tid - complete total 14 days- till 05/07 -appreciate ID consult -GI is following. Moderate Ascites - no peripheral edema. comfortable, no pain -Dealt with GI nurse practitioner Mary who recommends paracentesis. Order was placed by GI. chronic Thrombocytopenia, asymptomatic. -? underlying liver disease, improved. We'll need to repeat CBC for more recent platelet. -CT with mild splenomegaly, as stated above get Echo DVT Prophylaxis: INR up . patient up and ambulating Problem Qualifiers (1) A-fib: Qualified Codes: I48.2 - Chronic atrial fibrillation (2) DM (diabetes mellitus): Yina Blackwell MD Apr 28, 2017 14:43
[2017-04-28] MEDS: DILTIAZEM-CD 240 MG CAP ER PO SCH (14:44)
[2017-04-28] MEDS: ASPIRIN 81 MG CHEW TAB PO SCH (14:44)
--- NOTE | 2017-04-28 16:40 | HHI.GIFU ---
Subjective Remarks Pt mildly confused. Says he has abd pain that moves around his abd. Denies loose stool, blood in stool. (Aleena Hernandez) Objective Vitals I&O Vital Signs Date Time Temp Pulse Resp B/P (MAP) Pulse Ox O2 Delivery O2 Flow Rate FiO2 04/28/17 08:00 98.2 67 18 130/65 (86) 95 04/28/17 08:00 68 04/28/17 04:40 97.5 58 16 97/55 (69) 97 04/27/17 23:57 97.8 55 16 96/56 (69) 98 04/27/17 23:38 Room Air 04/27/17 20:30 95 21 04/27/17 20:10 98.0 58 16 109/58 (75) 96 04/27/17 20:00 59 I/O 04/27/17 04/27/17 04/27/17 04/28/17 04/28/17 04/28/17 07:00 15:00 23:00 07:00 15:00 23:00 Intake Total 100 ml 480 ml 240 ml Output Total 0 ml 2500 ml Balance 100 ml 480 ml 240 ml -2500 ml Intake Oral 100 ml 480 ml 240 ml Output Urine Total 0 ml Hemodialysis 2500 ml # Voids 3 2 # Bowel Movements 0 1 0 Laboratory Date/Time Source Procedure Growth Status 04/28/17 08:15 Stool Stool Stool Occult Blood (ELA) - Final HEMOCCULT NEGATIVE Complete Physical Exam HEENT: PERRL; normocephalic; atraumatic; no jaundice. CHEST: CTA CARDIAC: RRR ABDOMEN: Soft, mildly distended, mild diffuse TTP; no hepatosplenomegaly; bowel sounds are present in all four quadrants. EXTREMITIES: No clubbing, cyanosis, or edema. SKIN: Normal; no rash; no jaundice. 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 no obvious bleeding. heme neg stool. he was on coumadin but this has been held. INR 1.7 - elevated LFTs - This seems to be chronic. not obstructive. CT showing moderate ascites, splenomegaly, pleural effusions. liver w/u unremarkable thus far - ascites - ?etiology CT as above. will get diagnostic paracentesis - loose stool - pos c diff on flagyl, gent - elevated lipase - CT as above. lipase decreasing. - ESRD on HD PLAN - paracentesis - fluid for cytology, c&s, albumin - may need FFP prior to paracentesis - await liver w/u - monitor labs - continue abx - supportive care - further recs to follow This pt seen by myself and Dr Hagan and this note is written on his behalf (Aleena Hernandez) Physician Comments Patient seen and examined Agree with above Continue with current supportive care Monitor labs (Zach Hagan MD) Aleena Hernandez Apr 28, 2017 16:40 Zach Hagan MD Apr 28, 2017 23:29
[2017-04-28 16:51] LABS: HEMATOCRIT 38.5 % (39.0-51.0); MEAN CORPUSCULAR HGB CONC 33.7 % (32.0-36.0); PLATELET COUNT 176 TH/MM3 (150-450); RED BLOOD COUNT 4.05 MIL/MM3 (4.50-5.90); RED CELL DISTRIBUTION WIDTH 18.9 % (11.6-17.2); REVIEW FLAG FINAL; WHITE BLOOD COUNT 10.9 TH/MM3 (4.0-11.0)
[2017-04-28 16:58] LABS: INTERNATIONAL NORMALIZED RATIO 1.8 RATIO; PROTHROMBIN TIME - PATIENT 20.5 SEC (9.8-11.6)
[2017-04-28 17:32] LABS: BICARBONATE 34.2 MEQ/L (21.0-32.0); POTASSIUM 3.9 MEQ/L (3.5-5.1)
--- NOTE | 2017-04-28 20:40 | HHI.NPPN ---
Subjective Renal Failure: Chronic, End Stage Renal Disease Interval History Diarrhea has improved. Overall he feels well. Review of Systems General Constitutional: Fatigue Gastrointestinal Gastrointestinal: Nausea & Vomiting, Diarrhea Objective Data Data 04/28/17 04/29/17 19:00 07:00 Intake Total 600 ml Output Total 2500 ml Balance -1900 ml Intake Oral 600 ml Hemodialysis 2500 ml # Voids 2 # Bowel Movements 2 Vital Signs Date Time Temp Pulse Resp B/P (MAP) Pulse Ox O2 Delivery O2 Flow Rate FiO2 04/28/17 16:00 97.6 80 16 129/58 (81) 97 04/28/17 12:00 97.2 86 16 141/61 (87) 94 04/28/17 08:00 98.2 67 18 130/65 (86) 95 04/28/17 08:00 68 04/28/17 04:40 97.5 58 16 97/55 (69) 97 04/27/17 23:57 97.8 55 16 96/56 (69) 98 04/27/17 23:38 Room Air -: 04/28/17 1557 04/28/17 1557 Microbiology 04/28/17 Stool Occult Blood (ELA) - Final, Complete HEMOCCULT NEGATIVE Physical Exam General Appearance: Well Developed, No Acute Distress, Comfortable, Malnourished Throat Throat Exam: Oral Mucosa [place] & Moist Neck Neck Exam: Neck Supple Pulmonary Resp Exam: Clear Bilaterally, Breath Sounds Equal, No Distress Cardiology CV Exam: Regular, Normal Sinus Rhythm Gastrointestinal/Abdomen GI Exam: Soft, Non-Tender, Bowel Sounds Present Musculoskeletal MS Exam: Joints Intact, Atrophy Integumentary Skin Exam: Clear, Warm, Dry, Intact Extremeties Extremities Exam: No Edema, Pedal Pulses Palpable Neurologic Neuro Exam: Alert, Awake, Oriented, Speech Clear, Moving All Extremities Psychiatric Psych Exam: Appropriate Responses Assessment/Plan Discussed Condition With: Patient Assessment Summary: Anemia of CKD, Malnutrition, Hypertension, End Stage Renal Disease Problem List: (1) ESRD (end stage renal disease) on dialysis ICD Codes: N18.6 - End stage renal disease; Z99.2 - Dependence on renal dialysis Status: Chronic Plan: Continue TTS HD Obtain intermittent metabolic profile On protein supplements and Megace for appetite stimulation Avoid IVF Left arm access works well (2) HTN (hypertension), benign ICD Codes: I10 - Essential (primary) hypertension Status: Chronic Plan: continue medications as ordered monitor BP (3) DM (diabetes mellitus) ICD Codes: E11.9 - Type 2 diabetes mellitus without complications Status: Chronic Plan: monitor BG, goal 140-180 mg/dL (4) A-fib ICD Codes: I48.91 - Unspecified atrial fibrillation Status: Acute Plan: on anti coagulation (5) Clostridium difficile colitis ICD Codes: A04.72 - Enterocolitis due to Clostridium difficile, not specified as recurrent Status: Acute Plan: recurrent, on Flagyl TID ID has evaluated Symptoms have improved. Plan Patient can be discharged from renal standpoint. Problem Qualifiers (1) DM (diabetes mellitus): (2) A-fib: Qualified Codes: I48.2 - Chronic atrial fibrillation Stuart Zhang MD Apr 28, 2017 20:40
[2017-04-28] MEDS: traZODone HCL 100 MG TAB PO SCH (20:56)
[2017-04-28] MEDS: TAMSULOSIN HCL 0.4 MG CAP PO SCH (20:56)
[2017-04-29] VITALS (9 sets, daily range): BP systolic 102–146; BP diastolic 52–63; PULSE 58–71; RESP 16–18; TEMP 97.4–98.8; O2SAT 96–99
[2017-04-29 06:19] LABS: INTERNATIONAL NORMALIZED RATIO 1.6 RATIO
--- NOTE | 2017-04-29 08:11 | ECHRPT ---
Indication: afib and flutter CONCLUSIONS The left ventricular systolic function is normal with an estimated ejection fraction in the range of 55-60%. Normal left ventricular size. There is assymetric septal hypertrophy. The left atrial size is moderately dilated. The right atrial size is mildly dilated. The aortic root and proximal ascending aorta are not well visualized. Mild thickening of the mitral valve leaflets. [id number] mitral valve regurgitation. Mild thickening of the aortic valve leaflets. No aortic valve regurgitation. There is moderate to severe tricuspid valve regurgitation. There is estimated moderate pulmonary hypertension present (range 50-60 mmHg). Trivial pulmonary valve regurgitation. There is no pericardial effusion. BP: 127 / 61 HR: 65 Rhythm: MEASUREMENTS (Male / Female) Normal Values Technical Quality:Good 2D ECHO LV Diastolic Diameter PLAX 4.3 cm 4.2 - 5.9 / 3.9 - 5.3 cm LV Systolic Diameter PLAX 3.1 cm IVS Diastolic Thickness 1.5 cm 0.6 - 1.0 / 0.6 - 0.9 cm LVPW Diastolic Thickness 1.1 cm 0.6 - 1.0 / 0.6 - 0.9 cm LV Relative Wall Thickness 0.6 RV Internal Dim ED PLAX 3.3 cm LVOT Diameter 1.9 cm M-MODE Aortic Root Diameter MM 2.8 cm LA Systolic Diameter MM 5.1 cm LA Ao Ratio MM 1.8 AV Cusp Separation MM 1.3 cm DOPPLER AV Peak Velocity 313.0 cm/s AV Peak Gradient 39.2 mmHg AV Mean Gradient 17.0 mmHg AV Velocity Time Integral 60.8 cm LVOT Peak Velocity 72.1 cm/s LVOT Peak Gradient 2.1 mmHg LVOT Velocity Time Integral 15.5 cm LVOT Cardiac Index 1531.7 cm/minm AV Area Cont Eq vti 0.7 cm AV Area Cont Eq pk 0.7 cm MV Peak Velocity 154.0 cm/s MV Peak Gradient 9.5 mmHg MV Mean Velocity 102.0 cm/s MV Mean Gradient 5.0 mmHg TR Peak Velocity 383.0 cm/s TR Peak Gradient 58.7 mmHg Right Atrial Pressure 10.0 mmHg Pulmonary Artery Systolic Pressu 68.7 mmHg Right Ventricular Systolic Press 68.7 mmHg FINDINGS LEFT VENTRICLE The left ventricular systolic function is normal with an estimated ejection fraction in the range of 55-60%. Normal left ventricular size. There is assymetric septal hypertrophy. RIGHT VENTRICLE Normal right ventricular size and systolic function. LEFT ATRIUM The left atrial size is moderately dilated. RIGHT ATRIUM The right atrial size is mildly dilated. ATRIAL SEPTUM Normal atrial septal thickness without atrial level shunting by limited color doppler interrogation. AORTA The aortic root and proximal ascending aorta are not well visualized. MITRAL VALVE Mild thickening of the mitral valve leaflets. Mkzak-xi-azme mitral valve regurgitation. AORTIC VALVE Trileaflet aortic valve. Mild thickening of the aortic valve leaflets. No aortic valve regurgitation. TRICUSPID VALVE Structurally normal tricuspid valve. There is moderate to severe tricuspid valve regurgitation. There is estimated moderate pulmonary hypertension present (range 50-60 mmHg). PULMONARY VALVE Trivial pulmonary valve regurgitation. VESSELS The inferior vena cava is normal in size. PERICARDIUM There is no pericardial effusion. Chris Tran MD (Electronically Signed) Final Date:29 April 2017 08:10
[2017-04-29] MEDS: ASPIRIN 81 MG CHEW TAB PO SCH (08:23)
[2017-04-29] MEDS: MEGESTROL ACETATE SUSP 400 MG/10 ML CUP PO SCH ×2 (08:27→20:35)
[2017-04-29] MEDS: SEVELAMER CARBONATE 800 MG TAB PO SCH ×3 (08:27→17:21)
[2017-04-29] MEDS: PHENYTOIN SODIUM 100 MG CAP PO SCH ×3 (08:28→17:21)
[2017-04-29] MEDS: DILTIAZEM-CD 240 MG CAP ER PO SCH (08:28)
[2017-04-29] MEDS: DULoxetine HCl DR 30 MG CAP PO SCH (08:28)
[2017-04-29] MEDS: METOPROLOL TARTRATE 25 MG TAB PO SCH ×2 (08:28→20:34)
[2017-04-29] MEDS: metroNIDAZOLE 500 MG TAB PO SCH ×3 (08:28→17:21)
[2017-04-29] MEDS: MULTIVITAMIN TAB PO SCH (08:28)
[2017-04-29] MEDS: FAMOTIDINE 20 MG TAB PO SCH ×2 (08:28→20:34)
--- NOTE | 2017-04-29 10:29 | HHI.NPPN ---
Subjective Renal Failure: Chronic, End Stage Renal Disease Interval History He is resting, no acute complaints. To have paracentesis today. (Missy Jones) Review of Systems General Constitutional: Fatigue (Missy Jones) Gastrointestinal Gastrointestinal: Nausea & Vomiting, Diarrhea (Missy Jones) Objective Data Data Vital Signs Date Time Temp Pulse Resp B/P (MAP) Pulse Ox O2 Delivery O2 Flow Rate FiO2 04/29/17 08:00 98.5 71 18 146/63 (90) 99 04/29/17 04:27 98.8 63 16 120/55 (76) 97 04/28/17 23:40 98.3 61 16 94/52 (66) 94 04/28/17 20:32 98.2 64 16 107/57 (74) 98 04/28/17 19:45 62 04/28/17 16:00 97.6 80 16 129/58 (81) 97 04/28/17 12:00 97.2 86 16 141/61 (87) 94 (Missy Jones) -: 04/28/17 1557 04/28/17 1557 Physical Exam General Appearance: Well Developed, No Acute Distress, Comfortable, Malnourished (Missy Jones) Throat Throat Exam: Oral Mucosa [place] & Moist (Missy Jones) Neck Neck Exam: Neck Supple (Missy Jones) Pulmonary Resp Exam: Clear Bilaterally, Breath Sounds Equal, No Distress (Missy Jones) Cardiology CV Exam: Regular, Normal Sinus Rhythm (Missy Jones) Gastrointestinal/Abdomen GI Exam: Soft, Non-Tender, Bowel Sounds Present GI Remarks moderate ascites (Missy Jones) Musculoskeletal MS Exam: Joints Intact, Atrophy (Missy Jones) Integumentary Skin Exam: Clear, Warm, Dry, Intact (Missy Jones) Extremeties Extremities Exam: No Edema, Pedal Pulses Palpable (Missy Jones) Neurologic Neuro Exam: Alert, Awake, Oriented, Speech Clear, Moving All Extremities (Missy Jones) Psychiatric Psych Exam: Appropriate Responses (Missy Jones) Assessment/Plan Discussed Condition With: Patient Assessment Summary: Anemia of CKD, Malnutrition, Hypertension, End Stage Renal Disease Problem List: (1) ESRD (end stage renal disease) on dialysis ICD Codes: N18.6 - End stage renal disease; Z99.2 - Dependence on renal dialysis Status: Chronic Plan: Continue TTS HD, had treatment yesterday Obtain intermittent metabolic profile On protein supplements and Megace for appetite stimulation Avoid IVF Left arm access works well (2) HTN (hypertension), benign ICD Codes: I10 - Essential (primary) hypertension Status: Chronic Plan: continue medications as ordered monitor BP (3) DM (diabetes mellitus) ICD Codes: E11.9 - Type 2 diabetes mellitus without complications Status: Chronic Plan: monitor BG, goal 140-180 mg/dL (4) A-fib ICD Codes: I48.91 - Unspecified atrial fibrillation Status: Acute Plan: on anti coagulation (5) Clostridium difficile colitis ICD Codes: A04.72 - Enterocolitis due to Clostridium difficile, not specified as recurrent Status: Acute Plan: recurrent, on Flagyl TID ID has evaluated Symptoms have improved. (6) Ascites ICD Codes: R18.8 - Other ascites Plan: GI following. To have paracentesis today. Plan Patient can be discharged from renal standpoint when cleared by all physicians. (Missy Jones) Plan patient was seen and examined. Stable from renal standpoint. To have paracentesis per GI. Diarrhea has improved. (Stuart Zhang MD) Problem Qualifiers (1) DM (diabetes mellitus): (2) A-fib: Qualified Codes: I48.2 - Chronic atrial fibrillation Missy Jones Apr 29, 2017 10:29 Stuart Zhang MD Apr 29, 2017 15:00
--- NOTE | 2017-04-29 15:14 | HHI.GIFU ---
Subjective Remarks Pt resting in bed, just back from attempted paracentesis, he says they told him there wasn't enough fluid to drain. No complaints. (Aleena Hernandez) Objective Vitals I&O Vital Signs Date Time Temp Pulse Resp B/P (MAP) Pulse Ox O2 Delivery O2 Flow Rate FiO2 04/29/17 12:44 97.4 61 18 102/52 (69) 97 04/29/17 10:43 99 04/29/17 08:00 98.5 71 18 146/63 (90) 99 04/29/17 07:15 66 04/29/17 04:27 98.8 63 16 120/55 (76) 97 04/28/17 23:40 98.3 61 16 94/52 (66) 94 04/28/17 20:32 98.2 64 16 107/57 (74) 98 04/28/17 19:45 62 04/28/17 16:00 97.6 80 16 129/58 (81) 97 I/O 04/28/17 04/28/17 04/28/17 04/29/17 04/29/17 04/29/17 07:00 15:00 23:00 07:00 15:00 23:00 Intake Total 240 ml 600 ml 480 ml Output Total 2500 ml 0 ml Balance 240 ml -2500 ml 600 ml 480 ml Intake Oral 240 ml 600 ml 480 ml Output Urine Total 0 ml Hemodialysis 2500 ml # Voids 2 2 # Bowel Movements 0 2 0 Laboratory Laboratory Tests Test 04/28/17 15:57 04/29/17 05:24 White Blood Count 10.9 Red Blood Count 4.05 Hemoglobin 13.0 Hematocrit 38.5 Mean Corpuscular Volume 95.0 Mean Corpuscular Hemoglobin 32.0 Mean Corpuscular Hemoglobin Concent 33.7 Red Cell Distribution Width 18.9 Platelet Count 176 Mean Platelet Volume 8.5 Prothrombin Time 20.5 18.0 Prothromb Time International Ratio 1.8 1.6 Blood Urea Nitrogen 22 Creatinine 4.60 Random Glucose 154 Calcium Level 8.9 Sodium Level 138 Potassium Level 3.9 Chloride Level 97 Carbon Dioxide Level 34.2 Anion Gap 7 Estimat Glomerular Filtration Rate 15 Date/Time Source Procedure Growth Status 04/28/17 08:15 Stool Stool Stool Occult Blood (ELA) - Final HEMOCCULT NEGATIVE Complete Physical Exam HEENT: PERRL; normocephalic; atraumatic; no jaundice. CHEST: CTA CARDIAC: RRR ABDOMEN: Soft, mildly distended, mild diffuse TTP; no hepatosplenomegaly; bowel sounds are present in all four quadrants. EXTREMITIES: No clubbing, cyanosis, or edema. SKIN: Normal; no rash; no jaundice. 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 no obvious bleeding. heme neg stool. he was on coumadin but this has been held. INR decreasing - elevated LFTs - This seems to be chronic. not obstructive. CT showing moderate ascites, splenomegaly, pleural effusions. liver w/u unremarkable thus far, ceruloplasmin and AMA pending - ascites - ?etiology CT as above. not able to do diagnostic paracentesis - loose stool - pos c diff on flagyl, seems to be improving - elevated lipase - CT as above. lipase decreasing. - leukocytosis - WBC now WNL - ESRD on HD PLAN - await AMA, ceruloplasmin - monitor labs - continue abx - supportive care - further recs to follow This pt seen by myself and Dr Hagan and this note is written on his behalf (Aleena Hernandez) Physician Comments Patient seen and examined Agree with above Continue with current supportive care Monitor labs Most likely cause of the ascites is his end-stage renal disease (Zach Hagan MD) Aleena Hernandez Apr 29, 2017 15:14 Zach Hagan MD Apr 29, 2017 20:12
--- NOTE | 2017-04-29 15:31 | RADRPT ---
EXAM DATE/TIME: 04/29/2017 14:14 [place] COMPARISON: No previous studies available for comparison. INDICATIONS : Ascites. MEDICAL HISTORY : Gastroesophageal reflux disease. Hypertension. Congestive heart failure. CVA. Kidney failure. Arthrit is. Anemia. C-diff. SURGICAL HISTORY : Open heart surgery, 01/2017. Dialysis. Left upper arm shunt. ENCOUNTER: Initial ACUITY: 2 days PAIN SCORE: 2/10 LOCATION: Abdomen. AREA EVALUATED: Abdomen. FINDINGS: Imaging of the abdomen and pelvis was performed to evaluate for ascites for possible paracentesis. On ly a small amount of fluid seen adjacent to the bladder. CONCLUSION: Paracentesis not performed at this time. Lui Cruz MD on April 29, 2017 at 15:29 Board Certified Radiologist. This report was verified electronically.
[2017-04-29] MEDS ORDERED: METR-1 PO (16:20)
[2017-04-29] MEDS ORDERED: METO25TA3 PO (16:20)
--- NOTE | 2017-04-29 16:23 | HHI.DS ---
Discharge Summary Admission Date Apr 22, 2017 at 21:53 Discharge Date: Apr 29, 2017 Admitting Diagnosis pancreatitis (1) Pancreatitis ICD Code: K85.90 - Acute pancreatitis without necrosis or infection, unspecified (2) ESRD (end stage renal disease) on dialysis ICD Code: N18.6 - End stage renal disease; Z99.2 - Dependence on renal dialysis Status: Chronic (3) HTN (hypertension), benign ICD Code: I10 - Essential (primary) hypertension Status: Chronic (4) A-fib ICD Code: I48.91 - Unspecified atrial fibrillation Status: Acute (5) DM (diabetes mellitus) ICD Code: E11.9 - Type 2 diabetes mellitus without complications Status: Chronic Procedures none Brief History - From Admission This is a 72-year-old male with a PMH of HTN, A. fib on Coumadin, C Diff, DM, h/ o CVA and ESRD on HD T//Tue who presented to the ER w/ complaints of abdominal pain x2-3 wks. Reports pain has gotten progressively more severe, now w/ decreased PO intake, however noted to arrive in ER w/ half-eaten pizza. Denies fever, chills, diarrhea or sick contacts. +nausea, no vomiting. Seen in ER on 04/12/17 for c/o abdominal pain/diarrhea, found to have C Diff Colitis , d/c'd home on Flagyl PO, however taking only BID instead of TID as prescribed. Returned to ER 04/16/17 w/ ongoing complaints, d/c'd w/ instructions to continue on Flagyl PO tid. On arrival, BP 161/70, HR 84, O2 sat 99% on RA, Afebrile. WBC 14.5. Platelets 93, previously 123 on 04/16/17. Chemistry essentially at baseline. Creatinine 4.83, producing 4.51 on . Lipase 1431. CT Abd/Pelvis w/ unchanged exam, moderate bilateral pleural effusion and moderate volume ascites. CBC/BMP: 04/28/17 1557 04/28/17 1557 Significant Findings Laboratory Tests Test 04/27/17 07:36 04/27/17 07:49 04/28/17 15:57 04/29/17 05:24 Total Iron Binding Capacity 179 MCG/DL (250-450) [id number] 200 mg/dL (100 - 190) Prothrombin Time 30.1 SEC (9.8-11.6) 20.5 SEC (9.8-11.6) 18.0 SEC (9.8-11.6) Red Blood Count 4.05 MIL/MM3 (4.50-5.90) Hematocrit 38.5 % (39.0-51.0) Red Cell Distribution Width 18.9 % (11.6-17.2) Blood Urea Nitrogen 22 MG/DL (7-18) Creatinine 4.60 MG/DL (0.60-1.30) Random Glucose 154 MG/DL (74-106) Chloride Level 97 MEQ/L (98-107) Carbon Dioxide Level 34.2 MEQ/L (21.0-32.0) Estimat Glomerular Filtration Rate 15 ML/MIN (>89) Imaging Last Impressions Abdomen Ultrasound 04/29/17 0000 Signed Impressions: Service Date/Time: Saturday, April 29, 2017 14:14 - CONCLUSION: Paracentesis not performed at this time. Lui Cruz MD Abdomen/Pelvis CT 04/22/17 0000 Signed Impressions: Service Date/Time: Saturday, April 22, 2017 21:08 - CONCLUSION: 1. Unchanged exam with moderate bilateral pleural effusions and moderate volume ascites. 2. Atrophic kidneys. 3. Splenomegaly. 4. Anasarca. Kiko De Leon Jr., MD PE at Discharge GENERAL: in NAD CARDIOVASCULAR: Regular rate and rhythm without murmurs, gallops, or rubs. RESPIRATORY: Breath sounds equal bilaterally. No accessory muscle use. GASTROINTESTINAL: Abdomen soft, positive distention. Negative for any tenderness to palpation. Negative for any peritoneal signs. MUSCULOSKELETAL: No cyanosis, or edema. BACK: Nontender without obvious deformity. No CVA tenderness. Hospital Course Acute Pancreatitis: -Clinically seems to resolve since he is tolerating regular diet. - Lipase level improved patient tolerating diet ESRD on HD: -T//Tue, resume home medications, Dr. Ana jean HTN: -continue meds A-fib: -Chronic. 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 -on Lopressor to 25 mg po bid and Cardizem to 180 mg CD daily - 2-D echo reviewed and reveals EF 55-60% Recurrent c diff infection -History of C diff- 03/2017- was treated - per pt completed course- labs back- + C diff- -continue on Flagyl 500 mg po tid - complete total 14 days- till 05/07 -appreciate ID consult -GI is following and cleared Moderate Ascites - no peripheral edema. comfortable, no pain -paracentesis cancelled there was not enough fluid to drain - discussed with GI patient cleared for DC chronic Thrombocytopenia, asymptomatic. DVT Prophylaxis patient ambulating Pt Condition on Discharge: Stable Discharge Disposition: Disch w/ Home Health Serv Discharge Time: > 30 minutes Discharge Instructions DIET: Follow Instructions for: Heart Healthy Diet Activities you can perform: Regular-No Restrictions Follow up Referrals: Gastroenterology - 2 Weeks with Zach Hagan MD Nephrology - [address] Zhang PCP Follow-up - [address] Granda New Medications: Metoprolol Tartrate (Metoprolol Tartrate) 25 Mg Tab 25 MG PO Q12HR for blood pressure, #60 TAB 0 Refills Metronidazole (Flagyl) 500 Mg Tab 500 MG PO TID for antibiotic, #21 TAB 0 Refills Continued Medications: Acetaminophen (Eq Acetaminophen) 325 Mg Tab 650 MG PO Q6HR PRN for PAIN SCALE 1 TO 4, #60 TAB 0 Refills Aspirin (Aspirin Low Strength) 81 Mg Chew 81 MG PO DAILY for Blood Clot Prevention, #100 EA 2 Refills hold for platelets <100K Calcitriol (Rocaltrol) 0.25 Mcg Cap 1 MCG PO DAILY for Nutritional Supplement for 30 Days, CAP 1 Refill Dicyclomine (Bentyl) 10 Mg Cap 10 MG PO QID for Bowel Management, #20 CAP 0 Refills Diltiazem CD 24 HR (Diltiazem CD 24 HR) 240 Mg Caper 240 MG PO DAILY, #30 CAP [address] (Duloxetine DR) 30 Mg Capdr 30 MG PO DAILY for Depression Control for 30 Days, CAP 1 Refill Multiple Vitamin (Thera/Beta-Carotene) 1 Tab Tab 1 TAB PO DAILY for Nutritional Supplement for 30 Days, TAB Ondansetron (Zofran) 4 Mg Tab 4 MG PO Q6HR PRN for NAUSEA OR VOMITING, #20 TAB 0 Refills Ondansetron Odt (Ondansetron Odt) 4 Mg Tab 4 MG PO Q6H PRN for NAUSEA OR VOMITING for 30 Days, #120 TAB Phenytoin Extended (Dilantin) 100 Mg Cap 200 MG PO TID for Seizure Control for 30 Days, CAP 1 Refill Sevelamer Carbonate (Renvela) 800 Mg Tab 2400 MG PO TID for 30 Days, TAB 1 Refill Tamsulosin (Flomax) 0.4 Mg Cap 0.4 MG PO HS for Manage Prostate Problems, #30 CAP 0 Refills Trazodone (Trazodone) 100 Mg Tablet 100 MG PO HS for Control Depression, #30 TAB 0 Refills Walker Rolling/GetGo (Walker Rolling/GetGo) 1 Mis Mis EA .ROUTE DIRECTED, #1 Warfarin (Coumadin) 1 Mg Tab 1 MG PO DAILY for Prevent Blood Clot, #30 TAB 2 Refills hold for INR > 3.0 goal 2-3 Warfarin (Coumadin) 3 Mg Tab 2.5 MG PO DAILY@1600 for 30 Days, #25 TAB 1 Refill [Pt/Inr] () Discontinued Medications: Metoprolol Tartrate (Metoprolol Tartrate) 25 Mg Tab 50 MG PO Q12HR for Blood Pressure Management, #60 TAB 2 Refills Metoprolol Tartrate (Lopressor) 50 Mg Tab 75 MG PO Q12HR for Blood Pressure Management for 30 Days, TAB 1 Refill Metronidazole (Flagyl) 500 Mg Tab 500 MG PO TID for Infection for 10 Days, TAB 0 Refills Polyethylene Glycol 3350 Powder (Polyethylene Glycol 3350 Powder) 17 Gram Pow 17 GM PO DAILY for Constipation, #30 PACK Witch Irina/Glycerin (A.e.r. Witch Irina) 12.5 %-50 % Pad 1 APPLIC TOPICAL UNSCH PRN for HEMORRHOIDS for 30 Days, EA Maribel Leblanc Apr 29, 2017 16:23
--- NOTE | 2017-04-29 16:41 | HHI.FF ---
Face to Face Verification Diagnosis: (1) Pancreatitis (2) Clostridium difficile colitis (3) ESRD (end stage renal disease) on dialysis (4) HTN (hypertension), benign (5) DM (diabetes mellitus) (6) Ascites Physical Therapy Order: Evaluate and Treat, Improve ambulation, Strength and gait training Occupational Therapy Order: Evaluate and Treat, Improve ADL, Gross motor coordination, Fine motor coordination Home Health Nursing Order: Medical education Signs/symptoms of disease process Medication education-adverse effect Nursing assessment with vital signs I have seen patient Cortes Michael on 04/29/17. My clinical findings support the need for the requested home health care services because: Ltd mobility - disease progression Limited ability to care for self Ltd mobility - disease progression Limited ability to care for self I certify that my clinical findings support that this patient is homebound because: unstable gait/balance Unsteady gait/balance Maribel Leblanc Apr 29, 2017 16:40
[2017-04-29] MEDS: traZODone HCL 100 MG TAB PO SCH (20:34)
[2017-04-29] MEDS: TAMSULOSIN HCL 0.4 MG CAP PO SCH (20:34)
[2017-04-30] VITALS: BP 120/57; PULSE 57; RESP 16; TEMP 98.5; O2SAT 99
[2017-04-30 04:00] VITALS: BP 137/67; PULSE 65; RESP 18; TEMP 98.5; O2SAT 98
[2017-04-30 08:00] VITALS: PULSE 64
[2017-04-30 08:20] VITALS: BP 166/69; PULSE 65; RESP 18; TEMP 97.2; O2SAT 100
[2017-04-30 09:00] VITALS: O2SAT 92
[2017-04-30] MEDS: SEVELAMER CARBONATE 800 MG TAB PO SCH ×2 (09:19→14:13)
[2017-04-30] MEDS: PHENYTOIN SODIUM 100 MG CAP PO SCH ×2 (09:19→14:14)
[2017-04-30] MEDS: MEGESTROL ACETATE SUSP 400 MG/10 ML CUP PO SCH (09:20)
[2017-04-30] MEDS: FAMOTIDINE 20 MG TAB PO SCH (09:20)
[2017-04-30] MEDS: ASPIRIN 81 MG CHEW TAB PO SCH (09:20)
[2017-04-30] MEDS: MULTIVITAMIN TAB PO SCH (09:20)
[2017-04-30] MEDS: METOPROLOL TARTRATE 25 MG TAB PO SCH (09:20)
[2017-04-30] MEDS: DILTIAZEM-CD 240 MG CAP ER PO SCH (09:20)
[2017-04-30] MEDS: metroNIDAZOLE 500 MG TAB PO SCH ×2 (09:20→14:14)
--- NOTE | 2017-04-30 10:12 | HHI.NPPN ---
Subjective Renal Failure: Chronic, End Stage Renal Disease Additional Remarks No acute complaints, seen on HD today. Review of Systems General Constitutional: Fatigue Gastrointestinal Gastrointestinal: Nausea & Vomiting, Diarrhea Objective Data Data Vital Signs Date Time Temp Pulse Resp B/P (MAP) Pulse Ox O2 Delivery O2 Flow Rate FiO2 04/30/17 09:00 92 21 04/30/17 08:20 97.2 65 18 166/69 (101) 100 04/30/17 04:00 98.5 65 18 137/67 (90) 98 04/30/17 00:00 98.5 57 16 120/57 (78) 99 04/29/17 20:00 98.0 58 16 132/61 (84) 99 04/29/17 19:45 62 04/29/17 17:31 97 21 04/29/17 16:00 98.5 59 18 127/62 (83) 96 04/29/17 12:44 97.4 61 18 102/52 (69) 97 04/29/17 10:43 99 -: 04/28/17 1557 04/28/17 1557 Physical Exam General Appearance: Well Developed, No Acute Distress, Comfortable, Malnourished Throat Throat Exam: Oral Mucosa [place] & Moist Neck Neck Exam: Neck Supple Pulmonary Resp Exam: Clear Bilaterally, Breath Sounds Equal, No Distress Cardiology CV Exam: Regular, Normal Sinus Rhythm Gastrointestinal/Abdomen GI Exam: Soft, Non-Tender, Bowel Sounds Present Musculoskeletal MS Exam: Joints Intact, Atrophy Integumentary Skin Exam: Clear, Warm, Dry, Intact Extremeties Extremities Exam: No Edema, Pedal Pulses Palpable Neurologic Neuro Exam: Alert, Awake, Oriented, Speech Clear, Moving All Extremities Psychiatric Psych Exam: Appropriate Responses Assessment/Plan Discussed Condition With: Patient Assessment Summary: Anemia of CKD, Malnutrition, Hypertension, End Stage Renal Disease Problem List: (1) ESRD (end stage renal disease) on dialysis ICD Codes: N18.6 - End stage renal disease; Z99.2 - Dependence on renal dialysis Status: Chronic Plan: Continue TTS HD. Seen on HD today, tolerating HD well. On protein supplements and Megace for appetite stimulation Avoid IVF Left arm access works well Planned D/C today after HD. If not discharged, will plan for next HD Tuesday ( holiday schedule this week) (2) HTN (hypertension), benign ICD Codes: I10 - Essential (primary) hypertension Status: Chronic Plan: continue medications as ordered monitor BP (3) DM (diabetes mellitus) ICD Codes: E11.9 - Type 2 diabetes mellitus without complications Status: Chronic Plan: monitor BG, goal 140-180 mg/dL (4) A-fib ICD Codes: I48.91 - Unspecified atrial fibrillation Status: Acute Plan: on anti coagulation (5) Clostridium difficile colitis ICD Codes: A04.72 - Enterocolitis due to Clostridium difficile, not specified as recurrent Status: Acute Plan: recurrent, on Flagyl TID ID has evaluated Symptoms have improved. (6) Ascites ICD Codes: R18.8 - Other ascites Plan: GI following. To have paracentesis today. Plan patient was seen and examined. Stable from renal standpoint. To have paracentesis per GI. Diarrhea has improved. Problem Qualifiers (1) DM (diabetes mellitus): (2) A-fib: Qualified Codes: I48.2 - Chronic atrial fibrillation Rene Umana MD Apr 30, 2017 10:12
[2017-04-30 12:00] VITALS: BP 143/65; PULSE 67; RESP 18; TEMP 98.3
[2017-04-30] MEDS: GELATIN 12 MM/7 MM FOAM TOP PRN (12:45)
[2017-04-30] MEDS: EPOETIN ALFA 10,000 UNITS/ML VIAL IV PUSH PRN (12:45)
[2017-04-30] MEDS: DULoxetine HCl DR 30 MG CAP PO SCH (14:14)
--- NOTE | 2017-04-30 14:26 | HHI.PR ---
Subjective Remarks Follow-up for placement Patient was discharged yesterday and family member stated they were in a pickup patient but never did. Supposed to pickup patient today or tomorrow. Patient does not have access in getting into home. His nurse is at the bedside during the interview. He has no complaints. Objective Vitals Vital Signs Date Time Temp Pulse Resp B/P (MAP) Pulse Ox O2 Delivery O2 Flow Rate FiO2 04/30/17 12:00 98.3 67 18 143/65 (91) 04/30/17 09:00 92 21 04/30/17 08:20 97.2 65 18 166/69 (101) 100 04/30/17 04:00 98.5 65 18 137/67 (90) 98 04/30/17 00:00 98.5 57 16 120/57 (78) 99 04/29/17 20:00 98.0 58 16 132/61 (84) 99 04/29/17 19:45 62 04/29/17 17:31 97 21 04/29/17 16:00 98.5 59 18 127/62 (83) 96 I/O 04/29/17 04/29/17 04/29/17 04/30/17 04/30/17 04/30/17 07:00 15:00 23:00 07:00 15:00 23:00 Intake Total 480 ml 240 ml 1440 ml Output Total 0 ml 400 ml 2000 ml Balance 480 ml -160 ml 1440 ml -2000 ml Intake Oral 480 ml 240 ml 1440 ml Output Urine Total 0 ml 400 ml Hemodialysis 2000 ml # Voids 0 # Bowel Movements 0 0 2 Result Diagram: 04/28/17 1557 04/28/17 1557 Objective Remarks GENERAL: in NAD sitting in bed eating his lunch. CARDIOVASCULAR: Regular rate and rhythm without murmurs, gallops, or rubs. RESPIRATORY: Breath sounds equal bilaterally. No accessory muscle use. GASTROINTESTINAL: Abdomen soft, positive distention. Negative for any tenderness to palpation. Negative for any peritoneal signs. MUSCULOSKELETAL: No cyanosis, or edema. BACK: Nontender without obvious deformity. No CVA tenderness. Procedures none Medications and IVs Current Medications Sodium Chloride (NS Flush) 2 ml UNSCH PRN IV FLUSH FLUSH AFTER USING IV ACCESS ; Start 04/22/17 at 18:15; Stop 04/22/17 at 22:10; Status DC Sodium Chloride 1,000 ml @ 999 mls/hr BOLUS ONCE IV Last administered on 20:47; Start 04/22/17 at 20:45; Stop 04/22/17 at 21:45; Status DC Sodium Chloride 1,000 ml @ 84 mls/hr [id number] IV Last administered on 00:45; Start 04/22/17 at 22:00; Stop 04/23/17 at 18:36; Status DC Sodium Chloride (NS Flush) 2 ml UNSCH PRN IV FLUSH FLUSH AFTER USING IV ACCESS ; Start 04/22/17 at 22:15; Stop 04/23/17 at 18:37; Status DC Sodium Chloride (NS Flush) 2 ml BID IV FLUSH Last administered on 04/23/17 09 :00; Start 04/23/17 at 09:00; Stop 04/23/17 at 18:37; Status DC Ondansetron HCl (Zofran Inj) 4 mg Q6H PRN IVP NAUSEA OR VOMITING Last administered on 04/26/17 14:41; Start 04/22/17 at 22:15 Acetaminophen (Tylenol) 650 mg Q6H PRN PO FEVER/PAIN SCALE 1 TO 2; Start 04/22 at 22:15 Acetaminophen/ Hydrocodone Bitart ([place] 5-325 Mg) 1 tab Q4H PRN PO PAIN SCALE 3 TO 5; Start 04/22/17 at 22:15 Morphine Sulfate (Morphine Inj) 2 mg Q3H PRN IV PUSH Pain 6-10 Last administered on 04/26/17 18:38; Start 04/22/17 at 22:15 Senna/Docusate Sodium (Lynn-Colace) 1 tab BID PO Last administered on 08:57; Start 04/23/17 at 09:00; Status Future Hold Magnesium Hydroxide (Milk Of Magnesia Liq) 30 ml Q12H PRN PO Mild constipation ; Start 04/22/17 at 22:15 Sennosides (Senokot) 17.2 mg Q12H PRN PO Moderate constipation; Start at 22:15 Bisacodyl (Dulcolax Supp) 10 mg DAILY PRN RECTAL SEVERE CONSITIPATION; Start 04/22/17 at 22:15 Lactulose (Lactulose Liq) 30 ml DAILY PRN PO SEVERE CONSITIPATION; Start 04/22 at 22:15 Famotidine (Pepcid Inj) 20 mg Q12H IV PUSH Last administered on 04/23/17 21: 21; Start 04/22/17 at 22:00; Stop 04/24/17 at 09:19; Status DC Aspirin (Aspirin Chew) 81 mg DAILY PO Last administered on 04/30/17 09:20; Start 04/23/17 at 09:00 Diltiazem HCl (Cardizem Cd) 240 mg DAILY PO Last administered on 04/30/17 09: 20; Start 04/23/17 at 09:00 Duloxetine HCl (Cymbalta Dr) 30 mg DAILY PO Last administered on 04/30/17 14: 14; Start 04/23/17 at 09:00 Metoprolol Tartrate (Lopressor) 50 mg Q12HR PO Last administered on 04/26/17 21:17; Start 04/23/17 at 09:00; Stop 04/27/17 at 07:50; Status DC Metronidazole (Flagyl) 500 mg TID PO Last administered on 04/30/17 14:14; Start 04/23/17 at 09:00; Stop 05/07/17 at 08:59 Phenytoin (Dilantin) 200 mg TID PO Last administered on 04/30/17 14:14; Start 04/23/17 at 09:00 Sevelamer Carbonate (Renvela) 2,400 mg TID PO Last administered on 04/30/17 14:13; Start 04/23/17 at 09:00 Tamsulosin HCl (Flomax) 0.4 mg HS PO Last administered on 04/29/17 20:34; Start 04/23/17 at 21:00 Warfarin Sodium (Coumadin) 1 mg DAILY PO ; Start 04/23/17 at 09:00; Stop 04/23 at 09:00; Status DC Warfarin Sodium (Coumadin) 2.5 mg DAILY@1600 PO ; Start 04/23/17 at 16:00; Stop 04/24/17 at 11:23; Status DC Multivitamins (Theragran) 1 tab DAILY PO Last administered on 04/30/17 09:20 ; Start 04/23/17 at 09:00 Trazodone HCl (Desyrel) 100 mg HS PO Last administered on 04/29/17t 20:34; Start 04/23/17 at 21:00 Warfarin Sodium (Coumadin) 1 mg DAILY@1600 PO ; Start 04/23/17 at 16:00; Stop 04/24/17 at 11:23; Status DC Sodium Chloride 1,000 ml @ 0 mls/hr Q0M PRN OTHER For Prime & Rinse Back; Start 04/23/17 at 00:30; Stop 04/23/17 at 18:37; Status DC Heparin Sodium (Porcine) (Heparin Inj) 8,000 units UNSCH PRN IV FLUSH WITH DIALYSIS; Start 04/23/17 at 00:30 Sodium Chloride 1,000 ml @ 200 mls/hr Q5H PRN IV WITH DIALYSIS; Start at 00:30; Stop 04/23/17 at 18:37; Status DC Sodium Chloride 1,000 ml @ 0 mls/hr Q0M PRN OTHER WITH DIALYSIS; Start at 00:30; Stop 04/23/17 at 18:37; Status DC Mannitol (Mannitol Inj) 12.5 gm UNSCH PRN IV WITH DIALYSIS; Start 04/23/17 at 00:30 Albumin Human 100 ml @ 60 mls/hr UNSCH PRN IV WITH DIALYSIS; Start 04/23/17 at 00:30 Sodium Chloride (NS Flush) 5 ml UNSCH PRN IV FLUSH WITH DIALYSIS; Start at 00:30; Stop 04/23/17 at 18:37; Status DC Heparin Sodium (Porcine) (Heparin Inj) UNSCH PRN .XX WITH DIALYSIS; Start 04/29 at 00:30 Gentamicin Sulfate (Gentamicin (Dialysis) Inj) 20 mg UNSCH PRN OTHER WITH DIALYSIS; Start 04/23/17 at 00:30 Ondansetron HCl (Zofran Inj) 4 mg UNSCH PRN IV PUSH WITH DIALYSIS; Start 04/23 at 00:30 Acetaminophen (Tylenol) 650 mg UNSCH PRN PO for headach, pain, temp > 101F; Start 04/23/17 at 00:30 Diphenhydramine HCl (Benadryl) 25 mg UNSCH PRN PO for hives/itching/anaphylaxis ; Start 04/23/17 at 00:30 Nitroglycerin (Nitrostat Sl) 0.4 mg UNSCH PRN SL CHEST PAIN; Start 04/23/17 at 00:30 Clonidine (Catapres) 0.1 mg UNSCH PRN PO for BP > 180/100 X 2 readings; Start 04/23/17 at 00:30 Epoetin Jose (Epogen Inj) 2,000 units UNSCH PRN IV PUSH WITH DIALYSIS Last administered on 04/30/17 12:45; Start 04/23/17 at 00:30 Gelatin (Gelfoam 12 Mm/7 Mm Top) 1 foam UNSCH PRN TOP SEE LABEL COMMENTS Last administered on 04/30/17 12:45; Start 04/23/17 at 00:30 Patient Medication Teaching (Coumadin Booklet) 1 ONCE ONCE .XX Last administered on 04/23/17 02:29; Start 04/23/17 at 01:15; Stop 04/23/17 at 01 :16; Status DC Famotidine (Pepcid Inj) 10 mg Q12H IV PUSH Last administered on 04/25/17 09: 38; Start 04/24/17 at 10:00; Stop 04/25/17 at 16:04; Status DC Megestrol Acetate (Megace Liq) 400 mg BID PO Last administered on 04/30/17 09 :20; Start 04/25/17 at 12:00 Famotidine (Pepcid) 20 mg BID PO Last administered on 04/26/17 13:27; Start 04/25/17 at 21:00; Stop 04/26/17 at 14:06; Status DC Famotidine (Pepcid) 10 mg BID PO Last administered on 04/30/17 09:20; Start 04/27/17 at 09:00 Miscellaneous (Pill Splitter) 1 ea UNSCH PRN OTHER SEE LABEL COMMENTS Last administered on 04/29/17 20:34; Start 04/26/17 at 14:15 Metoprolol Tartrate (Lopressor) 25 mg Q12HR PO Last administered on 04/30/17 09:20; Start 04/27/17 at 09:00 A/P Problem List: (1) Pancreatitis ICD Code: K85.90 - Acute pancreatitis without necrosis or infection, unspecified (2) ESRD (end stage renal disease) on dialysis ICD Code: N18.6 - End stage renal disease; Z99.2 - Dependence on renal dialysis Status: Chronic (3) HTN (hypertension), benign ICD Code: I10 - Essential (primary) hypertension Status: Chronic (4) A-fib ICD Code: I48.91 - Unspecified atrial fibrillation Status: Acute (5) DM (diabetes mellitus) ICD Code: E11.9 - Type 2 diabetes mellitus without complications Status: Chronic Assessment and Plan Acute Pancreatitis: -Clinically seems to resolve since he is tolerating regular diet. - Lipase level improved patient tolerating diet ESRD on HD: -T//Tue, resume home medications, Dr. Ana jean HTN: -continue meds A-fib: -Chronic. 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 Restarted since unable to do paracentesis and sister was not enough fluid to do a paracentesis. -on Lopressor to 25 mg po bid and Cardizem to 180 mg CD daily - 2-D echo reviewed and reveals EF 55-60% Recurrent c diff infection -History of C diff- 03/2017- was treated - per pt completed course- labs back- + C diff- -continue on Flagyl 500 mg po tid - complete total 14 days- till 05/07 -appreciate ID consult -GI is following and cleared Moderate Ascites - no peripheral edema. comfortable, no pain -paracentesis cancelled there was not enough fluid to drain - discussed with GI patient cleared for DC chronic Thrombocytopenia, asymptomatic. DVT Prophylaxis patient ambulating Problem Qualifiers (1) A-fib: Qualified Codes: I48.2 - Chronic atrial fibrillation (2) DM (diabetes mellitus): Yina Blackwell MD Apr 30, 2017 14:26
--- NOTE | 2017-04-30 15:27 | HHI.GIFU ---
Subjective Remarks Pt resting in bed. No complaints. No abd pain. No diarrhea. (Aleena Hernandez) Objective Vitals I&O Vital Signs Date Time Temp Pulse Resp B/P (MAP) Pulse Ox O2 Delivery O2 Flow Rate FiO2 04/30/17 12:00 98.3 67 18 143/65 (91) 04/30/17 09:00 92 21 04/30/17 08:20 97.2 65 18 166/69 (101) 100 04/30/17 04:00 98.5 65 18 137/67 (90) 98 04/30/17 00:00 98.5 57 16 120/57 (78) 99 04/29/17 20:00 98.0 58 16 132/61 (84) 99 04/29/17 19:45 62 04/29/17 17:31 97 21 04/29/17 16:00 98.5 59 18 127/62 (83) 96 I/O 04/29/17 04/29/17 04/29/17 04/30/17 04/30/17 04/30/17 07:00 15:00 23:00 07:00 15:00 23:00 Intake Total 480 ml 240 ml 1440 ml Output Total 0 ml 400 ml 2000 ml Balance 480 ml -160 ml 1440 ml -2000 ml Intake Oral 480 ml 240 ml 1440 ml Output Urine Total 0 ml 400 ml Hemodialysis 2000 ml # Voids 0 # Bowel Movements 0 0 2 Laboratory Date/Time Source Procedure Growth Status 04/28/17 08:15 Stool Stool Stool Occult Blood ([facility]) - Final HEMOCCULT NEGATIVE Complete Physical Exam HEENT: PERRL; normocephalic; atraumatic; no jaundice. CHEST: CTA CARDIAC: RRR ABDOMEN: Soft, mildly distended, nontender; no hepatosplenomegaly; bowel sounds are present in all four quadrants. EXTREMITIES: No clubbing, cyanosis, or edema. SKIN: Normal; no rash; no jaundice. [employer]ING DIRECTOR: alert (Aleena Hernandez) Assessment and Plan Plan ASSESSMENT - anemia - mild, at baseline. no obvious bleeding. heme neg stool. he was on coumadin but this has been held. INR decreasing - elevated LFTs - This seems to be chronic. not obstructive. CT showing moderate ascites, splenomegaly, pleural effusions. liver w/u unremarkable thus far, ceruloplasmin and AMA pending. - ascites - ?etiology CT as above. not able to do diagnostic paracentesis - loose stool - pos c diff on flagyl, seems to be improving - elevated lipase - CT as above. lipase decreasing. - leukocytosis - WBC now WNL - ESRD on HD PLAN - per primary pt was discharged but nobody came to retrieve pt - follow up with GI in 2 weeks - monitor labs - continue abx - supportive care - okay to d/c from GI standpoint This pt seen by myself and Dr Hagan and this note is written on his behalf (Aleena Hernandez) Physician Comments Patient seen and examined Agree with above Continue with current supportive care Monitor labs Follow-up with GI post discharge (Zach Hagan MD) Aleena Hernandez Apr 30, 2017 15:27 Zach Hagan MD Apr 30, 2017 23:41
[2017-04-30] MEDS ORDERED: WARFARIN SOD 3 MG TAB PO SCH (16:00)
[2017-05-01 23:53] LABS: MITOCHONDRIAL ABS LESS THAN 20.0 U (<=20.0)
== END 2017-04-30 16:29 | disposition home health service (06) | DRG 438 ==
LOC: NEPE 17:27 → NEDA 21:53 → N04A 23:47
PROVIDERS: ADMIT Family Medicine; ATTEND Family Medicine
PROC: 5A1D70Z Performance of Urinary Filtration, Intermittent, Less than 6 Hours Per Day (ICD-10-PCS; principal; 2017-04-23)
DX: K85.90 Acute pancreatitis without necrosis or infection, unspecified (principal); N18.6 End stage renal disease; I13.2 Hypertensive heart and chronic kidney disease with heart failure and with stage 5 chronic kidney disease, or end stage renal disease; A04.71 Enterocolitis due to Clostridium difficile, recurrent; E46 Unspecified protein-calorie malnutrition; R18.8 Other ascites; D69.6 Thrombocytopenia, unspecified; E11.22 Type 2 diabetes mellitus with diabetic chronic kidney disease; I48.2 Chronic atrial fibrillation; I69.320 Aphasia following cerebral infarction; D63.1 Anemia in chronic kidney disease; K76.9 Liver disease, unspecified; I50.9 Heart failure, unspecified; K21.9 Gastro-esophageal reflux disease without esophagitis; D73.1 Hypersplenism; I25.10 Atherosclerotic heart disease of native coronary artery without angina pectoris; M19.90 Unspecified osteoarthritis, unspecified site; Z79.01 Long term (current) use of anticoagulants; Z68.23 Body mass index [BMI] 23.0-23.9, adult; Z95.1 Presence of aortocoronary bypass graft; Z95.2 Presence of prosthetic heart valve; Z99.2 Dependence on renal dialysis
CPT/HCPCS: 74176; 76705; 76937; 80048; 80053; 80069; 80074; 82103; 82105; 82272; 82390; 83520; 83540; 83550; 83690; 85025; 85027; 85610; 86038; 86255; 87493; 90935; 93005; 93306; 96360; 96374; J2270; J2405; J7030; Q4081

== ENCOUNTER 2018-04-30 14:18 | Inpatient (IN) ==
--- NOTE | 2018-04-30 14:55 | XR ---
EXAM DATE: 04/30/2018 2:50 PM EST AGE/SEX: 73 years / Male INDICATIONS: Cough. CLINICAL DATA: This is the patient's initial encounter. Patient reports that signs and symptoms have been present for 4 - 6 days and indicates a pain score of 0/10. MEDICAL/SURGICAL HISTORY: Cardiovascular disease. CABG. COMPARISON: [facility] [place], CHEST PA & LAT, 02/18/2017. . FINDINGS: Median sternotomy wires are noted status post cardiac valve surgery. The heart is minimally prominent . Minimal central pulmonary vascular congestion is noted. No focal alveolar consolidation is noted. CONCLUSION: 1. Minimal central pulmonary vascular congestion. 2. Minimal cardiomegaly. Electronically signed by: Aadlid Casanova MD 04/30/2018 2:54 PM EST
[2018-04-30 15:33] LABS: Baso % (Auto) 0.3 % (0.0-2.0); Eos % (Auto) 0.3 % (0.0-4.0); Hematocrit 40.7 % (39.0-51.0); Hemoglobin 13.1 gm/dL (13.0-17.0); Lymph # (Auto) 1.6 th/mm3 (1.0-4.8); Lymph % (Auto) 15.2 % (9.0-44.0); Mean Corpuscular HGB Conc 32.3 % (32.0-36.0); Mean Corpuscular Hemoglobin 33.6 pg (27.0-34.0); Mean Corpuscular Volume 103.9 fL (80.0-100.0); Mean Platelet Volume 9.8 fL (7.0-11.0); Mono # (Auto) 0.7 th/mm3 (0.0-0.9); Mono % (Auto) 6.2 % (0.0-8.0); Neut # (Auto) 8.5 th/mm3 (1.8-7.7); Platelet Count 90 th/mm3 (150-450); Red Blood Count 3.92 mil/mm3 (4.50-5.90); Red Cell Distribution Width 16.3 % (11.6-17.2); White Blood Count 10.8 th/mm3 (4.0-11.0)
--- NOTE | 2018-04-30 15:55 | ED ---
HPI General Chief complaint: Medical Clearance Stated complaint: Medical Time Seen by Provider: 04/30/18 14:37 Source: patient and EMS Mode of arrival: EMS Limitations: no limitations History of Present Illness HPI narrative: Patient is a 73-year-old male presenting to emerge department via EMS for evaluation of a productive cough for the last 3 days. Patient states he has been coughing up mucus. He also reports that he has night sweats for the last year. Patient denies any chest pain, shortness of breath, dizziness, abdominal pain, fever, chills. EMS reports the patient's blood glucose was 353. Patient denies any history of diabetes. Patient has chronic kidney disease, he is on hemodialysis. He denies missing any dialysis treatments. Past medical history significant for chronic kidney disease, seizures, hypertension, atrial fibrillation, GERD, BPH, valve replacement. Patient is currently on Eliquis, he reports compliance with this. Patient's no other complaints at this time. Related Data Home Medications Medication Instructions Recorded Confirmed apixaban [Eliquis] 2.5 mg PO BID 04/30/18 04/30/18 cinacalcet [Sensipar] 90 mg PO DAILY 04/30/18 04/30/18 diltiazem HCl 240 mg PO DAILY 04/30/18 04/30/18 methocarbamol 500 mg PO QID 04/30/18 04/30/18 metoprolol tartrate 50 mg PO BID 04/30/18 04/30/18 phenytoin sodium extended 300 mg PO DAILY 04/30/18 04/30/18 potassium chloride 20 meq PO DAILY 04/30/18 04/30/18 ranitidine HCl 150 mg PO DAILY 04/30/18 04/30/18 sevelamer carbonate [Renvela] 800 mg PO TID 04/30/18 04/30/18 tamsulosin 0.4 mg PO DAILY 04/30/18 04/30/18 Allergies Allergy/AdvReac Type Severity Reaction Status Date / Time No Known Allergies Allergy Verified 04/30/18 15:55 Review of Systems ROS: all other systems reviewed are negative [facility] Medical History Medical History Atrial fibrillation (Acute) BPH (benign prostatic hyperplasia) (Acute) Current use of anticoagulant therapy (Acute) GERD (gastroesophageal reflux disease) (Acute) Hemodialysis access, AV graft (Acute) Hemodialysis patient (Acute) Hypertension (Acute) End stage renal disease (Acute) Surgical History Surgical History H/O aortic valve replacement (Acute) H/O mitral valve replacement (Acute) Social History Social History Substance History: No History of Abuse Second Hand Smoke Exposure: No Smoking Status: Former smoker How Often Do You Have a Drink Containing Alcohol: Never Immunization History Tetanus Immunization: Unsure Exam Narrative Exam Narrative: GENERAL: Thin, well-developed, alert -Citizen Of [place] male. Presenting in no acute distress. SKIN: Focused skin assessment warm/dry. HEAD: Atraumatic. Normocephalic. EYES: Pupils equal and round. No scleral icterus. No injection or drainage. ENT: No nasal bleeding or discharge. Mucous membranes pink and moist. NECK: Trachea midline. No JVD. CARDIOVASCULAR: Irregularly irregular, bradycardic. 2/6 systolic murmur appreciated. RESPIRATORY: No accessory muscle use. Clear to auscultation. Breath sounds equal bilaterally. GASTROINTESTINAL: Abdomen soft, non-tender, nondistended. Hepatic and splenic margins not palpable. MUSCULOSKELETAL: No obvious deformities. No clubbing. No cyanosis. No edema. NEUROLOGICAL: Awake and alert. No obvious cranial nerve deficits. Motor grossly within normal limits. Normal speech. PSYCHIATRIC: Appropriate mood and affect; insight and judgment normal. Course Initial Documented Vital Signs Temperature 97.7 F 04/30/18 14:28 Pulse Rate 62 04/30/18 14:28 Respiratory Rate 18 04/30/18 14:28 Blood Pressure 155/69 H 04/30/18 14:28 Pulse Oximetry 97 04/30/18 14:28 Last Documented Vital Signs Temperature 97.7 F 04/30/18 14:28 Pulse Rate 56 L 04/30/18 17:23 Respiratory Rate 23 04/30/18 17:23 Blood Pressure 169/79 H 04/30/18 16:17 Pulse Oximetry 91 L 04/30/18 16:17 Critical Care Time Critical Care Time: Yes Total Critical Care Time: 45 Attestation: Aggregate critical care time was 45 minutes. Time to perform other separately billable procedures was not included in the critical care time. My time did not include minutes spent treating any other patients simultaneously or on activities that did not directly contribute to the patient's treatment. The services I provided to this patient were to treat and/or prevent clinically significant deterioration that could result in: , permanent disability, worsening clinical condition, cardiac arrest I provided critical care services requiring my management, as noted below: Chart data review, documentation time, medication orders and management, vital sign assessments/reviewing monitor data, ordering and reviewing lab tests, ordering and interpreting/reviewing x-rays and diagnostic studies, care of the patient and discussion of the patient with the admitting physicians. Medical Decision Making IVORY Attestation IVORY supervised visit: Yes Attestation: I, Dr. Sifuentes, have reviewed the advance practice practitioner's documentation and am in agreement, met with the patient face to face, made the diagnosis, and the medical decision making was done by me. See her note for further details. This is a 73-year-old male with history of ESRD on HD (MWF), hypertension, A. fib on Eliquis, brought in by ambulance from home for evaluation of having intermittent diaphoresis. Patient reports that he has had these symptoms intermittently for the last year since his aortic and mitral valve repair. He reports compliance with all of his medications. He denies chest pain or dyspnea. EMS noted his heart rate to be in the 50s, and a BGL of 350. The patient denies history of diabetes. EKG was performed in the emergency department and brought to me at 3:20 PM and shows A. fib with slow RVR with a rate of 54, market left axis deviation, wide complexes, ST and T wave changes in V1 and V2 as well as inferior leads. Again the patient denies having any chest pain, and overall appears comfortable aside from one episode of becoming nauseous and vomiting while in the emergency department. The case was discussed with the patient's district gauger Dr. Rosen after the EKG was resulted. Patient had cardiac cath performed in February [address] Covington, and the report shows that the patient has no significant coronary artery disease, however he did have significant mitral and aortic valve disease , and at that time was referred for repair. This does not appear to be a STEMI today. 4:05 PM: Patient became diaphoretic and had a bradycardic episode. He was given atropine and empirically treated for hyperkalemia with IV calcium gluconate, an amp of sodium bicarb, and 10 units of IV insulin. The patient remained awake during this entire episode. Within minutes his heart rate improved to 66. Mentation also dramatically improved. 4:23 PM: I was called by the lab that the patient's i-STAT chemistry shows a potassium of 9, creatinine 6.2, BUN 70. The patient tells me he had dialysis yesterday. His molder bench is Dr. Umana/Dr. Zhang. Stat call was placed to their group. Several stat calls were placed to on-call nephrology without callback. 5:10 PM: Case discussed with nuclear plant technical advisor Dr. Pop who will assume care of the patient and admit him to the [facility]. MDM Narrative Medical decision making narrative: Pt presented with only complaint of a cough. Shortly after arrival he vomited and became diaphoretic. EKG was obtained and it was concerning for an acute cardiac event. At this time care of patient transferred to Dr. Sifuentes. Medical Screen Exam Complete: Yes Emergency Medical Condition: Yes Lab Data Result diagrams: 04/30/18 15:15 04/30/18 15:15 Lab Results 04/30/18 04/30/18 04/30/18 Range/Units 15:15 15:15 15:15 WBC 10.8 (4.0-11.0) th/mm3 RBC 3.92 L (4.50-5.90) mil/mm3 Hgb 13.1 (13.0-17.0) gm/dL POC Hgb (Calc) (13.0-17.0) g/dL Hct 40.7 (39.0-51.0) % POC Hct (39-51.0) % MCV 103.9 H (80.0-100.0) fL MCH 33.6 (27.0-34.0) pg MCHC 32.3 (32.0-36.0) % RDW 16.3 (11.6-17.2) % Plt Count 90 L (150-450) th/mm3 MPV 9.8 (7.0-11.0) fL Prelim Diff (Auto) Slide review pending Neut % (Auto) 78.0 H (16.0-70.0) % Lymph % (Auto) 15.2 (9.0-44.0) % [place] % (Auto) 6.2 (0.0-8.0) % Eos % (Auto) 0.3 (0.0-4.0) % Baso % (Auto) 0.3 (0.0-2.0) % Neut # (Auto) 8.5 H (1.8-7.7) th/mm3 Lymph # (Auto) 1.6 (1.0-4.8) th/mm3 [place] # (Auto) 0.7 (0.0-0.9) th/mm3 Eos # (Auto) 0.0 (0.0-0.4) th/mm3 Baso # (Auto) 0.0 (0.0-0.2) th/mm3 WBC Differential . Diff Scan Auto diff confirmed Differential Comment . POC Sodium (137-144) mmol/L Sodium 134 L (136-145) meq/L POC Potassium (3.6-5.0) mmol/L Potassium 9.2 H* (3.5-5.1) meq/L POC Chloride (102-111) mmol/L Chloride 105 (98-107) meq/L Carbon Dioxide 20.9 L (21.0-32.0) meq/L Anion Gap 8 (5-15) meq/L POC BUN (5-21) mg/dL BUN 50 H (7-18) mg/dL Creatinine 6.37 H (0.60-1.30) mg/dL POC Creatinine (0.6-1.3) mg/dL Estimated GFR 10 L (>89) mL/min POC Glucose (68-110) mg/dL Random Glucose 235 H (74-106) mg/dL Lactic Acid (0.4-2.0) mmol/L Calcium 11.7 H* (8.5-10.1) mg/dL Prot Corrected Calcium 10.9 H (8.5-10.1) mg/dL Magnesium (1.5-2.5) mg/dL Total Bilirubin 0.5 (0.2-1.0) mg/dL AST 23 (15-37) U/L ALT 45 (12-78) U/L Alkaline Phosphatase 176 H (45-117) U/L Total Creatine Kinase 117 (39-308) U/L CK-MB (CK-2) 4.0 H (0.5-3.6) ng/mL Troponin I 0.03 (0.02-0.05) ng/mL B-Natriuretic Peptide 554 H (0-100) pg/mL Total Protein 8.4 H (6.4-8.2) g/dL Albumin 4.0 (3.4-5.0) g/dL Lipase 251 (73-393) U/L 04/30/18 04/30/18 04/30/18 Range/Units 15:15 15:15 15:15 WBC (4.0-11.0) th/mm3 RBC (4.50-5.90) mil/mm3 Hgb (13.0-17.0) gm/dL POC Hgb (Calc) (13.0-17.0) g/dL Hct (39.0-51.0) % POC Hct (39-51.0) % MCV (80.0-100.0) fL MCH (27.0-34.0) pg MCHC (32.0-36.0) % RDW (11.6-17.2) % Plt Count (150-450) th/mm3 MPV (7.0-11.0) fL Prelim Diff (Auto) Neut % (Auto) (16.0-70.0) % Lymph % (Auto) (9.0-44.0) % [place] % (Auto) (0.0-8.0) % Eos % (Auto) (0.0-4.0) % Baso % (Auto) (0.0-2.0) % Neut # (Auto) (1.8-7.7) th/mm3 Lymph # (Auto) (1.0-4.8) th/mm3 [place] # (Auto) (0.0-0.9) th/mm3 Eos # (Auto) (0.0-0.4) th/mm3 Baso # (Auto) (0.0-0.2) th/mm3 WBC Differential Diff Scan Differential Comment POC Sodium (137-144) mmol/L Sodium (136-145) meq/L POC Potassium (3.6-5.0) mmol/L Potassium (3.5-5.1) meq/L POC Chloride (102-111) mmol/L Chloride (98-107) meq/L Carbon Dioxide (21.0-32.0) meq/L Anion Gap (5-15) meq/L POC BUN (5-21) mg/dL BUN (7-18) mg/dL Creatinine (0.60-1.30) mg/dL POC Creatinine (0.6-1.3) mg/dL Estimated GFR (>89) mL/min POC Glucose (68-110) mg/dL Random Glucose (74-106) mg/dL Lactic Acid 4.5 H* (0.4-2.0) mmol/L Calcium (8.5-10.1) mg/dL Prot Corrected Calcium (8.5-10.1) mg/dL Magnesium (1.5-2.5) mg/dL Total Bilirubin (0.2-1.0) mg/dL AST (15-37) U/L ALT (12-78) U/L Alkaline Phosphatase (45-117) U/L Total Creatine Kinase Cancelled (39-308) U/L CK-MB (CK-2) (0.5-3.6) ng/mL Troponin I Cancelled (0.02-0.05) ng/mL B-Natriuretic Peptide (0-100) pg/mL Total Protein (6.4-8.2) g/dL Albumin (3.4-5.0) g/dL Lipase Cancelled (73-393) U/L 04/30/18 04/30/18 04/30/18 Range/Units 15:15 16:05 16:08 WBC (4.0-11.0) th/mm3 RBC (4.50-5.90) mil/mm3 Hgb (13.0-17.0) gm/dL POC Hgb (Calc) 14.6 (13.0-17.0) g/dL Hct (39.0-51.0) % POC Hct 43.0 (39-51.0) % MCV (80.0-100.0) fL MCH (27.0-34.0) pg MCHC (32.0-36.0) % RDW (11.6-17.2) % Plt Count (150-450) th/mm3 MPV (7.0-11.0) fL Prelim Diff (Auto) Neut % (Auto) (16.0-70.0) % Lymph % (Auto) (9.0-44.0) % [place] % (Auto) (0.0-8.0) % Eos % (Auto) (0.0-4.0) % Baso % (Auto) (0.0-2.0) % Neut # (Auto) (1.8-7.7) th/mm3 Lymph # (Auto) (1.0-4.8) th/mm3 [place] # (Auto) (0.0-0.9) th/mm3 Eos # (Auto) (0.0-0.4) th/mm3 Baso # (Auto) (0.0-0.2) th/mm3 WBC Differential Diff Scan Differential Comment POC Sodium 134 L (137-144) mmol/L Sodium (136-145) meq/L POC Potassium Greater than 9.0 H* (3.6-5.0) mmol/L Potassium (3.5-5.1) meq/L POC Chloride 109 (102-111) mmol/L Chloride (98-107) meq/L Carbon Dioxide (21.0-32.0) meq/L Anion Gap (5-15) meq/L POC BUN 70 H (5-21) mg/dL BUN (7-18) mg/dL Creatinine (0.60-1.30) mg/dL POC Creatinine 6.2 H (0.6-1.3) mg/dL Estimated GFR (>89) mL/min POC Glucose 281 H 277 H (68-110) mg/dL Random Glucose (74-106) mg/dL Lactic Acid (0.4-2.0) mmol/L Calcium (8.5-10.1) mg/dL Prot Corrected Calcium (8.5-10.1) mg/dL Magnesium 2.4 (1.5-2.5) mg/dL Total Bilirubin (0.2-1.0) mg/dL AST (15-37) U/L ALT (12-78) U/L Alkaline Phosphatase (45-117) U/L Total Creatine Kinase (39-308) U/L CK-MB (CK-2) (0.5-3.6) ng/mL Troponin I (0.02-0.05) ng/mL B-Natriuretic Peptide (0-100) pg/mL Total Protein (6.4-8.2) g/dL Albumin (3.4-5.0) g/dL Lipase (73-393) U/L Imaging Data Radiologist's impression: Chest X-Ray 04/30/18 14:38 CONCLUSION: 1. Minimal central pulmonary vascular congestion. 2. Minimal cardiomegaly. Abdomen/Pelvis CT 04/30/18 15:00 CONCLUSION: 1. Bilateral renal atrophy and scarring and multiple bilateral renal cysts are again noted and unchanged. 2. Scattered calcified nonobstructing left renal calculi are also unchanged. 3. No acute obstructive uropathy is noted. 4. Hepatosplenomegaly. 5. Distended gallbladder without gallstones or wall thickening. 6. Uncomplicated colonic diverticulosis. 7. Enlarged prostate. 8. Degenerative changes throughout the thoracolumbar spine. Discharge Plan Discharge Disposition Patient Disposition: 30 Still Patient Discharge Condition Condition: Serious Discharge Details Diagnosis: Hyperkalemia, Arrhythmia Physicians Team ED Provider: Bret Sifuentes Primary Care Provider: Harris Umana Rxs /Orders / Referrals /Forms Prescriptions: No Action sevelamer carbonate [Renvela] 800 mg Tablet 800 mg PO TID RF: 0 phenytoin sodium extended 100 mg Capsule 300 mg PO DAILY RF: 0 ranitidine HCl 150 mg Tablet 150 mg PO DAILY RF: 0 metoprolol tartrate 50 mg Tablet 50 mg PO BID RF: 0 diltiazem HCl 240 mg Capsule,Extended Release 24 Hr 240 mg PO DAILY RF: 0 potassium chloride 20 mEq Tablet Extended Release 20 meq PO DAILY RF: 0 methocarbamol 500 mg Tablet 500 mg PO QID RF: 0 apixaban [Eliquis] 2.5 mg Tablet 2.5 mg PO BID RF: 0 tamsulosin 0.4 mg Capsule 0.4 mg PO DAILY RF: 0 cinacalcet [Sensipar] 90 mg Tablet 90 mg PO DAILY RF: 0 Status ED Status: In Room
[2018-04-30 16:15] LABS: Alanine Aminotransferase 45 U/L (12-78); Alkaline Phosphatase 176 U/L (45-117); Anion Gap 8 meq/L (5-15); Aspartate Aminotransferase 23 U/L (15-37); Blood Urea Nitrogen 50 mg/dL (7-18); Carbon Dioxide 20.9 meq/L (21.0-32.0); Chloride 105 meq/L (98-107); Creatine Kinase 117 U/L (39-308); Glomerular Filtration Rate 10 mL/min (>89); Glucose,Random 235 mg/dL (74-106); Lipase 251 U/L (73-393); Sodium 134 meq/L (136-145); Total Protein 8.4 g/dL (6.4-8.2)
[2018-04-30] MEDS ORDERED: Sodium Polystyrene Sulfonate/Sorbitol Liq 15 GM/60 ML UDC PO ONE (16:25)
[2018-04-30 16:36] LABS: Calcium 11.7 mg/dL (8.5-10.1); Potassium 9.2 meq/L (3.5-5.1)
[2018-04-30] MEDS ORDERED: Calcium Chloride Inj 1 GM/10 ML Syringe IV.PUSH ONE (16:36)
[2018-04-30] MEDS ORDERED: Atropine Inj 1 MG/10 ML Syringe IV.PUSH ONE (16:36)
[2018-04-30 16:38] LABS: Troponin I 0.03 ng/mL (0.02-0.05)
--- NOTE | 2018-04-30 17:00 | CT ---
EXAM DATE: 04/30/2018 4:50 PM EST AGE/SEX: 73 years / Male INDICATIONS: Abdomen pain CLINICAL DATA: This is the patient's initial encounter. Patient reports that signs and symptoms have been present for 1 day and indicates a pain score of 0/10. MEDICAL/SURGICAL HISTORY: Gastroesophageal reflux disease. Hypertension. Renal disease, end s tage. . Aortic and Mitral Valve replacement RADIATION DOSE: 6.64 CTDI (mGy) COMPARISON: [facility], CT ABDOMEN AND PELVIS W/O CONTRAST, 03/31/2018. [facility] [place], CT ABDOMEN & PELVIS W/O C ONTRAST, 04/22/2017. . TECHNIQUE: Multiple contiguous axial images were obtained through the abdomen. Images were obtained using multiple row detector helical technique. Using automated exposure control and adjustment of the mA and/or kV according to patient size, radiation dose was kept as low as reasonably achievable to o btain optimal diagnostic quality images. DICOM format image data is available electronically for rev iew and comparison. FINDINGS: Lower Lungs: The visualized lower lungs are clear. Liver: Mild hepatomegaly is noted. The liver has a homogeneous density without space-occupying lesion . There is no dilation of the biliary tree. The gallbladder is distended but demonstrates no signific ant wall thickening or calcified gallstone. Pancreas: Unremarkable without mass or calcification. Kidneys: Bilateral renal atrophy and scarring and multiple bilateral renal cysts are again noted and unchanged. Scattered calcified nonobstructing left renal calculi are also unchanged. No acute obstru ctive uropathy is noted. Adrenal Glands: Unremarkable. Aorta: The aorta and proximal iliac vessels are grossly unremarkable without aneurysmal dilation. Bowel/Mesentery: Uncomplicated colonic diverticulosis is noted. No acute diverticulitis is noted. Abdominal Wall: Intact. Retroperitoneum: No evidence of adenopathy in the retrocrural, para-aortic, or deep pelvic regions. Bladder: Contours are smooth. Reproductive Organs: The prostate gland is enlarged. Inguinal: The inguinal region is unremarkable without evidence of adenopathy. Bony Structures: Degenerative changes are noted throughout the thoracolumbar spine. CONCLUSION: 1. Bilateral renal atrophy and scarring and multiple bilateral renal cysts are again noted and uncha nged. 2. Scattered calcified nonobstructing left renal calculi are also unchanged. 3. No acute obstructive uropathy is noted. 4. Hepatosplenomegaly. 5. Distended gallbladder without gallstones or wall thickening. 6. Uncomplicated colonic diverticulosis. 7. Enlarged prostate. 8. Degenerative changes throughout the thoracolumbar spine. Electronically signed by: Adalid Casanova MD 04/30/2018 4:59 PM EST
[2018-04-30] MEDS ORDERED: Sodium Polystyrene Sulfonate Powder 15 GM Bottle PO ONE (17:12)
[2018-04-30] MEDS ORDERED: Calcium Gluconate Inj 2 GM in Sodium Chlor 0.9% Inj 100 ML IV.SIG ONE (17:13)
[2018-04-30] MEDS ORDERED: Bisacodyl 10 MG Supp RECTAL PRN (17:22)
--- NOTE | 2018-04-30 17:50 | P.HPCC ---
History of Present Illness Service: [facility] Primary Care Physician: Harris Umana MD Chief Complaint: Cough History of Present Illness: 73yM brought in by EMS for productive cough. The patient reportedly has had a cough for the past several days and called EMS today because he "didn't feel well". He has ESRD on HD normally [id number], states that he was dialyzed yesterday but is supposed to be dialyzed again tomorrow because the HD center is rescheduling all the appointments due to the . His trim mechanic is Dr. Umana. The patient says that he's had a stroke in the past and has difficulty finishing sentences and has been very confused about his medications recently. He says that one of the dialysis nurses was going to help him go through his meds but isn't sure if any of them were recently changed or if he may have accidentally taken a wrong dose. On his med list, potassium supplements are listed. In the ED, the patient was found to have a wide-complex "bizarre" EKG and a potassium of 9.0. He had an episode of bradycardia to the 30s which improved with calcium chloride, bicarb, insulin, dextrose, and kayexalate. When I arrived to examine the patient, his QRS complex was again becoming widened so I gave him a second course of medical treatment. I spoke with Dr. Dunn of nephrology to arrange stat HD. - Diagnosis (1) ESRD (end stage renal disease) on dialysis (2) History of CVA (cerebrovascular accident) (3) Hyperkalemia Inpatient Certification: I certify that the inpatient services were ordered in accordance with Medicare regulations governing the order. This includes certification that hospital inpatient services are reasonable and necessary and in the case of services not specified as inpatient-only under 42 CFR 419.22(n), that they are appropriately provided as inpatient services in accordance to with the 2-midnight benchmark under 43 CFR 412.3(e) Estimated Total Length of Stay (Days): 3 Plans for Post Hospital Care: Home Review of Systems All other systems reviewed negative except as stated in HPI Constitutional: Denies fever(s) Ears, Nose, Mouth, and Throat: Denies headache(s) Cardiovascular: Reports shortness of breath Respiratory: Reports cough Gastrointestinal: Reports nausea Comments: Aphasia, chronic PMFSH - History History Provided By: Patient, Outside Sales Associate / EMT - Medical History Medical History: Medical History (Last Reviewed 04/30/18 @ 17:44 by Britt Bardales DO) Atrial fibrillation BPH (benign prostatic hyperplasia) Current use of anticoagulant therapy GERD (gastroesophageal reflux disease) Hemodialysis access, AV graft Hemodialysis patient Hypertension End stage renal disease - Surgical History Surgical History: Surgical History (Last Reviewed 04/30/18 @ 17:44 by Britt Bardales DO) H/O aortic valve replacement H/O mitral valve replacement - Social History I have reviewed the patient's Social History: Yes - Tobacco History Second Hand Smoke Exposure: No Smoking Status: Former smoker - Alcohol History How Often Do You Have a Drink Containing Alcohol: Never - Substance Use History Substance History: No History of Abuse - Immunization History Tetanus Immunization: Unsure Medications and Allergies Active Medications: Active Medications Albuterol (Duoneb Neb (Brittaney)) 1 ampul NEB Q4HR NEB [facility] Bisacodyl (Dulcolax Supp) 10 mg RECTAL DAILY PRN PRN Reason: SEVERE CONSITIPATION Chlorhexidine Gluconate (Chlorhexidine 2% Cloth) 3 pack TOPICAL DAILY@0400 BRITTANEY Stop: 05/06/18 03:59 Chlorhexidine Gluconate (Chlorhexidine 2% Cloth) 3 pack TOPICAL DAILY@0400 PRN PRN Reason: Extra cloth needed Stop: 05/06/18 03:59 Famotidine (Pepcid) 20 mg PO BID [facility] Famotidine (Pepcid Pf Inj) 20 mg IV.PUSH Q12HR [facility] Heparin Sodium (Porcine) (Heparin Inj) 5,000 units SQ Q8H [facility] Calcium Gluconate 2 gm/ Sodium (Chloride) 120 mls @ 120 mls/hr IV.SIG ONCE ONE Stop: 04/30/18 18:12 Lactulose (Lactulose Liq) 30 ml PO DAILY PRN PRN Reason: SEVERE CONSITIPATION Ondansetron HCl (Zofran Inj) 4 mg IV.PUSH Q6H PRN PRN Reason: NAUSEA OR VOMITING Senna/Docusate Sodium (Lynn-Colace) 1 tab PO BID [facility] Sennosides (Senokot) 17.2 mg PO Q12H PRN PRN Reason: Moderate Constipation Sodium Chloride (Ns Flush) 2 ml IV.FLUSH BID [facility] Sodium Chloride (Ns Flush) 2 ml IV.FLUSH PRN PRN PRN Reason: FLUSH AFTER USING IV ACCESS Allergies Allergy/AdvReac Type Severity Reaction Status Date / Time No Known Allergies Allergy Verified 04/30/18 15:55 Home Medications Medication Instructions Recorded Confirmed Type apixaban [Eliquis] 2.5 mg PO BID 04/30/18 04/30/18 History cinacalcet [Sensipar] 90 mg PO DAILY 04/30/18 04/30/18 History diltiazem HCl 240 mg PO DAILY 04/30/18 04/30/18 History methocarbamol 500 mg PO QID 04/30/18 04/30/18 History metoprolol tartrate 50 mg PO BID 04/30/18 04/30/18 History phenytoin sodium extended 300 mg PO DAILY 04/30/18 04/30/18 History potassium chloride 20 meq PO DAILY 04/30/18 04/30/18 History ranitidine HCl 150 mg PO DAILY 04/30/18 04/30/18 History sevelamer carbonate [Renvela] 800 mg PO TID 04/30/18 04/30/18 History tamsulosin 0.4 mg PO DAILY 04/30/18 04/30/18 History Results - Labs CBC & Chem 7: 04/30/18 15:15 04/30/18 15:15 Labs: Short CBC 04/30/18 Range/Units 15:15 WBC 10.8 (4.0-11.0) th/mm3 Hgb 13.1 (13.0-17.0) gm/dL Hct 40.7 (39.0-51.0) % Plt Count 90 L (150-450) th/mm3 [facility] 04/30/18 15:15 Sodium 134 L Potassium 9.2 H* Chloride 105 Carbon Dioxide 20.9 L BUN 50 H Creatinine 6.37 H Calcium 11.7 H* Cardiac Enzymes 04/30/18 04/30/18 Range/Units 15:15 15:15 Total Creatine Kinase 117 Cancelled (39-308) U/L CK-MB (CK-2) 4.0 H (0.5-3.6) ng/mL Troponin I 0.03 Cancelled (0.02-0.05) ng/mL Liver Function 04/30/18 Range/Units 15:15 Total Bilirubin 0.5 (0.2-1.0) mg/dL AST 23 (15-37) U/L ALT 45 (12-78) U/L Alkaline Phosphatase 176 H (45-117) U/L Albumin 4.0 (3.4-5.0) g/dL - Imaging Impressions Chest X-Ray 04/30/18 14:38 CONCLUSION: 1. Minimal central pulmonary vascular congestion. 2. Minimal cardiomegaly. Abdomen/Pelvis CT 04/30/18 15:00 CONCLUSION: 1. Bilateral renal atrophy and scarring and multiple bilateral renal cysts are again noted and unchanged. 2. Scattered calcified nonobstructing left renal calculi are also unchanged. 3. No acute obstructive uropathy is noted. 4. Hepatosplenomegaly. 5. Distended gallbladder without gallstones or wall thickening. 6. Uncomplicated colonic diverticulosis. 7. Enlarged prostate. 8. Degenerative changes throughout the thoracolumbar spine. Exam Vital signs: Vital Signs 04/30/18 14:28 04/30/18 15:29 04/30/18 16:14 Temperature 97.7 F Pulse Rate 62 51 L 66 Respiratory Rate 18 18 20 Blood Pressure 155/69 H 182/71 H 189/77 H Pulse Oximetry 97 97 04/30/18 16:17 04/30/18 17:23 04/30/18 17:31 Temperature Pulse Rate 67 56 L 67 Respiratory Rate 18 23 18 Blood Pressure 169/79 H 131/60 Pulse Oximetry 91 L Intake & Output 04/29/18 04/30/18 04/30/18 18:59 06:59 18:59 Weight 72.575 kg Narrative: GEN: Chronically ill-appearing, no acute distress HEENT: NCAT, bilateral arcus senilis, PERRL NECK: Trachea midline CARDIO: Irregular RESP: Clear to auscultation bilaterally ABD/GI: Soft, non-tender, no guarding or rebound EXT/MSK: AVF present in left upper arm with palpable thrill, (+) bruit SKIN: No rashes or lesions NEURO: A&Ox3, answers questions slowly but appropriately, mild expressive aphasia which patient states is baseline/ chronic, moving all extremities PSYCH: Calm, appropriate affect Caprini VTE Risk Assessment Caprini VTE Risk Assessment: Moderate/High Risk (score >= 2) Caprini Risk Assessment Model: Point Value = 1 Point Value = 2 Point Value = 3 Point Value = 5 Age 41-60 Minor surgery BMI > 25 kg/m2 Swollen legs Varicose veins or History of unexplained or recurrent spontaneous Oral contraceptives or hormone replacement Sepsis (< 1 month) Serious lung disease, including pneumonia (< 1 month) Abnormal pulmonary function Acute myocardial infarction Congestive heart failure (< 1 month) History of inflammatory bowel disease Medical patient at bed rest Age 61-74 Arthroscopic surgery Major open surgery (> 45 min) Laparoscopic surgery (> 45 min) Malignancy Confined to bed (> 72 hours) Immobilizing plaster cast Central venous access Age >= 75 History of VTE Family history of VTE Factor V Leiden Prothrombin [id number] Lupus anticoagulant Anticardiolipin antibodies Elevated serum homocysteine Heparin-induced thrombocytopenia Other congenital or acquired thrombophilia Stroke (< 1 month) Elective arthroplasty Hip, pelvis, or leg fracture Acute spinal cord injury (< 1 month) Prophylaxis Regimen: Total Risk Factor Score Risk Level Prophylaxis Regimen 0-1 Low Early ambulation 2 Moderate Order ONE of the following: *Sequential Compression Device (SCD) *Heparin 5000 units SQ BID 3-4 Higher Order ONE of the following medications: *Heparin 5000 units SQ TID *Enoxaparin/Lovenox 40 mg SQ daily (WT < 150 kg, CrCl > 30 mL/min) *Enoxaparin/Lovenox 30 mg SQ daily (WT < 150 kg, CrCl > 10-29 mL/min) *Enoxaparin/Lovenox 30 mg SQ BID (WT < 150 kg, CrCl > 30 mL/min) AND/OR *Sequential Compression Device (SCD) 5 or more Highest Order ONE of the following medications: *Heparin 5000 units SQ TID (Preferred with Epidurals) *Enoxaparin/Lovenox 40 mg SQ daily (WT < 150 kg, CrCl > 30 mL/min) *Enoxaparin/Lovenox 30 mg SQ daily (WT < 150 kg, CrCl > 10-29 mL/min) *Enoxaparin/Lovenox 30 mg SQ BID (WT < 150 kg, CrCl > 30 mL/min) AND *Sequential Compression Device (SCD) Assessment and Plan - Problem List (1) ESRD (end stage renal disease) on dialysis Code(s): N18.6 - End stage renal disease; Z99.2 - Dependence on renal dialysis Status: Chronic (2) History of CVA (cerebrovascular accident) Code(s): Z86.73 - Personal history of transient ischemic attack (TIA), and cerebral infarction without residual deficits Status: Chronic (3) Hyperkalemia Code(s): E87.5 - Hyperkalemia Status: Acute - Assessment and Plan Plan: 73yM with ESRD on HD T-Th-S presenting with cough and life-threatening hyperkalemia NEURO: -Expressive aphasia, at baseline -History of seizure disorder, continue phenytoin -Delirium precautions CARDIO: -Cardiology consulted by ED prior to labs resulting, patient has no chest pain or anginal equivalents, no need for cardio intervention at this time -Continue Eliquis, diltiazem, metoprolol -vehicle monitor technician PULM: -No active issues, CXR shows no infiltrate, unclear if cough is related to hyperkalemia-related arrhythmias F/E/N, RENAL: -s/p 2 rounds of calcium, bicarb, albuterol, insulin, dextrose, kayexelate, lasix -Emergent HD, spoke with Dr. Dunn -Etiology may be related to unintentional medication overdose (potassium supplements were listed on the patient's home meds) -NPO until stable, after HD -No maintenance fluids -Continue Renvela and cinacalcet ID: -No active issues ENDO: -q6h Accuchecks, SSI if needed PROPHY: -Vic SCDs -PPI Counseling/ Coordination of Care: This patient is critically ill with impairment of one or more vital organ systems with a high probability of imminent or life-threatening deterioration. High-complexity medical decision making was required to support vital organ function and/ or prevent deterioration in the patient's condition. Total critical care time spent is 55 minutes giving full attention to this patient. This includes examining the patient, gathering history from someone other than the patient (i.e. chart review), discussing the patient's care with other providers, management of severe life-threatening hyperkalemia with EKG changes, reviewing radiologic studies, ordering and interpreting laboratory values, re-evaluation at frequent intervals, and documentation. Amount of time is separate from teaching, counseling the patient and/or family, and exclusive of procedures. Code Status: Full Discussed Condition With: Dr. Dunn (nephrology), Dr. Sifuentes (ED physician)
[2018-04-30] MEDS ORDERED: Dextrose 50% in Water 50 ML Vial IV.PUSH PRN (17:57)
[2018-04-30] MEDS ORDERED: Heparin - SQ 10,000 UNITS/ML Vial SQ SCH (18:00)
[2018-04-30] MEDS: Metoprolol Tartrate 50 MG Tablet PO SCH (22:23)
[2018-04-30] MEDS: Insulin NovoLOG Aspart Correctional Sugar Inj SQ SCH ×2 (22:23→23:35)
[2018-04-30] MEDS: Famotidine PF Inj 20 MG/2 ML Vial IV.PUSH SCH (22:23)
[2018-04-30] MEDS: Famotidine 20 MG Tablet PO SCH (22:24)
[2018-04-30] MEDS: Senna/Docusate Sodium 8.6/50 MG Tablet PO SCH (22:24)
[2018-04-30] MEDS ORDERED: Acetaminophen 325 MG Tablet PO PRN (23:00)
[2018-04-30] MEDS ORDERED: Albumin Human 25% Inj 100 ML IV.SIG PRN (23:00)
[2018-04-30] MEDS ORDERED: Heparin 10,000 UNITS/10 ML Vial (for IV use) OTHER PRN ×2 (23:00)
[2018-04-30] MEDS ORDERED: Gelatin 12 MM/7 MM Topical Foam TOPICAL PRN (23:00)
[2018-04-30] MEDS ORDERED: Sod Chloride 0.9% Inj 1,000 ML OTHER PRN ×2 (23:00)
[2018-04-30] MEDS ORDERED: Sod Chloride 0.9% Inj 1,000 ML IV.CONT PRN (23:00)
--- NOTE | 2018-05-01 00:13 | MB ---
cc: Tere Dunn MD DATE: 04/30/2018 REASON FOR CONSULTATION: End-stage renal disease, on hemodialysis, came with very high potassium. HISTORY OF PRESENT ILLNESS: This is a 73-year-old male with past medical history of hypertension, cerebrovascular accident, end-stage renal disease on hemodialysis 3 times per week, came to the hospital with complaint of epigastric burning, cough, and not feeling well for the last few days. I was called to see the patient because of very high potassium and EKG changes. The patient was found to have bradycardia of 30s. He has been on hemodialysis, Tuesday, , and Tuesday, and he had last hemodialysis done yesterday and was supposed to get dialysis again tomorrow because of the holidays. According to the patient, there was no problem with the dialysis, and he was to continue his regular medications, although he does not follow the diet for the potassium, and according to him, he has been eating potatoes and tomatoes, and it was found that he has very high potassium level, and he has bradycardia with EKG changes. The patient denies any chest pain. No palpitation. No headache, dizziness, or blurring of vision. He denies missing his dialysis treatment, and according to him, he has been taking his medications regularly. PAST MEDICAL HISTORY: Hypertension, gastroesophageal reflux disease, benign prostatic hypertrophy, atrial fibrillation, seizure disorder, end-stage renal disease, on hemodialysis 3 times per week. PAST SURGICAL HISTORY: AV fistula surgery, aortic valve replacement, mitral valve replacement. REVIEW OF SYSTEMS: He denies any history of fever. No headache, dizziness, or blurring of vision. The patient has generalized weakness, feeling tired, has epigastric burning, and has cough which is mainly dry. There is no chest pain. No palpitation. No nausea or vomiting. No abdominal pain. No history of diarrhea. SOCIAL HISTORY: He has past history of smoking. No history of heavy alcoholism. FAMILY HISTORY: Noncontributory. ALLERGIES: HE HAS NO KNOWN DRUG ALLERGIES. MEDICATIONS: Currently, he is on the following medications: 1. DuoNeb nebulizer. 2. Eliquis 2.5 mg daily. 3. Dulcolax 10 mg p.r.n. 4. Sensipar 90 mg once a day. 5. Cardizem-CD 240 mg once a day. 6. Pepcid 20 mg b.i.d. 7. Insulin aspart sliding scale. 8. Metoprolol 50 mg b.i.d. 9. Zofran as needed. 10. Dilantin 300 mg once a day. 11. Lynn-Colace one b.i.d. 12. Renvela 800 mg t.i.d. 13. Flomax 0.4 mg daily. PHYSICAL EXAMINATION: GENERAL: The patient is awake, alert. He was seen by me while he was getting the dialysis with nasal cannula, not in acute distress. VITAL SIGNS: His last blood pressure was recorded at 145/62. Temperature 97.6, oxygen saturation on 2 L nasal cannula 100%. HEENT: Pupils are mid constricted. Nonicteric sclerae. Conjunctivae normal. NECK: Supple. JVD is slightly elevated. LUNGS: The patient has bilateral decreased air entry with scattered wheezing. HEART: S1, S2. Regular rate and rhythm. ABDOMEN: Soft and lax. There is no tenderness. Bowel sounds positive. EXTREMITIES: He has mild edema in the legs. LABORATORY DATA: WBC count is 10.8, hemoglobin 13.1, platelet count of 90. Sodium 134, potassium was greater than 9, chloride 109, BUN 70, creatinine 6.2, glucose 281. Magnesium 2.4. IMAGING STUDIES: The patient had CT scan of the abdomen and pelvis done which showed bilateral renal atrophy, calcified nonobstructive left renal calculi, distended gallbladder, enlarged prostate, uncomplicated diverticulosis, degenerative changes throughout the thoracolumbar spine. Also, has chest x-ray done which shows cardiomegaly, mild pulmonary congestion. ASSESSMENT AND PLAN: 1. Severe hyperkalemia. 2. Bradycardia and arrhythmia. 3. Atrial fibrillation. 4. End-stage renal disease, on hemodialysis. 5. Hypertension. 6. History of cerebrovascular accident and seizure disorder. The patient has very high potassium. Emergent dialysis was called, and I saw him during dialysis. The patient has improvement in his rhythm, and QRS complex became narrowed, and heart rate has started to increase while he was on dialysis. We dialyzed him with 1.0 potassium for 2 hours, and he will have again dialysis in the morning which will be his regular day according to the holidays. Because he is weak, he will have dialysis on Tuesday, Tuesday, and then Tuesday. The patient was taking potassium at home. He was advised to stop taking the potassium at home and also need to be clarified more about low potassium diet. I did discuss with the patient, but I told him to discuss this more with the dietitian at dialysis center. The patient has been following with Dr. Harris Umana, so I will ask Dr. Zhang to follow the patient from tomorrow, and he will need dialysis again tomorrow. Follow the potassium after dialysis. Thank you for the consultation. Olvin Dunn MD AQJ/rm , 10:59 PM , 11:12 PM
[2018-05-01] MEDS ORDERED: Chlorhexidine Gluconate 2% 1 Pack (2 Cloths) TOPICAL PRN (04:00)
[2018-05-01] MEDS ORDERED: Chlorhexidine Gluconate 2% 1 Pack (2 Cloths) TOPICAL SCH (04:00)
[2018-05-01] MEDS: Insulin NovoLOG Aspart Correctional Sugar Inj SQ SCH ×3 (05:09→18:57)
[2018-05-01 05:33] LABS: Baso % (Auto) 0.3 % (0.0-2.0); Eos # (Auto) 0.1 th/mm3 (0.0-0.4); Eos % (Auto) 1.5 % (0.0-4.0); Hemoglobin 11.2 gm/dL (13.0-17.0); Lymph # (Auto) 1.4 th/mm3 (1.0-4.8); Lymph % (Auto) 18.2 % (9.0-44.0); Mean Corpuscular Hemoglobin 33.3 pg (27.0-34.0); Mean Platelet Volume 9.7 fL (7.0-11.0); Mono # (Auto) 0.6 th/mm3 (0.0-0.9); Mono % (Auto) 7.6 % (0.0-8.0); Neut # (Auto) 5.5 th/mm3 (1.8-7.7); Neut % (Auto) 72.4 % (16.0-70.0); Platelet Count 60 th/mm3 (150-450); Red Blood Count 3.37 mil/mm3 (4.50-5.90); Red Cell Distribution Width 14.8 % (11.6-17.2); White Blood Count 7.6 th/mm3 (4.0-11.0)
[2018-05-01 05:38] LABS: INR 1.2 Ratio; Prothrombin Time 12.1 sec (9.8-11.6)
[2018-05-01 06:19] LABS: Alanine Aminotransferase 41 U/L (12-78); Albumin 3.6 g/dL (3.4-5.0); Alkaline Phosphatase 157 U/L (45-117); Anion Gap 8 meq/L (5-15); Aspartate Aminotransferase 28 U/L (15-37); Blood Urea Nitrogen 31 mg/dL (7-18); Calcium 9.9 mg/dL (8.5-10.1); Chloride 102 meq/L (98-107); Glomerular Filtration Rate 14 mL/min (>89); Glucose,Random 84 mg/dL (74-106); Magnesium 2.2 mg/dL (1.5-2.5); Phosphorus 4.4 mg/dL (2.5-4.9); Potassium 5.3 meq/L (3.5-5.1); Sodium 141 meq/L (136-145); Total Protein 7.4 g/dL (6.4-8.2)
--- NOTE | 2018-05-01 08:01 | P.PNCC ---
Subjective Subjective Remarks/Hospital Course: 73yM brought in by EMS for productive cough. The patient reportedly has had a cough for the past several days and called EMS today because he "didn't feel well". He has ESRD on HD normally [id number], states that he was dialyzed yesterday but is supposed to be dialyzed again tomorrow because the HD center is rescheduling all the appointments due to the hol. His configuration management consultant is Dr. Umana. The patient says that he's had a stroke in the past and has difficulty finishing sentences and has been very confused about his medications recently. He says that one of the dialysis nurses was going to help him go through his meds but isn't sure if any of them were recently changed or if he may have accidentally taken a wrong dose. On his med list, potassium supplements are listed. In the ED, the patient was found to have a wide-complex "bizarre" EKG and a potassium of 9.0. He had an episode of bradycardia to the 30s which improved with calcium chloride, bicarb, insulin, dextrose, and kayexalate. When I arrived to examine the patient, his QRS complex was again becoming widened so I gave him a second course of medical treatment. I spoke with Dr. Dunn of nephrology to arrange stat HD. 05/01: Patient emergently dialyzed last night, tolerated well, no overnight events. K+ this morning is 5.3, plan is to dialyze again today. Patient offers no complaints and says that he slept well. Will discuss with nephrology as to whether patient can be discharged vs observed for 1 more day following HD. Objective Vital Signs / I&O: Vital Signs 04/30/18 14:28 04/30/18 15:29 04/30/18 16:14 Temperature 97.7 F Pulse Rate 62 51 L 66 Respiratory Rate 18 18 20 Blood Pressure 155/69 H 182/71 H 189/77 H Pulse Oximetry 97 97 04/30/18 16:17 04/30/18 17:23 04/30/18 17:31 Temperature Pulse Rate 67 56 L 67 Respiratory Rate 18 23 18 Blood Pressure 169/79 H 131/60 Pulse Oximetry 91 L 04/30/18 17:51 04/30/18 18:00 04/30/18 19:38 Temperature Pulse Rate 72 62 Respiratory Rate 16 Blood Pressure 191/76 H Pulse Oximetry 100 100 04/30/18 20:02 04/30/18 22:00 04/30/18 23:00 Temperature 98.0 F Pulse Rate 64 83 83 Respiratory Rate 18 23 20 Blood Pressure 145/62 H 135/60 139/64 Pulse Oximetry 100 100 05/01/18 00:00 05/01/18 01:00 05/01/18 02:00 Temperature 98.2 F Pulse Rate 81 80 75 Respiratory Rate 17 20 19 Blood Pressure 123/60 126/58 L 127/58 L Pulse Oximetry 100 100 100 05/01/18 03:00 05/01/18 04:00 05/01/18 05:00 Temperature 99.2 F Pulse Rate 68 64 61 Respiratory Rate 21 20 21 Blood Pressure 109/51 L 141/62 H 115/55 L Pulse Oximetry 100 100 100 05/01/18 06:00 Temperature Pulse Rate 60 Respiratory Rate 22 Blood Pressure 123/60 Pulse Oximetry 100 Intake & Output 04/30/18 05/01/18 05/01/18 18:59 06:59 18:59 Intake Total 120 / 120 0 / 0 Output Total 500 / 500 Balance 120 / 120 -500 / -500 Weight 72.575 kg 61.7 kg Intake: IV 120 / 120 Calcium Gluconate Inj 2 GM In 120 / 120 NS Inj 100 ML @ 120 mls/hr IV. SIG ONCE ONE Rx#:[id number] Oral 0 / 0 Output: Hemodialysis Amount 500 / 500 Other: # Voids 0 Date of Last Bowel Movement 04/29/18 # Bowel Movements 0 Weight On Admission 61.3 kg Result Diagrams: 05/01/18 04:26 05/01/18 04:26 Objective Remarks: GEN: Resting comfortably in bed, no acute distress HEENT: PERRL NECK: Trachea midline CARDIO: Regular rate and rhythm, (+) systolic murmur RESP: Clear to auscultation bilaterally ABD/GI: Soft, non-tender, no guarding or rebound EXT/MSK: AVF present in left upper arm with palpable thrill, (+) bruit SKIN: No rashes or lesions NEURO: A&Ox3, conversant, no focal deficits PSYCH: Calm, appropriate affect Assessment and Plan - Problem List (1) ESRD (end stage renal disease) on dialysis Code(s): N18.6 - End stage renal disease; Z99.2 - Dependence on renal dialysis Status: Chronic (2) History of CVA (cerebrovascular accident) Code(s): Z86.73 - Personal history of transient ischemic attack (TIA), and cerebral infarction without residual deficits Status: Chronic (3) Hyperkalemia Code(s): E87.5 - Hyperkalemia Status: Acute - Assessment and Plan Plan: 73yM with ESRD on HD presenting with cough and life-threatening hyperkalemia, improved NEURO: -History of seizure disorder, continue phenytoin -Delirium precautions CARDIO: -Cardiology consulted by ED prior to labs resulting, patient has no chest pain or anginal equivalents, no need for cardio intervention at this time -Continue Eliquis, diltiazem, metoprolol -gambling monitor PULM: -No active issues, CXR shows no infiltrate, unclear if cough is related to hyperkalemia-related arrhythmias F/E/N, RENAL: -Emergently dialyzed last night, K+ 5.3 this morning, with narrow QRS complexes on gambling monitor -Start renal dialysis diet, limit K+ to 40 mEq -As per nephro notes, plan is to dialyze again this morning and resume schedule ( due to holiday, then back to regular schedule of ) -Continue Renvela and cinacalcet ID: -No active issues ENDO: -q6h Accuchecks, SSI if needed PROPHY: -Eliquis, SCDs -PPI Patient can either be downgraded to med surg/ hospitalist service vs discharged home if ok with nephrology. Level 2 follow up To help prompt me to consider important information that might be impacting today's encounter and assessment, information from prior notes written by myself or my colleagues may have been "brought forward" into today's note. My signature on this note, however, is an attestation that I personally performed the exam, history, and/or decision-making noted today, and, unless otherwise indicated, the interactions with patient, family, and staff as well as the review of records all occurred today. I also attest that the listed assessment and stated plan reflect my best clinical judgment today based on the combination of historical information, prior notes, and today's exam/ interactions. Code Status: Full
[2018-05-01] MEDS: Famotidine 20 MG Tablet PO SCH (08:19)
[2018-05-01] MEDS: Senna/Docusate Sodium 8.6/50 MG Tablet PO SCH (08:19)
[2018-05-01] MEDS: dilTIAZem CD 240 MG Capsule PO SCH ×2 (08:19→08:39)
[2018-05-01] MEDS: Metoprolol Tartrate 50 MG Tablet PO SCH (08:21)
[2018-05-01] MEDS: Famotidine PF Inj 20 MG/2 ML Vial IV.PUSH SCH (08:21)
[2018-05-01 08:53] LABS: Ovalocytes 1+; Platelet Morphology Normal (Normal)
[2018-05-01] MEDS ORDERED: Phenytoin Sodium 100 MG Capsule PO SCH (09:00)
--- NOTE | 2018-05-01 10:30 | P.PNNP ---
Subjective Interval history: patient is stable. Hyperkalemia has improved. To have dialysis again today. Physical Exam Vital signs: Vital Signs 04/30/18 14:28 04/30/18 15:29 04/30/18 16:14 Temperature 97.7 F Pulse Rate 62 51 L 66 Respiratory Rate 18 18 20 Blood Pressure 155/69 H 182/71 H 189/77 H Pulse Oximetry 97 97 04/30/18 16:17 04/30/18 17:23 04/30/18 17:31 Temperature Pulse Rate 67 56 L 67 Respiratory Rate 18 23 18 Blood Pressure 169/79 H 131/60 Pulse Oximetry 91 L 04/30/18 17:51 04/30/18 18:00 04/30/18 19:38 Temperature Pulse Rate 72 62 Respiratory Rate 16 Blood Pressure 191/76 H Pulse Oximetry 100 100 04/30/18 20:02 04/30/18 22:00 04/30/18 23:00 Temperature 98.0 F Pulse Rate 64 83 83 Respiratory Rate 18 23 20 Blood Pressure 145/62 H 135/60 139/64 Pulse Oximetry 100 100 05/01/18 00:00 05/01/18 01:00 05/01/18 02:00 Temperature 98.2 F Pulse Rate 81 80 75 Respiratory Rate 17 20 19 Blood Pressure 123/60 126/58 L 127/58 L Pulse Oximetry 100 100 100 05/01/18 03:00 05/01/18 04:00 05/01/18 05:00 Temperature 99.2 F Pulse Rate 68 64 61 Respiratory Rate 21 20 21 Blood Pressure 109/51 L 141/62 H 115/55 L Pulse Oximetry 100 100 100 05/01/18 06:00 05/01/18 08:00 05/01/18 08:48 Temperature Pulse Rate 60 55 L Respiratory Rate 22 18 Blood Pressure 123/60 Pulse Oximetry 100 98 Intake & Output 04/30/18 05/01/18 05/01/18 18:59 06:59 18:59 Intake Total 120 / 120 0 / 0 Output Total 500 / 500 Balance 120 / 120 -500 / -500 Weight 72.575 kg 61.7 kg Intake: IV 120 / 120 Calcium Gluconate Inj 2 GM In 120 / 120 NS Inj 100 ML @ 120 mls/hr IV. SIG ONCE ONE Rx#:[id number] Oral 0 / 0 Output: Hemodialysis Amount 500 / 500 Other: # Voids 0 Date of Last Bowel Movement 04/29/18 # Bowel Movements 0 Weight On Admission 61.3 kg - Constitutional no acute distress, mild distress Comments: frail, elderly - Routine HEENT Exam Head: Present: normocephalic, atraumatic Eye: Present: EOMI, PERRL - Routine Neck Exam Present: supple, full ROM. Absent: JVD - Routine Respiratory Exam Present: CTA bilaterally. Absent: accessory muscle use - Routine Cardiovascular Exam Present: RRR, S1, S2, murmur - Routine Abdominal Exam Present: soft, normoactive bowel sounds - Routine Extremities Exam Present: AV fistula. Absent: edema - Routine Neurological Exam Present: alert, oriented X3 Assessment and Plan - Assessment (1) Hyperkalemia Code(s): E87.5 - Hyperkalemia Status: Acute Plan: Improved. Dialysis again today. He was advised to stop taking potassium supplements, it is unclear who had ordered it. He himself was unaware of taking potassium supplements. In addition, he was having certain foods very rich in potassium at home: orange juice, mild, nuts etc. Detailed discussed about importance of restricting dietary potassium was had today. Unfortunately he is forgetful likely because of CVA (2) ESRD (end stage renal disease) on dialysis Code(s): N18.6 - End stage renal disease; Z99.2 - Dependence on renal dialysis Status: Chronic Plan: Dialysis today. (3) History of CVA (cerebrovascular accident) Code(s): Z86.73 - Personal history of transient ischemic attack (TIA), and cerebral infarction without residual deficits Status: Chronic - Plan supportive care. - Attending Attestation possible discharge after dialysis.
[2018-05-01 13:25] VITALS: TEMP 98.3
--- NOTE | 2018-05-01 14:11 | P.DCO ---
- Diagnosis (1) Hyperkalemia Status: Acute (2) ESRD (end stage renal disease) on dialysis Status: Chronic (3) History of CVA (cerebrovascular accident) Status: Chronic - Physical Therapy Order: Evaluate and treat - Occupational Therapy Order: Improve ADL - Speech Therapy Order: To improve: Speech and communication skills - Home Health Nursing Order: Medication education-adverse effect Instructions: Patient expresses confusion about his medications and was apparently taking potassium supplements even though he is a dialysis patient. He arrived to the ED with a life-threatening high potassium requiring emergent dialysis. He will need education and help organizing his medications to ensure that he is taking them correctly. - Case Management Consult Case Management Consult-Home Health: Yes - Certification I have seen patient Cortes Michael on 05/01/18. My clinical findings support the need for the requested home health care services because: Medication compliance is questionable (Inadvertent medication overdose) I certify that my clinical findings support that this patient is homebound because: Need for psychosocial assistance Attestation/Additional Detail: I attest that I have seen and examined Cortes Michael on the date of discharge and his home health needs are as listed above.
--- NOTE | 2018-05-01 14:22 | P.DS ---
Date of admission: 04/30/18 17:24 Primary care physician: Harris Umana MD Attending physician on discharge: Britt Bardales Anticipated date of discharge: 05/01/18 Brief History from admission: 73yM brought in by EMS for productive cough. The patient reportedly has had a cough for the past several days and called EMS today because he "didn't feel well". He has ESRD on HD normally [id number], states that he was dialyzed yesterday but is supposed to be dialyzed again tomorrow because the HD center is rescheduling all the appointments due to the . His pediatric oncology nurse is Dr. Umana. The patient says that he's had a stroke in the past and has difficulty finishing sentences and has been very confused about his medications recently. He says that one of the dialysis nurses was going to help him go through his meds but isn't sure if any of them were recently changed or if he may have accidentally taken a wrong dose. On his med list, potassium supplements are listed. In the ED, the patient was found to have a wide-complex "bizarre" EKG and a potassium of 9.0. He had an episode of bradycardia to the 30s which improved with calcium chloride, bicarb, insulin, dextrose, and kayexalate. When I arrived to examine the patient, his QRS complex was again becoming widened so I gave him a second course of medical treatment. I spoke with Dr. Dunn of nephrology to arrange stat HD. Patient update on day of discharge: I spoke with Dr. Zhang (nephrology) this morning; patient is stable for discharge this afternoon following hemodialysis. I also spoke with our director case, who will help arrange home health services as the patient needs assistance taking his medications. I believe his severe hyperkalemia was related to an inadvertent medication error. He will also benefit from PT & OT evals to improve his ability to perform ADLs as he has had a CVA in the past and lives on his own. DS: Diagnosis - Discharge Diagnosis (1) Hyperkalemia Status: Acute (2) ESRD (end stage renal disease) on dialysis Status: Chronic (3) History of CVA (cerebrovascular accident) Status: Chronic DS: Summary Hospital Course: 73yM brought in by EMS for productive cough. The patient reportedly has had a cough for the past several days and called EMS today because he "didn't feel well". He has ESRD on HD normally [id number], states that he was dialyzed yesterday but is supposed to be dialyzed again tomorrow because the HD center is rescheduling all the appointments due to the hol. His pediatric oncology nurse is Dr. Umana. The patient says that he's had a stroke in the past and has difficulty finishing sentences and has been very confused about his medications recently. He says that one of the dialysis nurses was going to help him go through his meds but isn't sure if any of them were recently changed or if he may have accidentally taken a wrong dose. On his med list, potassium supplements are listed. In the ED, the patient was found to have a wide-complex "bizarre" EKG and a potassium of 9.0. He had an episode of bradycardia to the 30s which improved with calcium chloride, bicarb, insulin, dextrose, and kayexalate. When I arrived to examine the patient, his QRS complex was again becoming widened so I gave him a second course of medical treatment. I spoke with Dr. Dunn of nephrology to arrange stat HD. 05/01: Patient emergently dialyzed last night, tolerated well, no overnight events. K+ this morning is 5.3, plan is to dialyze again today. Patient offers no complaints and says that he slept well. Will discuss with nephrology as to whether patient can be discharged vs observed for 1 more day following HD. - Time Spent with Patient Total time spent providing and/or coordinating discharge services: 28 minutes Less than 30 minutes - Quality: VTE Deep Vein Thrombosis/Pulmonary Embolism Present on Admission: No Exam Vital signs: Vital Signs 04/30/18 14:28 04/30/18 15:29 04/30/18 16:14 Temperature 97.7 F Pulse Rate 62 51 L 66 Respiratory Rate 18 18 20 Blood Pressure 155/69 H 182/71 H 189/77 H Pulse Oximetry 97 97 04/30/18 16:17 04/30/18 17:23 04/30/18 17:31 Temperature Pulse Rate 67 56 L 67 Respiratory Rate 18 23 18 Blood Pressure 169/79 H 131/60 Pulse Oximetry 91 L 04/30/18 17:51 04/30/18 18:00 04/30/18 19:38 Temperature Pulse Rate 72 62 Respiratory Rate 16 Blood Pressure 191/76 H Pulse Oximetry 100 100 04/30/18 20:02 04/30/18 22:00 04/30/18 23:00 Temperature 98.0 F Pulse Rate 64 83 83 Respiratory Rate 18 23 20 Blood Pressure 145/62 H 135/60 139/64 Pulse Oximetry 100 100 05/01/18 00:00 05/01/18 01:00 05/01/18 02:00 Temperature 98.2 F Pulse Rate 81 80 75 Respiratory Rate 17 20 19 Blood Pressure 123/60 126/58 L 127/58 L Pulse Oximetry 100 100 100 05/01/18 02:13 05/01/18 03:00 05/01/18 04:00 Temperature 99.2 F Pulse Rate 75 68 64 Respiratory Rate 19 21 20 Blood Pressure 109/51 L 141/62 H Pulse Oximetry 100 100 100 05/01/18 04:01 05/01/18 05:00 05/01/18 06:00 Temperature Pulse Rate 64 61 60 Respiratory Rate 21 21 22 Blood Pressure 141/62 H 115/55 L 123/60 Pulse Oximetry 100 100 100 05/01/18 07:00 05/01/18 08:00 05/01/18 08:48 Temperature 98.4 F Pulse Rate 56 L 56 L 55 L Respiratory Rate 20 26 H 18 Blood Pressure 110/51 L 109/56 L Pulse Oximetry 100 100 05/01/18 09:00 05/01/18 09:01 05/01/18 10:00 Temperature Pulse Rate 58 L 59 L 60 Respiratory Rate 19 29 H 17 Blood Pressure 116/57 L 116/57 L 104/50 L Pulse Oximetry 100 96 100 05/01/18 11:00 05/01/18 12:00 05/01/18 12:10 Temperature 98.3 F Pulse Rate 60 57 L 58 L Respiratory Rate 20 21 18 Blood Pressure 97/54 L 103/51 L Pulse Oximetry 99 98 05/01/18 13:00 05/01/18 13:04 Temperature Pulse Rate 62 65 Respiratory Rate 31 H 27 H Blood Pressure 109/63 Pulse Oximetry 97 91 L Intake & Output 04/30/18 05/01/18 05/01/18 18:59 06:59 18:59 Intake Total 120 / 120 0 / 0 Output Total 500 / 500 Balance 120 / 120 -500 / -500 Weight 72.575 kg 61.7 kg Intake: IV 120 / 120 Calcium Gluconate Inj 2 GM In 120 / 120 NS Inj 100 ML @ 120 mls/hr IV. SIG ONCE ONE Rx#:[id number] Oral 0 / 0 Output: Hemodialysis Amount 500 / 500 Other: # Voids 0 Date of Last Bowel Movement 04/29/18 04/29/18 # Bowel Movements 0 Weight On Admission 61.3 kg Narrative: Please see my daily progress note from today. There have been no changes in exam prior to discharge. Results Procedures completed during hospitalization: None Completed studies during hospitalization: None Labs on day of discharge: Labs from last 24 hours 05/01/18 05/01/18 05/01/18 12:29 05:08 04:26 WBC RBC Hgb POC Hgb (Calc) Hct POC Hct MCV MCH MCHC RDW Plt Count MPV Prelim Diff (Auto) Neut % (Auto) Lymph % (Auto) Nash % (Auto) Eos % (Auto) Baso % (Auto) Neut # (Auto) Lymph # (Auto) Nash # (Auto) Eos # (Auto) Baso # (Auto) WBC Differential Diff Scan Differential Comment Platelet Estimate Platelet Morphology Ovalocytes PT INR POC Sodium Sodium 141 POC Potassium Potassium 5.3 H POC Chloride Chloride 102 Carbon Dioxide 31.0 D Anion Gap 8 POC BUN BUN 31 H Creatinine 4.83 H POC Creatinine Estimated GFR 14 L POC Glucose 158 H 87 Random Glucose 84 D Lactic Acid Calcium 9.9 D Prot Corrected Calcium Phosphorus 4.4 Magnesium 2.2 Total Bilirubin 0.6 AST 28 ALT 41 Alkaline Phosphatase 157 H Total Creatine Kinase CK-MB (CK-2) Troponin I B-Natriuretic Peptide Total Protein 7.4 D Albumin 3.6 Lipase Nasal Screen MRSA (PCR) 05/01/18 05/01/18 05/01/18 04:26 04:26 01:33 WBC 7.6 RBC 3.37 L Hgb 11.2 L POC Hgb (Calc) Hct 33.0 L POC Hct MCV 98.0 D MCH 33.3 MCHC 34.0 RDW 14.8 Plt Count 60 L D MPV 9.7 Prelim Diff (Auto) Slide review pending Neut % (Auto) 72.4 H Lymph % (Auto) 18.2 Nash % (Auto) 7.6 Eos % (Auto) 1.5 Baso % (Auto) 0.3 Neut # (Auto) 5.5 Lymph # (Auto) 1.4 Nash # (Auto) 0.6 Eos # (Auto) 0.1 Baso # (Auto) 0.0 WBC Differential . Diff Scan Auto diff confirmed Differential Comment . Platelet Estimate Low L Platelet Morphology Normal Ovalocytes 1+ H PT 12.1 H INR 1.2 POC Sodium Sodium POC Potassium Potassium 5.0 D POC Chloride Chloride Carbon Dioxide Anion Gap POC BUN BUN Creatinine POC Creatinine Estimated GFR POC Glucose Random Glucose Lactic Acid Calcium Prot Corrected Calcium Phosphorus Magnesium Total Bilirubin AST ALT Alkaline Phosphatase Total Creatine Kinase CK-MB (CK-2) Troponin I B-Natriuretic Peptide Total Protein Albumin Lipase Nasal Screen MRSA (PCR) 04/30/18 04/30/18 04/30/18 23:17 21:45 18:09 WBC RBC Hgb POC Hgb (Calc) Hct POC Hct MCV MCH MCHC RDW Plt Count MPV Prelim Diff (Auto) Neut % (Auto) Lymph % (Auto) Nash % (Auto) Eos % (Auto) Baso % (Auto) Neut # (Auto) Lymph # (Auto) Nash # (Auto) Eos # (Auto) Baso # (Auto) WBC Differential Diff Scan Differential Comment Platelet Estimate Platelet Morphology Ovalocytes PT INR POC Sodium Sodium POC Potassium Potassium POC Chloride Chloride Carbon Dioxide Anion Gap POC BUN BUN Creatinine POC Creatinine Estimated GFR POC Glucose 87 156 H Random Glucose Lactic Acid Calcium Prot Corrected Calcium Phosphorus Magnesium Total Bilirubin AST ALT Alkaline Phosphatase Total Creatine Kinase CK-MB (CK-2) Troponin I B-Natriuretic Peptide Total Protein Albumin Lipase Nasal Screen MRSA (PCR) Mrsa detected 04/30/18 04/30/18 04/30/18 16:08 16:05 15:15 WBC RBC Hgb POC Hgb (Calc) 14.6 Hct POC Hct 43.0 MCV MCH MCHC RDW Plt Count MPV Prelim Diff (Auto) Neut % (Auto) Lymph % (Auto) Nash % (Auto) Eos % (Auto) Baso % (Auto) Neut # (Auto) Lymph # (Auto) Nash # (Auto) Eos # (Auto) Baso # (Auto) WBC Differential Diff Scan Differential Comment Platelet Estimate Platelet Morphology Ovalocytes PT INR POC Sodium 134 L Sodium POC Potassium Greater than 9.0 H* Potassium POC Chloride 109 Chloride Carbon Dioxide Anion Gap POC BUN 70 H BUN Creatinine POC Creatinine 6.2 H Estimated GFR POC Glucose 277 H 281 H Random Glucose Lactic Acid Calcium Prot Corrected Calcium Phosphorus Magnesium 2.4 Total Bilirubin AST ALT Alkaline Phosphatase Total Creatine Kinase CK-MB (CK-2) Troponin I B-Natriuretic Peptide Total Protein Albumin Lipase Nasal Screen MRSA (PCR) 04/30/18 04/30/18 04/30/18 15:15 15:15 15:15 WBC RBC Hgb POC Hgb (Calc) Hct POC Hct MCV MCH MCHC RDW Plt Count MPV Prelim Diff (Auto) Neut % (Auto) Lymph % (Auto) Nash % (Auto) Eos % (Auto) Baso % (Auto) Neut # (Auto) Lymph # (Auto) Nash # (Auto) Eos # (Auto) Baso # (Auto) WBC Differential Diff Scan Differential Comment Platelet Estimate Platelet Morphology Ovalocytes PT INR POC Sodium Sodium POC Potassium Potassium POC Chloride Chloride Carbon Dioxide Anion Gap POC BUN BUN Creatinine POC Creatinine Estimated GFR POC Glucose Random Glucose Lactic Acid 4.5 H* Calcium Prot Corrected Calcium Phosphorus Magnesium Total Bilirubin AST ALT Alkaline Phosphatase Total Creatine Kinase Cancelled CK-MB (CK-2) Troponin I Cancelled B-Natriuretic Peptide Total Protein Albumin Lipase Cancelled Nasal Screen MRSA (PCR) 04/30/18 04/30/18 04/30/18 15:15 15:15 15:15 WBC 10.8 RBC 3.92 L Hgb 13.1 POC Hgb (Calc) Hct 40.7 POC Hct MCV 103.9 H MCH 33.6 MCHC 32.3 RDW 16.3 Plt Count 90 L MPV 9.8 Prelim Diff (Auto) Slide review pending Neut % (Auto) 78.0 H Lymph % (Auto) 15.2 Nash % (Auto) 6.2 Eos % (Auto) 0.3 Baso % (Auto) 0.3 Neut # (Auto) 8.5 H Lymph # (Auto) 1.6 Nash # (Auto) 0.7 Eos # (Auto) 0.0 Baso # (Auto) 0.0 WBC Differential . Diff Scan Auto diff confirmed Differential Comment . Platelet Estimate Platelet Morphology Ovalocytes PT INR POC Sodium Sodium 134 L POC Potassium Potassium 9.2 H* POC Chloride Chloride 105 Carbon Dioxide 20.9 L Anion Gap 8 POC BUN BUN 50 H Creatinine 6.37 H POC Creatinine Estimated GFR 10 L POC Glucose Random Glucose 235 H Lactic Acid Calcium 11.7 H* Prot Corrected Calcium 10.9 H Phosphorus Magnesium Total Bilirubin 0.5 AST 23 ALT 45 Alkaline Phosphatase 176 H Total Creatine Kinase 117 CK-MB (CK-2) 4.0 H Troponin I 0.03 B-Natriuretic Peptide 554 H Total Protein 8.4 H Albumin 4.0 Lipase 251 Nasal Screen MRSA (PCR) - Impressions ITS Impressions Chest X-Ray 04/30/18 14:38 CONCLUSION: 1. Minimal central pulmonary vascular congestion. 2. Minimal cardiomegaly. Abdomen/Pelvis CT 04/30/18 15:00 CONCLUSION: 1. Bilateral renal atrophy and scarring and multiple bilateral renal cysts are again noted and unchanged. 2. Scattered calcified nonobstructing left renal calculi are also unchanged. 3. No acute obstructive uropathy is noted. 4. Hepatosplenomegaly. 5. Distended gallbladder without gallstones or wall thickening. 6. Uncomplicated colonic diverticulosis. 7. Enlarged prostate. 8. Degenerative changes throughout the thoracolumbar spine. - Additional Comments manager audio spoke with RN at [facility]; patient is scheduled for his next HD session tomorrow to get back on his regular schedule. They also faxed a home medication sheet that I reviewed while reconciling the patient's home meds for discharge. Discharge Plan - Discharge Disposition Patient Disposition: W/Home Health Service - Discharge Condition Condition: Stable - Discharge Order Discharge Orders: Discharge Order (Routine); Ordered 05/01/18 Ordered By: Britt Bardales - Discharge Details Anticipated Discharge Date: 05/01/18 Discharge Comment: After hemodialysis - Physicians Team Primary Care Provider: Harris Umana Attending Provider: Britt Bardales Other Providers: Tere Dunn MD
[2018-05-01 18:30] VITALS: BP 113/75; PULSE 75; RESP 67; O2SAT 100
[2018-05-01] MEDS ORDERED: Famotidine PF Inj 20 MG/2 ML Vial IV.PUSH PRN (21:00)
[2018-05-01] MEDS ORDERED: Famotidine 20 MG Tablet PO SCH (21:00)
--- NOTE | 2018-05-01 22:13 | ECG ---
Date Performed: 04/30/2018 Time Performed: 17:27:27 PTAGE: 73 years EKG: ATRIAL FIBRILLATION WITH SLOW VENTRICULAR RESPONSE RIGHT BUNDLE BRANCH BLOCK LEFT ANTERIOR FASCICULAR BLOCK ABNORMAL ECG PREVIOUS TRACING : 04/30/2018 16.14 Since the previous tracing, no significant change noted DOCTOR: Jeanne Solorio Interpretating Date/Time 05/01/2018 22:11:48
--- NOTE | 2018-05-01 22:15 | ECG ---
Date Performed: 04/30/2018 Time Performed: 16:14:09 PTAGE: 73 years EKG: ATRIAL FIBRILLATION MARKED LEFT AXIS DEVIATION RIGHT BUNDLE BRANCH BLOCK ABNORMAL ECG NO PREVIOUS TRACING DOCTOR: Jeanne Solorio Interpretating Date/Time 05/01/2018 22:14:39
--- NOTE | 2018-05-01 22:24 | ECG ---
Date Performed: 04/30/2018 Time Performed: 16:06:53 PTAGE: 73 years EKG: ATRIAL FIBRILLATION WITH SLOW VENTRICULAR RESPONSE INDETERMINATE AXIS DEVIATION LAFB RBBB A BNORMAL ECG Compared to PREVIOUS TRACING , significant bradycardia now present DOCTOR: Jeanne Solorio Interpretating Date/Time 05/01/2018 22:23:30
--- NOTE | 2018-05-01 22:30 | ECG ---
Date Performed: 04/30/2018 Time Performed: 15:17:24 PTAGE: 73 years EKG: ATRIAL FIBRILLATION WITH SLOW VENTRICULAR RESPONSE MARKED LEFT AXIS DEVIATION INTRAVENTRICU LAR CONDUCTION DELAY MARKED ST ELEVATION, CONSIDER SEPTAL INJURY ACUTE PR Compared to PREVIOUS TRACING , ST elevation and IVCD present DOCTOR: Jeanne Solorio Interpretating Date/Time 05/03/2018 07:01:35
== END 2018-05-01 22:00 | disposition home health service (06) ==
LOC: NEPD 14:18 → NEDA 17:24 → HIMC 21:35
PROVIDERS: ADMIT Surgery Surgical Critical Care; ATTEND Surgery Surgical Critical Care